=== PATIENT | male | born 1950 | race African-American/Black ===

== ENCOUNTER 2019-09-07 00:21 | Inpatient (IN) | payer MEDICARE, OTHER ==
[2019-09-07 01:24] LABS: #Eosinphils 0.1 thou/uL (0.0-0.7); #Lymphocytes 0.9 thou/uL (1.20-3.40); #Monocytes 0.6 thou/uL (0.11-0.59); #Neutrophils 3.2 thou/uL (1.40-6.50); %Basophils 0.4 % (0.0-1.0); %Lymphocytes 18.1 % (21.0-51.0); %Monocytes 12.5 % (0.0-10.0); Hemoglobin 11.7 g/dL (14.0-18.0); Mean Platelet Volume 9.3 fL (7.4-10.4); Platelet Count 150 thou/uL (130-400); RBC Distribution Width 18.3 % (11.5-14.5); Red Blood Cell (RBC) Count 3.55 mill/uL (4.70-6.10); White Blood Cell (WBC) Count 4.7 thou/uL (4.8-10.8)
[2019-09-07 01:37] LABS: ALT (SGPT) Less than 7 U/L (8-55); AST (SGOT) 7 U/L (5-34); Albumin 3.8 g/dL (3.4-4.8); Alkaline Phosphatase 86 U/L (40-110); Anion Gap 21 mmol/L (10-20); BUN (Urea Nitrogen) 70 mg/dL (8.4-25.7); Bilirubin, Total 0.6 mg/dL (0.2-1.2); Calc. Creatinine Clearance 0 mL/min (70-130); Calcium 9.3 mg/dL (7.8-10.44); Carbon Dioxide 22 mmol/L (23-31); Chloride 104 mmol/L (98-107); Estimated GFR-MDRD 11; Globulin 2.4 g/dL (2.4-3.5); Glucose 195 mg/dL (80-115); Potassium 5.1 mmol/L (3.5-5.1); Protein, Total 6.2 g/dL (5.8-8.1); Sodium 142 mmol/L (136-145)
[2019-09-07 02:00] LABS: CKMB 4.8 ng/mL (0-6.6)
[2019-09-07] MEDS ORDERED: Ondansetron ODT 4 MG TAB PO PRN (02:03)
[2019-09-07] MEDS ORDERED: Dextrose 5% in Water 1,000 ML IV PRN (02:10)
[2019-09-07] MEDS ORDERED: Furosemide 20 MG/2 ML VIAL ONE (02:24)
--- NOTE | 2019-09-07 02:29 | PDOC.EVN ---
Event Note - Event Note Event Note: [id number]
[2019-09-07 02:41] LABS: Lactic Acid 1.4 mmol/L (0.5-2.2)
[2019-09-07 03:56] LABS: #Eosinphils 0.2 thou/uL (0.0-0.7); #Lymphocytes 1.1 thou/uL (1.20-3.40); #Monocytes 0.7 thou/uL (0.11-0.59); #Neutrophils 3.1 thou/uL (1.40-6.50); %Basophils 0.1 % (0.0-1.0); %Eosinophils 3.3 % (0.0-10.0); %Lymphocytes 21.4 % (21.0-51.0); %Monocytes 13.7 % (0.0-10.0); %Neutrophils 61.4 % (42.0-75.0); Hemoglobin 11.7 g/dL (14.0-18.0); Mean Corpuscular HGB CONC 31.3 g/dL (32.0-36.0); Mean Corpuscular Hemoglobin 32.5 pg (27.0-31.0); Mean Platelet Volume 5.8 fL (7.4-10.4); Platelet Count 34 thou/uL (130-400); RBC Distribution Width 18.2 % (11.5-14.5)
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
[2019-09-07 05:42] LABS: Bilirubin 1+ (Negative); Blood, Urine Negative (Negative); Clarity Turbid (Clear); Glucose, Urine (Dipstick) 30 mg/dL (Negative); Leukocyte 75 Leu/uL (Negative); Mucous/LPF Rare LPF (<2+); Nitrite Negative (Negative); Protein, Urine (Dipstick) 100 mg/dL (Neg-Trace); Urobilinogen 3 mg/dL (Less than 2)
[2019-09-07 05:44] LABS: Bacteria/HPF 1+ HPF (None Seen)
[2019-09-07 05:45] LABS: Unclassified Crystals Rare HPF (None Seen)
[2019-09-07] MEDS ORDERED: Acetaminophen 325 MG TAB ONE (05:56)
[2019-09-07] MEDS ORDERED: Furosemide 40 MG/4 ML VIAL ONE (05:56)
[2019-09-07] MEDS: Furosemide 40 MG/4 ML VIAL SLOW IVP SCH ×2 (06:22→15:38)
[2019-09-07 07:09] LABS: Troponin I 0.126 ng/mL (< 0.028)
--- NOTE | 2019-09-07 07:30 | RAD ---
RADIOGRAPH CHEST 1 VIEW: DATE: 09/07/2019 TIME: 1:05 AM HISTORY: 69-year-old male with dyspnea COMPARISON: 04/17/2016 FINDINGS: In addition to previously demonstrated multiple right subclavian, right axillary, and right brachioce phalic metallic venous stents, there is a new right-sided large caliber hemodialysis catheter with distal tip probably in the inferior vena cava. New finding of complete silhouetting of the bilateral hemidiaphragms with dense opacification. New finding of opacification of perihilar central portions of the lungs. No pneumothorax identified. IMPRESSION: 1. Bilateral pleural effusions. 2. Central and bibasilar pulmonary opacifications. 3. Right-sided hemodialysis catheter with distal tip probably in the inferior vena cava.
[2019-09-07] MEDS: Heparin 5,000 UNITS/ML VIAL SC SCH ×2 (08:42→15:07)
[2019-09-07] MEDS ORDERED: Famotidine 20 MG TAB ONE (08:44)
[2019-09-07] MEDS ORDERED: Aspirin Chewable 81 MG TAB ONE (08:44)
--- NOTE | 2019-09-07 08:47 | ULT ---
PRELIMINARY REPORT/[facility]/EMERGENCY AFTER HOURS PROCEDURE: EXAM: US Scrotum. CLINICAL HISTORY: Bilat teste pain/edema TECHNIQUE: Real-time ultrasound of the scrotum with color Doppler and image documentation. COMPARISON: None provided. FINDINGS: RIGHT TESTICLE: No mass. Normal Doppler flow. Measures 2.7 x 3.6 x 2.3 cm and demonstrates mild soft tissue edema LEFT TESTICLE: No mass. Normal Doppler flow. Measures 2.4 x 3.1 x 1.5 cm EPIDIDYMIDES: Unremarkable. SCROTUM: A small right-sided hydrocele is noted with scrotal wall edema. IMPRESSION: The findings suggest possible right-sided orchitis. There is no evidence for testicular torsion ELECTRONICALLY SIGNED BY: Horace German MD Sep 07, 2019 2:39:08 AM [employer] COMPLIANCE SPECIALIST This report is intended for review by the ordering physician only, in accordance of law. If you recei ve this report in error, please call [facility] at [phone]. FINAL REPORT: TESTICULAR ULTRASOUND WITH PETER SCALE COLOR FLOW AND SPECTRAL DOPPLER IMAGING: I agree with the preliminary report given by [facility]. POS: [facility]
[2019-09-07] MEDS: Famotidine 20 MG TAB PO SCH (08:53)
[2019-09-07] MEDS ORDERED: Aspirin Chewable 81 MG TAB PO SCH (09:00)
--- NOTE | 2019-09-07 13:18 | CON ---
DATE OF CONSULTATION: HISTORY OF PRESENT ILLNESS: The patient is an unfortunate 69-year-old gentleman ,who presents with increasing dyspnea. The patient has a previous history of congestive heart failure and chronic renal failure. The patient has previously undergone a renal transplantation in 2018. The patient does have chronic renal insufficiency. The patient presented with increasing dyspnea. He denied having any chest discomfort. The patient denies having any previous history of coronary artery disease or any history of myocardial infarction. The patient does have multiple cardiac risk factors including diabetes mellitus, hypertension, and dyslipidemia. PAST MEDICAL HISTORY: 1. Chronic renal failure. 2. Hypertension. 3. Diabetes mellitus. 4. Dyslipidemia. 5. Stent placed in the subclavian. 6. Dyslipidemia. 7. Depression. PAST SURGICAL HISTORY: Back surgery, and AV fistula placement. MEDICATIONS: See nursing list. ALLERGIES: MORPHINE, PENICILLIN. FAMILY HISTORY: No strong family history of heart disease. SOCIAL HISTORY: Nonsmoker. REVIEW OF SYSTEMS: Ten-point system noticeable for increasing weakness, otherwise unremarkable. PHYSICAL EXAMINATION: GENERAL: Ill-appearing gentleman, in mild distress. VITAL SIGNS: Blood pressure 143/73. NECK: Showed no jugular venous distention. LUNGS: Have crackles in both lung penn. HEART: Regular rate and rhythm. Normal S1 and S2 with no murmurs. ABDOMEN: Nondistended. EXTREMITIES: Show mild bilateral edema. LABORATORY RESULTS: His sodium is 142, potassium 5.1, chloride 104, bicarbonate 22, BUN 70, and creatinine 6.1. Troponin was 0.103. BNP 778. White blood cell count 5.0, hemoglobin 11.7, hematocrit 37.3, and platelets were 34. IMAGING DATA: His EKG revealed normal sinus rhythm with left axis deviation, right bundle-branch block and a left bundle-branch block with occasional premature ventricular contractions. Echocardiogram revealed normal left ventricular ejection fraction 60% to 65%, moderate LVH, diastolic dysfunction, large pleural effusion. Chest x-ray revealed bilateral pleural effusions. IMPRESSION: 1. Acute on chronic renal failure. 2. Congestive heart failure secondary to diastolic dysfunction. 3. Large pleural effusion. 4. History of renal transplantation. 5. Conduction disease with right bundle-branch block. 6. Diabetes mellitus. 7. Dyslipidemia. 8. Thrombocytopenia. PLAN: This gentleman presents with acute on chronic renal failure. The patient is being diuresed. We would recheck the patient's platelet level. The patient may need to restart dialysis. We will follow this patient with you through his hospitalization. Job ID: [id number] MTDD
[2019-09-07] MEDS ORDERED: SILDENAFIL CITRATE 100 MG PO PRN (14:31)
[2019-09-07] MEDS ORDERED: Docusate 100 MG CAP PO PRN (14:31)
[2019-09-07] MEDS ORDERED: hydrOXYzine 25 MG TAB PO PRN (14:31)
[2019-09-07] MEDS ORDERED: HYDROcodone/Acetaminophen 10/325 mg Tablet PO PRN (14:31)
[2019-09-07] MEDS ORDERED: tiZANidine HCl 4 MG TAB PO PRN (14:31)
[2019-09-07] MEDS ORDERED: Acetaminophen/Codeine 30-300mg Tablet PO PRN (14:31)
[2019-09-07] MEDS ORDERED: Metoprolol Tartrate 50 MG TAB PO SCH (21:00)
[2019-09-07] MEDS ORDERED: RANITIDINE HCL 150 MG PO SCH (21:00)
[2019-09-07] MEDS ORDERED: Amlodipine 5 MG TAB PO SCH (21:00)
[2019-09-07] MEDS ORDERED: Non-Formulary Item 1 EACH (Insulin Detemir [Levemir Flextouch] 35 UNIT) SQ SCH (21:00)
[2019-09-07] MEDS: Mycophenolate 250 MG CAP PO SCH (21:20)
[2019-09-07] MEDS: Atorvastatin Calcium 40 MG TAB PO SCH (21:20)
[2019-09-07] MEDS: Cephalexin 250 MG CAP PO SCH (21:20)
[2019-09-07] MEDS: Magnesium Oxide 400 MG TAB PO SCH (21:20)
[2019-09-07] MEDS: Tacrolimus 0.5 MG CAP PO SCH (21:20)
[2019-09-07] MEDS: Tacrolimus 1 MG CAP PO SCH (21:21)
[2019-09-07] MEDS: DorzolamidE/Timolol 2%/0.5% Ophth Soln 10 ml Bottle EA EYE SCH (21:28)
[2019-09-07] MEDS: Sodium Chloride Nasal 15 GM TUBE EA NARE SCH (21:30)
[2019-09-07] MEDS: Ammonium Lactate 12% Lotion 225 GM BOT TOP SCH (21:30)
[2019-09-07] MEDS: Gabapentin 100 MG CAP PO SCH (21:30)
[2019-09-07] MEDS: Insulin Glargine 35 UNITS in Pre-Filled Syringe 1 EACH SC SCH (21:30)
[2019-09-08] MEDS ORDERED: Sodium Chloride 0.9% 500 ML IV SCH (01:30)
--- NOTE | 2019-09-08 01:30 | PDOC.EVN ---
Event Note - Event Note Event Note: Melania, RN called to inform us of low urinary output, and 150mls via bladder scanner. Discussed with Dr. Abarca, who admitted patient yesterday. Requested for nurses to call Dr. Fitzpatrick again regarding creatinine and decreased urine output. Chart reviewed, bas met ordered stat and awaiting recommendations via Dr. Fitzpatrick.
[2019-09-08 02:09] LABS: Anion Gap 23 mmol/L (10-20); BUN (Urea Nitrogen) 73 mg/dL (8.4-25.7); Calc. Creatinine Clearance 14 mL/min (70-130); Calcium 8.7 mg/dL (7.8-10.44); Carbon Dioxide 13 mmol/L (23-31); Chloride 113 mmol/L (98-107); Estimated GFR-MDRD 10; Glucose 265 mg/dL (80-115); Potassium 7.4 mmol/L (3.5-5.1); Sodium 142 mmol/L (136-145)
[2019-09-08] MEDS ORDERED: Calcium Gluconate 4.6 MEQ in Sodium Chloride 0.9% 100 ML IVPB SCH (02:23)
[2019-09-08] MEDS ORDERED: Sodium Bicarb 50 MEQ/50 ML VIAL IVP SCH (02:30)
[2019-09-08] MEDS ORDERED: Dextrose 50% Abboject 50 ML SYRINGE SLOW IVP SCH (02:30)
[2019-09-08] MEDS ORDERED: Insulin Regular 300 UNITS/3 ML VIAL IVP SCH (02:30)
--- NOTE | 2019-09-08 02:32 | PDOC.EVN ---
Event Note - Event Note Event Note: Potassium 7.4, Dr. Quiñonez notified, we have ordered an amp of bicarb, D50, 10 units of regular insulin, calcium gluconate 1gm and a stat EKG. Will transfer patient to [facility]. Nurse stated she talked to Dr. Fitzpatrick who stated he was on his way to see patient. He was notified prior to new chemistry results.
[2019-09-08 05:26] LABS: Anion Gap 14 mmol/L (10-20); BUN (Urea Nitrogen) 71 mg/dL (8.4-25.7); Calc. Creatinine Clearance 15 mL/min (70-130); Calcium 9.3 mg/dL (7.8-10.44); Carbon Dioxide 30 mmol/L (23-31); Chloride 104 mmol/L (98-107); Estimated GFR-MDRD 11; Glucose 281 mg/dL (80-115); Sodium 143 mmol/L (136-145)
[2019-09-08 05:54] LABS: HIV (1/2) Antibody/Antigen Non-Reactive (NonReactive); HIV 1/2 INDEX 0.08 S/CO (<1.00); Hep C IgG Ab Non-Reactive (NonReactive); Hep C Index 0.07 S/CO (0-0.79)
[2019-09-08] MEDS: Levothyroxine 175 MCG TAB PO SCH (07:39)
[2019-09-08] MEDS: Furosemide 40 MG/4 ML VIAL SLOW IVP SCH ×2 (07:39→14:24)
[2019-09-08 08:49] LABS: HBSAg Index 0.13 S/CO (0-0.99); Hep B Surf Ag Non-Reactive S/CO (NonReactive)
[2019-09-08] MEDS ORDERED: Tuberculin PPD 0.1 ML VIAL I-DERMAL SCH (09:00)
[2019-09-08] MEDS ORDERED: INSULIN DETEMIR 75 UNIT SQ SCH (09:00)
[2019-09-08] MEDS ORDERED: Heparin 10,000 UNITS/ 10 ML VIAL ONE (09:07)
[2019-09-08] MEDS: Aspirin 81 mg Enteric Coated Tablet PO SCH (11:29)
[2019-09-08] MEDS: Cephalexin 250 MG CAP PO SCH (11:29)
[2019-09-08] MEDS: Famotidine 20 MG TAB PO SCH (11:30)
[2019-09-08] MEDS: Magnesium Oxide 400 MG TAB PO SCH (11:30)
[2019-09-08] MEDS: DorzolamidE/Timolol 2%/0.5% Ophth Soln 10 ml Bottle EA EYE SCH ×2 (11:30→22:11)
[2019-09-08] MEDS: Gabapentin 100 MG CAP PO SCH (11:30)
[2019-09-08] MEDS: Multivit, Therapeutic 1 TAB PO SCH (11:31)
[2019-09-08] MEDS: Mycophenolate 250 MG CAP PO SCH ×2 (11:31→23:42)
[2019-09-08] MEDS: predniSONE 5 MG TAB PO SCH (11:31)
[2019-09-08] MEDS: Insulin Glargine 75 UNITS in Pre-Filled Syringe 1 EACH SC SCH (11:32)
[2019-09-08] MEDS: Sodium Chloride Nasal 15 GM TUBE EA NARE SCH ×2 (11:32→22:11)
[2019-09-08] MEDS: Tacrolimus 1 MG CAP PO SCH ×2 (11:33→23:42)
[2019-09-08] MEDS: Tacrolimus 0.5 MG CAP PO SCH ×2 (11:34→23:43)
[2019-09-08] MEDS: Ammonium Lactate 12% Lotion 225 GM BOT TOP SCH ×2 (12:15→22:42)
[2019-09-08] MEDS: Witch Hazel-Glycerin 1 EACH JAR TOP SCH (12:16)
[2019-09-08 12:44] LABS: Hemoglobin 12.2 g/dL (14.0-18.0); Mean Corpuscular HGB CONC 32.2 g/dL (32.0-36.0); Mean Corpuscular Hemoglobin 34.2 pg (27.0-31.0); RBC Distribution Width 18.2 % (11.5-14.5); Red Blood Cell (RBC) Count 3.56 mill/uL (4.70-6.10)
[2019-09-08 13:00] LABS: Mean Platelet Volume 9.3 fL (7.4-10.4); Platelet Count 118 thou/uL (130-400)
[2019-09-08 13:03] LABS: Anisocytosis SLIGHT = 6-15 cells (100X) (0-5/hpf); Eosinophils 1 % (0-10); Howell Jolly Bodies SLIGHT = 1-2 cells (100X) (None Seen); Lymphocytes 15 % (21-51); MDiff Complete? YES; Macrocytosis SLIGHT = 6-15 cells (100X) (0-5/hpf); Monocytes 12 % (0-10); Neutrophil 70 % (42-75); Ovalocytes SLIGHT = 2-5 cells (100X) (0-1/hpf); Platelet Morphology Comment Appears Decreased; Poikilocytosis SLIGHT = 6-15 cells (100X) (0-5/hpf); Polychromasia SLIGHT = 2-3 cells (100X) (0-2/hpf); Reactive Lymphocytes 2 % (0-10); Schistocytes SLIGHT = 2-5 cells (100X) (0-1/hpf); Tear Drops SLIGHT = 2-5 cells (100X) (0-1/hpf)
--- NOTE | 2019-09-08 13:43 | PRG ---
DATE OF SERVICE: 09/08/2019 SUBJECTIVE: The patient is seen and examined at the bedside. The patient's family is present in the room. The patient is not communicating with them and not able to communicate with me. He is not arousable. He responds to painful stimuli. Apparently, he is like this for the last 2 days. OBJECTIVE: VITAL SIGNS: Blood pressure is 111/57, pulse is 56, temperature is 96.8, respiratory rate is 16, O2 saturation is 94% on 2 L by nasal cannula. HEENT: His left eye is not present in the socket. The right eye pupil is responding to light in a sluggish way and sclera is nonicteric. Conjunctiva is palish. Oral mucosa is not examined. LUNGS: Breath sounds diminished at both bases. Apparent pleural effusion is present showing some dullness on percussion at both bases. HEART: S1, S2 normal with occasional irregular beats. No S3. No S4. ABDOMEN: Soft, nontender, and nondistended. Left groin, the patient has a catheter for dialysis. EXTREMITIES: 1 to 2+ peripheral edema in the upper and lower extremities with significant wrinkling over the lower extremities. NEUROLOGIC: He is in deep coma. Arousable with painful stimuli, but not able to open his eyes and keep any communication with me. He falls asleep right back. LABORATORY DATA: White count of 6.0, hemoglobin of 12.2, hematocrit 37.8, platelet count is 118,000. Last chemistry, sodium of 143, potassium 5.0, hemoglobin of 104, CO2 of 30, BUN 71, creatinine is 6.28, glucose is 281. Glycemia is ranging from 190 to 251. Calcium is 9.3. Hepatitis B surface antigen nonreactive. Hepatitis C antibody nonreactive and HIV 1 and 2 antigen and antibodies nonreactive. Echocardiogram showed estimated LVEF at 60% to 65%. Left ventricular size is normal. Moderate concentric left ventricular hypertrophy present. Impaired relaxation compatible with diastolic dysfunction, mild to moderate tricuspid regurgitation, and large pleural effusion. IMPRESSION: 1. Acute on chronic renal failure, status post kidney transplantation in 2018. 2. Acute exacerbation of congestive heart failure and fluid overload. 3. Acute hyperkalemia corrected with hemodialysis. 4. Diabetes mellitus. 5. Hypertension. 6. Sleep apnea. 7. Comatose state, most likely caused by uremia. PLAN: We will obtain ABGs on him. The patient had the line placed in the left groin by general surgeon for hemodialysis and will continue dialysis per recommendation of our colleter, Dr. Fitzpatrick. We will try to contact a kidney tutor coordinator in [place]. Apparently, the patient was not taking his anti-rejection medications like he was supposed to for at least 7 to 10 days. Preliminary cultures on his blood and urine are negative. We will continue his insulin, which is 75 units of insulin Lantus in the morning and 35 units in the evening since his glycemia is high and even he is not eating at this point because he is in coma. We will continue his tacrolimus, prednisone, and CellCept. We will continue his Synthroid and Lasix. His urine output is very diminished. We will do strict input and output. Job ID: [id number]
--- NOTE | 2019-09-08 14:03 | ULT ---
Abdominal ultrasound: 09/08/2019 COMPARISON: None HISTORY: Renal failure, transplant TECHNIQUE: Multiplanar grayscale sonographic imaging of the abdomen provided. FINDINGS: The pancreas is poorly visualized secondary to body habitus and bowel gas. There is small v olume free fluid adjacent to the liver. Bilateral pleural effusions are present. No discrete focal liver lesion is seen. Imaged IVC and aorta appear grossly unremarkable. A transplant kidney is noted in the right lower quadrant measuring 12.6 x 6.5 x 6.0 cm with a cortica l thickness of 2 cm. The transplant kidney demonstrate no hydronephrosis or mass. The common bile duct measures 2 mm, within normal limits. The gallbladder is distended, measuring 5.1 cm in transverse dimension. Gallbladder contains sludge. Gallbladder wall is thickened, measuring in the 4mm range, significance uncertain. The system consultant reports a negative Seth's sign. There is an atrophic echogenic right kidney measuring 6.5 cm in craniocaudal dimension. The spleen is relatively small measuring 7.3 x 3.1 cm. Left [place] kidney could not be visualized. Urinary bladder is grossly unremarkable. Bilateral pleural effusions are present. IMPRESSION: Small volume ascites. Bilateral pleural effusions. Mild gallbladder wall thickening and g allbladder sludge with negative Seth's sign and no gallstones. Significance uncertain. Gallbladder wall thickening may be on the basis of systemic illness. If there is concern for cholecys titis, hepatobiliary scan is suggested.
[2019-09-08] MEDS: HumaLOG 300 UNITS/3 ML VIAL SC PRN ×2 (14:38→19:12)
--- NOTE | 2019-09-08 17:09 | PDOC.OP ---
Operative Note - Operative Note Operative Note: PROCEDURE: Left femoral hemodialysis catheter placement with ultrasound guidance SURGEON: Jabari Butler M.D. PREOPERATIVE DIAGNOSIS: Acute renal failure with hyperkalemia POSTOPERATIVE DIAGNOSIS: Acute renal failure with hyperkalemia HISTORY: Patient with end-stage renal failure on dialysis. Received a kidney transplant last year. He apparently stopped taking his medications and is now in acute renal failure with hyperkalemia and requires emergency dialysis access. His previously placed vascular access has thrombosed. PROCEDURE: After informed consent was obtained the patient placed in supine position and both femoral areas examined by ultrasound. The right femoral vein was found to be very small but the left femoral vein was adequate size for placement of dialysis catheter. The left groin was prepped and draped in standard sterile fashion. A sterile ultrasound probe was used to identify the patent femoral vein and local anesthesia was infused the skin and subcutaneous tissues overlying this. The vein was accessed under direct ultrasound guidance and a wire threaded through the needle. The needle was removed leaving the wire in place which was confirmed by ultrasound to be within the patent compressible vein. The skin was incised and the tract was dilated. A hemodialysis catheter was placed over the wire and secured to the skin with suture. A Biopatch and Tegaderm dressing was placed. All ports easily aspirated dark venous nonpulsatile blood and easily flushed without resistance. There were no immediate complications. Estimated blood loss is minimal. There were no specimens. The inpatient dialysis nurse was alerted that the patient had dialysis access in place.
[2019-09-08] MEDS: Insulin Glargine 35 UNITS in Pre-Filled Syringe 1 EACH SC SCH (22:12)
[2019-09-09] MEDS: Atorvastatin Calcium 40 MG TAB PO SCH (01:52)
[2019-09-09] MEDS: Gabapentin 100 MG CAP PO SCH ×3 (01:52→21:17)
[2019-09-09] MEDS: Magnesium Oxide 400 MG TAB PO SCH ×3 (01:52→21:17)
[2019-09-09] MEDS: Cephalexin 250 MG CAP PO SCH ×3 (01:52→21:26)
[2019-09-09] MEDS ORDERED: Sodium Chloride 0.9% 250 ML IV SCH (02:15)
[2019-09-09 03:59] LABS: Anion Gap 13 mmol/L (10-20); BUN (Urea Nitrogen) 51 mg/dL (8.4-25.7); Calc. Creatinine Clearance 17 mL/min (70-130); Calcium 8.8 mg/dL (7.8-10.44); Carbon Dioxide 29 mmol/L (23-31); Chloride 105 mmol/L (98-107); Estimated GFR-MDRD 12; Glucose 145 mg/dL (80-115); Sodium 142 mmol/L (136-145)
[2019-09-09] MEDS ORDERED: Norepinephrine 8 MG/0.9% NS 250 ML IVPB SCH (05:42)
[2019-09-09] MEDS ORDERED: fentaNYL Citrate/PF 2,000 MCG in Sodium Chloride 0.9% 60 ML IV SCH (05:57)
[2019-09-09] MEDS ORDERED: DISCONTINUE PREVIOUS NARCOTIC PAIN MEDICATIONS AND BENZODIAZEPINES FS SCH (05:57)
[2019-09-09] MEDS ORDERED: Lorazepam 2 MG/ML VIAL SLOW IVP PRN (05:57)
[2019-09-09] MEDS ORDERED: Morphine 2 MG/ML SYRINGE SLOW IVP PRN (05:57)
[2019-09-09] MEDS ORDERED: Fentanyl BOLUS 250 ML IVPB PRN (05:57)
[2019-09-09] MEDS ORDERED: Propofol BOLUS 1,000 MG/100 ML VIAL IV PRN (05:57)
--- NOTE | 2019-09-09 06:06 | PDOC.EVN ---
Event Note - Event Note Event Note: Bradycardic, Hypotensive,Resp failure. Intubated. Moved to CCU.. Details dictated.. [id number]
[2019-09-09 06:08] LABS: #Basophils 0.1 thou/uL (0.0-0.2); #Lymphocytes 1.3 thou/uL (1.20-3.40); #Monocytes 0.8 thou/uL (0.11-0.59); #Neutrophils 4.6 thou/uL (1.40-6.50); %Basophils 1.1 % (0.0-1.0); %Eosinophils 0.2 % (0.0-10.0); %Lymphocytes 19.1 % (21.0-51.0); %Monocytes 11.9 % (0.0-10.0); %Neutrophils 67.7 % (42.0-75.0); Hemoglobin 11.6 g/dL (14.0-18.0); Mean Corpuscular HGB CONC 30.3 g/dL (32.0-36.0); Mean Corpuscular Hemoglobin 32.7 pg (27.0-31.0); Mean Platelet Volume 9.7 fL (7.4-10.4); Platelet Count 110 thou/uL (130-400); RBC Distribution Width 18.6 % (11.5-14.5); Red Blood Cell (RBC) Count 3.55 mill/uL (4.70-6.10); White Blood Cell (WBC) Count 6.7 thou/uL (4.8-10.8)
[2019-09-09 06:22] LABS: ALT (SGPT) Less than 7 U/L (8-55); AST (SGOT) 5 U/L (5-34); Albumin 3.5 g/dL (3.4-4.8); Alkaline Phosphatase 82 U/L (40-110); Anion Gap 11 mmol/L (10-20); BUN (Urea Nitrogen) 50 mg/dL (8.4-25.7); Bilirubin, Total 0.5 mg/dL (0.2-1.2); Calc. Creatinine Clearance 17 mL/min (70-130); Calcium 10.6 mg/dL (7.8-10.44); Carbon Dioxide 30 mmol/L (23-31); Chloride 106 mmol/L (98-107); Estimated GFR-MDRD 12; Globulin 2.2 g/dL (2.4-3.5); Glucose 145 mg/dL (80-115); Potassium 5.2 mmol/L (3.5-5.1); Protein, Total 5.7 g/dL (5.8-8.1); Sodium 142 mmol/L (136-145)
[2019-09-09 06:32] LABS: Actual Bicarbonate (HCO3a) 27.5 mEq/L (22-28); CO2 Tension 52.6 mmHg (35.0-45.0); Calcium, Ionized 1.19 mmol/L (1.12-1.30); Carboxyhemoglobin (COHb) 1.5 gm% (0.0-3.0); Hemoglobin (Hb) 11.5 g/dL (14.0-18.0); Potassium - ABG Lab 4.67 mmol/L (3.70-5.30); pH, Arterial 7.34 (7.35-7.45)
--- NOTE | 2019-09-09 06:37 | PRG ---
DATE OF SERVICE: 09/09/2019 Toshia bailey was called. Prior to that, the patient became bradycardic and unresponsive with blood pressure dropping. I immediately went to the bedside. The patient is bradycardic and blood pressure in the 40s. The patient has end-stage renal disease, who was just restarted on hemodialysis. The patient was given one ampule of sodium bicarb, atropine and calcium chloride. Blood pressure picked up to 100/40. The patient was intubated, hence placed on mechanical ventilator. The patient is transferred to the critical care unit. Chest x-ray ordered. Labs were ordered. We will consult inside sales person. Critical care time spent with the patient about 35 minutes. Job ID: [id number]
[2019-09-09 06:43] LABS: O2 Tension (PaO2) 59.6 mmHg (> 70.0); Puncture Site LRA
[2019-09-09] MEDS: Levothyroxine 175 MCG TAB PO SCH (07:03)
[2019-09-09] MEDS: Insulin Glargine 75 UNITS in Pre-Filled Syringe 1 EACH SC SCH ×2 (09:00→09:16)
[2019-09-09] MEDS: Tacrolimus 1 MG CAP PO SCH ×2 (09:00→21:26)
[2019-09-09] MEDS: Multivit, Therapeutic 1 TAB PO SCH ×2 (09:00→09:16)
[2019-09-09] MEDS: Mycophenolate 250 MG CAP PO SCH ×2 (09:00→22:34)
[2019-09-09] MEDS: DorzolamidE/Timolol 2%/0.5% Ophth Soln 10 ml Bottle EA EYE SCH ×2 (09:14→21:17)
[2019-09-09] MEDS: Aspirin 81 mg Enteric Coated Tablet PO SCH (09:15)
[2019-09-09] MEDS: Famotidine 20 MG TAB PO SCH (09:15)
[2019-09-09] MEDS: predniSONE 5 MG TAB PO SCH (09:15)
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
--- NOTE | 2019-09-09 10:17 | RAD ---
CHEST 1 VIEW: HISTORY: Post CPR/intubation, respiratory distress. COMPARISON: 09/07/2019. FINDINGS: Placement of an NG tube and endotracheal tube. Right venous access catheter. Multiple right-sided v enous vascular stents. There are fairly marked bilateral pleural effusions. Bilateral vascular meseret estion. Heart size is difficult to assess but probably at least within upper range of normal limits. IMPRESSION: Bilateral pleural effusions and vascular congestion. Life support tubes in place. Continue short-te followup. POS: [facility]
[2019-09-09] MEDS ORDERED: Dextrose 50 % In Water 50 ML SYRINGE ONE ×3 (10:31→22:05)
[2019-09-09] MEDS ORDERED: Tacrolimus 0.5 MG CAP PO SCH (12:30)
[2019-09-09] MEDS ORDERED: Mycophenolate 250 MG CAP PO SCH (12:30)
[2019-09-09] MEDS ORDERED: Tacrolimus 1 MG CAP PO SCH (12:30)
[2019-09-09] MEDS: Ammonium Lactate 12% Lotion 225 GM BOT TOP SCH ×2 (13:00→21:16)
[2019-09-09] MEDS: Tacrolimus 0.5 MG CAP PO SCH ×2 (13:00→21:18)
[2019-09-09] MEDS: Sodium Chloride Nasal 15 GM TUBE EA NARE SCH ×2 (13:01→21:17)
[2019-09-09] MEDS: Witch Hazel-Glycerin 1 EACH JAR TOP SCH (13:02)
--- NOTE | 2019-09-09 13:54 | PRG ---
DATE OF SERVICE: 09/09/2019 SUBJECTIVE: The patient is seen and examined at the bedside. He was moved to intensive care unit after the code was called. Apparently, he is keeley down to the 30s and he got intubated and placed on the ventilator this morning and he is not making urine. His kidneys are shutting down. OBJECTIVE: VITAL SIGNS: Blood pressure is 109/58, pulse is 69, and respiratory rate is 22. He is on FiO2 of 40%. His O2 saturation is 99%. GENERAL: He is intubated orally and ventilated. He is sedated. LUNGS: Breath sounds are very diminished at both bases with dullness in both bases on percussion. HEART: S1 and S2, somewhat distant. No S3. No S4. ABDOMEN: Soft and nondistended. Bowel sounds are very sluggish. There is a catheter for dialysis in the left groin. EXTREMITIES: 1 to 2+ peripheral edema in the upper and lower extremities. NEUROLOGIC: Postponed since he is sedated at the time of my visit. LABORATORY DATA: Labs showed a white count of 6.7, hemoglobin of 11.6, hematocrit of 38.4, and platelet count is 110. ABG showed pH of 7.34, pCO2 of 52.6, pO2 of 59.6, and base excess of 1.0. Sodium of 142, potassium 5.2, chloride 106, CO2 of 30, BUN 50, creatinine 5.6, glycemia is ranging from 71 to 210, calcium 10.6, serum total protein 5.7, alkaline phosphatase 82, and globulin 2.2. Microbiology, two blood cultures negative, thus preliminary report and cultures were obtained yesterday. Urine culture showed 25,000 to 50,000 CFUs/mL of mixed skin isabel present. IMPRESSION: 1. Acute on chronic renal failure, status post kidney transplantation in 2018. His transplanted kidney is failing. He does not have much urine output at this point. His nutrition director is Dr. Fitzpatrick on this case. He was intubated this morning secondary to his fluid overload. Yesterday, he was not able to receive adequate hemodialysis since his blood pressure was dropping and fluids was removed was very minimal, less than 100 mL. 2. Acute exacerbation of congestive heart failure and fluid overload. 3. Acute hyperkalemia corrected with hemodialysis. 4. Diabetes mellitus type 2. 5. Hypertension. 6. Sleep apnea. 7. Uremia. PLAN: I am going to cut back on his insulin regimen since he is becoming hypoglycemic and we will try to do dialysis again today trying to remove fluid. There is a fluid overload. He is not able to expel excess of water from his body since his transplanted kidney is not functioning anymore. Most likely, it failed. We know that he stopped taking his anti-rejection medications for quite some time, just not know exactly how long it was. We will continue support and mechanical ventilation. Job ID: [id number]
[2019-09-09] MEDS: Dextrose 50% Abboject 50 ML SYRINGE SLOW IVP PRN ×4 (15:28→22:06)
[2019-09-09] MEDS: Hydrocortisone Sod Succ/PF 100 mg/2 ml Vial IVP SCH ×2 (17:28→23:03)
[2019-09-09] MEDS ORDERED: Dextrose 50% Abboject 50 ML SYRINGE SLOW IVP SCH (17:30)
[2019-09-09] MEDS ORDERED: STERILE WATER IV SCH (21:15)
[2019-09-09] MEDS ORDERED: DEXTROSE 70% IV SCH (21:15)
[2019-09-09] MEDS ORDERED: WATER IV SCH (21:15)
[2019-09-09] MEDS: Insulin Glargine 35 UNITS in Pre-Filled Syringe 1 EACH SC SCH (21:19)
[2019-09-09] MEDS: WATER IV SCH (21:55)
[2019-09-09] MEDS: DEXTROSE IV SCH (21:55)
[2019-09-09] MEDS: [UNRECOGNIZED DRUG - OTHER] IV SCH (21:55)
[2019-09-09] MEDS: ADMIXTURE FEE IV SCH (21:55)
[2019-09-10] MEDS: Dextrose 50% Abboject 50 ML SYRINGE SLOW IVP PRN (00:33)
[2019-09-10 02:23] LABS: #Lymphocytes 0.6 thou/uL (1.20-3.40); #Monocytes 0.4 thou/uL (0.11-0.59); #Neutrophils 4.4 thou/uL (1.40-6.50); %Eosinophils 0.1 % (0.0-10.0); %Lymphocytes 11.2 % (21.0-51.0); %Monocytes 6.6 % (0.0-10.0); %Neutrophils 82.2 % (42.0-75.0); Hemoglobin 10.2 g/dL (14.0-18.0); Mean Corpuscular HGB CONC 32.1 g/dL (32.0-36.0); Mean Corpuscular Hemoglobin 32.8 pg (27.0-31.0); Platelet Count 60 thou/uL (130-400); RBC Distribution Width 18.4 % (11.5-14.5); Red Blood Cell (RBC) Count 3.11 mill/uL (4.70-6.10); White Blood Cell (WBC) Count 5.4 thou/uL (4.8-10.8)
[2019-09-10 02:47] LABS: Anion Gap 15 mmol/L (10-20); BUN (Urea Nitrogen) 35 mg/dL (8.4-25.7); Calc. Creatinine Clearance 22 mL/min (70-130); Calcium 8.6 mg/dL (7.8-10.44); Carbon Dioxide 27 mmol/L (23-31); Chloride 103 mmol/L (98-107); Estimated GFR-MDRD 16; Glucose 79 mg/dL (80-115); Potassium 3.6 mmol/L (3.5-5.1); Sodium 141 mmol/L (136-145)
[2019-09-10] MEDS: Hydrocortisone Sod Succ/PF 100 mg/2 ml Vial IVP SCH ×3 (05:58→16:42)
[2019-09-10] MEDS: Levothyroxine 175 MCG TAB PO SCH (06:34)
[2019-09-10 06:53] LABS: Actual Bicarbonate (HCO3a) 25.6 mEq/L (22-28); Base Excess (BEa) 4.3 mEq/L (-2.0 to +3.0); CO2 Tension 27.7 mmHg (35.0-45.0); Calcium, Ionized 1.09 mmol/L (1.12-1.30); Carboxyhemoglobin (COHb) 0.9 gm% (0.0-3.0); Hemoglobin (Hb) 11.4 g/dL (14.0-18.0); Potassium - ABG Lab 3.54 mmol/L (3.70-5.30)
[2019-09-10 07:07] LABS: O2 Tension (PaO2) 54.8 mmHg (> 70.0); pH, Arterial 7.58 (7.35-7.45)
[2019-09-10 07:12] LABS: Puncture Site LRA
[2019-09-10 07:13] LABS: ALV-art Gradient 231.425 (0-20)
[2019-09-10 08:34] LABS: Reference Lab Name LABCORP
[2019-09-10 08:35] LABS: Ref Lab Test Ordered Mycophenolate
[2019-09-10] MEDS: Mycophenolate 250 MG CAP PO SCH ×2 (09:26→20:38)
[2019-09-10] MEDS: Tacrolimus 1 MG CAP PO SCH ×2 (09:26→20:37)
[2019-09-10] MEDS: Aspirin 81 mg Enteric Coated Tablet PO SCH (09:28)
[2019-09-10] MEDS: Magnesium Oxide 400 MG TAB PO SCH ×2 (09:29→20:38)
[2019-09-10] MEDS: Gabapentin 100 MG CAP PO SCH ×2 (09:29→20:37)
[2019-09-10] MEDS: Multivit, Therapeutic 1 TAB PO SCH (09:29)
[2019-09-10] MEDS: Famotidine 20 MG TAB PO SCH (09:29)
[2019-09-10] MEDS: Insulin Glargine 75 UNITS in Pre-Filled Syringe 1 EACH SC SCH (09:29)
[2019-09-10] MEDS: Tacrolimus 0.5 MG CAP PO SCH ×2 (09:31→20:38)
[2019-09-10] MEDS: Sodium Chloride Nasal 15 GM TUBE EA NARE SCH ×2 (09:32→20:36)
[2019-09-10] MEDS: DorzolamidE/Timolol 2%/0.5% Ophth Soln 10 ml Bottle EA EYE SCH ×2 (09:32→20:36)
[2019-09-10] MEDS: Ammonium Lactate 12% Lotion 225 GM BOT TOP SCH ×2 (09:32→20:36)
[2019-09-10] MEDS: READ PPD TEST SITE PO SCH (09:41)
[2019-09-10] MEDS: Witch Hazel-Glycerin 1 EACH JAR TOP SCH (09:41)
--- NOTE | 2019-09-10 09:59 | PDOC.HOSPP ---
- Subjective Encounter Date: 09/10/19 Encounter Time: 13:00 non-verbal Subjective: intubated, arousable due to weaned sedation - Objective Vital Signs & Weight: Vital Signs (12 hours) Temp Pulse Resp BP Pulse Ox 09/10/19 07:00 98.2 F 09/10/19 06:32 61 119/52 L 09/10/19 06:29 61 22 H 97 09/10/19 06:00 22 H 09/10/19 04:00 98.8 F 22 H 09/10/19 03:15 61 114/52 L 09/10/19 02:00 22 H 09/10/19 01:33 63 09/10/19 01:32 100 09/10/19 00:00 100.2 F H 22 H 09/09/19 22:27 64 104/48 L 09/09/19 22:00 99.3 F 22 H Weight Admit Weight 211 lb 1.6 oz Weight 208 lb 1.862 oz Most Recent Monitor Data Heart Rate from ECG 63 NIBP 104/57 NIBP BP-Mean 82 Respiration from ECG 12 SpO2 100 I&O: 09/09/19 09/10/19 09/11/19 06:59 06:59 06:59 Intake Total 915 1252.9 Output Total 270 0 Balance 915 982.9 0 Result Diagrams: 09/10/19 02:05 09/10/19 02:05 Additional Labs: Accuchecks 09/10/19 09/10/19 09/10/19 08:41 07:38 06:00 POC Glucose 89 88 90 09/10/19 09/10/19 09/10/19 04:52 04:06 03:03 POC Glucose 68 L 67 L 75 09/10/19 09/10/19 09/10/19 02:09 01:09 00:32 POC Glucose 78 128 H 56 L* 09/09/19 09/09/19 09/09/19 23:12 22:07 20:28 POC Glucose 73 41 L* 69 L 09/09/19 09/09/19 09/09/19 19:06 17:35 16:45 POC Glucose 66 L 108 46 L* 09/09/19 09/09/19 09/09/19 16:01 15:25 11:04 POC Glucose 47 L* Less than 35 L* 71 09/09/19 10:22 POC Glucose 56 L* Hospitalist ROS - Review of Systems ROS unobtainable: due to endotracheal tube - Medication Medications: Active Medications Generic Name Dose Route Start Last Admin Trade Name Freq PRN Reason Stop Dose Admin Albuterol/Ipratropium 3 ml 09/09/19 13:00 09/10/19 06:29 Duoneb NEB 3 ml [id number] RAJEEV Administration Ammonium Lactate 0 gm 09/07/19 21:00 09/10/19 09:32 Laclotion TOP 225 gm BID RAJEEV Administration Aspirin 81 mg 09/08/19 09:00 09/10/19 09:28 Ecotrin PO 81 mg DAILY RAJEEV Administration Cephalexin 250 mg 09/07/19 21:00 09/09/19 21:26 Keflex PO 250 mg BID RAJEEV Administration Cholecalciferol 2,000 units 09/08/19 09:00 09/09/19 15:00 Vitamin D3 PO 2,000 units DAILY RAJEEV Administration Clotrimazole 10 mg 09/07/19 17:00 09/10/19 09:38 Mycelex Sujatha PO Not Given TID-WM RAJEEV Dextrose/Water 25 gm 09/07/19 02:10 09/10/19 00:33 Dextrose 50% SLOW IVP 25 gm PRN PRN Administration Hypoglycemia Dorzolamide/Timolol 1 drop 09/07/19 21:00 09/10/19 09:32 Cosopt 2-0.5% Ophth Soln EA EYE 1 drop BID RAJEEV Administration Famotidine 20 mg 09/07/19 09:00 09/10/19 09:29 Pepcid PO Not Given DAILY RAJEEV Gabapentin 100 mg 09/07/19 21:00 09/10/19 09:29 Neurontin PO 100 mg BID RAJEEV Administration Hydrocortisone Sodium Succinate 50 mg 09/09/19 18:00 09/10/19 05:58 Solu-Cortef IVP 09/16/19 18:01 50 mg Q6HR RAJEEV Administration Insulin Glargine 35 units/ 0.35 mls @ 0 mls/hr 09/07/19 21:00 09/09/19 21:19 Miscellaneous Medication SC Not Given HS RAJEEV Insulin Glargine 75 units/ 0.75 mls @ 0 mls/hr 09/08/19 09:00 09/10/19 09:29 Miscellaneous Medication SC Not Given QAM RAJEEV Fentanyl Citrate 2,000 mcg/ 100 mls @ 0 mls/hr 09/09/19 05:57 09/09/19 06:06 Sodium Chloride IV 10/09/19 05:57 100 mls INF RAJEEV Administration Protocol Per Protocol Miscellaneous Medication 1 1,000 mls @ 50 mls/hr 09/09/19 21:15 09/09/19 21: 55 each/ Dextrose/Water/ Sterile IV 1,000 mls Water .Q20H RAJEEV Administration Insulin Human Lispro 0 units 09/07/19 02:10 09/08/19 19:12 Humalog SC 3 unit .MILD SLIDING SCALE PRN Administration Mild Correctional Scale Levothyroxine Sodium 175 mcg 09/08/19 06:00 09/10/19 06:34 Synthroid PO 175 mcg 0600 RAJEEV Administration Magnesium Oxide 800 mg 09/07/19 21:00 09/10/19 09:29 Magnesium Oxide PO 800 mg BID RAJEEV Administration Multivitamins 1 tab 09/08/19 09:00 09/10/19 09:29 Theragran PO 1 tab DAILY RAJEEV Administration Mycophenolate Mofetil 500 mg 09/07/19 21:00 09/10/19 09:26 Cellcept PO 500 mg BID RAJEEV Administration Read Ppd Test Site 0 each 09/10/19 09:00 09/10/19 09:41 PO 09/11/19 11:00 1 each 0900 RAJEEV Administration Sodium Chloride/Aloe Vera 0 gm 09/07/19 21:00 09/10/19 09:32 [place] W/Aloe Gel EA NARE 2 spr BID RAJEEV Administration Tacrolimus 5 mg 09/07/19 21:00 09/10/19 09:26 Prograf PO 5 mg BID RAJEEV Administration Tacrolimus 0.5 mg 09/07/19 21:00 09/10/19 09:31 Prograf PO 0.5 mg BID RAJEEV Administration Witch Tamiko/Glycerin 1 each 09/08/19 09:00 09/10/19 09:41 Tucks Pads TOP 1 each DAILY RAJEEV Administration - Exam General Appearance: NAD, awake alert Eye - other findings: prosthetic eye ENT - other findings: ET tube in place Heart: RRR, no murmur Respiratory: CTAB Gastrointestinal: soft, non-tender, non-distended Neurological: cranial nerve grossly intact, no focal deficits Musculoskeletal - other findings: moves all extremities to stimulation Hosp A/P (1) Acute respiratory failure with hypoxia Code(s): J96.01 - ACUTE RESPIRATORY FAILURE WITH HYPOXIA Status: Acute Plan: due to volume overload from renal failure, intubated and on the ventilator, Dr. Hernandez following (2) ESRD on dialysis Code(s): N18.6 - END STAGE RENAL DISEASE; Z99.2 - DEPENDENCE ON RENAL DIALYSIS Status: Acute Plan: Kidney transplant 2018 failed, now requiring dialysis again, emergency dialysis cath placed by Dr. Butler, unable to dialyze much due to low BP yesterday (3) Acute on chronic diastolic (congestive) heart failure Code(s): I50.33 - ACUTE ON CHRONIC DIASTOLIC (CONGESTIVE) HEART FAILURE Status : Acute (4) Insulin dependent diabetes mellitus Code(s): E11.9 - TYPE 2 DIABETES MELLITUS WITHOUT COMPLICATIONS; Z79.4 - DEWAXER (CURRENT) USE OF INSULIN Status: Chronic Plan: now with recurrent hypoglycemia due to no po intake and kidney failure, d/c insulin and monitor (5) CAD (coronary artery disease) Code(s): I25.10 - ATHSCL HEART DISEASE OF [place] CORONARY ARTERY W/O ANG PCTRS Status: Chronic (6) Hypothyroidism Code(s): E03.9 - HYPOTHYROIDISM, UNSPECIFIED Status: Chronic (7) BLANE (obstructive sleep apnea) Code(s): G47.33 - OBSTRUCTIVE SLEEP APNEA (ADULT) (PEDIATRIC) Status: Chronic - Plan respiratory therapy dialyze and then wean vent per pulmonology Pulmonology Consult: Meds - Medications MAR Reviewed: Yes Medications: Current Medications Acetaminophen (Tylenol) 650 mg PO Q4H PRN PRN Reason: Headache/Fever/Mild Pain (1-3) Albuterol/Ipratropium (Duoneb) 3 ml NEB [id number] RAJEEV Last Admin: 09/10/19 06:29 Dose: 3 ml Ammonium Lactate (Laclotion) 0 gm TOP BID RAJEEV Last Admin: 09/10/19 09:32 Dose: 225 gm Aspirin (Ecotrin) 81 mg PO DAILY RAJEEV Last Admin: 09/10/19 09:28 Dose: 81 mg Cephalexin (Keflex) 250 mg PO BID [facility] Last Admin: 09/09/19 21:26 Dose: 250 mg Cholecalciferol (Vitamin D3) 2,000 units PO DAILY [facility] Last Admin: 09/09/19 15:00 Dose: 2,000 units Clotrimazole (Mycelex Sujatha) 10 mg PO TID-[facility] Last Admin: 09/10/19 09:38 Dose: Not Given Dextrose/Water (Dextrose 50%) 25 gm SLOW IVP PRN PRN PRN Reason: Hypoglycemia Last Admin: 09/10/19 00:33 Dose: 25 gm Docusate Sodium (Colace) 100 mg PO BIDPRN PRN PRN Reason: Constipation Dorzolamide/Timolol (Cosopt 2-0.5% Ophth Soln) 1 drop EA EYE BID [facility] Last Admin: 09/10/19 09:32 Dose: 1 drop Famotidine (Pepcid) 20 mg PO DAILY [facility] Last Admin: 09/10/19 09:29 Dose: Not Given Gabapentin (Neurontin) 100 mg PO BID [facility] Last Admin: 09/10/19 09:29 Dose: 100 mg Glucagon (Glucagon) 1 mg IM PRN PRN PRN Reason: Hypoglycemia Hydrocortisone Sodium Succinate (Solu-Cortef) 50 mg IVP Q6HR [facility] Stop: 09/16/19 18:01 Last Admin: 09/10/19 05:58 Dose: 50 mg Hydroxyzine HCl (Atarax) 25 mg PO BIDPRN PRN PRN Reason: Itching Dextrose/Water (D5w) 1,000 mls @ 0 mls/hr IV .Q0M PRN PRN Reason: Hypoglycemia Insulin Glargine 35 units/ (Miscellaneous Medication) 0.35 mls @ 0 mls/hr SC HS [facility] Last Admin: 09/09/19 21:19 Dose: Not Given Insulin Glargine 75 units/ (Miscellaneous Medication) 0.75 mls @ 0 mls/hr SC QAM [facility] Last Admin: 09/10/19 09:29 Dose: Not Given Norepinephrine Bitartrate (Levophed) 250 mls @ 0 mls/hr IVPB INF [facility]; Protocol Fentanyl Citrate 2,000 mcg/ (Sodium Chloride) 100 mls @ 0 mls/hr IV INF [facility]; Protocol Stop: 10/09/19 05:57 Last Admin: 09/09/19 06:06 Dose: 100 mls Fentanyl Citrate (Fentanyl Bolus) 250 mls @ 0 mls/hr IVPB PRN PRN PRN Reason: Breakthrough pain/agitation Stop: 10/09/19 05:57 Miscellaneous Medication 1 each/ Dextrose/Water/ Sterile Water 1,000 mls @ 50 mls/hr IV .Q20H [facility] Last Admin: 09/09/19 21:55 Dose: 1,000 mls Insulin Human Lispro (Humalog) 0 units SC .MILD SLIDING SCALE PRN PRN Reason: Mild Correctional Scale Last Admin: 09/08/19 19:12 Dose: 3 unit Levothyroxine Sodium (Synthroid) 175 mcg PO 0600 [facility] Last Admin: 09/10/19 06:34 Dose: 175 mcg Lorazepam (Ativan) 2 mg SLOW IVP Q1H PRN PRN Reason: Breakthrough agitation Stop: 10/09/19 05:57 Magnesium Oxide (Magnesium Oxide) 800 mg PO BID [facility] Last Admin: 09/10/19 09:29 Dose: 800 mg Morphine Sulfate (Morphine) 2 mg SLOW IVP Q1H PRN PRN Reason: BREAKTHROUGH PAIN/Agitation Stop: 10/09/19 05:57 Multivitamins (Theragran) 1 tab PO DAILY [facility] Last Admin: 09/10/19 09:29 Dose: 1 tab Mycophenolate Mofetil (Cellcept) 500 mg PO BID [facility] Last Admin: 09/10/19 09:26 Dose: 500 mg Read Ppd Test Site 0 each PO 0900 [facility] Stop: 09/11/19 11:00 Last Admin: 09/10/19 09:41 Dose: 1 each Ondansetron HCl (Zofran Odt) 4 mg PO Q6H PRN PRN Reason: Nausea/Vomiting Propofol (Diprivan) 1,000 mg IV INF PRN; Protocol PRN Reason: TO ACHIEVE GOAL RASS Stop: 10/09/19 05:57 Propofol (Diprivan Bolus) 20 mg IV Q5MIN PRN PRN Reason: BREAKTHROUGH AGITATION Stop: 10/09/19 05:57 Sodium Chloride/Aloe Vera ([place] W/Aloe Gel) 0 gm EA NARE BID [facility] Last Admin: 09/10/19 09:32 Dose: 2 spr Tacrolimus (Prograf) 5 mg PO BID [facility] Last Admin: 09/10/19 09:26 Dose: 5 mg Tacrolimus (Prograf) 0.5 mg PO BID [facility] Last Admin: 09/10/19 09:31 Dose: 0.5 mg Witch Tamiko/Glycerin (Tucks Pads) 1 each TOP DAILY [facility] Last Admin: 09/10/19 09:41 Dose: 1 each - Allergies Allergies/Adverse Reactions: Allergies Allergy/AdvReac Type Severity Reaction Status Date / Time morphine Allergy Mental Verified 09/07/19 12:13 changes Penicillins Allergy Hives Verified 09/07/19 12:13
[2019-09-10] MEDS: Cephalexin 250 MG CAP PO SCH ×2 (10:08→20:37)
--- NOTE | 2019-09-10 10:34 | RAD ---
PORTABLE AP CHEST X-RAY: HISTORY: On ventilator. Follow-up evaluation. COMPARISON: 09/09/2019 FINDINGS: Endotracheal tube and nasogastric tube remain in place. Vascular stents again overly the right upper chest with right internal jugular vein central venous catheter which may represent a HeRO graft. Ther e are bilateral pleural effusions and associated atelectasis. The pulmonary vasculature remains mildl y increased. Given differences in technique there has been no significant interval change when compar ed to the prior exam. The pacing pad overlying the left chest has been removed. IMPRESSION: 1. Overall stable chest with lines and tubes remaining stable in position with overall stable bilater al pleural effusions and atelectasis. 2. Mild pulmonary vascular congestion. POS: [facility]
[2019-09-10] MEDS: Propofol 1,000 MG/100 ML VIAL IV PRN (11:36)
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
[2019-09-10] MEDS: ADMIXTURE FEE IV SCH (16:42)
[2019-09-10] MEDS: [UNRECOGNIZED DRUG - OTHER] IV SCH (16:42)
[2019-09-10] MEDS: WATER IV SCH (16:42)
[2019-09-10] MEDS: DEXTROSE IV SCH (16:42)
[2019-09-10] MEDS ORDERED: Atropine Sulfate 1 mg/10 ml Syringe IVP PRN (18:22)
[2019-09-10] MEDS ORDERED: DOPamine 400 MG/D5W 250 ML 250 ML IVPB SCH (18:30)
[2019-09-10] MEDS: HumaLOG 300 UNITS/3 ML VIAL SC PRN (22:31)
[2019-09-11] MEDS: Hydrocortisone Sod Succ/PF 100 mg/2 ml Vial IVP SCH ×5 (00:03→23:58)
[2019-09-11] MEDS: Dextrose 10% in Water 1,000 ML IV SCH ×2 (01:30→20:44)
[2019-09-11] MEDS: HumaLOG 300 UNITS/3 ML VIAL SC PRN ×3 (02:41→20:47)
[2019-09-11 04:27] LABS: #Lymphocytes 0.5 thou/uL (1.20-3.40); #Monocytes 0.5 thou/uL (0.11-0.59); #Neutrophils 4.6 thou/uL (1.40-6.50); %Lymphocytes 9.2 % (21.0-51.0); %Monocytes 8.1 % (0.0-10.0); %Neutrophils 82.7 % (42.0-75.0); Mean Corpuscular HGB CONC 32.5 g/dL (32.0-36.0); Mean Corpuscular Hemoglobin 32.9 pg (27.0-31.0); Mean Platelet Volume 11.4 fL (7.4-10.4); Platelet Count 61 thou/uL (130-400); RBC Distribution Width 18.2 % (11.5-14.5); Red Blood Cell (RBC) Count 3.35 mill/uL (4.70-6.10); White Blood Cell (WBC) Count 5.5 thou/uL (4.8-10.8)
[2019-09-11 04:43] LABS: Anion Gap 12 mmol/L (10-20); BUN (Urea Nitrogen) 27 mg/dL (8.4-25.7); Calc. Creatinine Clearance 24 mL/min (70-130); Calcium 8.5 mg/dL (7.8-10.44); Carbon Dioxide 28 mmol/L (23-31); Chloride 98 mmol/L (98-107); Estimated GFR-MDRD 19; Glucose 295 mg/dL (80-115); Potassium 3.9 mmol/L (3.5-5.1); Sodium 134 mmol/L (136-145)
[2019-09-11] MEDS: Propofol 1,000 MG/100 ML VIAL IV PRN (05:40)
[2019-09-11] MEDS: Levothyroxine 175 MCG TAB PO SCH (06:22)
[2019-09-11 07:18] LABS: Actual Bicarbonate (HCO3a) 25.5 mEq/L (22-28); Base Excess (BEa) 3.5 mEq/L (-2.0 to +3.0); CO2 Tension 30.4 mmHg (35.0-45.0); Calcium, Ionized 1.06 mmol/L (1.12-1.30); Carboxyhemoglobin (COHb) 0.9 gm% (0.0-3.0); Hemoglobin (Hb) 12.1 g/dL (14.0-18.0); O2 Tension (PaO2) 110.1 mmHg (> 70.0); Potassium - ABG Lab 3.81 mmol/L (3.70-5.30); pH, Arterial 7.54 (7.35-7.45)
[2019-09-11 07:22] LABS: Puncture Site RRA
--- NOTE | 2019-09-11 08:45 | PDOC.HOSPP ---
- Subjective Encounter Date: 09/11/19 Encounter Time: 10:15 non-verbal Subjective: Patient remains intubated. Requiring some levophed to keep up pressures during dialysis. Some persistent high blood sugars overnight on D10W drip. - Objective Vital Signs & Weight: Vital Signs (12 hours) Temp Pulse Resp Pulse Ox 09/11/19 06:57 45 L 09/11/19 06:00 16 09/11/19 04:00 97.7 F 16 09/11/19 02:00 16 09/11/19 00:00 97.9 F 16 09/10/19 23:36 49 L 16 100 09/10/19 22:00 20 Weight Admit Weight 211 lb 1.6 oz Weight 208 lb 8.917 oz Most Recent Monitor Data Heart Rate from ECG 46 NIBP 126/60 NIBP BP-Mean 89 Respiration from ECG 15 SpO2 100 I&O: 09/10/19 09/11/19 09/12/19 06:59 06:59 06:59 Intake Total 1252.9 1814.3 Output Total 270 130 Balance 982.9 1684.3 Result Diagrams: 09/11/19 04:08 09/11/19 04:08 Additional Labs: Accuchecks 09/11/19 09/11/19 09/11/19 06:24 04:12 02:43 POC Glucose 300 H 278 H 273 H 09/11/19 09/10/19 09/10/19 00:01 22:22 16:49 POC Glucose 243 H 240 H 156 H 09/10/19 09/10/19 09/10/19 11:50 09:27 08:41 POC Glucose 124 H 92 89 09/10/19 07:38 POC Glucose 88 Hospitalist ROS - Review of Systems ROS unobtainable: due to endotracheal tube - Medication Medications: Active Medications Generic Name Dose Route Start Last Admin Trade Name Freq PRN Reason Stop Dose Admin Albuterol/Ipratropium 3 ml 09/09/19 13:00 09/11/19 06:57 Duoneb NEB 3 ml [id number] RAJEEV Administration Ammonium Lactate 0 gm 09/07/19 21:00 09/10/19 20:36 Laclotion TOP 225 gm BID RAJEEV Administration Aspirin 81 mg 09/08/19 09:00 09/10/19 09:28 Ecotrin PO 81 mg DAILY RAJEEV Administration Cephalexin 250 mg 09/07/19 21:00 09/10/19 20:37 Keflex PO 250 mg BID RAJEEV Administration Cholecalciferol 2,000 units 09/08/19 09:00 09/10/19 10:08 Vitamin D3 PO 2,000 units DAILY RAJEEV Administration Clotrimazole 10 mg 09/07/19 17:00 09/10/19 16:20 Mycelex Sujatha PO Not Given TID-WM RAJEEV Dextrose/Water 25 gm 09/07/19 02:10 09/10/19 00:33 Dextrose 50% SLOW IVP 25 gm PRN PRN Administration Hypoglycemia Dorzolamide/Timolol 1 drop 09/07/19 21:00 09/10/19 20:36 Cosopt 2-0.5% Ophth Soln EA EYE 1 drop BID RAJEEV Administration Famotidine 20 mg 09/07/19 09:00 09/10/19 09:29 Pepcid PO Not Given DAILY RAJEEV Gabapentin 100 mg 09/07/19 21:00 09/10/19 20:37 Neurontin PO 100 mg BID RAJEEV Administration Hydrocortisone Sodium Succinate 50 mg 09/09/19 18:00 09/11/19 06:22 Solu-Cortef IVP 09/16/19 18:01 50 mg Q6HR RAJEEV Administration Fentanyl Citrate 2,000 mcg/ 100 mls @ 0 mls/hr 09/09/19 05:57 09/09/19 06:06 Sodium Chloride IV 10/09/19 05:57 100 mls INF RAJEEV Administration Protocol Per Protocol Dexmedetomidine HCl 200 mcg/ 50 mls @ 0 mls/hr 09/10/19 12:45 09/11/19 03:59 Sodium Chloride IVPB 50 mls INF RAJEEV Administration Per Protocol Dextrose/Water 1,000 mls @ 50 mls/hr 09/11/19 01:30 09/11/19 01:30 Dextrose 10% In Water IV 1,000 mls .Q20H RAJEEV Administration Insulin Human Lispro 0 units 09/07/19 02:10 09/11/19 06:22 Humalog SC 4 unit .MILD SLIDING SCALE PRN Administration Mild Correctional Scale Levothyroxine Sodium 175 mcg 09/08/19 06:00 09/11/19 06:22 Synthroid PO 175 mcg 0600 RAJEEV Administration Magnesium Oxide 800 mg 09/07/19 21:00 09/10/19 20:38 Magnesium Oxide PO 800 mg BID RAJEEV Administration Multivitamins 1 tab 09/08/19 09:00 09/10/19 09:29 Theragran PO 1 tab DAILY RAJEEV Administration Mycophenolate Mofetil 500 mg 09/07/19 21:00 09/10/19 20:38 Cellcept PO 500 mg BID RAJEEV Administration Read Ppd Test Site 0 each 09/10/19 09:00 09/10/19 09:41 PO 09/11/19 11:00 1 each 09 RAJEEV Administration Propofol 1,000 mg 09/09/19 05:57 09/11/19 05:40 Diprivan IV 10/09/19 05:57 1,000 mg INF PRN Administration TO ACHIEVE GOAL RASS Protocol Sodium Chloride/Aloe Vera 0 gm 09/07/19 21:00 09/10/19 20:36 [place] W/Aloe Gel EA NARE 2 spr BID RAJEEV Administration Tacrolimus 5 mg 09/07/19 21:00 09/10/19 20:37 Prograf PO 5 mg BID RAJEEV Administration Tacrolimus 0.5 mg 09/07/19 21:00 09/10/19 20:38 Prograf PO 0.5 mg BID RAJEEV Administration Witch Tamiko/Glycerin 1 each 09/08/19 09:00 09/10/19 09:41 Tucks Pads TOP 1 each DAILY RAJEEV Administration - Exam General Appearance: NAD ENT - other findings: ET tube in place Heart: RRR, no murmur, no gallops, no rubs Respiratory: CTAB, no wheezes, no rales, no ronchi Gastrointestinal: soft, normal bowel sounds, no palpable masses Skin: normal turgor, no rashes Psychiatric - other findings: asleep in vent Hosp A/P (1) Acute respiratory failure with hypoxia Code(s): J96.01 - ACUTE RESPIRATORY FAILURE WITH HYPOXIA Status: Acute (2) ESRD on dialysis Code(s): N18.6 - END STAGE RENAL DISEASE; Z99.2 - DEPENDENCE ON RENAL DIALYSIS Status: Acute (3) Acute on chronic diastolic (congestive) heart failure Code(s): I50.33 - ACUTE ON CHRONIC DIASTOLIC (CONGESTIVE) HEART FAILURE Status : Acute (4) Insulin dependent diabetes mellitus Code(s): E11.9 - TYPE 2 DIABETES MELLITUS WITHOUT COMPLICATIONS; Z79.4 - TELEPHONER (CURRENT) USE OF INSULIN Status: Chronic (5) CAD (coronary artery disease) Code(s): I25.10 - ATHSCL HEART DISEASE OF [place] CORONARY ARTERY W/O ANG PCTRS Status: Chronic (6) Hypothyroidism Code(s): E03.9 - HYPOTHYROIDISM, UNSPECIFIED Status: Chronic (7) BLANE (obstructive sleep apnea) Code(s): G47.33 - OBSTRUCTIVE SLEEP APNEA (ADULT) (PEDIATRIC) Status: Chronic - Plan continue antibiotics, respiratory therapy dialyze and then wean vent per pulmonology, patient on Keflex for uncertain reason, possibly his orchitis
--- NOTE | 2019-09-11 09:02 | RAD ---
PORTABLE CHEST: HISTORY: Respiratory distress. COMPARISON: Prior day's exam. FINDINGS: Endotracheal tube is in satisfactory position. There appears to be an NG tube below the hemidiaphragm , difficult to visualize. Right sided central line is stable. Pleural and parenchymal lung changes ar e unchanged. IMPRESSION: Essentially stable examination. POS: [facility]
[2019-09-11] MEDS: Gabapentin 100 MG CAP PO SCH ×2 (09:50→20:43)
[2019-09-11] MEDS: Aspirin 81 mg Enteric Coated Tablet PO SCH (09:51)
[2019-09-11] MEDS: Magnesium Oxide 400 MG TAB PO SCH ×2 (09:51→20:43)
[2019-09-11] MEDS: Tacrolimus 0.5 MG CAP PO SCH ×2 (09:52→20:43)
[2019-09-11] MEDS: Multivit, Therapeutic 1 TAB PO SCH (09:53)
[2019-09-11] MEDS: Mycophenolate 250 MG CAP PO SCH ×2 (09:54→20:42)
[2019-09-11] MEDS: Cephalexin 250 MG CAP PO SCH ×2 (09:55→20:43)
[2019-09-11] MEDS: Tacrolimus 1 MG CAP PO SCH ×2 (09:55→20:43)
[2019-09-11] MEDS: Famotidine 20 MG TAB PO SCH (09:56)
[2019-09-11] MEDS: Ammonium Lactate 12% Lotion 225 GM BOT TOP SCH ×2 (10:46→20:44)
[2019-09-11] MEDS: Witch Hazel-Glycerin 1 EACH JAR TOP SCH (10:46)
[2019-09-11] MEDS: Sodium Chloride Nasal 15 GM TUBE EA NARE SCH ×2 (10:47→20:45)
[2019-09-11] MEDS: DorzolamidE/Timolol 2%/0.5% Ophth Soln 10 ml Bottle EA EYE SCH ×2 (10:47→20:44)
[2019-09-11] MEDS: READ PPD TEST SITE PO SCH (10:55)
[2019-09-11 11:10] LABS: Tacrolimus 36.4 ng/mL (2.0-20.0)
[2019-09-11 14:49] LABS: Actual Bicarbonate (HCO3a) 28.1 mEq/L (22-28); Base Excess (BEa) 6.6 mEq/L (-2.0 to +3.0); CO2 Tension 30.9 mmHg (35.0-45.0); Calcium, Ionized 1.07 mmol/L (1.12-1.30); Carboxyhemoglobin (COHb) 1.1 gm% (0.0-3.0); Hemoglobin (Hb) 13.6 g/dL (14.0-18.0); O2 Tension (PaO2) 112.9 mmHg (> 70.0); Potassium - ABG Lab 3.85 mmol/L (3.70-5.30)
[2019-09-11 14:51] LABS: ALV-art Gradient 204.975 (0-20); Puncture Site LBA; pH, Arterial 7.58 (7.35-7.45)
--- NOTE | 2019-09-11 15:20 | PDOC.EP ---
- Subjective Date: 09/11/19 Time: 09:00 Interval History: follow up for cardiopulmonary arrest with marked bradycardia to 36 bpm. remains intubated on precedex. - Review of Systems ROS unobtainable: due to endotracheal tube, due to mental status - Objective Allergies/Adverse Reactions: Allergies Allergy/AdvReac Type Severity Reaction Status Date / Time morphine Allergy Mental Verified 09/07/19 12:13 changes Penicillins Allergy Hives Verified 09/07/19 12:13 Current Medications Acetaminophen (Tylenol) 650 mg PO Q4H PRN PRN Reason: Headache/Fever/Mild Pain (1-3) Albuterol/Ipratropium (Duoneb) 3 ml NEB [id number] [facility] Last Admin: 09/11/19 13:27 Dose: 3 ml Ammonium Lactate (Laclotion) 0 gm TOP BID [facility] Last Admin: 09/11/19 10:46 Dose: 225 gm Aspirin (Ecotrin) 81 mg PO DAILY [facility] Last Admin: 09/11/19 09:51 Dose: 81 mg Atropine Sulfate (Atropine) 0.5 mg IVP Q4H PRN PRN Reason: BRADYCARDIA Cephalexin (Keflex) 250 mg PO BID [facility] Last Admin: 09/11/19 09:55 Dose: 250 mg Cholecalciferol (Vitamin D3) 2,000 units PO DAILY [facility] Last Admin: 09/11/19 09:50 Dose: 2,000 units Clotrimazole (Mycelex Suajtha) 10 mg PO TID-WM [facility] Last Admin: 09/11/19 12:30 Dose: Not Given Dextrose/Water (Dextrose 50%) 25 gm SLOW IVP PRN PRN PRN Reason: Hypoglycemia Last Admin: 09/10/19 00:33 Dose: 25 gm Docusate Sodium (Colace) 100 mg PO BIDPRN PRN PRN Reason: Constipation Dorzolamide/Timolol (Cosopt 2-0.5% Ophth Soln) 1 drop EA EYE BID [facility] Last Admin: 09/11/19 10:47 Dose: 1 drop Famotidine (Pepcid) 20 mg PO DAILY [facility] Last Admin: 09/11/19 09:56 Dose: 20 mg Gabapentin (Neurontin) 100 mg PO BID [facility] Last Admin: 09/11/19 09:50 Dose: 100 mg Glucagon (Glucagon) 1 mg IM PRN PRN PRN Reason: Hypoglycemia Hydrocortisone Sodium Succinate (Solu-Cortef) 50 mg IVP Q6HR RAJEEV Stop: 09/16/19 18:01 Last Admin: 09/11/19 12:42 Dose: 50 mg Hydroxyzine HCl (Atarax) 25 mg PO BIDPRN PRN PRN Reason: Itching Dextrose/Water (D5w) 1,000 mls @ 0 mls/hr IV .Q0M PRN PRN Reason: Hypoglycemia Norepinephrine Bitartrate (Levophed) 250 mls @ 0 mls/hr IVPB INF RAJEEV; Protocol Last Admin: 09/11/19 10:55 Dose: 250 mls Fentanyl Citrate 2,000 mcg/ (Sodium Chloride) 100 mls @ 0 mls/hr IV INF RAJEEV; Protocol Stop: 10/09/19 05:57 Last Admin: 09/09/19 06:06 Dose: 100 mls Fentanyl Citrate (Fentanyl Bolus) 250 mls @ 0 mls/hr IVPB PRN PRN PRN Reason: Breakthrough pain/agitation Stop: 10/09/19 05:57 Dexmedetomidine HCl 200 mcg/ (Sodium Chloride) 50 mls @ 0 mls/hr IVPB INF RAJEEV Last Admin: 09/11/19 11:22 Dose: 50 mls Dopamine HCl/Dextrose (Dopamine 400 Mg/D5w 250 Ml) 250 mls @ 0 mls/hr IVPB INF RAJEEV; Protocol Last Admin: 09/11/19 12:24 Dose: 250 mls Dextrose/Water (Dextrose 10% In Water) 1,000 mls @ 50 mls/hr IV .Q20H [facility] Last Admin: 09/11/19 01:30 Dose: 1,000 mls Insulin Human Lispro (Humalog) 0 units SC .MILD SLIDING SCALE PRN PRN Reason: Mild Correctional Scale Last Admin: 09/11/19 06:22 Dose: 4 unit Levothyroxine Sodium (Synthroid) 175 mcg PO 0600 [facility] Last Admin: 09/11/19 06:22 Dose: 175 mcg Lorazepam (Ativan) 2 mg SLOW IVP Q1H PRN PRN Reason: Breakthrough agitation Stop: 10/09/19 05:57 Magnesium Oxide (Magnesium Oxide) 800 mg PO BID [facility] Last Admin: 09/11/19 09:51 Dose: 800 mg Morphine Sulfate (Morphine) 2 mg SLOW IVP Q1H PRN PRN Reason: BREAKTHROUGH PAIN/Agitation Stop: 10/09/19 05:57 Multivitamins (Theragran) 1 tab PO DAILY [facility] Last Admin: 09/11/19 09:53 Dose: 1 tab Mycophenolate Mofetil (Cellcept) 500 mg PO BID [facility] Last Admin: 09/11/19 09:54 Dose: 500 mg Ondansetron HCl (Zofran Odt) 4 mg PO Q6H PRN PRN Reason: Nausea/Vomiting Propofol (Diprivan) 1,000 mg IV INF PRN; Protocol PRN Reason: TO ACHIEVE GOAL RASS Stop: 10/09/19 05:57 Last Admin: 09/11/19 05:40 Dose: 1,000 mg Propofol (Diprivan Bolus) 20 mg IV Q5MIN PRN PRN Reason: BREAKTHROUGH AGITATION Stop: 10/09/19 05:57 Sodium Chloride/Aloe Vera ([place] W/Aloe Gel) 0 gm EA NARE BID [facility] Last Admin: 09/11/19 10:47 Dose: 2 spr Tacrolimus (Prograf) 5 mg PO BID [facility] Last Admin: 09/11/19 09:55 Dose: 5 mg Tacrolimus (Prograf) 0.5 mg PO BID [facility] Last Admin: 09/11/19 09:52 Dose: 0.5 mg Witch Tamiko/Glycerin (Tucks Pads) 1 each TOP DAILY [facility] Last Admin: 09/11/19 10:46 Dose: 1 each Vital Signs & Weight: Vital Signs Temp Pulse Resp 09/11/19 15:08 65 09/11/19 14:00 18 09/11/19 13:28 63 09/11/19 12:00 97.5 F L 16 09/11/19 10:47 49 L 09/11/19 10:00 17 09/11/19 08:00 16 09/11/19 07:00 97.1 F L 09/11/19 06:57 45 L 09/11/19 06:00 16 09/11/19 04:00 97.7 F 16 Admit Weight 211 lb 1.6 oz Weight 208 lb 8.917 oz I/O: I/O 09/10/19 09/11/19 09/12/19 06:59 06:59 06:59 Intake Total 1252.9 1814.3 Output Total 270 130 5 Balance 982.9 1684.3 -5 - Physical Exam General: no apparent distress Neck: supple neck, midline trachea, no JVD/HJR, no masses, no bruit, no lymphadenopathy, no thromegaly Cardiology: regular rhythm, bradycardia Lungs: normal breath sounds, no wheeze, rales, rhonchi, ventilated respirations - Labs Result Diagrams: 09/11/19 04:08 09/11/19 04:08 - EKG Interpretation EKG shows: Sinus bradycardia - Assessment/Plan Assessment/Plan: 1. s/p cardiopulmonary arrest 2. Marked bradycardia - possibly secondary to arrest - also on precedex which can cause bradycardia - no AV sobeida blocking medications - keeley to 36 originally. no further pauses or severe bradycardia seen overnight or this AM. Continue to monitor 3. PVCs- low burden 4. Diastolic HF-per cardiology 5. Trifascicular block 6. A/C renal insufficiency- per nephrology If high grade AV block or symptomatic bradycardia is seen, consider pacing. Avoid AV sobeida blocking agents and do not bolus precedex as this medication is known to cause bradycardia, especially if a bolus dose is given when starting this drip. Will continue to monitor.
--- NOTE | 2019-09-11 22:41 | PRG ---
DATE OF SERVICE: 09/11/2019 SUBJECTIVE: Mr. Encinas is clinically unchanged. He is still requiring dialysis. He is seen by the manufacturer today. His chest radiograph is still suggestive of bilateral effusions. He is sedated from mechanical ventilation. His sedation was held yesterday because he was not waking up and then last night, he became very tachypneic and tachycardic, so he was re-sedated. I am told he was following commands prior to this. His intake and output coming in today was positive 1684. It does not appear that his dialysis volume yesterday was 2300, which is not included in his intake and output total. His weight yesterday and today are the same, which is impossible. OBJECTIVE: LUNGS: Remarkable for coarse equal breath sounds. HEART: Regular rhythm. ABDOMEN: Soft. EXTREMITIES: Unchanged. IMPRESSION: 1. Status post cardiorespiratory arrest secondary to volume overload. 2. Renal failure. PLAN: Continue with supportive care. Currently not weanable. We will reassess him in the morning. We will decrease in ventilatory support. We did do a blood gas after dialysis and his pH is 7.58, CO2 is 30, pO2 of 112. CRITICAL CARE TIME: 30 minutes. Job ID: [id number]
[2019-09-12] MEDS: HumaLOG 300 UNITS/3 ML VIAL SC PRN ×5 (00:01→23:38)
[2019-09-12] MEDS: Propofol 1,000 MG/100 ML VIAL IV PRN ×2 (02:25→20:44)
[2019-09-12 04:15] LABS: #Lymphocytes 0.6 thou/uL (1.20-3.40); #Monocytes 0.7 thou/uL (0.11-0.59); %Eosinophils 0.1 % (0.0-10.0); %Lymphocytes 9.4 % (21.0-51.0); %Monocytes 11.5 % (0.0-10.0); Hemoglobin 10.7 g/dL (14.0-18.0); Mean Corpuscular HGB CONC 32.6 g/dL (32.0-36.0); Mean Corpuscular Hemoglobin 32.6 pg (27.0-31.0); Mean Platelet Volume 6.5 fL (7.4-10.4); Platelet Count 59 thou/uL (130-400); RBC Distribution Width 18.3 % (11.5-14.5); Red Blood Cell (RBC) Count 3.29 mill/uL (4.70-6.10); White Blood Cell (WBC) Count 6.4 thou/uL (4.8-10.8)
[2019-09-12 04:30] LABS: Anion Gap 13 mmol/L (10-20); BUN (Urea Nitrogen) 23 mg/dL (8.4-25.7); Calc. Creatinine Clearance 30 mL/min (70-130); Calcium 8.3 mg/dL (7.8-10.44); Carbon Dioxide 28 mmol/L (23-31); Chloride 97 mmol/L (98-107); Estimated GFR-MDRD 25; Glucose 286 mg/dL (80-115); Potassium 4.1 mmol/L (3.5-5.1); Sodium 134 mmol/L (136-145)
[2019-09-12] MEDS: Hydrocortisone Sod Succ/PF 100 mg/2 ml Vial IVP SCH ×4 (05:00→23:39)
[2019-09-12] MEDS: Dextrose 10% in Water 1,000 ML IV SCH (05:00)
[2019-09-12] MEDS: Levothyroxine 175 MCG TAB PO SCH (05:00)
[2019-09-12 07:22] LABS: Actual Bicarbonate (HCO3a) 26.2 mEq/L (22-28); Base Excess (BEa) 5.4 mEq/L (-2.0 to +3.0); CO2 Tension 26.9 mmHg (35.0-45.0); Calcium, Ionized 1.04 mmol/L (1.12-1.30); Carboxyhemoglobin (COHb) 0.5 gm% (0.0-3.0); Hemoglobin (Hb) 11.3 g/dL (14.0-18.0); O2 Tension (PaO2) 121.3 mmHg (> 70.0); Potassium - ABG Lab 4.02 mmol/L (3.70-5.30)
[2019-09-12 07:24] LABS: ALV-art Gradient 201.575 (0-20); Puncture Site LB; pH, Arterial 7.61 (7.35-7.45)
[2019-09-12] MEDS: Multivit, Therapeutic 1 TAB PO SCH (08:21)
[2019-09-12] MEDS: Tacrolimus 0.5 MG CAP PO SCH ×2 (08:21→20:13)
[2019-09-12] MEDS: Gabapentin 100 MG CAP PO SCH ×2 (08:21→20:13)
[2019-09-12] MEDS: Famotidine 20 MG TAB PO SCH (08:24)
[2019-09-12] MEDS: Aspirin 81 mg Enteric Coated Tablet PO SCH (08:24)
[2019-09-12] MEDS: Magnesium Oxide 400 MG TAB PO SCH ×2 (08:24→20:13)
[2019-09-12] MEDS: Ammonium Lactate 12% Lotion 225 GM BOT TOP SCH ×2 (08:26→20:14)
[2019-09-12] MEDS: DorzolamidE/Timolol 2%/0.5% Ophth Soln 10 ml Bottle EA EYE SCH ×2 (08:26→20:14)
[2019-09-12] MEDS: Sodium Chloride Nasal 15 GM TUBE EA NARE SCH ×2 (08:27→20:14)
[2019-09-12] MEDS: Witch Hazel-Glycerin 1 EACH JAR TOP SCH (08:27)
[2019-09-12] MEDS: Cephalexin 250 MG CAP PO SCH ×2 (08:35→20:13)
[2019-09-12] MEDS: Tacrolimus 1 MG CAP PO SCH ×2 (08:35→20:10)
--- NOTE | 2019-09-12 08:41 | RAD ---
CHEST 1 VIEW: INDICATION: Intubation. COMPARISON: Prior exam dated 09/01/2019. FINDINGS: The patient remains intubated with gastric catheter placement. There is a right subclavian dialysis catheter in place. There is an endovascular stent in place. There is cardiomegaly with pulmonary va scular congestion and diffuse pulmonary edema. There are moderate bilateral pleural effusions which are stable. No pneumothorax is evident. IMPRESSION: Stable exam. POS: [facility]
[2019-09-12] MEDS: Mycophenolate 250 MG CAP PO SCH ×2 (09:00→20:13)
--- NOTE | 2019-09-12 11:16 | PDOC.HOSPP ---
- Subjective Encounter Date: 09/12/19 Encounter Time: 11:30 non-verbal Subjective: Patient remains on the vent, no changes - Objective Vital Signs & Weight: Vital Signs (12 hours) Temp Pulse Resp BP Pulse Ox 09/12/19 10:35 48 L 96/53 L 09/12/19 10:00 10 L 09/12/19 08:00 14 09/12/19 07:12 45 L 108/56 L 09/12/19 07:10 100 09/12/19 07:00 97.1 F L 09/12/19 06:00 16 09/12/19 04:00 97.5 F L 16 09/12/19 02:00 16 09/12/19 00:00 97.1 F L 16 09/11/19 23:49 52 L 16 100 Weight Admit Weight 211 lb 1.6 oz Weight 206 lb 12.697 oz Most Recent Monitor Data Heart Rate from ECG 48 NIBP 87/51 NIBP BP-Mean 65 Respiration from ECG 0 SpO2 100 I&O: 09/11/19 09/12/19 09/13/19 06:59 06:59 06:59 Intake Total 1814.3 1348.2 0 Output Total 130 5 0 Balance 1684.3 1343.2 0 Result Diagrams: 09/12/19 03:50 09/12/19 03:50 Additional Labs: Accuchecks 09/12/19 09/11/19 09/11/19 00:03 20:10 18:38 POC Glucose 306 H 226 H 190 H 09/11/19 09/11/19 15:05 11:27 POC Glucose 134 H 156 H Hospitalist ROS - Review of Systems ROS unobtainable: due to endotracheal tube - Medication Medications: Active Medications Generic Name Dose Route Start Last Admin Trade Name Freq PRN Reason Stop Dose Admin Albuterol/Ipratropium 3 ml 09/09/19 13:00 09/12/19 07:11 Duoneb NEB 3 ml [id number] RAJEEV Administration Ammonium Lactate 0 gm 09/07/19 21:00 09/12/19 08:26 Laclotion TOP 225 gm BID RAJEEV Administration Aspirin 81 mg 09/08/19 09:00 09/12/19 08:24 Ecotrin PO 81 mg DAILY RAJEEV Administration Cephalexin 250 mg 09/07/19 21:00 09/12/19 08:35 Keflex PO 250 mg BID RAJEEV Administration Cholecalciferol 2,000 units 09/08/19 09:00 09/12/19 09:01 Vitamin D3 PO 2,000 units DAILY RAJEEV Administration Clotrimazole 10 mg 09/07/19 17:00 09/12/19 08:21 Mycelex Sujatha PO 10 mg TID-WM RAJEEV Administration Dextrose/Water 25 gm 09/07/19 02:10 09/10/19 00:33 Dextrose 50% SLOW IVP 25 gm PRN PRN Administration Hypoglycemia Dorzolamide/Timolol 1 drop 09/07/19 21:00 09/12/19 08:26 Cosopt 2-0.5% Ophth Soln EA EYE 1 drop BID RAJEEV Administration Famotidine 20 mg 09/07/19 09:00 09/12/19 08:24 Pepcid PO 20 mg DAILY RAJEEV Administration Gabapentin 100 mg 09/07/19 21:00 09/12/19 08:21 Neurontin PO 100 mg BID RAJEEV Administration Hydrocortisone Sodium Succinate 50 mg 09/09/19 18:00 09/12/19 05:00 Solu-Cortef IVP 09/16/19 18:01 50 mg Q6HR RAJEEV Administration Norepinephrine Bitartrate 250 mls @ 0 mls/hr 09/09/19 05:42 09/11/19 10:55 Levophed IVPB 250 mls INF RAJEEV Administration Protocol Titrate Fentanyl Citrate 2,000 mcg/ 100 mls @ 0 mls/hr 09/09/19 05:57 09/09/19 06:06 Sodium Chloride IV 10/09/19 05:57 100 mls INF RAJEEV Administration Protocol Per Protocol Dexmedetomidine HCl 200 mcg/ 50 mls @ 0 mls/hr 09/10/19 12:45 09/12/19 04:54 Sodium Chloride IVPB 50 mls INF RAJEEV Administration Per Protocol Dopamine HCl/Dextrose 250 mls @ 0 mls/hr 09/10/19 18:30 09/11/19 12:24 Dopamine 400 Mg/D5w 250 Ml IVPB 250 mls INF RAJEEV Administration Protocol As Directed Dextrose/Water 1,000 mls @ 50 mls/hr 09/11/19 01:30 09/12/19 05:00 Dextrose 10% In Water IV 1,000 mls .Q20H RAJEEV Administration Insulin Human Lispro 0 units 09/07/19 02:10 09/12/19 04:37 Humalog SC 4 unit .MILD SLIDING SCALE PRN Administration Mild Correctional Scale Levothyroxine Sodium 175 mcg 09/08/19 06:00 09/12/19 05:00 Synthroid PO 175 mcg 0600 RAJEEV Administration Magnesium Oxide 800 mg 09/07/19 21:00 09/12/19 08:24 Magnesium Oxide PO 800 mg BID RAJEEV Administration Multivitamins 1 tab 09/08/19 09:00 09/12/19 08:21 Theragran PO 1 tab DAILY RAJEEV Administration Mycophenolate Mofetil 500 mg 09/07/19 21:00 09/12/19 09:00 Cellcept PO 500 mg BID RAJEEV Administration Propofol 1,000 mg 09/09/19 05:57 09/12/19 02:25 Diprivan IV 10/09/19 05:57 1,000 mg INF PRN Administration TO ACHIEVE GOAL RASS Protocol Sodium Chloride/Aloe Vera 0 gm 09/07/19 21:00 09/12/19 08:27 [place] W/Aloe Gel EA NARE 1 spr BID RAJEEV Administration Tacrolimus 5 mg 09/07/19 21:00 09/12/19 08:35 Prograf PO 5 mg BID RAJEEV Administration Tacrolimus 0.5 mg 09/07/19 21:00 09/12/19 08:21 Prograf PO 0.5 mg BID RAJEEV Administration Witch Tamiko/Glycerin 1 each 09/08/19 09:00 09/12/19 08:27 Tucks Pads TOP 1 each DAILY RAJEEV Administration - Exam General Appearance: ill appearing Heart: RRR, no murmur, no gallops Respiratory: CTAB Gastrointestinal: soft, non-distended, normal bowel sounds Extremities: no cyanosis, no clubbing, no edema Psychiatric - other findings: agitated with stimulation Hosp A/P (1) Acute respiratory failure with hypoxia Code(s): J96.01 - ACUTE RESPIRATORY FAILURE WITH HYPOXIA Status: Acute Plan: Not yet weanable per pulmonology (2) ESRD on dialysis Code(s): N18.6 - END STAGE RENAL DISEASE; Z99.2 - DEPENDENCE ON RENAL DIALYSIS Status: Acute (3) Acute on chronic diastolic (congestive) heart failure Code(s): I50.33 - ACUTE ON CHRONIC DIASTOLIC (CONGESTIVE) HEART FAILURE Status : Acute (4) Insulin dependent diabetes mellitus Code(s): E11.9 - TYPE 2 DIABETES MELLITUS WITHOUT COMPLICATIONS; Z79.4 - CORE RESCUER (CURRENT) USE OF INSULIN Status: Chronic (5) CAD (coronary artery disease) Code(s): I25.10 - ATHSCL HEART DISEASE OF [place] CORONARY ARTERY W/O ANG PCTRS Status: Chronic (6) Hypothyroidism Code(s): E03.9 - HYPOTHYROIDISM, UNSPECIFIED Status: Chronic (7) BLANE (obstructive sleep apnea) Code(s): G47.33 - OBSTRUCTIVE SLEEP APNEA (ADULT) (PEDIATRIC) Status: Chronic - Plan respiratory therapy dialyze and then wean vent per pulmonology, BP been running low for the past 48 hours
--- NOTE | 2019-09-12 13:26 | PDOC.EP ---
- Subjective Date: 09/12/19 Time: 17:26 Interval History: follow up for cardiopulmonary arrest with marked bradycardia to 36 bpm. remains intubated on precedex. - Review of Systems ROS unobtainable: due to endotracheal tube, due to mental status - Objective Allergies/Adverse Reactions: Allergies Allergy/AdvReac Type Severity Reaction Status Date / Time morphine Allergy Mental Verified 09/07/19 12:13 changes Penicillins Allergy Hives Verified 09/07/19 12:13 Current Medications Acetaminophen (Tylenol) 650 mg PO Q4H PRN PRN Reason: Headache/Fever/Mild Pain (1-3) Albuterol/Ipratropium (Duoneb) 3 ml NEB [id number] [facility] Last Admin: 09/12/19 07:11 Dose: 3 ml Ammonium Lactate (Laclotion) 0 gm TOP BID [facility] Last Admin: 09/12/19 08:26 Dose: 225 gm Aspirin (Ecotrin) 81 mg PO DAILY [facility] Last Admin: 09/12/19 08:24 Dose: 81 mg Atropine Sulfate (Atropine) 0.5 mg IVP Q4H PRN PRN Reason: BRADYCARDIA Cephalexin (Keflex) 250 mg PO BID [facility] Last Admin: 09/12/19 08:35 Dose: 250 mg Cholecalciferol (Vitamin D3) 2,000 units PO DAILY [facility] Last Admin: 09/12/19 09:01 Dose: 2,000 units Clotrimazole (Mycelex Sujatha) 10 mg PO TID-WM [facility] Last Admin: 09/12/19 11:38 Dose: 10 mg Dextrose/Water (Dextrose 50%) 25 gm SLOW IVP PRN PRN PRN Reason: Hypoglycemia Last Admin: 09/10/19 00:33 Dose: 25 gm Docusate Sodium (Colace) 100 mg PO BIDPRN PRN PRN Reason: Constipation Dorzolamide/Timolol (Cosopt 2-0.5% Ophth Soln) 1 drop EA EYE BID [facility] Last Admin: 09/12/19 08:26 Dose: 1 drop Famotidine (Pepcid) 20 mg PO DAILY [facility] Last Admin: 09/12/19 08:24 Dose: 20 mg Gabapentin (Neurontin) 100 mg PO BID [facility] Last Admin: 09/12/19 08:21 Dose: 100 mg Glucagon (Glucagon) 1 mg IM PRN PRN PRN Reason: Hypoglycemia Hydrocortisone Sodium Succinate (Solu-Cortef) 50 mg IVP Q6HR RAJEEV Stop: 09/16/19 18:01 Last Admin: 09/12/19 11:38 Dose: 50 mg Hydroxyzine HCl (Atarax) 25 mg PO BIDPRN PRN PRN Reason: Itching Dextrose/Water (D5w) 1,000 mls @ 0 mls/hr IV .Q0M PRN PRN Reason: Hypoglycemia Norepinephrine Bitartrate (Levophed) 250 mls @ 0 mls/hr IVPB INF RAJEEV; Protocol Last Admin: 09/11/19 10:55 Dose: 250 mls Fentanyl Citrate 2,000 mcg/ (Sodium Chloride) 100 mls @ 0 mls/hr IV INF RAJEEV; Protocol Stop: 10/09/19 05:57 Last Admin: 09/09/19 06:06 Dose: 100 mls Fentanyl Citrate (Fentanyl Bolus) 250 mls @ 0 mls/hr IVPB PRN PRN PRN Reason: Breakthrough pain/agitation Stop: 10/09/19 05:57 Dexmedetomidine HCl 200 mcg/ (Sodium Chloride) 50 mls @ 0 mls/hr IVPB INF RAJEEV Last Admin: 09/12/19 11:29 Dose: 50 mls Dopamine HCl/Dextrose (Dopamine 400 Mg/D5w 250 Ml) 250 mls @ 0 mls/hr IVPB INF RAJEEV; Protocol Last Admin: 09/11/19 12:24 Dose: 250 mls Dextrose/Water (Dextrose 10% In Water) 1,000 mls @ 50 mls/hr IV .Q20H [facility] Last Admin: 09/12/19 05:00 Dose: 1,000 mls Insulin Human Lispro (Humalog) 0 units SC .MILD SLIDING SCALE PRN PRN Reason: Mild Correctional Scale Last Admin: 09/12/19 04:37 Dose: 4 unit Levothyroxine Sodium (Synthroid) 175 mcg PO 0600 [facility] Last Admin: 09/12/19 05:00 Dose: 175 mcg Lorazepam (Ativan) 2 mg SLOW IVP Q1H PRN PRN Reason: Breakthrough agitation Stop: 10/09/19 05:57 Magnesium Oxide (Magnesium Oxide) 800 mg PO BID [facility] Last Admin: 09/12/19 08:24 Dose: 800 mg Morphine Sulfate (Morphine) 2 mg SLOW IVP Q1H PRN PRN Reason: BREAKTHROUGH PAIN/Agitation Stop: 10/09/19 05:57 Multivitamins (Theragran) 1 tab PO DAILY [facility] Last Admin: 09/12/19 08:21 Dose: 1 tab Mycophenolate Mofetil (Cellcept) 500 mg PO BID [facility] Last Admin: 09/12/19 09:00 Dose: 500 mg Ondansetron HCl (Zofran Odt) 4 mg PO Q6H PRN PRN Reason: Nausea/Vomiting Propofol (Diprivan) 1,000 mg IV INF PRN; Protocol PRN Reason: TO ACHIEVE GOAL RASS Stop: 10/09/19 05:57 Last Admin: 09/12/19 02:25 Dose: 1,000 mg Propofol (Diprivan Bolus) 20 mg IV Q5MIN PRN PRN Reason: BREAKTHROUGH AGITATION Stop: 10/09/19 05:57 Sodium Chloride/Aloe Vera ([place] W/Aloe Gel) 0 gm EA NARE BID [facility] Last Admin: 09/12/19 08:27 Dose: 1 spr Tacrolimus (Prograf) 5 mg PO BID [facility] Last Admin: 09/12/19 08:35 Dose: 5 mg Tacrolimus (Prograf) 0.5 mg PO BID [facility] Last Admin: 09/12/19 08:21 Dose: 0.5 mg Witch Tamiko/Glycerin (Tucks Pads) 1 each TOP DAILY [facility] Last Admin: 09/12/19 08:27 Dose: 1 each Vital Signs & Weight: Vital Signs Temp Pulse Resp BP Pulse Ox 09/12/19 12:00 98.1 F 15 09/12/19 10:35 48 L 96/53 L 09/12/19 10:00 10 L 09/12/19 08:00 14 09/12/19 07:12 45 L 108/56 L 09/12/19 07:10 100 09/12/19 07:00 97.1 F L 09/12/19 06:00 16 09/12/19 04:00 97.5 F L 16 09/12/19 02:00 16 Admit Weight 211 lb 1.6 oz Weight 206 lb 12.697 oz I/O: I/O 09/11/19 09/12/19 09/13/19 06:59 06:59 06:59 Intake Total 1814.3 1348.2 0 Output Total 130 5 0 Balance 1684.3 1343.2 0 - Physical Exam General: no apparent distress, other (intubated and sedated) Neck: supple neck, midline trachea, no JVD/HJR, no lymphadenopathy Cardiology: regular rhythm, bradycardia Lungs: clear to auscultation, normal breath sounds, ventilated respirations Abdomen: active bowel sounds, soft, no hepatosplenomegaly, HJR negative Extremities: dry, strong pulses, warm - Labs Result Diagrams: 09/12/19 03:50 09/12/19 03:50 - EKG Interpretation EKG shows: Sinus bradycardia - Assessment/Plan Assessment/Plan: 1. s/p cardiopulmonary arrest 2. Marked bradycardia - possibly secondary to arrest - also on precedex which can cause bradycardia - no AV sobeida blocking medications - keeley to 36 originally. no further pauses or severe bradycardia seen. Had brief tachycardia on 09/11 -dopamine off 4. Diastolic HF-per cardiology 5. Trifascicular block 6. A/C renal insufficiency- per nephrology If high grade AV block or symptomatic bradycardia is seen, consider pacing. Avoid AV sobeida blocking agents and use caution with precedex as this medication is known to cause bradycardia. Will continue to monitor. Also on propofol. Dopamine off. No changes from EP perspective/plan today.
[2019-09-12 16:17] LABS: Actual Bicarbonate (HCO3a) 26.7 mEq/L (22-28); Base Excess (BEa) 4.1 mEq/L (-2.0 to +3.0); CO2 Tension 33.5 mmHg (35.0-45.0); Calcium, Ionized 1.05 mmol/L (1.12-1.30); Carboxyhemoglobin (COHb) 0.8 gm% (0.0-3.0); Hemoglobin (Hb) 11.4 g/dL (14.0-18.0); O2 Tension (PaO2) 91.2 mmHg (> 70.0); Potassium - ABG Lab 4.17 mmol/L (3.70-5.30); pH, Arterial 7.52 (7.35-7.45)
[2019-09-12 16:19] LABS: ALV-art Gradient 223.425 (0-20); Puncture Site LB
--- NOTE | 2019-09-12 21:13 | PRG ---
DATE OF SERVICE: 09/12/2019 SUBJECTIVE: Mr. Encinas remains on mechanical ventilation. When sedation is held, he will move all extremities, follow commands per my discussion with the nurses. OBJECTIVE: VITAL SIGNS: Respiratory rate is 20, oximetry is 100%, FiO2 is 40%, blood pressure 130/63. LUNGS: Clear anteriorly. HEART: Regular rhythm. ABDOMEN: Soft. LABORATORY DATA: White count 6.4, hemoglobin 10.7, platelets 59,000. Sodium 134, potassium 4.1, chloride 97, bicarb 28, BUN 23, creatinine 3.05. I am told they were unable to get off any volume today with dialysis. IMPRESSION: Volume overload, respiratory failure, status post cardiorespiratory arrest, clinically stable. Chest x-ray still shows bilateral effusions. I would anticipate that he would be a candidate for extubation tomorrow. His pH 7.52, CO2 of 33, pO2 of 91. Ventilatory rates have been decreased. Probably proceed with spontaneous breathing trial in the morning. Job ID: [id number]
[2019-09-13] MEDS: HumaLOG 300 UNITS/3 ML VIAL SC PRN ×5 (04:17→21:07)
[2019-09-13 04:30] LABS: #Lymphocytes 0.5 thou/uL (1.20-3.40); #Monocytes 1.1 thou/uL (0.11-0.59); #Neutrophils 9.4 thou/uL (1.40-6.50); %Lymphocytes 4.5 % (21.0-51.0); %Monocytes 10.3 % (0.0-10.0); %Neutrophils 85.2 % (42.0-75.0); Hemoglobin 11.4 g/dL (14.0-18.0); Mean Corpuscular HGB CONC 32.1 g/dL (32.0-36.0); Mean Corpuscular Hemoglobin 32.4 pg (27.0-31.0); Mean Platelet Volume 11.7 fL (7.4-10.4); Platelet Count 68 thou/uL (130-400); RBC Distribution Width 17.6 % (11.5-14.5); Red Blood Cell (RBC) Count 3.52 mill/uL (4.70-6.10)
[2019-09-13 04:40] LABS: Anion Gap 14 mmol/L (10-20); BUN (Urea Nitrogen) 19 mg/dL (8.4-25.7); Calc. Creatinine Clearance 36 mL/min (70-130); Calcium 8.4 mg/dL (7.8-10.44); Carbon Dioxide 26 mmol/L (23-31); Chloride 99 mmol/L (98-107); Estimated GFR-MDRD 31; Glucose 325 mg/dL (80-115); Potassium 4.4 mmol/L (3.5-5.1); Sodium 135 mmol/L (136-145)
[2019-09-13] MEDS: Hydrocortisone Sod Succ/PF 100 mg/2 ml Vial IVP SCH ×3 (05:45→17:33)
[2019-09-13] MEDS: Levothyroxine 175 MCG TAB PO SCH (05:46)
[2019-09-13] MEDS: Multivit, Therapeutic 1 TAB PO SCH (08:34)
[2019-09-13] MEDS: Cephalexin 250 MG CAP PO SCH (08:34)
[2019-09-13] MEDS: Gabapentin 100 MG CAP PO SCH ×2 (08:34→20:24)
[2019-09-13] MEDS: Famotidine 20 MG TAB PO SCH (08:34)
[2019-09-13] MEDS: Magnesium Oxide 400 MG TAB PO SCH ×2 (08:34→20:24)
[2019-09-13] MEDS: Aspirin 81 mg Enteric Coated Tablet PO SCH (08:35)
[2019-09-13] MEDS: Tacrolimus 0.5 MG CAP PO SCH ×2 (08:35→20:25)
[2019-09-13] MEDS: Tacrolimus 1 MG CAP PO SCH ×2 (08:35→20:25)
[2019-09-13] MEDS: Witch Hazel-Glycerin 1 EACH JAR TOP SCH (08:39)
[2019-09-13] MEDS: Sodium Chloride Nasal 15 GM TUBE EA NARE SCH ×2 (08:39→20:34)
[2019-09-13] MEDS: Ammonium Lactate 12% Lotion 225 GM BOT TOP SCH ×2 (08:39→20:26)
[2019-09-13] MEDS: DorzolamidE/Timolol 2%/0.5% Ophth Soln 10 ml Bottle EA EYE SCH ×2 (08:39→20:26)
[2019-09-13] MEDS: Mycophenolate 250 MG CAP PO SCH ×2 (08:44→20:24)
[2019-09-13] MEDS: HYDROcodone/Acetaminophen 10/325 mg Tablet PO PRN (10:08)
--- NOTE | 2019-09-13 11:18 | PDOC.EP ---
- Subjective Date: 09/13/19 Time: 08:00 Interval History: follow up for severe bradycardia during and following recent arrest. now extubated. - Review of Systems Constitutional: reports: weakness. denies: chills, fever, malaise, sweats, other Respiratory: reports: shortness of breath (sore throat from recent ET tube). denies: cough, dry, hemoptysis, pleuritic pain, SOB with excertion, sputum, wheezing, other Cardiology: denies: chest pain, edema, heart racing, light headedness, paroxysmal noc. dyspnea, orthopnea, palpitations, passing out, pleuritic pain, pressure, swelling, other Gastrointestinal: denies: abdominal pain, constipation, diarrhea - Objective Allergies/Adverse Reactions: Allergies Allergy/AdvReac Type Severity Reaction Status Date / Time morphine Allergy Mental Verified 09/07/19 12:13 changes Penicillins Allergy Hives Verified 09/07/19 12:13 Current Medications Acetaminophen (Tylenol) 650 mg PO Q4H PRN PRN Reason: Headache/Fever/Mild Pain (1-3) Hydrocodone Bitart/Acetaminophen ([place] 10/325) 1 tab PO Q4H PRN PRN Reason: Pain Last Admin: 09/13/19 10:08 Dose: 1 tab Albuterol/Ipratropium (Duoneb) 3 ml NEB [id number] [facility] Last Admin: 09/13/19 07:08 Dose: 3 ml Ammonium Lactate (Laclotion) 0 gm TOP BID [facility] Last Admin: 09/13/19 08:39 Dose: 225 gm Aspirin (Ecotrin) 81 mg PO DAILY [facility] Last Admin: 09/13/19 08:35 Dose: 81 mg Atorvastatin Calcium (Lipitor) 40 mg PO HS [facility] Atropine Sulfate (Atropine) 0.5 mg IVP Q4H PRN PRN Reason: BRADYCARDIA Cholecalciferol (Vitamin D3) 2,000 units PO DAILY [facility] Last Admin: 09/13/19 08:34 Dose: 2,000 units Clotrimazole (Mycelex Sujatha) 10 mg PO TID-WM [facility] Last Admin: 09/13/19 07:59 Dose: 10 mg Dextrose/Water (Dextrose 50%) 25 gm SLOW IVP PRN PRN PRN Reason: Hypoglycemia Last Admin: 09/10/19 00:33 Dose: 25 gm Docusate Sodium (Colace) 100 mg PO BIDPRN PRN PRN Reason: Constipation Dorzolamide/Timolol (Cosopt 2-0.5% Ophth Soln) 1 drop EA EYE BID [facility] Last Admin: 09/13/19 08:39 Dose: 1 drop Famotidine (Pepcid) 20 mg PO DAILY [facility] Last Admin: 09/13/19 08:34 Dose: 20 mg Gabapentin (Neurontin) 100 mg PO BID [facility] Last Admin: 09/13/19 08:34 Dose: 100 mg Glucagon (Glucagon) 1 mg IM PRN PRN PRN Reason: Hypoglycemia Hydrocortisone Sodium Succinate (Solu-Cortef) 50 mg IVP Q6HR [facility] Stop: 09/16/19 18:01 Last Admin: 09/13/19 05:45 Dose: 50 mg Hydroxyzine HCl (Atarax) 25 mg PO BIDPRN PRN PRN Reason: Itching Dextrose/Water (D5w) 1,000 mls @ 0 mls/hr IV .Q0M PRN PRN Reason: Hypoglycemia Norepinephrine Bitartrate (Levophed) 250 mls @ 0 mls/hr IVPB INF [facility]; Protocol Last Admin: 09/11/19 10:55 Dose: 250 mls Dopamine HCl/Dextrose (Dopamine 400 Mg/D5w 250 Ml) 250 mls @ 0 mls/hr IVPB INF [facility]; Protocol Last Admin: 09/11/19 12:24 Dose: 250 mls Dextrose/Water (Dextrose 10% In Water) 1,000 mls @ 50 mls/hr IV .Q20H [facility] Last Admin: 09/12/19 05:00 Dose: 1,000 mls Dexmedetomidine HCl 400 mcg/ (Sodium Chloride) 100 mls @ 0 mls/hr IVPB INF [facility] Last Admin: 09/12/19 16:42 Dose: 100 mls Insulin Human Lispro (Humalog) 0 units SC .AGGRESSIVE SLIDING PRN; Protocol PRN Reason: AGGRESSIVE SLIDING SCALE Levothyroxine Sodium (Synthroid) 175 mcg PO 0600 [facility] Last Admin: 09/13/19 05:46 Dose: 175 mcg Magnesium Oxide (Magnesium Oxide) 800 mg PO BID [facility] Last Admin: 09/13/19 08:34 Dose: 800 mg Multivitamins (Theragran) 1 tab PO DAILY [facility] Last Admin: 09/13/19 08:34 Dose: 1 tab Mycophenolate Mofetil (Cellcept) 500 mg PO BID [facility] Last Admin: 09/13/19 08:44 Dose: 500 mg Ondansetron HCl (Zofran Odt) 4 mg PO Q6H PRN PRN Reason: Nausea/Vomiting Sodium Chloride/Aloe Vera ([place] W/Aloe Gel) 0 gm EA NARE BID [facility] Last Admin: 09/13/19 08:39 Dose: 1 spr Tacrolimus (Prograf) 5 mg PO BID [facility] Last Admin: 09/13/19 08:35 Dose: 5 mg Tacrolimus (Prograf) 0.5 mg PO BID [facility] Last Admin: 09/13/19 08:35 Dose: 0.5 mg Witch Tamiko/Glycerin (Tucks Pads) 1 each TOP DAILY [facility] Last Admin: 09/13/19 08:39 Dose: 1 each Vital Signs & Weight: Vital Signs Temp Pulse Resp Pulse Ox 09/13/19 07:17 98 09/13/19 07:08 63 14 100 09/13/19 07:00 97.5 F L 09/13/19 04:00 98.2 F 98 09/13/19 00:00 97.5 F L 13 Admit Weight 211 lb 1.6 oz Weight 208 lb 12.444 oz I/O: I/O 09/12/19 09/13/19 09/14/19 06:59 06:59 06:59 Intake Total 1348.2 1427.0 0 Output Total 5 150 0 Balance 1343.2 1277.0 0 - Physical Exam General: alert & oriented x3, appears well, no apparent distress, speech clear, affect appropriate HEENT: mucus membranes moist, normocephaly Neck: supple neck, midline trachea, no JVD/HJR, no masses, no bruit, no lymphadenopathy, no thromegaly Cardiology: regular rate and rhythm, no murmur, regular rate, regular rhythm, PMI nondisplaced Neurology: cranial nerve 2-12 intact, grossly intact, motor function intact, sensory function intact, negative rhomberg, coordination normal, no lateralizing findings - Labs Result Diagrams: 09/13/19 04:10 09/13/19 04:10 - EKG Interpretation Status: image reviewed by me EKG Method: Telemetry EKG shows: Sinus rhythm - Assessment/Plan Assessment/Plan: 1. s/p cardiopulmonary arrest 2. Marked bradycardia - possibly secondary to arrest - keeley to 36 originally. no further pauses or severe bradycardia seen. Had brief tachycardia on 09/11 -dopamine off - resolved since extubation and off sedation 4. Diastolic HF-per cardiology 5. Trifascicular block 6. A/C renal insufficiency- per nephrology If high grade AV block or symptomatic bradycardia is seen, consider pacing. Bradycardia resolved since extubation and sedation meds stopped. No indication for permanent pacemaker at this time.
[2019-09-13] MEDS: Dextrose 10% in Water 1,000 ML IV SCH (12:42)
--- NOTE | 2019-09-13 14:17 | PDOC.HOSPP ---
- Subjective Encounter Date: 09/13/19 Encounter Time: 13:50 Subjective: Patient extubated this AM. Breathing easily. Complains of aching in ankles and knees. No other complaints. - Objective Vital Signs & Weight: Vital Signs (12 hours) Temp Pulse Resp Pulse Ox 09/13/19 12:00 97.9 F 09/13/19 07:17 98 09/13/19 07:08 63 14 100 09/13/19 07:00 97.5 F L 09/13/19 04:00 98.2 F 98 Weight Admit Weight 211 lb 1.6 oz Weight 208 lb 12.444 oz Most Recent Monitor Data Heart Rate from ECG 79 NIBP 102/51 NIBP BP-Mean 68 Respiration from ECG 4 SpO2 100 I&O: 09/12/19 09/13/19 09/14/19 06:59 06:59 06:59 Intake Total 1348.2 1427.0 0 Output Total 5 150 0 Balance 1343.2 1277.0 0 Result Diagrams: 09/13/19 04:10 09/13/19 04:10 Additional Labs: Accuchecks 09/13/19 09/13/19 09/13/19 11:31 08:07 04:12 POC Glucose 157 H 191 H 295 H 09/12/19 09/12/19 09/12/19 23:39 20:14 15:59 POC Glucose 288 H 265 H 303 H Hospitalist ROS - Review of Systems Constitutional: denies: fever, chills Respiratory: denies: cough, dry, shortness of breath Cardiovascular: denies: chest pain, palpitations, orthopnea Gastrointestinal: denies: nausea, vomiting, abdominal pain Musculoskeletal: reports: leg pain, foot pain - Medication Medications: Active Medications Generic Name Dose Route Start Last Admin Trade Name Freq PRN Reason Stop Dose Admin Hydrocodone Bitart/Acetaminophen 1 tab 09/13/19 09:58 09/13/19 10:08 [place] 10/325 PO 1 tab Q4H PRN Administration Pain Albuterol/Ipratropium 3 ml 09/09/19 13:00 09/13/19 07:08 Duoneb NEB 3 ml [id number] RAJEEV Administration Ammonium Lactate 0 gm 09/07/19 21:00 09/13/19 08:39 Laclotion TOP 225 gm BID RAJEEV Administration Aspirin 81 mg 09/08/19 09:00 09/13/19 08:35 Ecotrin PO 81 mg DAILY RAJEEV Administration Cholecalciferol 2,000 units 09/08/19 09:00 09/13/19 08:34 Vitamin D3 PO 2,000 units DAILY RAJEEV Administration Clotrimazole 10 mg 09/07/19 17:00 09/13/19 11:22 Mycelex Sujatha PO 10 mg TID-WM RAJEEV Administration Dextrose/Water 25 gm 09/07/19 02:10 09/10/19 00:33 Dextrose 50% SLOW IVP 25 gm PRN PRN Administration Hypoglycemia Dorzolamide/Timolol 1 drop 09/07/19 21:00 09/13/19 08:39 Cosopt 2-0.5% Ophth Soln EA EYE 1 drop BID RAJEEV Administration Famotidine 20 mg 09/07/19 09:00 09/13/19 08:34 Pepcid PO 20 mg DAILY RAJEEV Administration Gabapentin 100 mg 09/07/19 21:00 09/13/19 08:34 Neurontin PO 100 mg BID RAJEEV Administration Hydrocortisone Sodium Succinate 50 mg 09/09/19 18:00 09/13/19 11:22 Solu-Cortef IVP 09/16/19 18:01 50 mg Q6HR RAJEEV Administration Norepinephrine Bitartrate 250 mls @ 0 mls/hr 09/09/19 05:42 09/11/19 10:55 Levophed IVPB 250 mls INF RAJEEV Administration Protocol Titrate Dopamine HCl/Dextrose 250 mls @ 0 mls/hr 09/10/19 18:30 09/11/19 12:24 Dopamine 400 Mg/D5w 250 Ml IVPB 250 mls INF RAJEEV Administration Protocol As Directed Dextrose/Water 1,000 mls @ 50 mls/hr 09/11/19 01:30 09/13/19 12:42 Dextrose 10% In Water IV 1,000 mls .Q20H RAJEEV Administration Dexmedetomidine HCl 400 mcg/ 100 mls @ 0 mls/hr 09/12/19 16:30 09/12/19 16:42 Sodium Chloride IVPB 100 mls INF RAJEEV Administration Per Protocol Insulin Human Lispro 0 units 09/13/19 10:30 09/13/19 11:31 Humalog SC 3 units .AGGRESSIVE SLIDING PRN Administration AGGRESSIVE SLIDING SCALE Protocol Levothyroxine Sodium 175 mcg 09/08/19 06:00 09/13/19 05:46 Synthroid PO 175 mcg 0600 RAJEEV Administration Magnesium Oxide 800 mg 09/07/19 21:00 09/13/19 08:34 Magnesium Oxide PO 800 mg BID RAJEEV Administration Multivitamins 1 tab 09/08/19 09:00 09/13/19 08:34 Theragran PO 1 tab DAILY RAJEEV Administration Mycophenolate Mofetil 500 mg 09/07/19 21:00 09/13/19 08:44 Cellcept PO 500 mg BID RAJEEV Administration Sodium Chloride/Aloe Vera 0 gm 09/07/19 21:00 09/13/19 08:39 [place] W/Aloe Gel EA NARE 1 spr BID RAJEEV Administration Tacrolimus 5 mg 09/07/19 21:00 09/13/19 08:35 Prograf PO 5 mg BID RAJEEV Administration Tacrolimus 0.5 mg 09/07/19 21:00 09/13/19 08:35 Prograf PO 0.5 mg BID RAJEEV Administration Witch Tamiko/Glycerin 1 each 09/08/19 09:00 09/13/19 08:39 Tucks Pads TOP 1 each DAILY RAJEEV Administration - Exam General Appearance: NAD Eye: anicteric sclera ENT: moist mucosa Heart: RRR, no murmur, no gallops Respiratory: CTAB, no wheezes, no rales, no ronchi Gastrointestinal: soft, non-tender, non-distended, normal bowel sounds Extremities: no cyanosis, no clubbing, no edema Psychiatric: normal affect, normal behavior Hosp A/P (1) Acute respiratory failure with hypoxia Code(s): J96.01 - ACUTE RESPIRATORY FAILURE WITH HYPOXIA Status: Acute (2) ESRD on dialysis Code(s): N18.6 - END STAGE RENAL DISEASE; Z99.2 - DEPENDENCE ON RENAL DIALYSIS Status: Acute (3) Acute on chronic diastolic (congestive) heart failure Code(s): I50.33 - ACUTE ON CHRONIC DIASTOLIC (CONGESTIVE) HEART FAILURE Status : Acute (4) Insulin dependent diabetes mellitus Code(s): E11.9 - TYPE 2 DIABETES MELLITUS WITHOUT COMPLICATIONS; Z79.4 - FORENSIC ACCOUNTANT (CURRENT) USE OF INSULIN Status: Chronic (5) CAD (coronary artery disease) Code(s): I25.10 - ATHSCL HEART DISEASE OF [place] CORONARY ARTERY W/O ANG PCTRS Status: Chronic (6) Hypothyroidism Code(s): E03.9 - HYPOTHYROIDISM, UNSPECIFIED Status: Chronic (7) BLANE (obstructive sleep apnea) Code(s): G47.33 - OBSTRUCTIVE SLEEP APNEA (ADULT) (PEDIATRIC) Status: Chronic - Plan respiratory therapy
[2019-09-13 16:09] LABS: Hep B Surface AG-Rflx Sendout Negative (Negative); Hepatitis B Core Total Positive (Negative); Hepatitis B Surface AB-Sendout Reactive (.)
[2019-09-13] MEDS: Atorvastatin Calcium 40 MG TAB PO SCH (20:24)
--- NOTE | 2019-09-13 22:27 | PRG ---
DATE OF SERVICE: 09/13/2019 SUBJECTIVE: Mr. Encinas extubated himself earlier this morning. He was in no distress afterwards. He moved all extremities. He was sluggish responding to questions, but would respond to questions. OBJECTIVE: VITAL SIGNS: He was afebrile. Heart rate is in the 90s, respiratory rates in the teens, oximetry is 100% on a cannula, blood pressure this evening is 105/50. INTAKE AND OUTPUT: Positive 1277. LUNGS: Clear. HEART: Regular rhythm. S1 and S2 are normal. ABDOMEN: Soft and nontender. EXTREMITIES: Without edema. LABORATORY DATA: White count 11, hemoglobin 11.4, platelets 68,000. Sodium 135, potassium 4.4, chloride 99, bicarb 26, BUN 19, creatinine 2.53. IMPRESSION: 1. Status post respiratory failure secondary to volume overload. 2. Status post cardiorespiratory arrest secondary to volume overload. 3. Diastolic heart failure. 4. Renal failure. Hopefully, by tomorrow, we can transfer him out of the critical care unit if he remains stable. Job ID: [id number]
[2019-09-14] MEDS: Hydrocortisone Sod Succ/PF 100 mg/2 ml Vial IVP SCH ×5 (00:16→23:54)
[2019-09-14] MEDS: HumaLOG 300 UNITS/3 ML VIAL SC PRN ×5 (00:17→21:02)
[2019-09-14 04:22] LABS: #Lymphocytes 0.7 thou/uL (1.20-3.40); #Monocytes 1.1 thou/uL (0.11-0.59); #Neutrophils 8.3 thou/uL (1.40-6.50); %Basophils 0.2 % (0.0-1.0); %Lymphocytes 6.8 % (21.0-51.0); %Monocytes 10.9 % (0.0-10.0); %Neutrophils 82.1 % (42.0-75.0); Hemoglobin 9.9 g/dL (14.0-18.0); Mean Corpuscular HGB CONC 31.9 g/dL (32.0-36.0); Mean Corpuscular Hemoglobin 32.5 pg (27.0-31.0); Mean Platelet Volume 11.1 fL (7.4-10.4); Platelet Count 78 thou/uL (130-400); RBC Distribution Width 17.8 % (11.5-14.5); Red Blood Cell (RBC) Count 3.04 mill/uL (4.70-6.10); White Blood Cell (WBC) Count 10.1 thou/uL (4.8-10.8)
[2019-09-14 04:36] LABS: Anion Gap 12 mmol/L (10-20); BUN (Urea Nitrogen) 15 mg/dL (8.4-25.7); Calc. Creatinine Clearance 41 mL/min (70-130); Calcium 8.7 mg/dL (7.8-10.44); Carbon Dioxide 31 mmol/L (23-31); Chloride 98 mmol/L (98-107); Estimated GFR-MDRD 35; Glucose 176 mg/dL (80-115); Sodium 137 mmol/L (136-145)
[2019-09-14] MEDS: Levothyroxine 175 MCG TAB PO SCH (06:43)
[2019-09-14] MEDS: Gabapentin 100 MG CAP PO SCH ×2 (08:40→20:42)
[2019-09-14] MEDS: Magnesium Oxide 400 MG TAB PO SCH ×2 (08:40→20:42)
[2019-09-14] MEDS: Famotidine 20 MG TAB PO SCH (08:40)
[2019-09-14] MEDS: Multivit, Therapeutic 1 TAB PO SCH (08:41)
[2019-09-14] MEDS: Witch Hazel-Glycerin 1 EACH JAR TOP SCH (08:41)
[2019-09-14] MEDS: Ammonium Lactate 12% Lotion 225 GM BOT TOP SCH ×2 (08:41→20:42)
[2019-09-14] MEDS: Aspirin 81 mg Enteric Coated Tablet PO SCH (08:41)
[2019-09-14] MEDS: Sodium Chloride Nasal 15 GM TUBE EA NARE SCH ×2 (08:42→20:44)
[2019-09-14] MEDS: DorzolamidE/Timolol 2%/0.5% Ophth Soln 10 ml Bottle EA EYE SCH ×2 (08:42→20:42)
[2019-09-14] MEDS: Dextrose 10% in Water 1,000 ML IV SCH (09:35)
--- NOTE | 2019-09-14 11:57 | PDOC.EP ---
- Subjective Date: 09/14/19 Time: 09:00 Interval History: follow up for severe bradycardia during and following recent arrest. now extubated, watching TV. No cardiac concerns or complaints. - Review of Systems Constitutional: denies: chills, fever, malaise, sweats, weakness, other Respiratory: denies: cough, dry, hemoptysis, pleuritic pain, shortness of breath , SOB with excertion, sputum, wheezing, other Cardiology: denies: chest pain, edema, heart racing, light headedness, paroxysmal noc. dyspnea, orthopnea, palpitations, passing out, pleuritic pain, pressure, swelling, other - Objective Allergies/Adverse Reactions: Allergies Allergy/AdvReac Type Severity Reaction Status Date / Time morphine Allergy Mental Verified 09/07/19 12:13 changes Penicillins Allergy Hives Verified 09/07/19 12:13 Current Medications Acetaminophen (Tylenol) 650 mg PO Q4H PRN PRN Reason: Headache/Fever/Mild Pain (1-3) Hydrocodone Bitart/Acetaminophen ([place] 10/325) 1 tab PO Q4H PRN PRN Reason: Pain Last Admin: 09/13/19 10:08 Dose: 1 tab Albuterol/Ipratropium (Duoneb) 3 ml NEB [id number] [facility] Last Admin: 09/14/19 07:14 Dose: 3 ml Ammonium Lactate (Laclotion) 0 gm TOP BID [facility] Last Admin: 09/14/19 08:41 Dose: 1 gm Aspirin (Ecotrin) 81 mg PO DAILY [facility] Last Admin: 09/14/19 08:41 Dose: 81 mg Atorvastatin Calcium (Lipitor) 40 mg PO HS [facility] Last Admin: 09/13/19 20:24 Dose: 40 mg Atropine Sulfate (Atropine) 0.5 mg IVP Q4H PRN PRN Reason: BRADYCARDIA Cholecalciferol (Vitamin D3) 2,000 units PO DAILY [facility] Last Admin: 09/14/19 08:41 Dose: 2,000 units Clotrimazole (Mycelex Sujatha) 10 mg PO TID-WM [facility] Last Admin: 09/14/19 11:32 Dose: 10 mg Dextrose/Water (Dextrose 50%) 25 gm SLOW IVP PRN PRN PRN Reason: Hypoglycemia Last Admin: 09/10/19 00:33 Dose: 25 gm Docusate Sodium (Colace) 100 mg PO BIDPRN PRN PRN Reason: Constipation Dorzolamide/Timolol (Cosopt 2-0.5% Ophth Soln) 1 drop EA EYE BID [facility] Last Admin: 09/14/19 08:42 Dose: 1 drop Famotidine (Pepcid) 20 mg PO DAILY [facility] Last Admin: 09/14/19 08:40 Dose: 20 mg Gabapentin (Neurontin) 100 mg PO BID [facility] Last Admin: 09/14/19 08:40 Dose: 100 mg Glucagon (Glucagon) 1 mg IM PRN PRN PRN Reason: Hypoglycemia Hydrocortisone Sodium Succinate (Solu-Cortef) 50 mg IVP Q6HR [facility] Stop: 09/16/19 18:01 Last Admin: 09/14/19 11:32 Dose: 50 mg Hydroxyzine HCl (Atarax) 25 mg PO BIDPRN PRN PRN Reason: Itching Dextrose/Water (D5w) 1,000 mls @ 0 mls/hr IV .Q0M PRN PRN Reason: Hypoglycemia Norepinephrine Bitartrate (Levophed) 250 mls @ 0 mls/hr IVPB INF [facility]; Protocol Last Admin: 09/11/19 10:55 Dose: 250 mls Dopamine HCl/Dextrose (Dopamine 400 Mg/D5w 250 Ml) 250 mls @ 0 mls/hr IVPB INF RAJEEV; Protocol Last Admin: 09/11/19 12:24 Dose: 250 mls Dextrose/Water (Dextrose 10% In Water) 1,000 mls @ 50 mls/hr IV .Q20H [facility] Last Admin: 09/14/19 09:35 Dose: Not Given Dexmedetomidine HCl 400 mcg/ (Sodium Chloride) 100 mls @ 0 mls/hr IVPB INF [facility] Last Admin: 09/12/19 16:42 Dose: 100 mls Insulin Human Lispro (Humalog) 0 units SC .AGGRESSIVE SLIDING PRN; Protocol PRN Reason: AGGRESSIVE SLIDING SCALE Last Admin: 09/14/19 10:55 Dose: 3 units Levothyroxine Sodium (Synthroid) 175 mcg PO 0600 [facility] Last Admin: 09/14/19 06:43 Dose: 175 mcg Magnesium Oxide (Magnesium Oxide) 800 mg PO BID [facility] Last Admin: 09/14/19 08:40 Dose: 800 mg Multivitamins (Theragran) 1 tab PO DAILY [facility] Last Admin: 09/14/19 08:41 Dose: 1 tab Ondansetron HCl (Zofran Odt) 4 mg PO Q6H PRN PRN Reason: Nausea/Vomiting Sodium Chloride/Aloe Vera ([place] W/Aloe Gel) 0 gm EA NARE BID [facility] Last Admin: 09/14/19 08:42 Dose: 1 spr Witch Tamiko/Glycerin (Tucks Pads) 1 each TOP DAILY [facility] Last Admin: 09/14/19 08:41 Dose: 1 each Vital Signs & Weight: Vital Signs Temp Pulse Resp Pulse Ox 09/14/19 11:45 98.4 F 09/14/19 07:20 100 09/14/19 07:14 86 18 100 09/14/19 07:00 98.9 F 09/14/19 04:00 98.8 F 09/14/19 00:00 98.5 F Admit Weight 211 lb 1.6 oz Weight 209 lb 3.499 oz I/O: I/O 09/13/19 09/14/19 09/15/19 06:59 06:59 06:59 Intake Total 1427.0 1315 480 Output Total 150 50 0 Balance 1277.0 1265 480 - Physical Exam General: alert & oriented x3, appears well, no apparent distress Neck: supple neck, midline trachea, no bruit, no lymphadenopathy Cardiology: regular rate and rhythm, no murmur, regular rate, regular rhythm, PMI nondisplaced Lungs: clear to auscultation, normal breath sounds, no wheeze, rales, rhonchi Neurology: no lateralizing findings Abdomen: unremarkable, active bowel sounds, soft, no masses, no hepatosplenomegaly Extremities: dry, strong pulses, warm, other: (rue fistula) Skin: groin sites stable, device site stable w/o swelling Musculoskeletal: normal range of motion, no pain, no fluid collection - Labs Result Diagrams: 09/14/19 03:55 09/14/19 03:55 - EKG Interpretation EKG Method: Telemetry EKG shows: Sinus rhythm - Assessment/Plan Assessment/Plan: 1. s/p cardiopulmonary arrest 2. Marked bradycardia - possibly secondary to arrest - keeley to 36 originally. no further pauses or severe bradycardia seen. Had brief tachycardia on 09/11 -dopamine off - resolved since extubation and off sedation 4. Diastolic HF-per cardiology 5. Trifascicular block 6. A/C renal insufficiency- per nephrology Bradycardia resolved once extubated and sedation stopped. No pacemaker. Rhythm stable. EP signing off.
--- NOTE | 2019-09-14 12:35 | PDOC.HOSPP ---
- Subjective Encounter Date: 09/14/19 Encounter Time: 11:28 Subjective: 69 y/o male with ESRD s/p renal transplant , CAD, BLANE , DM and others admitted with worsening SOB and swelling associated with hypoxia. Patient later had a severe bradycardic spell associated with cardiopulmonary arrest and was treated with medically with atropine and intubated. Treated also with dialysis for acute on chronic renal failure with improvement. Extubated self and doing well. No new problem. - Objective Vital Signs & Weight: Vital Signs (12 hours) Temp Pulse Resp Pulse Ox 09/14/19 11:45 98.4 F 09/14/19 07:20 100 09/14/19 07:14 86 18 100 09/14/19 07:00 98.9 F 09/14/19 04:00 98.8 F Weight Admit Weight 211 lb 1.6 oz Weight 209 lb 3.499 oz Most Recent Monitor Data Heart Rate from ECG 89 NIBP 115/70 NIBP BP-Mean 97 Respiration from ECG 18 SpO2 99 I&O: 09/13/19 09/14/19 09/15/19 06:59 06:59 06:59 Intake Total 1427.0 1315 480 Output Total 150 50 0 Balance 1277.0 1265 480 Result Diagrams: 09/14/19 03:55 09/14/19 03:55 Additional Labs: Accuchecks 09/14/19 09/14/19 09/14/19 10:56 04:00 00:18 POC Glucose 151 H 256 H 181 H 09/13/19 09/13/19 21:06 17:07 POC Glucose 230 H 193 H Hospitalist ROS - Medication Medications: Active Medications Generic Name Dose Route Start Last Admin Trade Name Freq PRN Reason Stop Dose Admin Hydrocodone Bitart/Acetaminophen 1 tab 09/13/19 09:58 09/13/19 10:08 [place] 10/325 PO 1 tab Q4H PRN Administration Pain Albuterol/Ipratropium 3 ml 09/09/19 13:00 09/14/19 07:14 Duoneb NEB 3 ml [id number] RAJEEV Administration Ammonium Lactate 0 gm 09/07/19 21:00 09/14/19 08:41 Laclotion TOP 1 gm BID RAJEEV Administration Aspirin 81 mg 09/08/19 09:00 09/14/19 08:41 Ecotrin PO 81 mg DAILY RAJEEV Administration Atorvastatin Calcium 40 mg 09/13/19 21:00 09/13/19 20:24 Lipitor PO 40 mg HS RAJEEV Administration Cholecalciferol 2,000 units 09/08/19 09:00 09/14/19 08:41 Vitamin D3 PO 2,000 units DAILY RAJEEV Administration Clotrimazole 10 mg 09/07/19 17:00 09/14/19 11:32 Mycelex Sujatha PO 10 mg TID-WM RAJEEV Administration Dextrose/Water 25 gm 09/07/19 02:10 09/10/19 00:33 Dextrose 50% SLOW IVP 25 gm PRN PRN Administration Hypoglycemia Dorzolamide/Timolol 1 drop 09/07/19 21:00 09/14/19 08:42 Cosopt 2-0.5% Ophth Soln EA EYE 1 drop BID RAJEEV Administration Famotidine 20 mg 09/07/19 09:00 09/14/19 08:40 Pepcid PO 20 mg DAILY RAJEEV Administration Gabapentin 100 mg 09/07/19 21:00 09/14/19 08:40 Neurontin PO 100 mg BID RAJEEV Administration Hydrocortisone Sodium Succinate 50 mg 09/09/19 18:00 09/14/19 11:32 Solu-Cortef IVP 09/16/19 18:01 50 mg Q6HR RAJEEV Administration Norepinephrine Bitartrate 250 mls @ 0 mls/hr 09/09/19 05:42 09/11/19 10:55 Levophed IVPB 250 mls INF RAJEEV Administration Protocol Titrate Dopamine HCl/Dextrose 250 mls @ 0 mls/hr 09/10/19 18:30 09/11/19 12:24 Dopamine 400 Mg/D5w 250 Ml IVPB 250 mls INF RAJEEV Administration Protocol As Directed Dextrose/Water 1,000 mls @ 50 mls/hr 09/11/19 01:30 09/14/19 09:35 Dextrose 10% In Water IV Not Given .Q20H RAJEEV Dexmedetomidine HCl 400 mcg/ 100 mls @ 0 mls/hr 09/12/19 16:30 09/12/19 16:42 Sodium Chloride IVPB 100 mls INF RAJEEV Administration Per Protocol Insulin Human Lispro 0 units 09/13/19 10:30 09/14/19 10:55 Humalog SC 3 units .AGGRESSIVE SLIDING PRN Administration AGGRESSIVE SLIDING SCALE Protocol Levothyroxine Sodium 175 mcg 09/08/19 06:00 09/14/19 06:43 Synthroid PO 175 mcg 0600 RAJEEV Administration Magnesium Oxide 800 mg 09/07/19 21:00 09/14/19 08:40 Magnesium Oxide PO 800 mg BID RAJEEV Administration Multivitamins 1 tab 09/08/19 09:00 09/14/19 08:41 Theragran PO 1 tab DAILY RAJEEV Administration Sodium Chloride/Aloe Vera 0 gm 09/07/19 21:00 09/14/19 08:42 [place] W/Aloe Gel EA NARE 1 spr BID RAJEEV Administration Witch [place]iko/Glycerin 1 each 09/08/19 09:00 09/14/19 08:41 Tucks Pads TOP 1 each DAILY RAJEEV Administration - Exam General Appearance: awake alert 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 ENT: normocephalic atraumatic Neck: symmetric Heart: RRR Respiratory - other findings: fair air entry with some transmitted sound Gastrointestinal: soft, non-tender, normal bowel sounds Extremities - other findings: trace leg and marked upper extremity edema Neurological: cranial nerve grossly intact, no new deficit Psychiatric: A&O x 3 Hosp A/P (1) Acute respiratory failure with hypoxia Code(s): J96.01 - ACUTE RESPIRATORY FAILURE WITH HYPOXIA Status: Acute (2) Acute on chronic diastolic (congestive) heart failure Code(s): I50.33 - ACUTE ON CHRONIC DIASTOLIC (CONGESTIVE) HEART FAILURE Status : Acute (3) Chronic renal allograft nephropathy Code(s): T86.11 - KIDNEY TRANSPLANT REJECTION Status: Acute (4) Hyperkalemia Code(s): E87.5 - HYPERKALEMIA Status: Acute (5) Bradycardia Code(s): R00.1 - BRADYCARDIA, UNSPECIFIED Status: Acute (6) Trifascicular block Code(s): I45.3 - TRIFASCICULAR BLOCK Status: Acute (7) ESRD on dialysis Code(s): N18.6 - END STAGE RENAL DISEASE; Z99.2 - DEPENDENCE ON RENAL DIALYSIS Status: Acute (8) CAD (coronary artery disease) Code(s): I25.10 - ATHSCL HEART DISEASE OF [place] CORONARY ARTERY W/O ANG PCTRS Status: Chronic (9) Hypothyroidism Code(s): E03.9 - HYPOTHYROIDISM, UNSPECIFIED Status: Chronic (10) Insulin dependent diabetes mellitus Code(s): E11.9 - TYPE 2 DIABETES MELLITUS WITHOUT COMPLICATIONS; Z79.4 - SHELTER (CURRENT) USE OF INSULIN Status: Chronic (11) BLANE (obstructive sleep apnea) Code(s): G47.33 - OBSTRUCTIVE SLEEP APNEA (ADULT) (PEDIATRIC) Status: Chronic - Plan Continue HD with UF as per nephrology. Continue other treatments.
--- NOTE | 2019-09-14 16:07 | PDOC.CPN ---
- Subjective Date: 09/14/19 Time: 16:05 Interval history: No new issues. No complaints. - Review of Systems General: denies: fever/chills, weight/appetite/sleep changes, night sweats, fatigue Respiratory: denies: cough, congestion, shortness of breath, exercise intolerance Cardiovascular: denies: chest pain, palpitation, edema, paroxysmal nocturnal dyspnea, orthopnea Gastrointestinal: denies: nausea, vomiting, diarrhea, constipation, abd pain, GI bleeding Musculoskeletal: denies: pain, tenderness, stiffness, swelling, arthritis/ arthralgias Neurological: denies: numbness, syncope, seizure, weakness - Objective Allergies/Adverse Reactions: Allergies Allergy/AdvReac Type Severity Reaction Status Date / Time morphine Allergy Mental Verified 09/07/19 12:13 changes Penicillins Allergy Hives Verified 09/07/19 12:13 Visit Medications: Current Medications Acetaminophen (Tylenol) 650 mg PO Q4H PRN PRN Reason: Headache/Fever/Mild Pain (1-3) Hydrocodone Bitart/Acetaminophen ([place] 10/325) 1 tab PO Q4H PRN PRN Reason: Pain Last Admin: 09/13/19 10:08 Dose: 1 tab Albuterol/Ipratropium (Duoneb) 3 ml NEB [id number] [facility] Last Admin: 09/14/19 13:06 Dose: 3 ml Ammonium Lactate (Laclotion) 0 gm TOP BID RAJEEV Last Admin: 09/14/19 08:41 Dose: 1 gm Aspirin (Ecotrin) 81 mg PO DAILY [facility] Last Admin: 09/14/19 08:41 Dose: 81 mg Atorvastatin Calcium (Lipitor) 40 mg PO HS [facility] Last Admin: 09/13/19 20:24 Dose: 40 mg Atropine Sulfate (Atropine) 0.5 mg IVP Q4H PRN PRN Reason: BRADYCARDIA Cholecalciferol (Vitamin D3) 2,000 units PO DAILY [facility] Last Admin: 09/14/19 08:41 Dose: 2,000 units Clotrimazole (Mycelex Sujatha) 10 mg PO TID-WM [facility] Last Admin: 09/14/19 11:32 Dose: 10 mg Dextrose/Water (Dextrose 50%) 25 gm SLOW IVP PRN PRN PRN Reason: Hypoglycemia Last Admin: 09/10/19 00:33 Dose: 25 gm Docusate Sodium (Colace) 100 mg PO BIDPRN PRN PRN Reason: Constipation Dorzolamide/Timolol (Cosopt 2-0.5% Ophth Soln) 1 drop EA EYE BID [facility] Last Admin: 09/14/19 08:42 Dose: 1 drop Famotidine (Pepcid) 20 mg PO DAILY [facility] Last Admin: 09/14/19 08:40 Dose: 20 mg Gabapentin (Neurontin) 100 mg PO BID [facility] Last Admin: 09/14/19 08:40 Dose: 100 mg Glucagon (Glucagon) 1 mg IM PRN PRN PRN Reason: Hypoglycemia Hydrocortisone Sodium Succinate (Solu-Cortef) 50 mg IVP Q6HR [facility] Stop: 09/16/19 18:01 Last Admin: 09/14/19 11:32 Dose: 50 mg Hydroxyzine HCl (Atarax) 25 mg PO BIDPRN PRN PRN Reason: Itching Dextrose/Water (D5w) 1,000 mls @ 0 mls/hr IV .Q0M PRN PRN Reason: Hypoglycemia Norepinephrine Bitartrate (Levophed) 250 mls @ 0 mls/hr IVPB INF [facility]; Protocol Last Admin: 09/11/19 10:55 Dose: 250 mls Dopamine HCl/Dextrose (Dopamine 400 Mg/D5w 250 Ml) 250 mls @ 0 mls/hr IVPB INF RAJEEV; Protocol Last Admin: 09/11/19 12:24 Dose: 250 mls Dextrose/Water (Dextrose 10% In Water) 1,000 mls @ 50 mls/hr IV .Q20H [facility] Last Admin: 09/14/19 09:35 Dose: Not Given Dexmedetomidine HCl 400 mcg/ (Sodium Chloride) 100 mls @ 0 mls/hr IVPB INF [facility] Last Admin: 09/12/19 16:42 Dose: 100 mls Insulin Human Lispro (Humalog) 0 units SC .AGGRESSIVE SLIDING PRN; Protocol PRN Reason: AGGRESSIVE SLIDING SCALE Last Admin: 09/14/19 10:55 Dose: 3 units Levothyroxine Sodium (Synthroid) 175 mcg PO 0600 [facility] Last Admin: 09/14/19 06:43 Dose: 175 mcg Magnesium Oxide (Magnesium Oxide) 800 mg PO BID [facility] Last Admin: 09/14/19 08:40 Dose: 800 mg Multivitamins (Theragran) 1 tab PO DAILY [facility] Last Admin: 09/14/19 08:41 Dose: 1 tab Ondansetron HCl (Zofran Odt) 4 mg PO Q6H PRN PRN Reason: Nausea/Vomiting Sodium Chloride/Aloe Vera ([place] W/Aloe Gel) 0 gm EA NARE BID [facility] Last Admin: 09/14/19 08:42 Dose: 1 spr Witch Tamiko/Glycerin (Tucks Pads) 1 each TOP DAILY [facility] Last Admin: 09/14/19 08:41 Dose: 1 each Vital Signs & Weight: Vital Signs Temp Pulse Resp Pulse Ox 09/14/19 15:56 98.8 F 09/14/19 13:06 91 21 H 99 09/14/19 11:45 98.4 F 09/14/19 07:20 100 09/14/19 07:14 86 18 100 09/14/19 07:00 98.9 F Admit Weight 211 lb 1.6 oz Weight 209 lb 3.499 oz - Physical Exam General: alert & oriented x3 HEENT: mucus membranes moist Neck: supple neck Cardiac: regular rate and rhythm Lungs: normal breath sounds Neuro: grossly intact Abdomen: active bowel sounds Extremities: 1+ LE edema Skin: clear Musculoskeletal: no pain - Labs Result Diagrams: 09/14/19 03:55 09/14/19 03:55 Troponin/CKMB CK-MB (CK-2) 4.8 ng/mL (0-6.6) 09/07/19 00:49 Troponin I 0.060 ng/mL (< 0.028) H 09/07/19 11:32 - Telemetry Sinus rhythms and dysrhythmias: sinus rhythm - Assessment/Plan Assessment/Plan: 1. S/P Cardiac arrest 2. Bradycardia, resolved. 3. Diastolic heart failure, stable. 4. CKD s/p transplant with allograft nephropathy. PLAN: - CV stable, no new recs. - Continue HD per nephrology.
--- NOTE | 2019-09-14 19:52 | PRG ---
DATE OF SERVICE: 09/14/2019 SUBJECTIVE: Eric Encinas is in no distress. He admits he is probably too weak to go home, so we should begin attempting placement in a skilled facility. OBJECTIVE: VITAL SIGNS: Heart rate is 92, respiratory rate is 18, oximetry is 100% on 2 L, blood pressure 109/58. LUNGS: Clear. HEART: Regular rhythm. ABDOMEN: Soft and nontender. EXTREMITIES: Without edema. NEUROLOGIC: Grossly nonfocal. LABORATORY DATA: White count yesterday was 11, today is 10.1; hemoglobin yesterday was 11.4, today is 9.9; platelets 78,000. Sodium 137, potassium 4, chloride 98, bicarb 31, BUN 15, and creatinine 2.26. Intake and output were positive 1265. IMPRESSION: Respiratory failure associated with volume overload, appears to be clinically stable after self-extubation. He does not appear to have suffered any type of hypoperfusion or anoxic insult. He will need some type of long-term care at a rehab facility. He is stable in my opinion to move out of the critical care unit to a monitored bed. Job ID: [id number]
[2019-09-14] MEDS: Atorvastatin Calcium 40 MG TAB PO SCH (20:42)
[2019-09-15 04:10] LABS: #Lymphocytes 0.7 thou/uL (1.20-3.40); #Monocytes 0.8 thou/uL (0.11-0.59); #Neutrophils 10.6 thou/uL (1.40-6.50); %Basophils 0.2 % (0.0-1.0); %Lymphocytes 5.4 % (21.0-51.0); %Monocytes 6.7 % (0.0-10.0); %Neutrophils 87.6 % (42.0-75.0); Hemoglobin 9.1 g/dL (14.0-18.0); Mean Corpuscular HGB CONC 31.7 g/dL (32.0-36.0); Mean Corpuscular Hemoglobin 32.6 pg (27.0-31.0); Mean Platelet Volume 10.1 fL (7.4-10.4); Platelet Count 93 thou/uL (130-400); RBC Distribution Width 17.3 % (11.5-14.5)
[2019-09-15 04:51] LABS: Anion Gap 10 mmol/L (10-20); BUN (Urea Nitrogen) 17 mg/dL (8.4-25.7); Calc. Creatinine Clearance 38 mL/min (70-130); Calcium 8.9 mg/dL (7.8-10.44); Carbon Dioxide 32 mmol/L (23-31); Chloride 99 mmol/L (98-107); Estimated GFR-MDRD 32; Glucose 182 mg/dL (80-115); Potassium 4.1 mmol/L (3.5-5.1); Sodium 137 mmol/L (136-145)
[2019-09-15] MEDS: Hydrocortisone Sod Succ/PF 100 mg/2 ml Vial IVP SCH ×4 (05:59→23:28)
[2019-09-15] MEDS: Levothyroxine 175 MCG TAB PO SCH (06:00)
[2019-09-15] MEDS: HumaLOG 300 UNITS/3 ML VIAL SC PRN ×3 (06:00→21:24)
[2019-09-15] MEDS: Dextrose 10% in Water 1,000 ML IV SCH (06:42)
[2019-09-15] MEDS: Aspirin 81 mg Enteric Coated Tablet PO SCH (08:42)
[2019-09-15] MEDS: Famotidine 20 MG TAB PO SCH (08:42)
[2019-09-15] MEDS: Magnesium Oxide 400 MG TAB PO SCH ×2 (08:42→20:25)
[2019-09-15] MEDS: Gabapentin 100 MG CAP PO SCH ×2 (08:43→20:25)
[2019-09-15] MEDS: Ammonium Lactate 12% Lotion 225 GM BOT TOP SCH ×2 (08:43→20:27)
[2019-09-15] MEDS: Multivit, Therapeutic 1 TAB PO SCH (08:43)
[2019-09-15] MEDS: Witch Hazel-Glycerin 1 EACH JAR TOP SCH (08:43)
[2019-09-15] MEDS: Sodium Chloride Nasal 15 GM TUBE EA NARE SCH ×2 (08:44→20:26)
[2019-09-15] MEDS: DorzolamidE/Timolol 2%/0.5% Ophth Soln 10 ml Bottle EA EYE SCH ×2 (08:44→20:26)
[2019-09-15] MEDS: Haloperidol Lactate 5 MG/ML VIAL IM SCH (13:38)
--- NOTE | 2019-09-15 13:43 | PRG ---
DATE OF SERVICE: 09/15/2019 SUBJECTIVE: Mr. Encinas is confused, but he has been stable. I am told they were able to get 3 L off hemodialysis and now they are going every other day dialysis. OBJECTIVE: VITAL SIGNS: He is afebrile. Heart rate is 82, blood pressure 153/77. LUNGS: Clear. HEART: Regular rhythm. ABDOMEN: Soft. EXTREMITIES: Without asymmetry or significant edema. LABORATORY DATA: White count 12.9, hemoglobin 9.1, platelets 93,000. Sodium 137, potassium 4.1, chloride 99, bicarb 32, BUN 17, creatinine 2.42, glucose 182. IMPRESSION: Status post respiratory failure and a cardiac respiratory arrest secondary to volume overload, clinically stable. Encephalopathy. This is most likely related to be in the Critical Care Unit. He can transfer to the intermediate care unit. May add a low dose of Haldol twice a day and see if this leads to improvement of his encephalopathy. Job ID: [id number]
--- NOTE | 2019-09-15 13:48 | ULT ---
EXAM: Ultrasound transplant kidney with Doppler PROVIDED CLINICAL HISTORY: Renal insufficiency COMPARISON: None FINDINGS: Transplant kidney measures approximately 12.6 x 5.7 x 6.1 cm and demonstrates no evidence for hydrone phrosis or mass. Color Doppler with spectral analysis of the transplant renal vein, renal artery and arcuate system wa s performed. Flow is confirmed within the right renal vein and right renal artery. Peak systolic velocities appear within the normal range involving the renal artery. Mild nonspecific elevation of r esistive indices within the arcuate system. IMPRESSION: No evidence for hydronephrosis. Arterial and venous flow are confirmed.
[2019-09-15 14:04] LABS: Reference Lab Name LABCORP
--- NOTE | 2019-09-15 16:06 | PDOC.HOSPP ---
- Subjective Encounter Date: 09/15/19 Encounter Time: 14:03 Subjective: 69 y/o male with ESRD s/p renal transplant , CAD, BLANE , DM and others admitted with worsening SOB and swelling associated with hypoxia. Patient later had a severe bradycardic spell associated with cardiopulmonary arrest and was treated with medically with atropine and intubated. Doing well post extubation. No new problem. Getting dialysis for acute on chronic renal failure with improvement. - Objective Vital Signs & Weight: Vital Signs (12 hours) Temp Pulse Resp Pulse Ox 09/15/19 12:00 98.4 F 09/15/19 07:48 86 20 100 09/15/19 07:13 97 09/15/19 07:00 98.4 F Weight Admit Weight 211 lb 1.6 oz Weight 209 lb 3.499 oz Most Recent Monitor Data Heart Rate from ECG 80 NIBP 165/101 NIBP BP-Mean 122 Respiration from ECG 16 SpO2 100 I&O: 09/14/19 09/15/19 09/16/19 06:59 06:59 06:59 Intake Total 1315 1158 190 Output Total 50 0 0 Balance 1265 1158 190 Result Diagrams: 09/15/19 03:15 09/15/19 03:15 Additional Labs: Accuchecks 09/15/19 09/15/19 09/14/19 10:34 06:02 21:03 POC Glucose 131 H 193 H 166 H 09/14/19 16:44 POC Glucose 181 H Hospitalist ROS - Medication Medications: Active Medications Generic Name Dose Route Start Last Admin Trade Name Freq PRN Reason Stop Dose Admin Hydrocodone Bitart/Acetaminophen 1 tab 09/13/19 09:58 09/13/19 10:08 [place] 10/325 PO 1 tab Q4H PRN Administration Pain Albuterol/Ipratropium 3 ml 09/09/19 13:00 09/15/19 12:51 Duoneb NEB Not Given [id number] RAJEEV Ammonium Lactate 0 gm 09/07/19 21:00 09/15/19 08:43 Laclotion TOP 1 gm BID RAJEEV Administration Aspirin 81 mg 09/08/19 09:00 09/15/19 08:42 Ecotrin PO 81 mg DAILY RAJEEV Administration Atorvastatin Calcium 40 mg 09/13/19 21:00 09/14/19 20:42 Lipitor PO 40 mg HS RAJEEV Administration Cholecalciferol 2,000 units 09/08/19 09:00 09/15/19 08:42 Vitamin D3 PO 2,000 units DAILY RAJEEV Administration Clotrimazole 10 mg 09/07/19 17:00 09/15/19 11:59 Mycelex Sujatha PO 10 mg TID-WM RAJEEV Administration Dextrose/Water 25 gm 09/07/19 02:10 09/10/19 00:33 Dextrose 50% SLOW IVP 25 gm PRN PRN Administration Hypoglycemia Dorzolamide/Timolol 1 drop 09/07/19 21:00 09/15/19 08:44 Cosopt 2-0.5% Ophth Soln EA EYE 1 drop BID RAJEEV Administration Famotidine 20 mg 09/07/19 09:00 09/15/19 08:42 Pepcid PO 20 mg DAILY RAJEEV Administration Gabapentin 100 mg 09/07/19 21:00 09/15/19 08:43 Neurontin PO 100 mg BID RAJEEV Administration Haloperidol Lactate 5 mg 09/15/19 14:00 09/15/19 13:38 Haldol IM 5 mg 0200,1400 RAJEEV Administration Hydrocortisone Sodium Succinate 50 mg 09/09/19 18:00 09/15/19 11:59 Solu-Cortef IVP 09/16/19 18:01 50 mg Q6HR RAJEEV Administration Norepinephrine Bitartrate 250 mls @ 0 mls/hr 09/09/19 05:42 09/11/19 10:55 Levophed IVPB 250 mls INF RAJEEV Administration Protocol Titrate Dopamine HCl/Dextrose 250 mls @ 0 mls/hr 09/10/19 18:30 09/11/19 12:24 Dopamine 400 Mg/D5w 250 Ml IVPB 250 mls INF RAJEEV Administration Protocol As Directed Dextrose/Water 1,000 mls @ 50 mls/hr 09/11/19 01:30 09/15/19 06:42 Dextrose 10% In Water IV Not Given .Q20H RAJEEV Dexmedetomidine HCl 400 mcg/ 100 mls @ 0 mls/hr 09/12/19 16:30 09/12/19 16:42 Sodium Chloride IVPB 100 mls INF RAJEEV Administration Per Protocol Insulin Human Lispro 0 units 09/13/19 10:30 09/15/19 06:00 Humalog SC 3 units .AGGRESSIVE SLIDING PRN Administration AGGRESSIVE SLIDING SCALE Protocol Levothyroxine Sodium 175 mcg 09/08/19 06:00 09/15/19 06:00 Synthroid PO 175 mcg 0600 RAJEEV Administration Magnesium Oxide 800 mg 09/07/19 21:00 09/15/19 08:42 Magnesium Oxide PO 800 mg BID RAJEEV Administration Multivitamins 1 tab 09/08/19 09:00 09/15/19 08:43 Theragran PO 1 tab DAILY RAJEEV Administration Sodium Chloride/Aloe Vera 0 gm 09/07/19 21:00 09/15/19 08:44 [place] W/Aloe Gel EA NARE 1 spr BID RAJEEV Administration Witch Tamiko/Glycerin 1 each 09/08/19 09:00 09/15/19 08:43 Tucks Pads TOP 1 each DAILY RAJEEV Administration - Exam General Appearance: awake alert Eye: anicteric sclera ENT: normocephalic atraumatic ENT - other findings: left eye blindness Neck: symmetric Heart: RRR Respiratory: no ronchi, normal chest expansion Gastrointestinal: soft, non-tender, non-distended, normal bowel sounds Extremities - other findings: marked bilateral upper extremity edema Neurological: cranial nerve grossly intact, no focal deficits Psychiatric: A&O x 3 Hosp A/P (1) Acute respiratory failure with hypoxia Code(s): J96.01 - ACUTE RESPIRATORY FAILURE WITH HYPOXIA Status: Acute (2) Acute on chronic diastolic (congestive) heart failure Code(s): I50.33 - ACUTE ON CHRONIC DIASTOLIC (CONGESTIVE) HEART FAILURE Status : Acute (3) Chronic renal allograft nephropathy Code(s): T86.11 - KIDNEY TRANSPLANT REJECTION Status: Acute (4) Hyperkalemia Code(s): E87.5 - HYPERKALEMIA Status: Acute (5) Bradycardia Code(s): R00.1 - BRADYCARDIA, UNSPECIFIED Status: Acute (6) Trifascicular block Code(s): I45.3 - TRIFASCICULAR BLOCK Status: Acute (7) ESRD on dialysis Code(s): N18.6 - END STAGE RENAL DISEASE; Z99.2 - DEPENDENCE ON RENAL DIALYSIS Status: Acute (8) CAD (coronary artery disease) Code(s): I25.10 - ATHSCL HEART DISEASE OF [place] CORONARY ARTERY W/O ANG PCTRS Status: Chronic (9) Hypothyroidism Code(s): E03.9 - HYPOTHYROIDISM, UNSPECIFIED Status: Chronic (10) Insulin dependent diabetes mellitus Code(s): E11.9 - TYPE 2 DIABETES MELLITUS WITHOUT COMPLICATIONS; Z79.4 - SLIDING JOINT [employer]KER (CURRENT) USE OF INSULIN Status: Chronic (11) BLANE (obstructive sleep apnea) Code(s): G47.33 - OBSTRUCTIVE SLEEP APNEA (ADULT) (PEDIATRIC) Status: Chronic - Plan Continue HD with UF as per nephrology. Continue other treatments and supportive care Adjust insulin to get adequate glycemic control PT/OT.
[2019-09-15] MEDS: Atorvastatin Calcium 40 MG TAB PO SCH (20:25)
[2019-09-16 03:17] LABS: #Lymphocytes 0.6 thou/uL (1.20-3.40); #Monocytes 0.7 thou/uL (0.11-0.59); #Neutrophils 8.9 thou/uL (1.40-6.50); %Lymphocytes 5.8 % (21.0-51.0); %Monocytes 6.9 % (0.0-10.0); %Neutrophils 87.3 % (42.0-75.0); Hemoglobin 8.5 g/dL (14.0-18.0); Mean Corpuscular HGB CONC 32.7 g/dL (32.0-36.0); Mean Corpuscular Hemoglobin 33.5 pg (27.0-31.0); Mean Platelet Volume 9.4 fL (7.4-10.4); Platelet Count 103 thou/uL (130-400); RBC Distribution Width 17.2 % (11.5-14.5); Red Blood Cell (RBC) Count 2.54 mill/uL (4.70-6.10); White Blood Cell (WBC) Count 10.2 thou/uL (4.8-10.8)
[2019-09-16 03:48] LABS: Anion Gap 11 mmol/L (10-20); BUN (Urea Nitrogen) 21 mg/dL (8.4-25.7); Calc. Creatinine Clearance 38 mL/min (70-130); Carbon Dioxide 31 mmol/L (23-31); Chloride 100 mmol/L (98-107); Estimated GFR-MDRD 33; Glucose 202 mg/dL (80-115); Potassium 4.6 mmol/L (3.5-5.1); Sodium 137 mmol/L (136-145)
[2019-09-16] MEDS: Hydrocortisone Sod Succ/PF 100 mg/2 ml Vial IVP SCH ×3 (05:53→18:56)
[2019-09-16] MEDS: Levothyroxine 175 MCG TAB PO SCH (05:55)
[2019-09-16] MEDS: Haloperidol Lactate 5 MG/ML VIAL IM SCH ×2 (06:00→14:56)
[2019-09-16] MEDS: HumaLOG 300 UNITS/3 ML VIAL SC PRN (06:02)
[2019-09-16] MEDS ORDERED: Heparin 10,000 UNITS/1 ML VIAL ONE (11:20)
[2019-09-16] MEDS: Insulin Glargine 12 UNITS in Pre-Filled Syringe 1 EACH SC SCH (12:12)
[2019-09-16] MEDS: Aspirin 81 mg Enteric Coated Tablet PO SCH (12:13)
[2019-09-16] MEDS: Gabapentin 100 MG CAP PO SCH ×2 (12:14→21:57)
[2019-09-16] MEDS: Magnesium Oxide 400 MG TAB PO SCH ×2 (12:14→21:57)
[2019-09-16] MEDS: Famotidine 20 MG TAB PO SCH (12:14)
[2019-09-16] MEDS: Multivit, Therapeutic 1 TAB PO SCH (12:14)
[2019-09-16] MEDS: Witch Hazel-Glycerin 1 EACH JAR TOP SCH (12:15)
[2019-09-16] MEDS: DorzolamidE/Timolol 2%/0.5% Ophth Soln 10 ml Bottle EA EYE SCH ×2 (12:15→21:59)
[2019-09-16] MEDS: Ammonium Lactate 12% Lotion 225 GM BOT TOP SCH ×2 (12:15→21:58)
[2019-09-16] MEDS: Sodium Chloride Nasal 15 GM TUBE EA NARE SCH ×2 (12:15→21:59)
--- NOTE | 2019-09-16 13:58 | PDOC.HOSPP ---
- Subjective Encounter Date: 09/16/19 Encounter Time: 10:56 Subjective: 69 y/o male with ESRD s/p renal transplant , CAD, BLANE , DM and others admitted with worsening SOB and swelling associated with hypoxia. Patient later had a severe bradycardic spell associated with cardiopulmonary arrest and was treated with medically with atropine and intubated. Doing well post extubation. No new problem. Getting dialysis for acute on chronic renal failure/anasarca with improvement. - Objective Vital Signs & Weight: Vital Signs (12 hours) Temp Pulse Resp Pulse Ox 09/16/19 10:22 98.9 F 09/16/19 07:58 100 09/16/19 07:13 98.6 F 09/16/19 07:01 77 15 100 09/16/19 03:03 98.6 F Weight Admit Weight 211 lb 1.6 oz Weight 198 lb 6.656 oz Most Recent Monitor Data Heart Rate from ECG 87 NIBP 117/64 NIBP BP-Mean 81 Respiration from ECG 14 SpO2 100 I&O: 09/15/19 09/16/19 09/17/19 06:59 06:59 06:59 Intake Total 1158 680 240 Output Total 0 0 3800 Balance 1158 680 -3560 Result Diagrams: 09/16/19 02:56 09/16/19 02:56 Additional Labs: Accuchecks 09/16/19 09/16/19 09/15/19 09:58 05:57 20:06 POC Glucose 129 H 212 H 216 H 09/15/19 16:32 POC Glucose 184 H Hospitalist ROS - Medication Medications: Active Medications Generic Name Dose Route Start Last Admin Trade Name Timq PRN Reason Stop Dose Admin Hydrocodone Bitart/Acetaminophen 1 tab 09/13/19 09:58 09/13/19 10:08 [place] 10/325 PO 1 tab Q4H PRN Administration Pain Albuterol/Ipratropium 3 ml 09/09/19 13:00 09/16/19 07:01 Duoneb NEB 3 ml [id number] RAJEEV Administration Ammonium Lactate 0 gm 09/07/19 21:00 09/16/19 12:15 Laclotion TOP 225 gm BID RAJEEV Administration Aspirin 81 mg 09/08/19 09:00 09/16/19 12:13 Ecotrin PO 81 mg DAILY RAJEEV Administration Atorvastatin Calcium 40 mg 09/13/19 21:00 09/15/19 20:25 Lipitor PO 40 mg HS RAJEEV Administration Cholecalciferol 2,000 units 09/08/19 09:00 09/16/19 12:13 Vitamin D3 PO 2,000 units DAILY RAJEEV Administration Clotrimazole 10 mg 09/07/19 17:00 09/16/19 12:14 Mycelex Sujatha PO 10 mg TID-WM RAJEEV Administration Dextrose/Water 25 gm 09/07/19 02:10 09/10/19 00:33 Dextrose 50% SLOW IVP 25 gm PRN PRN Administration Hypoglycemia Dorzolamide/Timolol 1 drop 09/07/19 21:00 09/16/19 12:15 Cosopt 2-0.5% Ophth Soln EA EYE 1 drop BID RAJEEV Administration Famotidine 20 mg 09/07/19 09:00 09/16/19 12:14 Pepcid PO 20 mg DAILY RAJEEV Administration Gabapentin 100 mg 09/07/19 21:00 09/16/19 12:14 Neurontin PO 100 mg BID RAJEEV Administration Haloperidol Lactate 5 mg 09/15/19 14:00 09/16/19 06:00 Haldol IM Not Given 0200,1400 RAJEEV Hydrocortisone Sodium Succinate 50 mg 09/09/19 18:00 09/16/19 12:13 Solu-Cortef IVP 09/16/19 18:01 50 mg Q6HR RAJEEV Administration Norepinephrine Bitartrate 250 mls @ 0 mls/hr 09/09/19 05:42 09/11/19 10:55 Levophed IVPB 250 mls INF RAJEEV Administration Protocol Titrate Dopamine HCl/Dextrose 250 mls @ 0 mls/hr 09/10/19 18:30 09/11/19 12:24 Dopamine 400 Mg/D5w 250 Ml IVPB 250 mls INF RAJEEV Administration Protocol As Directed Dexmedetomidine HCl 400 mcg/ 100 mls @ 0 mls/hr 09/12/19 16:30 09/12/19 16:42 Sodium Chloride IVPB 100 mls INF RAJEEV Administration Per Protocol Insulin Glargine 12 units/ 0.12 mls @ 0 mls/hr 09/16/19 09:00 09/16/19 12:12 Miscellaneous Medication SC 0.12 mls QAM RAJEEV Administration Insulin Human Lispro 0 units 09/13/19 10:30 09/16/19 06:02 Humalog SC 6 units .AGGRESSIVE SLIDING PRN Administration AGGRESSIVE SLIDING SCALE Protocol Levothyroxine Sodium 175 mcg 09/08/19 06:00 09/16/19 05:55 Synthroid PO 175 mcg 0600 RAJEEV Administration Magnesium Oxide 800 mg 09/07/19 21:00 09/16/19 12:14 Magnesium Oxide PO 800 mg BID RAJEEV Administration Multivitamins 1 tab 09/08/19 09:00 09/16/19 12:14 Theragran PO 1 tab DAILY RAJEEV Administration Sodium Chloride/Aloe Vera 0 gm 09/07/19 21:00 09/16/19 12:15 [place] W/Aloe Gel EA NARE 2 spr BID RAJEEV Administration Witch [place]iko/Glycerin 1 each 09/08/19 09:00 09/16/19 12:15 Tucks Pads TOP 1 each DAILY RAJEEV Administration - Exam General Appearance: awake alert Eye: anicteric sclera ENT: normocephalic atraumatic Neck: symmetric Heart: irregular Respiratory: no wheezes, no ronchi, normal chest expansion, no tachypnea Gastrointestinal: soft, non-tender, non-distended, normal bowel sounds Extremities - other findings: Marked bilateral upper extremity edema Neurological: cranial nerve grossly intact, no focal deficits Hosp A/P (1) Acute respiratory failure with hypoxia Code(s): J96.01 - ACUTE RESPIRATORY FAILURE WITH HYPOXIA Status: Acute (2) Acute on chronic diastolic (congestive) heart failure Code(s): I50.33 - ACUTE ON CHRONIC DIASTOLIC (CONGESTIVE) HEART FAILURE Status : Acute (3) Chronic renal allograft nephropathy Code(s): T86.11 - KIDNEY TRANSPLANT REJECTION Status: Acute (4) Hyperkalemia Code(s): E87.5 - HYPERKALEMIA Status: Acute (5) Bradycardia Code(s): R00.1 - BRADYCARDIA, UNSPECIFIED Status: Acute (6) Trifascicular block Code(s): I45.3 - TRIFASCICULAR BLOCK Status: Acute (7) ESRD on dialysis Code(s): N18.6 - END STAGE RENAL DISEASE; Z99.2 - DEPENDENCE ON RENAL DIALYSIS Status: Acute (8) CAD (coronary artery disease) Code(s): I25.10 - ATHSCL HEART DISEASE OF [place] CORONARY ARTERY W/O ANG PCTRS Status: Chronic (9) Hypothyroidism Code(s): E03.9 - HYPOTHYROIDISM, UNSPECIFIED Status: Chronic (10) Insulin dependent diabetes mellitus Code(s): E11.9 - TYPE 2 DIABETES MELLITUS WITHOUT COMPLICATIONS; Z79.4 - SHELTER (CURRENT) USE OF INSULIN Status: Chronic (11) BLANE (obstructive sleep apnea) Code(s): G47.33 - OBSTRUCTIVE SLEEP APNEA (ADULT) (PEDIATRIC) Status: Chronic - Plan Get Doppler of both upper limbs due to marked edema. Continue HD with UF as per nephrology. Continue other treatments and supportive care start lantus to get adequate glycemic control. PT/OT.
--- NOTE | 2019-09-16 15:51 | ULT ---
EXAM: US Venous Doppler Bilat PROVIDED CLINICAL HISTORY: Edema COMPARISON: None FINDINGS: Grayscale and color Doppler sonography with spectral analysis was performed of the bilateral internal jugular, subclavian, axillary, brachial, cephalic, radial and ulnar veins. The cephalic veins are not visualized bilaterally. There is nonocclusive thrombus seen within both the right and left internal jugular veins. There is n oncompressibility involving the left subclavian vein, left axillary vein and right axillary vein. Clotted left upper extremity fistula is noted. Functioning right upper extremity fistula is noted wit h flow confirmed. The remainder of the interrogated venous structures of each upper extremity demonstrate a normal sono graphic appearance. IMPRESSION: Positive for deep venous thrombosis involving both internal jugular veins, both axillary veins and le ft subclavian vein.
[2019-09-16] MEDS: HYDROcodone/Acetaminophen 10/325 mg Tablet PO PRN ×2 (16:22→22:04)
--- NOTE | 2019-09-16 19:19 | PRG ---
DATE OF SERVICE: 09/16/2019 SUBJECTIVE: Mr. Encinas is clinically unchanged. OBJECTIVE: VITAL SIGNS: Heart rate is 86, blood pressure is 98/53, and respiratory rate is in the high teens to low 20s. LUNGS: Clear. HEART: Regular rhythm. ABDOMEN: Soft. EXTREMITIES: Without edema. LABORATORY DATA: White count 10.2, hemoglobin 8.5, and platelets 103,000. Electrolytes are normal. Creatinine is 2.4. IMPRESSION AND PLAN: Status post cardiorespiratory arrest secondary to volume overload, clinically stable. He had an ultrasound showing clots in his both IJs, both axillary veins, and left subclavian vein today. His prognosis is quite poor for any type of functional recovery. Job ID: [id number]
[2019-09-16] MEDS: Atorvastatin Calcium 40 MG TAB PO SCH (21:57)
[2019-09-17] MEDS: Haloperidol Lactate 5 MG/ML VIAL IM SCH ×2 (03:19→14:37)
[2019-09-17 04:49] LABS: #Basophils 0.1 thou/uL (0.0-0.2); #Lymphocytes 0.6 thou/uL (1.20-3.40); #Monocytes 0.8 thou/uL (0.11-0.59); #Neutrophils 7.3 thou/uL (1.40-6.50); %Basophils 0.7 % (0.0-1.0); %Eosinophils 0.1 % (0.0-10.0); %Lymphocytes 6.4 % (21.0-51.0); %Monocytes 9.3 % (0.0-10.0); %Neutrophils 83.5 % (42.0-75.0); Hemoglobin 8.4 g/dL (14.0-18.0); Mean Corpuscular HGB CONC 32.3 g/dL (32.0-36.0); Mean Corpuscular Hemoglobin 32.9 pg (27.0-31.0); Mean Platelet Volume 9.3 fL (7.4-10.4); Platelet Count 101 thou/uL (130-400); RBC Distribution Width 17.2 % (11.5-14.5); Red Blood Cell (RBC) Count 2.56 mill/uL (4.70-6.10); White Blood Cell (WBC) Count 8.7 thou/uL (4.8-10.8)
[2019-09-17 05:14] LABS: Anion Gap 10 mmol/L (10-20); BUN (Urea Nitrogen) 28 mg/dL (8.4-25.7); Calc. Creatinine Clearance 30 mL/min (70-130); Calcium 8.9 mg/dL (7.8-10.44); Carbon Dioxide 33 mmol/L (23-31); Chloride 98 mmol/L (98-107); Estimated GFR-MDRD 26; Glucose 305 mg/dL (80-115); Potassium 4.1 mmol/L (3.5-5.1); Sodium 137 mmol/L (136-145)
[2019-09-17] MEDS: HumaLOG 300 UNITS/3 ML VIAL SC PRN ×3 (05:54→16:57)
[2019-09-17] MEDS: Levothyroxine 175 MCG TAB PO SCH (06:44)
[2019-09-17] MEDS: Insulin Glargine 12 UNITS in Pre-Filled Syringe 1 EACH SC SCH (09:13)
[2019-09-17] MEDS: Famotidine 20 MG TAB PO SCH (09:14)
[2019-09-17] MEDS: Multivit, Therapeutic 1 TAB PO SCH (09:14)
[2019-09-17] MEDS: Aspirin 81 mg Enteric Coated Tablet PO SCH (09:14)
[2019-09-17] MEDS: Gabapentin 100 MG CAP PO SCH ×2 (09:14→22:03)
[2019-09-17] MEDS: Magnesium Oxide 400 MG TAB PO SCH ×2 (09:14→22:03)
[2019-09-17] MEDS: Ammonium Lactate 12% Lotion 225 GM BOT TOP SCH ×3 (09:15→22:37)
[2019-09-17] MEDS: Witch Hazel-Glycerin 1 EACH JAR TOP SCH (09:15)
[2019-09-17] MEDS: Sodium Chloride Nasal 15 GM TUBE EA NARE SCH ×3 (09:15→22:37)
[2019-09-17] MEDS: DorzolamidE/Timolol 2%/0.5% Ophth Soln 10 ml Bottle EA EYE SCH ×3 (09:16→22:38)
--- NOTE | 2019-09-17 11:02 | PDOC.HOSPP ---
- Subjective Encounter Date: 09/17/19 Encounter Time: 14:00 Subjective: Patient denies SOB/cough. Hasn't noticed any change in swelling of his upper extremities. - Objective Vital Signs & Weight: Vital Signs (12 hours) Temp Pulse Resp Pulse Ox 09/17/19 08:01 79 16 96 09/17/19 07:54 95 09/17/19 07:12 98.0 F 09/17/19 03:46 98.4 F 09/17/19 00:02 96 09/16/19 23:38 98.8 F Weight Admit Weight 211 lb 1.6 oz Weight 195 lb 5.273 oz Most Recent Monitor Data Heart Rate from ECG 82 NIBP 124/58 NIBP BP-Mean 80 Respiration from ECG 19 SpO2 100 I&O: 09/16/19 09/17/19 09/18/19 06:59 06:59 06:59 Intake Total 680 710 240 Output Total 0 3800 Balance 680 -3090 240 Result Diagrams: 09/17/19 04:17 09/17/19 04:08 Additional Labs: Accuchecks 09/17/19 09/17/19 09/16/19 10:33 05:47 19:56 POC Glucose 232 H 321 H 257 H 09/16/19 16:01 POC Glucose 218 H Hospitalist ROS - Review of Systems Constitutional: denies: fever, chills Respiratory: denies: cough, dry, shortness of breath Cardiovascular: denies: chest pain, palpitations Gastrointestinal: denies: nausea, vomiting, abdominal pain - Medication Medications: Active Medications Generic Name Dose Route Start Last Admin Trade Name Freq PRN Reason Stop Dose Admin Hydrocodone Bitart/Acetaminophen 1 tab 09/13/19 09:58 09/16/19 22:04 [place] 10/325 PO 1 tab Q4H PRN Administration Pain Albuterol/Ipratropium 3 ml 09/09/19 13:00 09/17/19 08:01 Duoneb NEB 3 ml [id number] RAJEEV Administration Ammonium Lactate 0 gm 09/07/19 21:00 09/17/19 09:15 Laclotion TOP 225 gm BID RAJEEV Administration Aspirin 81 mg 09/08/19 09:00 09/17/19 09:14 Ecotrin PO 81 mg DAILY RAJEEV Administration Atorvastatin Calcium 40 mg 09/13/19 21:00 09/16/19 21:57 Lipitor PO 40 mg HS RAJEEV Administration Cholecalciferol 2,000 units 09/08/19 09:00 09/17/19 09:14 Vitamin D3 PO 2,000 units DAILY RAJEEV Administration Clotrimazole 10 mg 09/07/19 17:00 09/17/19 09:14 Mycelex Sujatha PO 10 mg TID-WM RAJEEV Administration Dextrose/Water 25 gm 09/07/19 02:10 09/10/19 00:33 Dextrose 50% SLOW IVP 25 gm PRN PRN Administration Hypoglycemia Dorzolamide/Timolol 1 drop 09/07/19 21:00 09/17/19 09:16 Cosopt 2-0.5% Ophth Soln EA EYE 1 drop BID RAJEEV Administration Famotidine 20 mg 09/07/19 09:00 09/17/19 09:14 Pepcid PO 20 mg DAILY RAJEEV Administration Gabapentin 100 mg 09/07/19 21:00 09/17/19 09:14 Neurontin PO 100 mg BID RAJEEV Administration Haloperidol Lactate 5 mg 09/15/19 14:00 09/17/19 03:19 Haldol IM Not Given 0200,1400 RAEJEV Norepinephrine Bitartrate 250 mls @ 0 mls/hr 09/09/19 05:42 09/11/19 10:55 Levophed IVPB 250 mls INF RAJEEV Administration Protocol Titrate Dopamine HCl/Dextrose 250 mls @ 0 mls/hr 09/10/19 18:30 09/11/19 12:24 Dopamine 400 Mg/D5w 250 Ml IVPB 250 mls INF RAJEEV Administration Protocol As Directed Dexmedetomidine HCl 400 mcg/ 100 mls @ 0 mls/hr 09/12/19 16:30 09/12/19 16:42 Sodium Chloride IVPB 100 mls INF RAJEEV Administration Per Protocol Insulin Glargine 12 units/ 0.12 mls @ 0 mls/hr 09/16/19 09:00 09/17/19 09:13 Miscellaneous Medication SC 0.12 mls QAM RAJEEV Administration Insulin Human Lispro 0 units 09/13/19 10:30 09/17/19 05:54 Humalog SC 11 units .AGGRESSIVE SLIDING PRN Administration AGGRESSIVE SLIDING SCALE Protocol Levothyroxine Sodium 175 mcg 09/08/19 06:00 09/17/19 06:44 Synthroid PO 175 mcg 0600 RAJEEV Administration Magnesium Oxide 800 mg 09/07/19 21:00 09/17/19 09:14 Magnesium Oxide PO 800 mg BID RAJEEV Administration Multivitamins 1 tab 09/08/19 09:00 09/17/19 09:14 Theragran PO 1 tab DAILY RAJEEV Administration Sodium Chloride/Aloe Vera 0 gm 09/07/19 21:00 09/17/19 09:15 [place] W/Aloe Gel EA NARE 1 spr BID RAJEEV Administration Witch Tamiko/Glycerin 1 each 09/08/19 09:00 09/17/19 09:15 Tucks Pads TOP 1 each DAILY RAJEEV Administration - Exam General Appearance: NAD Eye: anicteric sclera ENT: moist mucosa Neck: supple, symmetric, JVD Heart: RRR, no murmur Respiratory: CTAB, no wheezes, no rales Gastrointestinal: soft, non-tender, non-distended Extremities - other findings: bilateral upper extremities edema Psychiatric: flat affect Hosp A/P (1) Acute respiratory failure with hypoxia Code(s): J96.01 - ACUTE RESPIRATORY FAILURE WITH HYPOXIA Status: Acute (2) ESRD on dialysis Code(s): N18.6 - END STAGE RENAL DISEASE; Z99.2 - DEPENDENCE ON RENAL DIALYSIS Status: Acute (3) Acute on chronic diastolic (congestive) heart failure Code(s): I50.33 - ACUTE ON CHRONIC DIASTOLIC (CONGESTIVE) HEART FAILURE Status : Acute (4) Insulin dependent diabetes mellitus Code(s): E11.9 - TYPE 2 DIABETES MELLITUS WITHOUT COMPLICATIONS; Z79.4 - SHELTER (CURRENT) USE OF INSULIN Status: Chronic (5) CAD (coronary artery disease) Code(s): I25.10 - ATHSCL HEART DISEASE OF [place] CORONARY ARTERY W/O ANG PCTRS Status: Chronic (6) Hypothyroidism Code(s): E03.9 - HYPOTHYROIDISM, UNSPECIFIED Status: Chronic (7) BLANE (obstructive sleep apnea) Code(s): G47.33 - OBSTRUCTIVE SLEEP APNEA (ADULT) (PEDIATRIC) Status: Chronic (8) Deep vein thrombosis of upper extremity Code(s): I82.629 - ACUTE EMBOLISM AND THROMBOSIS OF DEEP VN UNSP UP EXTREM Status: Acute Qualifiers: Laterality: bilateral Plan: Bilateral upper extremity clots to axillary and internal jugular veins with extension to left subclavian, will start Eliquis - Plan respiratory therapy
[2019-09-17] MEDS ORDERED: Apixaban 5 MG TAB PO SCH (11:15)
--- NOTE | 2019-09-17 12:04 | PRG ---
DATE OF SERVICE: 09/17/2019 SUBJECTIVE: Eric Encinas is in no distress. OBJECTIVE: VITAL SIGNS: Heart rate 82, blood pressure is 124/58, respiratory rate is 19. LUNGS: Clear. HEART: Regular rhythm. ABDOMEN: Soft. LABORATORY DATA: White count 8.7, hemoglobin 8.4, platelets 101,000. Sodium 137, potassium 4.1, chloride 98, bicarb 33, BUN 28, creatinine 2.93. IMPRESSION: 1. Status post cardiac respiratory arrest secondary to volume overload. 2. Upper extremity venous thrombosis, probably the best option for him is to start treating with Eliquis. His overall prognosis is quite poor. I do not think he is strong enough for cardiac catheterization as I discussed with Dr. Gale this morning. He is extremely deconditioned and will likely need placement. I am not sure he will recover from this. Job ID: [id number]
--- NOTE | 2019-09-17 14:29 | CT ---
Exam: CT angiogram of the chest HISTORY: Renal transplant. Multiple clots noted on echocardiogram. COMPARISON: None TECHNIQUE: CT angiogram of the chest is performed in the axial plane. Three-dimensional reformatted i mages are submitted for interpretation FINDINGS: Mediastinum: No mass, lymphadenopathy or hematoma. HEART: Upper normal heart size. No significant pericardial fluid Aorta: No aneurysm or dissection Upper solid abdominal viscera: No solid organ abnormality. There is gallbladder wall thickening and e nhancement. There is evidence of perihepatic and perisplenic free fluid. Trachea and central bronchi: Patent Pleural spaces: Moderate bilateral pleural effusions. Bilateral lower lobe consolidation may be due t o atelectasis, pneumonia or aspiration. Patchy groundglass opacities in the visualized lung parenchyma may represent edema or infiltrate. Lung parenchyma: Bibasilar consolidation as described above. Nonspecific beam attenuation artifact in volving both lower lobes. Correlate for metallic foreign body. Pneumothorax: None Osseous structures: No lytic or blastic lesions Incidental stent is noted in the superior vena cava. Pulmonary arteries: Adequate contrast opacification pulmonary arterial system to the level of segment al arteries. No filling defect to suggest pulmonary embolism IMPRESSION: 1. No evidence of pulmonary artery embolism to level of segmental arteries. 2. Patchy groundglass opacities which may represent edema or infiltrate. 3. Moderate bilateral pleural effusion with adjacent lung parenchymal consolidation which may represe nt atelectasis, aspiration or pneumonia. Transcribed Date/Time: 09/17/2019 2:49 PM
--- NOTE | 2019-09-17 17:16 | EKG ---
Test Reason : Blood Pressure : / mmHG Vent. Rate : 067 BPM Atrial Rate : 067 BPM P-R Int : 208 ms QRS Dur : 154 ms QT Int : 472 ms P-R-T Axes : 049 -75 044 degrees QTc Int : 498 ms Sinus rhythm with occasional Premature ventricular complexes Left axis deviation Right bundle branch block Inferior infarct (cited on or before 07-SEP-2019) Abnormal ECG When compared with ECG of 07-SEP-2019 00:48, (Unconfirmed) Premature ventricular complexes are now Present Confirmed by OSCAR WHITTAKER M.D. ([id number]) on 09/17/2019 5:16:06 PM Referred By: ELAINA Confirmed By:OSCAR WHITTAKER M.D.
--- NOTE | 2019-09-17 17:17 | EKG ---
Test Reason : STAT Blood Pressure : / mmHG Vent. Rate : 065 BPM Atrial Rate : 065 BPM P-R Int : 236 ms QRS Dur : 150 ms QT Int : 476 ms P-R-T Axes : 057 -73 033 degrees QTc Int : 495 ms Sinus rhythm with 1st degree A-V block with Premature atrial complexes with Abberant conduction Left axis deviation Right bundle branch block Inferior infarct (cited on or before 07-SEP-2019) Abnormal ECG When compared with ECG of 07-SEP-2019 12:14, (Unconfirmed) Premature ventricular complexes are no longer Present Abberant conduction is now Present Confirmed by OSCAR WHITTAKER M.D. ([id number]) on 09/17/2019 5:16:35 PM Referred By: GARTH Confirmed By:OSCAR WHITTAKER M.D.
[2019-09-17] MEDS: Apixaban 5 MG TAB PO SCH (22:03)
[2019-09-17] MEDS: Atorvastatin Calcium 40 MG TAB PO SCH (22:04)
[2019-09-18] MEDS: Haloperidol Lactate 5 MG/ML VIAL IM SCH ×2 (03:22→14:00)
[2019-09-18 04:16] LABS: #Eosinphils 0.5 thou/uL (0.0-0.7); #Lymphocytes 0.9 thou/uL (1.20-3.40); #Neutrophils 6.6 thou/uL (1.40-6.50); %Basophils 0.2 % (0.0-1.0); %Eosinophils 5.2 % (0.0-10.0); %Lymphocytes 10.4 % (21.0-51.0); %Monocytes 10.8 % (0.0-10.0); %Neutrophils 73.5 % (42.0-75.0); Hemoglobin 8.3 g/dL (14.0-18.0); Mean Corpuscular HGB CONC 31.8 g/dL (32.0-36.0); Mean Corpuscular Hemoglobin 32.7 pg (27.0-31.0); Mean Platelet Volume 9.3 fL (7.4-10.4); Platelet Count 120 thou/uL (130-400); RBC Distribution Width 17.1 % (11.5-14.5); Red Blood Cell (RBC) Count 2.54 mill/uL (4.70-6.10)
[2019-09-18 04:33] LABS: Anion Gap 9 mmol/L (10-20); BUN (Urea Nitrogen) 39 mg/dL (8.4-25.7); Calc. Creatinine Clearance 26 mL/min (70-130); Calcium 9.2 mg/dL (7.8-10.44); Carbon Dioxide 35 mmol/L (23-31); Chloride 100 mmol/L (98-107); Estimated GFR-MDRD 22; Glucose 164 mg/dL (80-115); Potassium 3.9 mmol/L (3.5-5.1); Sodium 140 mmol/L (136-145)
[2019-09-18] MEDS: Levothyroxine 175 MCG TAB PO SCH (06:40)
[2019-09-18] MEDS: HumaLOG 300 UNITS/3 ML VIAL SC PRN (06:41)
--- NOTE | 2019-09-18 10:11 | PDOC.HOSPP ---
- Subjective Encounter Date: 09/18/19 Encounter Time: 12:40 Subjective: Patient reports generlized weakness and feeling cold. No other complaints. No events overnight. - Objective Vital Signs & Weight: Vital Signs (12 hours) Temp Pulse Resp Pulse Ox 09/18/19 08:00 97 09/18/19 07:36 92 10 L 95 09/18/19 07:18 98.9 F 09/18/19 03:31 98.8 F 09/17/19 23:59 99.2 F Weight Admit Weight 211 lb 1.6 oz Weight 195 lb 1.745 oz Most Recent Monitor Data Heart Rate from ECG 86 NIBP 126/63 NIBP BP-Mean 84 Respiration from ECG 0 SpO2 99 I&O: 09/17/19 09/18/19 09/19/19 06:59 06:59 06:59 Intake Total 710 880 Output Total 3800 0 Balance -3090 880 Result Diagrams: 09/18/19 03:27 09/18/19 03:27 Additional Labs: Accuchecks 09/17/19 09/17/19 09/17/19 20:14 16:41 10:33 POC Glucose 162 H 208 H 232 H Hospitalist ROS - Review of Systems Constitutional: denies: fever, chills Respiratory: denies: cough, shortness of breath Cardiovascular: denies: chest pain, palpitations Gastrointestinal: denies: nausea, vomiting, abdominal pain - Medication Medications: Active Medications Generic Name Dose Route Start Last Admin Trade Name Freq PRN Reason Stop Dose Admin Hydrocodone Bitart/Acetaminophen 1 tab 09/13/19 09:58 09/16/19 22:04 [place] 10/325 PO 1 tab Q4H PRN Administration Pain Albuterol/Ipratropium 3 ml 09/09/19 13:00 09/18/19 07:36 Duoneb NEB 3 ml [id number] RAJEEV Administration Ammonium Lactate 0 gm 09/07/19 21:00 09/17/19 22:37 Laclotion TOP Not Given BID RAJEEV Apixaban 10 mg 09/17/19 21:00 09/17/19 22:03 Eliquis PO 10 mg BID RAJEEV Administration Aspirin 81 mg 09/08/19 09:00 09/17/19 09:14 Ecotrin PO 81 mg DAILY RAJEEV Administration Atorvastatin Calcium 40 mg 09/13/19 21:00 09/17/19 22:04 Lipitor PO 40 mg HS RAJEEV Administration Cholecalciferol 2,000 units 09/08/19 09:00 09/17/19 09:14 Vitamin D3 PO 2,000 units DAILY RAJEEV Administration Clotrimazole 10 mg 09/07/19 17:00 09/17/19 17:36 Mycelex Sujatha PO 10 mg TID-WM RAJEEV Administration Dextrose/Water 25 gm 09/07/19 02:10 09/10/19 00:33 Dextrose 50% SLOW IVP 25 gm PRN PRN Administration Hypoglycemia Dorzolamide/Timolol 1 drop 09/07/19 21:00 09/17/19 22:38 Cosopt 2-0.5% Ophth Soln EA EYE Not Given BID RAJEEV Famotidine 20 mg 09/07/19 09:00 09/17/19 09:14 Pepcid PO 20 mg DAILY RAJEEV Administration Gabapentin 100 mg 09/07/19 21:00 09/17/19 22:03 Neurontin PO 100 mg BID RJAEEV Administration Haloperidol Lactate 5 mg 09/15/19 14:00 09/18/19 03:22 Haldol IM 5 mg 0200,1400 RAJEEV Administration Norepinephrine Bitartrate 250 mls @ 0 mls/hr 09/09/19 05:42 09/11/19 10:55 Levophed IVPB 250 mls INF RAJEEV Administration Protocol Titrate Dopamine HCl/Dextrose 250 mls @ 0 mls/hr 09/10/19 18:30 09/11/19 12:24 Dopamine 400 Mg/D5w 250 Ml IVPB 250 mls INF RAJEEV Administration Protocol As Directed Dexmedetomidine HCl 400 mcg/ 100 mls @ 0 mls/hr 09/12/19 16:30 09/12/19 16:42 Sodium Chloride IVPB 100 mls INF RAJEEV Administration Per Protocol Insulin Glargine 12 units/ 0.12 mls @ 0 mls/hr 09/16/19 09:00 09/17/19 09:13 Miscellaneous Medication SC 0.12 mls QAM RAJEEV Administration Insulin Human Lispro 0 units 09/13/19 10:30 09/18/19 06:41 Humalog SC 3 units .AGGRESSIVE SLIDING PRN Administration AGGRESSIVE SLIDING SCALE Protocol Levothyroxine Sodium 175 mcg 09/08/19 06:00 09/18/19 06:40 Synthroid PO 175 mcg 0600 RAJEEV Administration Magnesium Oxide 800 mg 09/07/19 21:00 09/17/19 22:03 Magnesium Oxide PO 800 mg BID RAJEEV Administration Multivitamins 1 tab 09/08/19 09:00 09/17/19 09:14 Theragran PO 1 tab DAILY RAJEEV Administration Sodium Chloride/Aloe Vera 0 gm 09/07/19 21:00 09/17/19 22:37 [place] W/Aloe Gel EA NARE Not Given BID RAJEEV Witch Tamiko/Glycerin 1 each 09/08/19 09:00 09/17/19 09:15 Tucks Pads TOP 1 each DAILY RAJEEV Administration - Exam General Appearance: NAD Eye: anicteric sclera ENT: moist mucosa Heart: RRR, no murmur, no gallops, no rubs Respiratory: CTAB. negative: wheezes Gastrointestinal: soft, non-distended Extremities - other findings: bilateral upper extremity edema, lower extremities without edema Neurological: no focal deficits Psychiatric: normal affect, normal behavior Hosp A/P (1) Acute respiratory failure with hypoxia Code(s): J96.01 - ACUTE RESPIRATORY FAILURE WITH HYPOXIA Status: Acute (2) ESRD on dialysis Code(s): N18.6 - END STAGE RENAL DISEASE; Z99.2 - DEPENDENCE ON RENAL DIALYSIS Status: Acute (3) Acute on chronic diastolic (congestive) heart failure Code(s): I50.33 - ACUTE ON CHRONIC DIASTOLIC (CONGESTIVE) HEART FAILURE Status : Acute Plan: EF maintained on most recent ECHO (4) Insulin dependent diabetes mellitus Code(s): E11.9 - TYPE 2 DIABETES MELLITUS WITHOUT COMPLICATIONS; Z79.4 - INTERMEDIATE (CURRENT) USE OF INSULIN Status: Chronic (5) CAD (coronary artery disease) Code(s): I25.10 - ATHSCL HEART DISEASE OF [place] CORONARY ARTERY W/O ANG PCTRS Status: Chronic (6) Hypothyroidism Code(s): E03.9 - HYPOTHYROIDISM, UNSPECIFIED Status: Chronic (7) BLANE (obstructive sleep apnea) Code(s): G47.33 - OBSTRUCTIVE SLEEP APNEA (ADULT) (PEDIATRIC) Status: Chronic (8) Deep vein thrombosis of upper extremity Code(s): I82.629 - ACUTE EMBOLISM AND THROMBOSIS OF DEEP VN UNSP UP EXTREM Status: Acute Qualifiers: Laterality: bilateral - Plan PT/OT Consults: Palliative Care Patient off the vent started on Eliquis for DVTs of upper extremities too deconditioned for cath at this time patient has improved some but is now very weak and debilitated uncertain what kind of recovery we can expect, will have palliative care assist with discussing goals of care and plans with patient and family
[2019-09-18] MEDS: DorzolamidE/Timolol 2%/0.5% Ophth Soln 10 ml Bottle EA EYE SCH ×2 (10:22→22:20)
[2019-09-18] MEDS: Ammonium Lactate 12% Lotion 225 GM BOT TOP SCH ×2 (10:22→22:44)
[2019-09-18] MEDS: Witch Hazel-Glycerin 1 EACH JAR TOP SCH (10:23)
[2019-09-18] MEDS: Sodium Chloride Nasal 15 GM TUBE EA NARE SCH ×2 (10:23→22:44)
--- NOTE | 2019-09-18 11:55 | PRG ---
DATE OF SERVICE: 09/18/2019 SUBJECTIVE: Eric Encinas is tolerating dialysis. OBJECTIVE: GENERAL: He is in no distress. VITAL SIGNS: Heart rate is 92. He is afebrile. Respiratory rates in the teens , oximetry is 97% on room air, and blood pressure 126/63. LUNGS: Clear. HEART: Regular rhythm. ABDOMEN: Soft. DIAGNOSTIC STUDIES: He had a CT pulmonary angiogram done yesterday, which showed no pulmonary emboli. He does have effusions as expected and a faint increased interstitial markings. Blood cultures were no growth at 5 days. IMPRESSION: 1. Status post mechanical ventilation after cardiorespiratory arrest associated with volume overload. 2. Post arrest encephalopathy. 3. End-stage renal disease. 4. Bilateral upper extremity venous clots He is a candidate to move out of the intermediate care unit in my opinion. Job ID: [id number] MTDD
[2019-09-18] MEDS: Gabapentin 100 MG CAP PO SCH ×2 (13:39→22:15)
[2019-09-18] MEDS: Apixaban 5 MG TAB PO SCH ×2 (13:39→22:15)
[2019-09-18] MEDS: Aspirin 81 mg Enteric Coated Tablet PO SCH (13:39)
[2019-09-18] MEDS: Famotidine 20 MG TAB PO SCH (13:39)
[2019-09-18] MEDS: Insulin Glargine 12 UNITS in Pre-Filled Syringe 1 EACH SC SCH (13:40)
[2019-09-18] MEDS: Multivit, Therapeutic 1 TAB PO SCH (14:00)
[2019-09-18] MEDS: Magnesium Oxide 400 MG TAB PO SCH ×2 (14:00→22:15)
[2019-09-18] MEDS: Atorvastatin Calcium 40 MG TAB PO SCH (22:15)
[2019-09-18] MEDS: HYDROcodone/Acetaminophen 10/325 mg Tablet PO PRN (22:58)
[2019-09-19] MEDS: Haloperidol Lactate 5 MG/ML VIAL IM SCH ×2 (04:05→14:26)
[2019-09-19 04:56] LABS: Anion Gap 8 mmol/L (10-20); BUN (Urea Nitrogen) 26 mg/dL (8.4-25.7); Calc. Creatinine Clearance 33 mL/min (70-130); Calcium 8.6 mg/dL (7.8-10.44); Carbon Dioxide 35 mmol/L (23-31); Chloride 102 mmol/L (98-107); Estimated GFR-MDRD 31; Glucose 213 mg/dL (80-115); Potassium 4.4 mmol/L (3.5-5.1); Sodium 141 mmol/L (136-145)
[2019-09-19 05:10] LABS: #Basophils 0.1 thou/uL (0.0-0.2); #Eosinphils 0.4 thou/uL (0.0-0.7); #Lymphocytes 0.7 thou/uL (1.20-3.40); #Monocytes 0.8 thou/uL (0.11-0.59); #Neutrophils 5.8 thou/uL (1.40-6.50); %Basophils 0.9 % (0.0-1.0); %Eosinophils 4.7 % (0.0-10.0); %Lymphocytes 9.5 % (21.0-51.0); %Monocytes 9.8 % (0.0-10.0); %Neutrophils 75.1 % (42.0-75.0); Hemoglobin 8.2 g/dL (14.0-18.0); MDiff Complete? YES; Mean Corpuscular HGB CONC 32.8 g/dL (32.0-36.0); Mean Corpuscular Hemoglobin 33.3 pg (27.0-31.0); Mean Platelet Volume 9.4 fL (7.4-10.4); Platelet Count 93 thou/uL (130-400); Platelet Morphology Comment Appears Decreased; RBC Distribution Width 16.6 % (11.5-14.5); Red Blood Cell (RBC) Count 2.45 mill/uL (4.70-6.10); Schistocytes SLIGHT = 2-5 cells (100X) (0-1/hpf); White Blood Cell (WBC) Count 7.7 thou/uL (4.8-10.8)
[2019-09-19] MEDS: Levothyroxine 175 MCG TAB PO SCH (06:43)
[2019-09-19] MEDS: HumaLOG 300 UNITS/3 ML VIAL SC PRN ×2 (06:43→11:32)
[2019-09-19 07:10] LABS: Tacrolimus 12.8 ng/mL (2.0-20.0)
[2019-09-19] MEDS: Apixaban 5 MG TAB PO SCH ×2 (09:02→21:00)
[2019-09-19] MEDS: Magnesium Oxide 400 MG TAB PO SCH ×2 (09:03→20:59)
[2019-09-19] MEDS: Gabapentin 100 MG CAP PO SCH ×2 (09:03→21:00)
[2019-09-19] MEDS: Multivit, Therapeutic 1 TAB PO SCH (09:03)
[2019-09-19] MEDS: Aspirin 81 mg Enteric Coated Tablet PO SCH (09:03)
[2019-09-19] MEDS: DorzolamidE/Timolol 2%/0.5% Ophth Soln 10 ml Bottle EA EYE SCH ×2 (09:03→21:01)
[2019-09-19] MEDS: Famotidine 20 MG TAB PO SCH (09:03)
[2019-09-19] MEDS: Sodium Chloride Nasal 15 GM TUBE EA NARE SCH ×2 (09:04→21:01)
[2019-09-19] MEDS: Ammonium Lactate 12% Lotion 225 GM BOT TOP SCH ×3 (09:04→21:15)
[2019-09-19] MEDS: Witch Hazel-Glycerin 1 EACH JAR TOP SCH (09:04)
[2019-09-19] MEDS: Insulin Glargine 12 UNITS in Pre-Filled Syringe 1 EACH SC SCH (09:05)
--- NOTE | 2019-09-19 11:31 | PRG ---
DATE OF SERVICE: 09/19/2019 SUBJECTIVE: Mr. Encinas does not say much. He seems to be doing okay. He had no acute complaints. OBJECTIVE: VITAL SIGNS: His temperature is 98.8, pulse 89, blood pressure 171/68, respiratory rate 12. HEENT: Unremarkable. NECK: No adenopathy or JVD. LUNGS: Coarse breath sounds. CARDIAC: S1, S2. Regular. ABDOMEN: Soft. EXTREMITIES: He has swelling in both arms. LABORATORY DATA: White blood cell count 7.7, hematocrit 24.9, and platelet count 93. Sodium 141, potassium 4.4, chloride 102, CO2 of 35, BUN 26, creatinine 2.5, glucose 213. ASSESSMENT: 1. Status post cardiopulmonary arrest from volume overload requiring mechanical ventilation, now extubated. 2. Encephalopathy. 3. End-stage renal disease. 4. Bilateral upper extremity clots. PLAN: He seems stable from a pulmonary standpoint. He will continue dialysis every other day. He is currently being anticoagulated with Eliquis. No further recommendations at this time. He is stable for transfer out to the medical floor at any time. Job ID: [id number]
--- NOTE | 2019-09-19 13:37 | PDOC.HOSPP ---
- Subjective Encounter Date: 09/19/19 Encounter Time: 13:37 Subjective: cc: f/u for respiratory failure, ZENIA, upper extremity DVT subjective: patient is new to me. seen and personally examined at bedside chart , labs, imaging results reviewed. minimally verbal. complains of sore throat. nurse notes no acute events. reports patient requires a lot of assistance. notes last HD was yesterday. - Objective Vital Signs & Weight: Vital Signs (12 hours) Temp Pulse Resp Pulse Ox 09/19/19 11:07 99.1 F 09/19/19 08:28 82 16 94 L 09/19/19 07:20 95 09/19/19 07:13 98.8 F 09/19/19 04:00 16 09/19/19 03:35 99.0 F Weight Admit Weight 211 lb 1.6 oz Weight 189 lb 2.506 oz Most Recent Monitor Data Heart Rate from ECG 87 NIBP 138/71 NIBP BP-Mean 93 Respiration from ECG 7 SpO2 91 I&O: 09/18/19 09/19/19 09/20/19 06:59 06:59 06:59 Intake Total 880 270 240 Output Total 0 2500 Balance 880 -2230 240 Result Diagrams: 09/19/19 04:18 09/19/19 04:18 Additional Labs: Accuchecks 09/19/19 09/19/19 09/18/19 10:43 05:18 20:36 POC Glucose 204 H 210 H 219 H 09/18/19 09/18/19 16:47 05:49 POC Glucose 146 H 167 H Hospitalist ROS - Review of Systems Other: ROS: limited due to patient verbal interaction; pertinent positive per SUBJECTIVE; remainder ROS negative - Medication Medications: Active Medications Generic Name Dose Route Start Last Admin Trade Name Freq PRN Reason Stop Dose Admin Hydrocodone Bitart/Acetaminophen 1 tab 09/13/19 09:58 09/18/19 22:58 [place] 10/325 PO 1 tab Q4H PRN Administration Pain Albuterol/Ipratropium 3 ml 09/09/19 13:00 09/19/19 08:28 Duoneb NEB 3 ml [id number] RAJEEV Administration Ammonium Lactate 0 gm 09/07/19 21:00 09/19/19 09:04 Laclotion TOP 225 gm BID RAJEEV Administration Apixaban 10 mg 09/17/19 21:00 09/19/19 09:02 Eliquis PO 10 mg BID RAJEEV Administration Aspirin 81 mg 09/08/19 09:00 09/19/19 09:03 Ecotrin PO 81 mg DAILY RAJEEV Administration Atorvastatin Calcium 40 mg 09/13/19 21:00 09/18/19 22:15 Lipitor PO 40 mg HS RAJEEV Administration Cholecalciferol 2,000 units 09/08/19 09:00 09/19/19 09:02 Vitamin D3 PO 2,000 units DAILY RAJEEV Administration Clotrimazole 10 mg 09/07/19 17:00 09/19/19 11:32 Mycelex Sujatha PO Not Given TID-WM RAJEEV Dextrose/Water 25 gm 09/07/19 02:10 09/10/19 00:33 Dextrose 50% SLOW IVP 25 gm PRN PRN Administration Hypoglycemia Dorzolamide/Timolol 1 drop 09/07/19 21:00 09/19/19 09:03 Cosopt 2-0.5% Ophth Soln EA EYE 1 drop BID RAJEEV Administration Famotidine 20 mg 09/07/19 09:00 09/19/19 09:03 Pepcid PO 20 mg DAILY RAJEEV Administration Gabapentin 100 mg 09/07/19 21:00 09/19/19 09:03 Neurontin PO 100 mg BID RAJEEV Administration Haloperidol Lactate 5 mg 09/15/19 14:00 09/19/19 04:05 Haldol IM 5 mg 0200,1400 RAJEEV Administration Norepinephrine Bitartrate 250 mls @ 0 mls/hr 09/09/19 05:42 09/11/19 10:55 Levophed IVPB 250 mls INF RAJEEV Administration Protocol Titrate Dopamine HCl/Dextrose 250 mls @ 0 mls/hr 09/10/19 18:30 09/11/19 12:24 Dopamine 400 Mg/D5w 250 Ml IVPB 250 mls INF RAJEEV Administration Protocol As Directed Dexmedetomidine HCl 400 mcg/ 100 mls @ 0 mls/hr 09/12/19 16:30 09/12/19 16:42 Sodium Chloride IVPB 100 mls INF RAJEEV Administration Per Protocol Insulin Glargine 12 units/ 0.12 mls @ 0 mls/hr 09/16/19 09:00 09/19/19 09:05 Miscellaneous Medication SC 0.12 mls QAM RAJEEV Administration Insulin Human Lispro 0 units 09/13/19 10:30 09/19/19 11:32 Humalog SC 6 units .AGGRESSIVE SLIDING PRN Administration AGGRESSIVE SLIDING SCALE Protocol Levothyroxine Sodium 175 mcg 09/08/19 06:00 09/19/19 06:43 Synthroid PO 175 mcg 0600 RAJEEV Administration Magnesium Oxide 800 mg 09/07/19 21:00 09/19/19 09:03 Magnesium Oxide PO 800 mg BID RAJEEV Administration Multivitamins 1 tab 09/08/19 09:00 09/19/19 09:03 Theragran PO 1 tab DAILY RAJEEV Administration Sodium Chloride/Aloe Vera 0 gm 09/07/19 21:00 09/19/19 09:04 [place] W/Aloe Gel EA NARE 2 spr BID RAJEEV Administration Witch Tamiko/Glycerin 1 each 09/08/19 09:00 09/19/19 09:04 Tucks Pads TOP 1 each DAILY RAJEEV Administration - Exam General Appearance: awake alert, ill appearing Eye: PERRL, anicteric sclera ENT: normocephalic atraumatic Neck: supple Heart: RRR, no murmur Respiratory: no tachypnea, rhonchi Respiratory - other findings: poor air entry on anterior auscultation Gastrointestinal: soft, non-tender, non-distended, normal bowel sounds Extremities - other findings: bilateral UPPER extremity edema. left groin dialysis access. Musculoskeletal: generalized weakness Psychiatric: A&O x 3 Hosp A/P - Plan ZENIA on CKD in patient with renal transplant patient. s/p placement of temporary dialysis catheter. continue HD per nephrology via left groin access site. ? tunneled HD catheter In-hosptial cardiac arrest s/p ROSC. unclear etiology. ?trifascicular block. ? bradyarrhythmia from hyperkalemia. Ventilator dependent respiratory failure. s/p extubation Bilateral upper extremity DVT. continue DOAC generalized weakness and deconditioning. PT and OT DVT px: oral anticoagulation Dispo: continue inpatient monitoring. discharge planning. check AM labs code status: Full code
[2019-09-19] MEDS ORDERED: Cepastat Lozenges 1 LOZ PO PRN (13:57)
[2019-09-19] MEDS: Atorvastatin Calcium 40 MG TAB PO SCH (21:00)
[2019-09-20] MEDS: HYDROcodone/Acetaminophen 10/325 mg Tablet PO PRN ×2 (01:53→07:00)
[2019-09-20] MEDS: Haloperidol Lactate 5 MG/ML VIAL IM SCH ×2 (03:14→14:25)
[2019-09-20 03:47] LABS: #Eosinphils 0.3 thou/uL (0.0-0.7); #Lymphocytes 0.8 thou/uL (1.20-3.40); #Monocytes 0.6 thou/uL (0.11-0.59); #Neutrophils 6.6 thou/uL (1.40-6.50); %Basophils 0.1 % (0.0-1.0); %Lymphocytes 9.9 % (21.0-51.0); %Monocytes 7.5 % (0.0-10.0); %Neutrophils 78.6 % (42.0-75.0); Hemoglobin 7.6 g/dL (14.0-18.0); Mean Corpuscular HGB CONC 32.3 g/dL (32.0-36.0); Mean Platelet Volume 8.9 fL (7.4-10.4); Platelet Count 90 thou/uL (130-400); RBC Distribution Width 16.7 % (11.5-14.5); Red Blood Cell (RBC) Count 2.31 mill/uL (4.70-6.10); White Blood Cell (WBC) Count 8.3 thou/uL (4.8-10.8)
[2019-09-20 04:01] LABS: Anion Gap 8 mmol/L (10-20); BUN (Urea Nitrogen) 35 mg/dL (8.4-25.7); Calc. Creatinine Clearance 29 mL/min (70-130); Calcium 8.8 mg/dL (7.8-10.44); Carbon Dioxide 34 mmol/L (23-31); Chloride 103 mmol/L (98-107); Estimated GFR-MDRD 26; Glucose 233 mg/dL (80-115); Potassium 4.4 mmol/L (3.5-5.1); Sodium 141 mmol/L (136-145)
[2019-09-20] MEDS: Levothyroxine 175 MCG TAB PO SCH (06:15)
[2019-09-20] MEDS: HumaLOG 300 UNITS/3 ML VIAL SC PRN (06:25)
[2019-09-20] MEDS: Insulin Glargine 12 UNITS in Pre-Filled Syringe 1 EACH SC SCH (08:58)
[2019-09-20] MEDS: Famotidine 20 MG TAB PO SCH (08:59)
[2019-09-20] MEDS: Gabapentin 100 MG CAP PO SCH ×2 (08:59→20:31)
[2019-09-20] MEDS: Multivit, Therapeutic 1 TAB PO SCH (08:59)
[2019-09-20] MEDS: Aspirin 81 mg Enteric Coated Tablet PO SCH (08:59)
[2019-09-20] MEDS: Apixaban 5 MG TAB PO SCH ×2 (08:59→20:31)
[2019-09-20] MEDS: Magnesium Oxide 400 MG TAB PO SCH ×2 (08:59→20:31)
[2019-09-20] MEDS: Ammonium Lactate 12% Lotion 225 GM BOT TOP SCH ×2 (09:00→20:35)
[2019-09-20] MEDS: DorzolamidE/Timolol 2%/0.5% Ophth Soln 10 ml Bottle EA EYE SCH ×2 (09:00→20:34)
[2019-09-20] MEDS: Sodium Chloride Nasal 15 GM TUBE EA NARE SCH ×2 (09:04→20:35)
[2019-09-20] MEDS: Witch Hazel-Glycerin 1 EACH JAR TOP SCH (09:04)
--- NOTE | 2019-09-20 11:01 | PDOC.PALCO ---
Palliative Care Consult - Consult Details Requesting Physician: Dr Purcell Reason for Consult: goals of care, advance directives assistance, family support Family Members Present: Granddaughter Lily (Her mother Sepideh is MATEO) - Pertinent HPI 69 year old who resides at a private home with family, granddaughter states that several family members assist in care. She reports patient ambulates at home with a walker, and has experienced shortness of breath with minimal activity and when eating. Patient was a kidney transplant recipient within the past year as per the granddaughter. Patient experienced shortness of breath over days prior to presentation to the emergency room with no relieving factors and worse with minimal exertion. Also scrotal pain. Emergency room evaluation identified respiratory distress and was admitted to the hospital for medical management. During course of stay cardiac arrest requiring intubation and transfer to [facility]. Subsequently extubated and Dialysis has resumed. Physical deconditioning during course of hospital stay related to acute adn chronic conditions - Pertinent PMH Kidney transplant, past dialysis/has hemodialysis cath that is now being utilized, CAD, HTN, DM II, Sleep apnea - Social History Smoking Status: Never smoker Smoking: no tobacco exposure Alcohol Use: none Drug Use History: none Living Situation: with family/parents - Medications MAR Reviewed: Yes - Allergies Allergies/Adverse Reactions: Allergies Allergy/AdvReac Type Severity Reaction Status Date / Time morphine Allergy Mental Verified 09/07/19 12:13 changes Penicillins Allergy Hives Verified 09/07/19 12:13 - Subjective Lethargic, awakens with delayed response. Current dialysis. - ROS Constitutional: lethargic, loss appetite, weakness Eyes: other (denies blurry vision) ENT: other (denies congestion or difficuility swallowing) Respiratory: shortness of breath with extertion Cardiology: other (negative for chest pain or discomfort) Gastrointestinal: other (negative for nausea, vomiting, diarrhea) Neurological: other (mild numbness to feet) Skin: dry - Objective Vital Signs: Vital Signs - Most Recent Temp Pulse Resp BP Pulse Ox 98.4 F 89 15 137/62 98 09/20/19 10:23 09/20/19 07:45 09/20/19 07:45 09/12/19 15:56 09/20/19 07:45 Palliative Performance Scale: 30 - Physical Exam Constitutional: ill appearing HEENT: moist MMs, sclera anicteric Deviation from normal: adventicious lung sounds bilaterally Cardiovascular: RRR, diminished peripheral pulses Gastrointestinal: positive bowel sounds Musculoskeletal: edema present (mild to upper ext and perioribital edema) Skin: normal turgor Psychiatric: flat affect - Problem List (1) Palliative care encounter Code(s): Z51.5 - ENCOUNTER FOR PALLIATIVE CARE Current Visit: Yes Status: Acute (2) Physical deconditioning Code(s): R53.81 - OTHER MALAISE Current Visit: Yes Status: Acute (3) Acute kidney injury superimposed on chronic kidney disease Code(s): N17.9 - ACUTE KIDNEY FAILURE, UNSPECIFIED; N18.9 - CHRONIC KIDNEY DISEASE, UNSPECIFIED Current Visit: Yes Status: Acute (4) Acute on chronic diastolic (congestive) heart failure Code(s): I50.33 - ACUTE ON CHRONIC DIASTOLIC (CONGESTIVE) HEART FAILURE Current Visit: Yes Status: Acute (5) Acute respiratory failure with hypoxia Code(s): J96.01 - ACUTE RESPIRATORY FAILURE WITH HYPOXIA Current Visit: Yes Status: Acute - Plan/Recommendations Plan: Visited with patient granddaughter Lily, her mother is MPOA and works nights and is currently home sleeping. Left my contact information to have [facility] contact Palliative Care. Visited with patient and granddaughter in relation to discussing Goal of care/resuscitation status if needed again. Obtained general life review and gave introduction to Palliative Care. Will continue to attempt to establish contact with patient daughter. *Revisit resuscitation status *Discuss goals of care that is inline with disease trajectory of chronic disease processes and acute events. [60] minutes spent on this encounter with >50% of the time in counseling and coordination of care. Thank you for this very appropriate consult.
--- NOTE | 2019-09-20 12:15 | PDOC.HOSPP ---
- Subjective Encounter Date: 09/20/19 Encounter Time: 12:15 Subjective: cc: f/u for in-hospital cardiac arrest, ZENIA on CKD in renal transplant patient, generalize weakness subjective: patient seen at bedside this afternoon. poor historian. does not remember getting dialysed earlier today. noninteractive despite multiple attempts to engage. nurse notes patient had HD today with 3.9L fluid removal. notes patient requires assistance for all activities. - Objective Vital Signs & Weight: Vital Signs (12 hours) Temp Pulse Resp Pulse Ox 09/20/19 10:23 98.4 F 09/20/19 07:45 89 15 98 09/20/19 07:36 96 09/20/19 07:15 98.9 F 09/20/19 03:38 100.5 F H 09/20/19 01:10 96 11 L 94 L Weight Admit Weight 211 lb 1.6 oz Weight 183 lb 6.793 oz Most Recent Monitor Data Heart Rate from ECG 88 NIBP 100/63 NIBP BP-Mean 75 Respiration from ECG 16 SpO2 94 I&O: 09/19/19 09/20/19 09/21/19 06:59 06:59 06:59 Intake Total 270 710 Output Total 2500 50 Balance -2230 660 Result Diagrams: 09/20/19 03:28 09/20/19 03:28 Additional Labs: Accuchecks 09/20/19 09/20/19 09/19/19 10:00 05:39 20:23 POC Glucose 122 H 250 H 199 H 09/19/19 17:13 POC Glucose 112 H Hospitalist ROS - Review of Systems Other: ROS: limited due to patient not cooperating. pertinent positive per SUBJECTIVE; remainder ROS negative. - Medication Medications: Active Medications Generic Name Dose Route Start Last Admin Trade Name Freq PRN Reason Stop Dose Admin Hydrocodone Bitart/Acetaminophen 1 tab 09/13/19 09:58 09/20/19 07:00 [place] 10/325 PO 1 tab Q4H PRN Administration Pain Albuterol/Ipratropium 3 ml 09/09/19 13:00 09/20/19 07:45 Duoneb NEB 3 ml [id number] RAJEEV Administration Ammonium Lactate 0 gm 09/07/19 21:00 09/20/19 09:00 Laclotion TOP 20 gm BID RAJEEV Administration Apixaban 10 mg 09/17/19 21:00 09/20/19 08:59 Eliquis PO 10 mg BID RAJEEV Administration Aspirin 81 mg 09/08/19 09:00 09/20/19 08:59 Ecotrin PO 81 mg DAILY RAJEEV Administration Atorvastatin Calcium 40 mg 09/13/19 21:00 09/19/19 21:00 Lipitor PO 40 mg HS RAJEEV Administration Cholecalciferol 2,000 units 09/08/19 09:00 09/20/19 08:59 Vitamin D3 PO 2,000 units DAILY RAJEEV Administration Clotrimazole 10 mg 09/07/19 17:00 09/20/19 09:01 Mycelex Sujatha PO Not Given TID-WM RAJEEV Dextrose/Water 25 gm 09/07/19 02:10 09/10/19 00:33 Dextrose 50% SLOW IVP 25 gm PRN PRN Administration Hypoglycemia Dorzolamide/Timolol 1 drop 09/07/19 21:00 09/20/19 09:00 Cosopt 2-0.5% Ophth Soln EA EYE 1 drop BID RAJEEV Administration Famotidine 20 mg 09/07/19 09:00 09/20/19 08:59 Pepcid PO 20 mg DAILY RAJEEV Administration Gabapentin 100 mg 09/07/19 21:00 09/20/19 08:59 Neurontin PO 100 mg BID RAJEEV Administration Haloperidol Lactate 5 mg 09/15/19 14:00 09/20/19 03:14 Haldol IM 5 mg 0200,1400 RAJEEV Administration Norepinephrine Bitartrate 250 mls @ 0 mls/hr 09/09/19 05:42 09/11/19 10:55 Levophed IVPB 250 mls INF RAJEEV Administration Protocol Titrate Dopamine HCl/Dextrose 250 mls @ 0 mls/hr 09/10/19 18:30 09/11/19 12:24 Dopamine 400 Mg/D5w 250 Ml IVPB 250 mls INF RAJEEV Administration Protocol As Directed Dexmedetomidine HCl 400 mcg/ 100 mls @ 0 mls/hr 09/12/19 16:30 09/12/19 16:42 Sodium Chloride IVPB 100 mls INF RAJEEV Administration Per Protocol Insulin Glargine 12 units/ 0.12 mls @ 0 mls/hr 09/16/19 09:00 09/20/19 08:58 Miscellaneous Medication SC 0.12 mls QAM RAJEEV Administration Insulin Human Lispro 0 units 09/13/19 10:30 09/20/19 06:25 Humalog SC 6 units .AGGRESSIVE SLIDING PRN Administration AGGRESSIVE SLIDING SCALE Protocol Levothyroxine Sodium 175 mcg 09/08/19 06:00 09/20/19 06:15 Synthroid PO 175 mcg 0600 RAJEEV Administration Magnesium Oxide 800 mg 09/07/19 21:00 09/20/19 08:59 Magnesium Oxide PO 800 mg BID RAJEEV Administration Multivitamins 1 tab 09/08/19 09:00 09/20/19 08:59 Theragran PO 1 tab DAILY RAJEEV Administration Sodium Chloride/Aloe Vera 0 gm 09/07/19 21:00 09/20/19 09:04 [place] W/Aloe Gel EA NARE 1 spr BID RAJEEV Administration Witch Tamiko/Glycerin 1 each 09/08/19 09:00 09/20/19 09:04 Tucks Pads TOP 1 each DAILY RAJEEV Administration Hosp A/P - Plan Exam General Appearance: awake alert, ill appearing Eye: PERRL, anicteric sclera ENT: normocephalic atraumatic Neck: supple Heart: RRR, no murmur, no anterior chest wall TTP Respiratory: no tachypnea, rhonchi, symmetrical chest expansion Respiratory - other findings: poor air entry on anterior auscultation Gastrointestinal: soft, non-tender, non-distended, normal bowel sounds Extremities - other findings: bilateral UPPER extremity edema. left groin dialysis access. Musculoskeletal: generalized weakness Psychiatric: A&O x 3 Hosp A/P - Plan ZENIA on CKD in patient with renal transplant patient. s/p placement of temporary dialysis catheter. continue HD per nephrology via left groin access site last HD 09/21/19 with 3.9L fluid removal. ?tunneled HD catheter placement and temporary holding of DOAC In-hosptial cardiac arrest s/p ROSC. unclear etiology. ?trifascicular block. ? bradyarrhythmia from hyperkalemia. continue telemetry monitoring. cardiology and EP input noted. Ventilator dependent respiratory failure. s/p extubation Bilateral upper extremity DVT. continue DOAC generalized weakness and deconditioning. PT and OT. patient requires significant assistance and will likely need SNF. DVT px: oral anticoagulation Dispo: downgrade to telemetry. continue inpatient monitoring. discharge planning to SNF. code status: Full code
[2019-09-20] MEDS: Mycophenolate 250 MG CAP PO SCH (20:30)
[2019-09-20] MEDS: Tacrolimus 1 MG CAP PO SCH (20:32)
[2019-09-20] MEDS: Atorvastatin Calcium 40 MG TAB PO SCH (20:48)
[2019-09-20] MEDS: EPOETIN ALFA-EPBX (ESRD) 4,000 UNIT/ML VIAL SC SCH (20:54)
[2019-09-21] MEDS: Haloperidol Lactate 5 MG/ML VIAL IM SCH ×2 (02:53→14:06)
[2019-09-21] MEDS: HYDROcodone/Acetaminophen 10/325 mg Tablet PO PRN ×2 (04:53→14:31)
[2019-09-21 05:28] LABS: #Eosinphils 0.3 thou/uL (0.0-0.7); #Lymphocytes 0.9 thou/uL (1.20-3.40); #Monocytes 0.6 thou/uL (0.11-0.59); #Neutrophils 7.6 thou/uL (1.40-6.50); %Basophils 0.4 % (0.0-1.0); %Eosinophils 3.1 % (0.0-10.0); %Lymphocytes 9.3 % (21.0-51.0); %Monocytes 6.5 % (0.0-10.0); %Neutrophils 80.7 % (42.0-75.0); Hemoglobin 7.7 g/dL (14.0-18.0); Mean Corpuscular HGB CONC 32.9 g/dL (32.0-36.0); Mean Corpuscular Hemoglobin 33.5 pg (27.0-31.0); Mean Platelet Volume 9.2 fL (7.4-10.4); Platelet Count 100 thou/uL (130-400); RBC Distribution Width 16.3 % (11.5-14.5); Red Blood Cell (RBC) Count 2.29 mill/uL (4.70-6.10); White Blood Cell (WBC) Count 9.4 thou/uL (4.8-10.8)
[2019-09-21 05:36] LABS: Anion Gap 12 mmol/L (10-20); BUN (Urea Nitrogen) 23 mg/dL (8.4-25.7); Calc. Creatinine Clearance 35 mL/min (70-130); Calcium 8.7 mg/dL (7.8-10.44); Carbon Dioxide 33 mmol/L (23-31); Chloride 102 mmol/L (98-107); Estimated GFR-MDRD 35; Glucose 190 mg/dL (80-115); Potassium 4.6 mmol/L (3.5-5.1); Sodium 142 mmol/L (136-145)
[2019-09-21] MEDS: Levothyroxine 175 MCG TAB PO SCH (06:21)
[2019-09-21] MEDS: Ammonium Lactate 12% Lotion 225 GM BOT TOP SCH ×2 (09:28→20:48)
[2019-09-21] MEDS: Famotidine 20 MG TAB PO SCH (09:29)
[2019-09-21] MEDS: Apixaban 5 MG TAB PO SCH (09:29)
[2019-09-21] MEDS: Mycophenolate 250 MG CAP PO SCH ×2 (09:29→20:43)
[2019-09-21] MEDS: Magnesium Oxide 400 MG TAB PO SCH ×2 (09:29→20:43)
[2019-09-21] MEDS: Gabapentin 100 MG CAP PO SCH ×2 (09:30→20:43)
[2019-09-21] MEDS: Aspirin 81 mg Enteric Coated Tablet PO SCH (09:30)
[2019-09-21] MEDS: Multivit, Therapeutic 1 TAB PO SCH (09:30)
[2019-09-21] MEDS: Insulin Glargine 12 UNITS in Pre-Filled Syringe 1 EACH SC SCH (09:36)
[2019-09-21] MEDS: DorzolamidE/Timolol 2%/0.5% Ophth Soln 10 ml Bottle EA EYE SCH ×2 (09:37→20:49)
[2019-09-21] MEDS: Sodium Chloride Nasal 15 GM TUBE EA NARE SCH ×2 (09:38→20:49)
[2019-09-21] MEDS: Witch Hazel-Glycerin 1 EACH JAR TOP SCH (09:40)
[2019-09-21] MEDS: Tacrolimus 1 MG CAP PO SCH ×2 (09:58→20:42)
[2019-09-21] MEDS: HumaLOG 300 UNITS/3 ML VIAL SC PRN (12:44)
--- NOTE | 2019-09-21 18:05 | PDOC.HOSPP ---
- Subjective Encounter Date: 09/21/19 Encounter Time: 18:05 Subjective: cc: f/u for in-hospital cardiac arrest, ZENIA on CKD in renal transplant patient, generalize weakness subjective: patient seen at bedside. more awake today. offers no acute complaints except generalized aches and feeling weak. follows basic commands. nurse notes no acute events. - Objective Vital Signs & Weight: Vital Signs (12 hours) Temp Pulse Resp BP Pulse Ox 09/21/19 15:56 98.9 F 85 19 140/63 96 09/21/19 13:50 84 16 09/21/19 11:15 99.0 F 80 13 158/68 H 98 09/21/19 09:43 97 09/21/19 09:40 89 16 09/21/19 08:00 99.6 F 90 20 146/67 H 97 Weight Admit Weight 211 lb 1.6 oz Weight 183 lb 6.793 oz Most Recent Monitor Data Heart Rate from ECG 91 NIBP 122/62 NIBP BP-Mean 82 Respiration from ECG 20 SpO2 93 I&O: 09/20/19 09/21/19 09/22/19 06:59 06:59 06:59 Intake Total 710 Output Total 50 3900 Balance 660 -3900 Result Diagrams: 09/21/19 04:45 09/21/19 04:45 Additional Labs: Accuchecks 09/21/19 09/21/19 09/21/19 17:13 10:38 06:13 POC Glucose 113 H 235 H 181 H 09/20/19 20:57 POC Glucose 161 H Hospitalist ROS - Review of Systems Other: ROS: pertinent positives per SUBJECTIVE; remainder ROS negative - Medication Medications: Active Medications Generic Name Dose Route Start Last Admin Trade Name Freq PRN Reason Stop Dose Admin Hydrocodone Bitart/Acetaminophen 1 tab 09/13/19 09:58 09/21/19 14:31 [place] 10/325 PO 1 tab Q4H PRN Administration Pain Albuterol/Ipratropium 3 ml 09/09/19 13:00 09/21/19 13:50 Duoneb NEB 3 ml [id number] RAJEEV Administration Ammonium Lactate 0 gm 09/07/19 21:00 09/21/19 09:28 Laclotion TOP 225 gm BID RAJEEV Administration Apixaban 10 mg 09/17/19 21:00 09/21/19 09:29 Eliquis PO 10 mg BID RAJEEV Administration Aspirin 81 mg 09/08/19 09:00 09/21/19 09:30 Ecotrin PO 81 mg DAILY RAJEEV Administration Atorvastatin Calcium 40 mg 09/13/19 21:00 09/20/19 20:48 Lipitor PO 40 mg HS RAJEEV Administration Cholecalciferol 2,000 units 09/08/19 09:00 09/21/19 09:30 Vitamin D3 PO 2,000 units DAILY RAJEEV Administration Clotrimazole 10 mg 09/07/19 17:00 09/21/19 12:48 Mycelex Sujatha PO Not Given TID-WM RAJEEV Dextrose/Water 25 gm 09/07/19 02:10 09/10/19 00:33 Dextrose 50% SLOW IVP 25 gm PRN PRN Administration Hypoglycemia Dorzolamide/Timolol 1 drop 09/07/19 21:00 09/21/19 09:37 Cosopt 2-0.5% Ophth Soln EA EYE 1 drop BID RAJEEV Administration Epoetin Fred-epbx 7,000 unit 09/20/19 20:00 09/20/19 20:54 Retacrit SC 7,000 unit Q7D@2000 RAJEEV Administration Famotidine 20 mg 09/07/19 09:00 09/21/19 09:29 Pepcid PO 20 mg DAILY RAJEEV Administration Gabapentin 100 mg 09/07/19 21:00 09/21/19 09:30 Neurontin PO 100 mg BID RAJEEV Administration Haloperidol Lactate 5 mg 09/15/19 14:00 09/21/19 14:06 Haldol IM Not Given 0200,1400 [facility] Norepinephrine Bitartrate 250 mls @ 0 mls/hr 09/09/19 05:42 09/11/19 10:55 Levophed IVPB 250 mls INF RAJEEV Administration Protocol Titrate Insulin Glargine 12 units/ 0.12 mls @ 0 mls/hr 09/16/19 09:00 09/21/19 09:36 Miscellaneous Medication SC 0.12 mls QAM RAJEEV Administration Insulin Human Lispro 0 units 09/13/19 10:30 09/21/19 12:44 Humalog SC 6 units .AGGRESSIVE SLIDING PRN Administration AGGRESSIVE SLIDING SCALE Protocol Levothyroxine Sodium 175 mcg 09/08/19 06:00 09/21/19 06:21 Synthroid PO 175 mcg 0600 RAJEEV Administration Magnesium Oxide 800 mg 09/07/19 21:00 09/21/19 09:29 Magnesium Oxide PO 800 mg BID RAJEEV Administration Multivitamins 1 tab 09/08/19 09:00 09/21/19 09:30 Theragran PO 1 tab DAILY RAJEEV Administration Mycophenolate Mofetil 500 mg 09/20/19 21:00 09/21/19 09:29 Cellcept PO 500 mg BID RAJEEV Administration Ondansetron HCl 4 mg 09/07/19 02:03 09/20/19 20:31 Zofran Odt PO 4 mg Q6H PRN Administration Nausea/Vomiting Sodium Chloride/Aloe Vera 0 gm 09/07/19 21:00 09/21/19 09:38 [place] W/Aloe Gel EA NARE 2 spr BID RAJEEV Administration Tacrolimus 5 mg 09/20/19 21:00 09/21/19 09:58 Prograf PO 5 mg BID RAJEEV Administration Witch Tamiko/Glycerin 1 each 09/08/19 09:00 09/21/19 09:40 Tucks Pads TOP 1 each DAILY RAJEEV Administration Hosp A/P - Plan Exam General Appearance: elderly male who is awake alert, ill appearing, more interactive today. Eye: PERRL, anicteric sclera ENT: normocephalic atraumatic Neck: supple Heart: RRR, no murmur, no anterior chest wall TTP Respiratory: no tachypnea, rhonchi, symmetrical chest expansion Respiratory - other findings: poor air entry on anterior auscultation Gastrointestinal: soft, non-tender, non-distended, normal bowel sounds Extremities - other findings: bilateral UPPER extremity edema. left groin dialysis access. Musculoskeletal: generalized weakness Psychiatric: A&O x 3 Hosp A/P - Plan ZENIA on CKD in patient with renal transplant patient: s/p placement of temporary dialysis catheter. ??Tunneled HD catheter, messaged nephrology and awaiting callback. Will hold DOAC in interim. continue HD per nephrology via left groin access site last HD 09/21/19 with 3.9L fluid removal. on Cellcept and Tacrolimus. In-hosptial cardiac arrest s/p ROSC. unclear etiology. ?trifascicular block. ? bradyarrhythmia from hyperkalemia. continue telemetry monitoring. cardiology and EP input noted. Ventilator dependent respiratory failure. s/p extubation Bilateral upper extremity DVT. continue DOAC but hold in interim until clarification for long-term HD vascular access determined generalized weakness and deconditioning. PT and OT. patient requires significant assistance and will likely need SNF. DVT px: oral anticoagulation Dispo: downgrade to telemetry. continue inpatient monitoring.discharge planning to SNF +/- Hemodialysis. code status: Full code
[2019-09-21] MEDS: Atorvastatin Calcium 40 MG TAB PO SCH (20:43)
[2019-09-22] MEDS: Haloperidol Lactate 5 MG/ML VIAL IM SCH ×2 (02:36→14:41)
[2019-09-22] MEDS: Levothyroxine 175 MCG TAB PO SCH ×2 (06:07→06:11)
[2019-09-22] MEDS: Acetaminophen 325 MG TAB PO PRN (06:07)
[2019-09-22] MEDS: Aspirin 81 mg Enteric Coated Tablet PO SCH (09:31)
[2019-09-22] MEDS: Ammonium Lactate 12% Lotion 225 GM BOT TOP SCH ×2 (09:31→22:06)
[2019-09-22] MEDS: Gabapentin 100 MG CAP PO SCH ×2 (09:32→21:52)
[2019-09-22] MEDS: Metoprolol Tartrate 50 MG TAB PO SCH ×2 (09:32→21:52)
[2019-09-22] MEDS: Mycophenolate 250 MG CAP PO SCH ×2 (09:32→21:51)
[2019-09-22] MEDS: Famotidine 20 MG TAB PO SCH (09:32)
[2019-09-22] MEDS: Multivit, Therapeutic 1 TAB PO SCH (09:32)
[2019-09-22] MEDS: Magnesium Oxide 400 MG TAB PO SCH ×2 (09:32→21:52)
[2019-09-22] MEDS: Sodium Chloride Nasal 15 GM TUBE EA NARE SCH ×2 (09:32→22:06)
[2019-09-22] MEDS: DorzolamidE/Timolol 2%/0.5% Ophth Soln 10 ml Bottle EA EYE SCH ×2 (09:33→21:54)
[2019-09-22] MEDS: Tacrolimus 1 MG CAP PO SCH ×2 (09:33→22:06)
[2019-09-22] MEDS: Insulin Glargine 12 UNITS in Pre-Filled Syringe 1 EACH SC SCH (09:35)
[2019-09-22] MEDS: Witch Hazel-Glycerin 1 EACH JAR TOP SCH ×2 (09:51→09:52)
[2019-09-22 12:12] LABS: #Eosinphils 0.3 thou/uL (0.0-0.7); #Lymphocytes 1.1 thou/uL (1.20-3.40); #Monocytes 0.7 thou/uL (0.11-0.59); #Neutrophils 5.6 thou/uL (1.40-6.50); %Basophils 0.6 % (0.0-1.0); %Eosinophils 3.8 % (0.0-10.0); %Lymphocytes 13.7 % (21.0-51.0); %Monocytes 9.5 % (0.0-10.0); %Neutrophils 72.4 % (42.0-75.0); Hemoglobin 7.5 g/dL (14.0-18.0); Mean Corpuscular HGB CONC 32.1 g/dL (32.0-36.0); Mean Corpuscular Hemoglobin 32.8 pg (27.0-31.0); Mean Platelet Volume 8.9 fL (7.4-10.4); Platelet Count 100 thou/uL (130-400); RBC Distribution Width 16.2 % (11.5-14.5); Red Blood Cell (RBC) Count 2.28 mill/uL (4.70-6.10); White Blood Cell (WBC) Count 7.7 thou/uL (4.8-10.8)
[2019-09-22 12:33] LABS: Anion Gap 9 mmol/L (10-20); BUN (Urea Nitrogen) 32 mg/dL (8.4-25.7); Calc. Creatinine Clearance 31 mL/min (70-130); Calcium 8.9 mg/dL (7.8-10.44); Carbon Dioxide 34 mmol/L (23-31); Chloride 103 mmol/L (98-107); Estimated GFR-MDRD 30; Glucose 196 mg/dL (80-115); Sodium 141 mmol/L (136-145)
--- NOTE | 2019-09-22 14:13 | PDOC.HOSPP ---
- Subjective Encounter Date: 09/22/19 Encounter Time: 14:13 Subjective: cc: f/u for in-hospital cardiac arrest, ZENIA on CKD in renal transplant patient, generalize weakness subjective: patient seen at bedside this afternoon. nurse notes patient refused hemodialysis this morning but this afternoon is now agreeable. - Objective Vital Signs & Weight: Vital Signs (12 hours) Temp Pulse Resp BP Pulse Ox 09/22/19 12:01 100 F H 74 18 144/67 H 98 09/22/19 08:20 99 F 92 18 157/77 H 95 09/22/19 04:00 99.2 F 87 20 174/72 H 94 L Weight Admit Weight 211 lb 1.6 oz Weight 183 lb 6.793 oz Most Recent Monitor Data Heart Rate from ECG 91 NIBP 122/62 NIBP BP-Mean 82 Respiration from ECG 20 SpO2 93 I&O: 09/21/19 09/22/19 09/23/19 06:59 06:59 06:59 Intake Total 900 Output Total 3900 520 Balance -3900 380 Result Diagrams: 09/22/19 12:01 09/22/19 12:01 Additional Labs: Accuchecks 09/22/19 09/22/19 09/21/19 10:35 09:34 20:27 POC Glucose 177 H 163 H 108 09/21/19 17:13 POC Glucose 113 H Hospitalist ROS - Review of Systems Other: ROS: pertinent positives per SUBJECTIVE; remainder ROS negative - Medication Medications: Active Medications Generic Name Dose Route Start Last Admin Trade Name Freq PRN Reason Stop Dose Admin Hydrocodone Bitart/Acetaminophen 1 tab 09/13/19 09:58 09/21/19 14:31 [place] 10/325 PO 1 tab Q4H PRN Administration Pain Albuterol/Ipratropium 3 ml 09/09/19 13:00 09/22/19 14:07 Duoneb NEB Not Given [id number] RAJEEV Ammonium Lactate 0 gm 09/07/19 21:00 09/22/19 09:31 Laclotion TOP 225 gm BID RAJEEV Administration Aspirin 81 mg 09/08/19 09:00 09/22/19 09:31 Ecotrin PO 81 mg DAILY RAJEEV Administration Atorvastatin Calcium 40 mg 09/13/19 21:00 09/21/19 20:43 Lipitor PO 40 mg HS RAJEEV Administration Cholecalciferol 2,000 units 09/08/19 09:00 09/22/19 09:31 Vitamin D3 PO 2,000 units DAILY RAJEEV Administration Clotrimazole 10 mg 09/07/19 17:00 09/22/19 12:03 Mycelex Sujatha PO Not Given TID-WM [facility] Dextrose/Water 25 gm 09/07/19 02:10 09/10/19 00:33 Dextrose 50% SLOW IVP 25 gm PRN PRN Administration Hypoglycemia Dorzolamide/Timolol 1 drop 09/07/19 21:00 09/22/19 09:33 Cosopt 2-0.5% Ophth Soln EA EYE 1 drop BID RAJEEV Administration Epoetin Fred-epbx 7,000 unit 09/20/19 20:00 09/20/19 20:54 Retacrit SC 7,000 unit Q7D@2000 RAJEEV Administration Famotidine 20 mg 09/07/19 09:00 09/22/19 09:32 Pepcid PO 20 mg DAILY RAJEEV Administration Gabapentin 100 mg 09/07/19 21:00 09/22/19 09:32 Neurontin PO 100 mg BID RAJEEV Administration Haloperidol Lactate 5 mg 09/15/19 14:00 09/22/19 02:36 Haldol IM Not Given 0200,1400 [facility] Hydroxyzine HCl 25 mg 09/07/19 14:31 09/21/19 20:43 Atarax PO 25 mg BIDPRN PRN Administration Itching Norepinephrine Bitartrate 250 mls @ 0 mls/hr 09/09/19 05:42 09/11/19 10:55 Levophed IVPB 250 mls INF RAJEEV Administration Protocol Titrate Insulin Glargine 12 units/ 0.12 mls @ 0 mls/hr 09/16/19 09:00 09/22/19 09:35 Miscellaneous Medication SC 0.12 mls QAM RAJEEV Administration Insulin Human Lispro 0 units 09/13/19 10:30 09/21/19 12:44 Humalog SC 6 units .AGGRESSIVE SLIDING PRN Administration AGGRESSIVE SLIDING SCALE Protocol Levothyroxine Sodium 175 mcg 09/08/19 06:00 09/22/19 06:11 Synthroid PO Not Given 0600 [facility] Magnesium Oxide 800 mg 09/07/19 21:00 09/22/19 09:32 Magnesium Oxide PO 800 mg BID RAJEEV Administration Metoprolol Tartrate 50 mg 09/22/19 09:00 09/22/19 09:32 Lopressor PO 50 mg BID RAJEEV Administration Multivitamins 1 tab 09/08/19 09:00 09/22/19 09:32 Theragran PO 1 tab DAILY RAJEEV Administration Mycophenolate Mofetil 500 mg 09/20/19 21:00 09/22/19 09:32 Cellcept PO 500 mg BID RAJEEV Administration Ondansetron HCl 4 mg 09/07/19 02:03 09/20/19 20:31 Zofran Odt PO 4 mg Q6H PRN Administration Nausea/Vomiting Sodium Chloride/Aloe Vera 0 gm 09/07/19 21:00 09/22/19 09:32 [place] W/Aloe Gel EA NARE 2 spr BID RAJEEV Administration Tacrolimus 5 mg 09/20/19 21:00 09/22/19 09:33 Prograf PO 5 mg BID RAJEEV Administration Witch Tamiko/Glycerin 1 each 09/08/19 09:00 09/22/19 09:52 Tucks Pads TOP Not Given DAILY RAJEEV Hosp A/P - Plan Exam General Appearance: elderly male who is awake alert, ill appearing, more interactive today. Eye: PERRL, anicteric sclera ENT: normocephalic atraumatic Neck: supple Heart: RRR, no murmur, no anterior chest wall TTP Respiratory: no tachypnea, rhonchi, symmetrical chest expansion Respiratory - other findings: poor air entry on anterior auscultation Gastrointestinal: soft, non-tender, non-distended, normal bowel sounds Extremities - other findings: bilateral UPPER extremity edema. left groin dialysis access. Musculoskeletal: generalized weakness Psychiatric: A&O x 3 Hosp A/P - Plan ZENIA on CKD in patient with renal transplant patient: s/p placement of temporary dialysis catheter. ??Tunneled HD catheter. Nephrology input regarding this needed. Will hold DOAC in interim. continue HD per nephrology via left groin. next session planned for today. on Cellcept and Tacrolimus. In-hosptial cardiac arrest s/p ROSC. unclear etiology. ?trifascicular block. ? bradyarrhythmia from hyperkalemia. continue telemetry monitoring. cardiology and EP input noted. Ventilator dependent respiratory failure. s/p extubation Bilateral upper extremity DVT. continue DOAC but hold in interim until clarification for long-term HD vascular access determined generalized weakness and deconditioning. PT and OT. patient requires significant assistance and will likely need SNF. DVT px: oral anticoagulation Dispo: downgrade to telemetry. continue inpatient monitoring.discharge planning to SNF +/- Hemodialysis. code status: Full code
[2019-09-22] MEDS: Atorvastatin Calcium 40 MG TAB PO SCH (21:52)
[2019-09-23] MEDS: Haloperidol Lactate 5 MG/ML VIAL IM SCH ×2 (02:36→14:47)
[2019-09-23 04:49] LABS: #Basophils 0.1 thou/uL (0.0-0.2); #Eosinphils 0.2 thou/uL (0.0-0.7); #Monocytes 0.6 thou/uL (0.11-0.59); #Neutrophils 4.4 thou/uL (1.40-6.50); %Basophils 0.8 % (0.0-1.0); %Eosinophils 3.9 % (0.0-10.0); %Monocytes 10.1 % (0.0-10.0); %Neutrophils 69.2 % (42.0-75.0); Hemoglobin 7.3 g/dL (14.0-18.0); Mean Corpuscular HGB CONC 32.4 g/dL (32.0-36.0); Mean Corpuscular Hemoglobin 33.1 pg (27.0-31.0); Mean Platelet Volume 9.1 fL (7.4-10.4); Platelet Count 100 thou/uL (130-400); RBC Distribution Width 15.8 % (11.5-14.5); Red Blood Cell (RBC) Count 2.22 mill/uL (4.70-6.10); White Blood Cell (WBC) Count 6.4 thou/uL (4.8-10.8)
[2019-09-23 05:07] LABS: Anion Gap 11 mmol/L (10-20); BUN (Urea Nitrogen) 14 mg/dL (8.4-25.7); Calc. Creatinine Clearance 51 mL/min (70-130); Calcium 8.7 mg/dL (7.8-10.44); Carbon Dioxide 33 mmol/L (23-31); Chloride 104 mmol/L (98-107); Estimated GFR-MDRD 52; Glucose 119 mg/dL (80-115); Potassium 4.8 mmol/L (3.5-5.1); Sodium 143 mmol/L (136-145)
[2019-09-23] MEDS: Levothyroxine 175 MCG TAB PO SCH (06:42)
[2019-09-23] MEDS: HYDROcodone/Acetaminophen 10/325 mg Tablet PO PRN (06:46)
[2019-09-23] MEDS: Aspirin 81 mg Enteric Coated Tablet PO SCH (09:52)
[2019-09-23] MEDS: Insulin Glargine 12 UNITS in Pre-Filled Syringe 1 EACH SC SCH (09:52)
[2019-09-23] MEDS: Tacrolimus 1 MG CAP PO SCH (09:52)
[2019-09-23] MEDS: Magnesium Oxide 400 MG TAB PO SCH (09:52)
[2019-09-23] MEDS: Gabapentin 100 MG CAP PO SCH (09:52)
[2019-09-23] MEDS: Famotidine 20 MG TAB PO SCH (09:52)
[2019-09-23] MEDS: Mycophenolate 250 MG CAP PO SCH (09:52)
[2019-09-23] MEDS: Metoprolol Tartrate 50 MG TAB PO SCH (09:52)
[2019-09-23] MEDS: Multivit, Therapeutic 1 TAB PO SCH (09:52)
[2019-09-23] MEDS: Witch Hazel-Glycerin 1 EACH JAR TOP SCH (09:53)
[2019-09-23] MEDS: Ammonium Lactate 12% Lotion 225 GM BOT TOP SCH (09:53)
[2019-09-23] MEDS: Sodium Chloride Nasal 15 GM TUBE EA NARE SCH (09:53)
[2019-09-23] MEDS: DorzolamidE/Timolol 2%/0.5% Ophth Soln 10 ml Bottle EA EYE SCH (09:53)
[2019-09-23] MEDS: HumaLOG 300 UNITS/3 ML VIAL SC PRN (17:42)
--- NOTE | 2019-09-23 18:03 | PDOC.HOSPP ---
- Subjective Encounter Date: 09/23/19 Encounter Time: 18:03 Subjective: cc: f/u for in-hospital cardiac arrest, ZENIA on CKD in renal transplant patient, generalize weakness subjective: patient seen at bedside. irritated that he can't get up to bathroom to move bowels. multiple RN at bedside and note patient has not gotten up out from bed in days and concerned about his fall risk. nurse notes no acute overnight events. patient offers no other acute complaints and wants to go home. noted patient had HD from RUE HERO access and not left groin john - Objective Vital Signs & Weight: Vital Signs (12 hours) Temp Pulse Resp BP Pulse Ox 09/23/19 14:03 98.7 F 75 18 167/72 H 95 09/23/19 13:09 84 12 09/23/19 08:10 98.9 F 84 18 146/65 H 96 09/23/19 07:34 74 16 09/23/19 07:10 95 Weight Admit Weight 211 lb 1.6 oz Weight 178 lb 9.191 oz Most Recent Monitor Data Heart Rate from ECG 91 NIBP 122/62 NIBP BP-Mean 82 Respiration from ECG 20 SpO2 93 I&O: 09/22/19 09/23/19 09/24/19 06:59 06:59 06:59 Intake Total 900 960 Output Total 520 0 Balance 380 960 Result Diagrams: 09/23/19 04:25 09/23/19 04:25 Additional Labs: Accuchecks 09/23/19 09/23/19 09/23/19 16:03 10:08 05:58 POC Glucose 286 H 200 H 172 H 09/22/19 20:46 POC Glucose 127 H Hospitalist ROS - Review of Systems Other: ROS: pertinent positives per SUBJECTIVE; remainder ROS negative - Medication Medications: Active Medications Generic Name Dose Route Start Last Admin Trade Name Freq PRN Reason Stop Dose Admin Albuterol/Ipratropium 3 ml 09/09/19 13:00 09/23/19 13:09 Duoneb NEB 3 ml [id number] RAJEEV Administration Ammonium Lactate 0 gm 09/07/19 21:00 09/23/19 09:53 Laclotion TOP 225 gm BID RAJEEV Administration Aspirin 81 mg 09/08/19 09:00 09/23/19 09:52 Ecotrin PO 81 mg DAILY RAJEEV Administration Atorvastatin Calcium 40 mg 09/13/19 21:00 09/22/19 21:52 Lipitor PO 40 mg HS RAJEEV Administration Cholecalciferol 2,000 units 09/08/19 09:00 09/23/19 09:52 Vitamin D3 PO 2,000 units DAILY RAJEEV Administration Clotrimazole 10 mg 09/07/19 17:00 09/23/19 17:42 Mycelex Sujatha PO 10 mg TID-WM RAJEEV Administration Dextrose/Water 25 gm 09/07/19 02:10 09/10/19 00:33 Dextrose 50% SLOW IVP 25 gm PRN PRN Administration Hypoglycemia Dorzolamide/Timolol 1 drop 09/07/19 21:00 09/23/19 09:53 Cosopt 2-0.5% Ophth Soln EA EYE 1 drop BID RAJEEV Administration Epoetin Fred-epbx 7,000 unit 09/20/19 20:00 09/20/19 20:54 Retacrit SC 7,000 unit Q7D@2000 RAJEEV Administration Famotidine 20 mg 09/07/19 09:00 09/23/19 09:52 Pepcid PO 20 mg DAILY RAJEEV Administration Gabapentin 100 mg 09/07/19 21:00 09/23/19 09:52 Neurontin PO 100 mg BID RAJEEV Administration Haloperidol Lactate 5 mg 09/15/19 14:00 09/23/19 14:47 Haldol IM Not Given 0200,1400 [facility] Hydroxyzine HCl 25 mg 09/07/19 14:31 09/21/19 20:43 Atarax PO 25 mg BIDPRN PRN Administration Itching Norepinephrine Bitartrate 250 mls @ 0 mls/hr 09/09/19 05:42 09/11/19 10:55 Levophed IVPB 250 mls INF RAJEEV Administration Protocol Titrate Insulin Glargine 12 units/ 0.12 mls @ 0 mls/hr 09/16/19 09:00 09/23/19 09:52 Miscellaneous Medication SC 0.12 mls QAM RAJEEV Administration Insulin Human Lispro 0 units 09/13/19 10:30 09/23/19 17:42 Humalog SC 9 units .AGGRESSIVE SLIDING PRN Administration AGGRESSIVE SLIDING SCALE Protocol Levothyroxine Sodium 175 mcg 09/08/19 06:00 09/23/19 06:42 Synthroid PO 175 mcg 0600 RAJEEV Administration Magnesium Oxide 800 mg 09/07/19 21:00 09/23/19 09:52 Magnesium Oxide PO 800 mg BID RAJEEV Administration Metoprolol Tartrate 50 mg 09/22/19 09:00 09/23/19 09:52 Lopressor PO 50 mg BID RAJEEV Administration Multivitamins 1 tab 09/08/19 09:00 09/23/19 09:52 Theragran PO 1 tab DAILY RAJEEV Administration Mycophenolate Mofetil 500 mg 09/20/19 21:00 09/23/19 09:52 Cellcept PO 500 mg BID RAJEEV Administration Ondansetron HCl 4 mg 09/07/19 02:03 09/20/19 20:31 Zofran Odt PO 4 mg Q6H PRN Administration Nausea/Vomiting Sodium Chloride/Aloe Vera 0 gm 09/07/19 21:00 09/23/19 09:53 [place] W/Aloe Gel EA NARE 2 spr BID RAJEEV Administration Tacrolimus 5 mg 09/20/19 21:00 09/23/19 09:52 Prograf PO 5 mg BID RAJEEV Administration Witch Tamiko/Glycerin 1 each 09/08/19 09:00 09/23/19 09:53 Tucks Pads TOP Not Given DAILY RAJEEV Hosp A/P - Plan Exam General Appearance: elderly male who is awake and alert and more interactive today. Eye: PERRL, anicteric sclera ENT: normocephalic atraumatic Neck: supple Heart: RRR, no murmur, no anterior chest wall TTP Respiratory: no tachypnea, rhonchi, symmetrical chest expansion Respiratory - other findings: poor air entry on anterior auscultation Gastrointestinal: soft, non-tender, non-distended, normal bowel sounds Extremities - other findings: bilateral UPPER extremity edema. left groin dialysis access. RUE dialysis access. Musculoskeletal: generalized weakness Psychiatric: A&O x 3 Hosp A/P - Plan ZENIA on CKD in patient with renal transplant patient: s/p placement of temporary dialysis catheter. repeat H&H in AM and if stable will remove john catheter. Patient has been using RUE prior dialysis access for Hemodialysis and no tunneled catheter site needed. continue on Cellcept and Tacrolimus. Acte on chronic anemia. unspecified etiology. hold DOAC. check FOBT. due to lack of any other peripheral IV access and noted bilateral upper extremity DVT, will continue John catheter now In-hosptial cardiac arrest s/p ROSC. unclear etiology. ?trifascicular block. ? bradyarrhythmia from hyperkalemia. continue telemetry monitoring. cardiology and EP input noted. Ventilator dependent respiratory failure. s/p extubation Bilateral upper extremity DVT. noted in bilateral IJ, bilaterally axillary vein , and left subclavian vein. monitor worsening anemia. no obvious signs of bleeding. check FOBT but today's bowel movement reported to be brown in color. generalized weakness and deconditioning. consult PT and OT and remove bedrest precautions. patient requires significant assistance and will likely need SNF and consult case management DVT px: hold DOAC for now and monitor anemia. check AM labs Dispo: discharge planning to SNF code status: Full code
[2019-09-24] MEDS: Mycophenolate 250 MG CAP PO SCH ×3 (00:18→21:04)
[2019-09-24] MEDS: Tacrolimus 1 MG CAP PO SCH ×3 (00:18→21:12)
[2019-09-24] MEDS: Atorvastatin Calcium 40 MG TAB PO SCH ×2 (00:19→21:05)
[2019-09-24] MEDS: Metoprolol Tartrate 50 MG TAB PO SCH ×3 (00:19→21:04)
[2019-09-24] MEDS: Magnesium Oxide 400 MG TAB PO SCH ×3 (00:19→21:05)
[2019-09-24] MEDS: Gabapentin 100 MG CAP PO SCH ×3 (00:19→21:04)
[2019-09-24] MEDS: Ammonium Lactate 12% Lotion 225 GM BOT TOP SCH ×3 (00:40→21:05)
[2019-09-24] MEDS: DorzolamidE/Timolol 2%/0.5% Ophth Soln 10 ml Bottle EA EYE SCH ×3 (00:41→21:05)
[2019-09-24] MEDS: Sodium Chloride Nasal 15 GM TUBE EA NARE SCH ×3 (00:41→21:06)
[2019-09-24] MEDS: Haloperidol Lactate 5 MG/ML VIAL IM SCH ×2 (02:15→14:37)
[2019-09-24] MEDS: Levothyroxine 175 MCG TAB PO SCH ×2 (05:56→07:47)
[2019-09-24 06:20] LABS: #Eosinphils 0.2 thou/uL (0.0-0.7); #Monocytes 0.7 thou/uL (0.11-0.59); #Neutrophils 3.7 thou/uL (1.40-6.50); %Basophils 0.8 % (0.0-1.0); %Eosinophils 3.4 % (0.0-10.0); %Lymphocytes 16.8 % (21.0-51.0); %Monocytes 12.8 % (0.0-10.0); %Neutrophils 66.3 % (42.0-75.0); Hemoglobin 7.5 g/dL (14.0-18.0); Mean Corpuscular HGB CONC 32.3 g/dL (32.0-36.0); Mean Corpuscular Hemoglobin 33.2 pg (27.0-31.0); Mean Platelet Volume 8.6 fL (7.4-10.4); Platelet Count 109 thou/uL (130-400); RBC Distribution Width 15.7 % (11.5-14.5); Red Blood Cell (RBC) Count 2.26 mill/uL (4.70-6.10); White Blood Cell (WBC) Count 5.6 thou/uL (4.8-10.8)
[2019-09-24 06:40] LABS: Anion Gap 8 mmol/L (10-20); BUN (Urea Nitrogen) 23 mg/dL (8.4-25.7); Calc. Creatinine Clearance 29 mL/min (70-130); Calcium 9.1 mg/dL (7.8-10.44); Carbon Dioxide 34 mmol/L (23-31); Chloride 105 mmol/L (98-107); Estimated GFR-MDRD 30; Glucose 255 mg/dL (80-115); Potassium 4.9 mmol/L (3.5-5.1); Sodium 142 mmol/L (136-145)
[2019-09-24] MEDS: Aspirin 81 mg Enteric Coated Tablet PO SCH (12:23)
[2019-09-24] MEDS: Famotidine 20 MG TAB PO SCH (12:23)
[2019-09-24] MEDS: Insulin Glargine 12 UNITS in Pre-Filled Syringe 1 EACH SC SCH (12:25)
[2019-09-24] MEDS: Multivit, Therapeutic 1 TAB PO SCH (12:25)
[2019-09-24] MEDS: Witch Hazel-Glycerin 1 EACH JAR TOP SCH (13:25)
--- NOTE | 2019-09-24 16:29 | PDOC.HOSPP ---
- Subjective Encounter Date: 09/24/19 Encounter Time: 16:29 Subjective: cc: f/u for in-hospital cardiac arrest, ZENIA on CKD in renal transplant patient, generalize weakness subjective: patient seen at bedside undergoing hemodialysis via RUE Hero. offers no acute complaints. states he aches all over. - Objective Vital Signs & Weight: Vital Signs (12 hours) Temp Pulse Resp BP Pulse Ox 09/24/19 12:11 99.0 F 76 12 152/72 H 100 09/24/19 08:00 100 Weight Admit Weight 211 lb 1.6 oz Weight 168 lb 10.458 oz Most Recent Monitor Data Heart Rate from ECG 91 NIBP 122/62 NIBP BP-Mean 82 Respiration from ECG 20 SpO2 93 I&O: 09/23/19 09/24/19 09/25/19 06:59 06:59 06:59 Intake Total 960 1080 Output Total 0 128 Balance 960 952 Result Diagrams: 09/24/19 06:05 09/24/19 06:05 Additional Labs: Accuchecks 09/24/19 09/24/19 09/24/19 12:24 05:52 00:55 POC Glucose 150 H 255 H 217 H 09/23/19 16:03 POC Glucose 286 H Hospitalist ROS - Review of Systems Other: ROS: limited due to patient's limited communication. pertinent positives per SUBJECTIVE; remainder ROS negative - Medication Medications: Active Medications Generic Name Dose Route Start Last Admin Trade Name Freq PRN Reason Stop Dose Admin Albuterol/Ipratropium 3 ml 09/09/19 13:00 09/24/19 12:17 Duoneb NEB 3 ml [id number] RAJEEV Administration Ammonium Lactate 0 gm 09/07/19 21:00 09/24/19 12:25 Laclotion TOP Not Given BID RAJEEV Aspirin 81 mg 09/08/19 09:00 09/24/19 12:23 Ecotrin PO 81 mg DAILY RAJEEV Administration Atorvastatin Calcium 40 mg 09/13/19 21:00 09/24/19 00:19 Lipitor PO 40 mg HS RAJEEV Administration Cholecalciferol 2,000 units 09/08/19 09:00 09/24/19 12:23 Vitamin D3 PO 2,000 units DAILY RAJEEV Administration Clotrimazole 10 mg 09/07/19 17:00 09/24/19 12:57 Mycelex Sujatha PO 10 mg TID-WM RAJEEV Administration Dextrose/Water 25 gm 09/07/19 02:10 09/10/19 00:33 Dextrose 50% SLOW IVP 25 gm PRN PRN Administration Hypoglycemia Dorzolamide/Timolol 1 drop 09/07/19 21:00 09/24/19 12:26 Cosopt 2-0.5% Ophth Soln EA EYE 1 drop BID RAJEEV Administration Epoetin Fred-epbx 7,000 unit 09/20/19 20:00 09/20/19 20:54 Retacrit SC 7,000 unit Q7D@2000 RAJEEV Administration Famotidine 20 mg 09/07/19 09:00 09/24/19 12:23 Pepcid PO 20 mg DAILY RAJEEV Administration Gabapentin 100 mg 09/07/19 21:00 09/24/19 12:24 Neurontin PO 100 mg BID RAJEEV Administration Haloperidol Lactate 5 mg 09/15/19 14:00 09/24/19 14:37 Haldol IM 5 mg 0200,1400 RAJEEV Administration Hydroxyzine HCl 25 mg 09/07/19 14:31 09/21/19 20:43 Atarax PO 25 mg BIDPRN PRN Administration Itching Norepinephrine Bitartrate 250 mls @ 0 mls/hr 09/09/19 05:42 09/11/19 10:55 Levophed IVPB 250 mls INF RAJEEV Administration Protocol Titrate Insulin Glargine 12 units/ 0.12 mls @ 0 mls/hr 09/16/19 09:00 09/24/19 12:25 Miscellaneous Medication SC 0.12 mls QAM RAJEEV Administration Insulin Human Lispro 0 units 09/13/19 10:30 09/23/19 17:42 Humalog SC 9 units .AGGRESSIVE SLIDING PRN Administration AGGRESSIVE SLIDING SCALE Protocol Levothyroxine Sodium 175 mcg 09/08/19 06:00 09/24/19 07:47 Synthroid PO Not Given 0600 [facility] Magnesium Oxide 800 mg 09/07/19 21:00 09/24/19 12:24 Magnesium Oxide PO 800 mg BID RAJEEV Administration Metoprolol Tartrate 50 mg 09/22/19 09:00 09/24/19 12:24 Lopressor PO 50 mg BID RAJEEV Administration Multivitamins 1 tab 09/08/19 09:00 09/24/19 12:25 Theragran PO 1 tab DAILY RAJEEV Administration Mycophenolate Mofetil 500 mg 09/20/19 21:00 09/24/19 12:23 Cellcept PO 500 mg BID RAJEEV Administration Ondansetron HCl 4 mg 09/07/19 02:03 09/20/19 20:31 Zofran Odt PO 4 mg Q6H PRN Administration Nausea/Vomiting Sodium Chloride/Aloe Vera 0 gm 09/07/19 21:00 09/24/19 12:26 [place] W/Aloe Gel EA NARE Not Given BID RAJEEV Tacrolimus 5 mg 09/20/19 21:00 09/24/19 14:37 Prograf PO 5 mg BID RAJEEV Administration Witch Tamiko/Glycerin 1 each 09/08/19 09:00 09/24/19 13:25 Tucks Pads TOP Not Given DAILY RAJEEV Hosp A/P - Plan Exam General Appearance: elderly male who is awake and alert and more interactive today. Eye: PERRL, anicteric sclera ENT: normocephalic atraumatic Neck: supple Heart: RRR, no murmur, no anterior chest wall TTP Respiratory: no tachypnea, rhonchi, symmetrical chest expansion Respiratory - other findings: poor air entry on anterior auscultation Gastrointestinal: soft, non-tender, non-distended, normal bowel sounds Extremities - other findings: bilateral UPPER extremity edema. left groin dialysis access. RUE dialysis access. Musculoskeletal: generalized weakness Psychiatric: A&O x 3 Hosp A/P - Plan ZENIA on CKD in patient with renal transplant patient: Patient has been using RUE prior dialysis access for Hemodialysis and no tunneled catheter site needed and will discontinue John catheter today. continue on Cellcept and Tacrolimus. nephrology following and continue [employer]. patient undergoing HD today. Acte on chronic anemia. unspecified etiology. H&H stable, monitor. restart Eliquis 10 mg BID started during this hospitalization for bilateral upper extremity DVT. In-hosptial cardiac arrest s/p ROSC. unclear etiology. ?trifascicular block. ? bradyarrhythmia from hyperkalemia. continue telemetry monitoring. cardiology and EP input noted. Ventilator dependent respiratory failure. s/p extubation Bilateral upper extremity DVT. noted in bilateral IJ, bilaterally axillary vein , and left subclavian vein. monitor worsening anemia. no obvious signs of bleeding. restart Eliquis 10 mg po BID started during this hospitalization. generalized weakness and deconditioning. consult PT and OT and encourage patient participation. case managment consulted for SNF referral and await disposition. DVT px: restart DOAC Dispo: discharge planning to SNF code status: Full code. palliative care team following along.
[2019-09-24] MEDS: HumaLOG 300 UNITS/3 ML VIAL SC PRN (18:12)
[2019-09-24] MEDS: Apixaban 5 MG TAB PO SCH (21:04)
[2019-09-24] MEDS: HYDROcodone/Acetaminophen 5/325 mg Tablet PO PRN (21:04)
[2019-09-24] MEDS: Acetaminophen 325 MG TAB PO PRN (21:05)
[2019-09-25] MEDS: Haloperidol Lactate 5 MG/ML VIAL IM SCH ×2 (03:33→14:40)
[2019-09-25] MEDS: Levothyroxine 175 MCG TAB PO SCH (05:19)
[2019-09-25] MEDS: HYDROcodone/Acetaminophen 5/325 mg Tablet PO PRN (05:19)
[2019-09-25 06:14] LABS: Anion Gap 9 mmol/L (10-20); BUN (Urea Nitrogen) 16 mg/dL (8.4-25.7); Calc. Creatinine Clearance 27 mL/min (70-130); Carbon Dioxide 35 mmol/L (23-31); Chloride 103 mmol/L (98-107); Estimated GFR-MDRD 28; Glucose 218 mg/dL (80-115); Potassium 4.7 mmol/L (3.5-5.1); Sodium 142 mmol/L (136-145)
[2019-09-25 06:39] LABS: Eosinophils 4 % (0-10); Hemoglobin 7.5 g/dL (14.0-18.0); Hypochromia SLIGHT = 6-15 cells (100X) (0-5/hpf); Lymphocytes 21 % (21-51); MDiff Complete? YES; Macrocytosis SLIGHT = 6-15 cells (100X) (0-5/hpf); Mean Corpuscular HGB CONC 30.1 g/dL (32.0-36.0); Mean Corpuscular Hemoglobin 31.2 pg (27.0-31.0); Mean Platelet Volume 8.9 fL (7.4-10.4); Monocytes 13 % (0-10); Neutrophil 62 % (42-75); Platelet Count 109 thou/uL (130-400); Platelet Morphology Comment Appears Decreased; Red Blood Cell (RBC) Count 2.42 mill/uL (4.70-6.10); White Blood Cell (WBC) Count 4.6 thou/uL (4.8-10.8)
[2019-09-25] MEDS: Famotidine 20 MG TAB PO SCH (09:23)
[2019-09-25] MEDS: Aspirin 81 mg Enteric Coated Tablet PO SCH (09:23)
[2019-09-25] MEDS: Magnesium Oxide 400 MG TAB PO SCH ×2 (09:24→20:53)
[2019-09-25] MEDS: Metoprolol Tartrate 50 MG TAB PO SCH ×2 (09:24→20:53)
[2019-09-25] MEDS: Apixaban 5 MG TAB PO SCH ×2 (09:24→20:53)
[2019-09-25] MEDS: Gabapentin 100 MG CAP PO SCH ×2 (09:24→20:53)
[2019-09-25] MEDS: Mycophenolate 250 MG CAP PO SCH ×2 (09:24→20:53)
[2019-09-25] MEDS: Multivit, Therapeutic 1 TAB PO SCH (09:24)
[2019-09-25] MEDS: Tacrolimus 1 MG CAP PO SCH ×2 (09:25→20:53)
[2019-09-25] MEDS: Sodium Chloride Nasal 15 GM TUBE EA NARE SCH ×2 (09:27→21:00)
[2019-09-25] MEDS: DorzolamidE/Timolol 2%/0.5% Ophth Soln 10 ml Bottle EA EYE SCH ×2 (09:27→20:59)
[2019-09-25] MEDS: Witch Hazel-Glycerin 1 EACH JAR TOP SCH (09:28)
[2019-09-25] MEDS: Ammonium Lactate 12% Lotion 225 GM BOT TOP SCH ×2 (09:28→21:00)
[2019-09-25] MEDS: Insulin Glargine 12 UNITS in Pre-Filled Syringe 1 EACH SC SCH (09:28)
[2019-09-25] MEDS: HumaLOG 300 UNITS/3 ML VIAL SC PRN (09:40)
--- NOTE | 2019-09-25 13:07 | PDOC.EVN ---
Event Note - Event Note Event Note: [id number] Progress
--- NOTE | 2019-09-25 14:03 | PRG ---
DATE OF SERVICE: 09/25/2019 SUBJECTIVE: The patient is seen at bedside. The patient is complaining of generalized weakness and body aches, he said it is aching all over. PHYSICAL EXAMINATION: VITAL SIGNS: Pulse 75, respiratory rate is 13, and temperature is 98.1, blood pressure 129/67. GENERAL: The patient is awake and alert. The patient is elderly, in mild distress. HEENT: Eyes are anicteric. Pupils are equal, reactive to light. Head, normocephalic and atraumatic. NECK: Supple. HEART: S1 and S2 regular. ABDOMEN: Soft, nontender. Bowel sounds are present. EXTREMITIES: Edema, bilateral upper extremities. Right upper extremity, dialysis access. MUSCULOSKELETAL: Generalized weakness. PSYCH: Awake, alert, oriented. REVIEW OF SYSTEMS: Negative except what is mentioned in the history of present illness. CURRENT MEDICATIONS: Reviewed. ASSESSMENT: 1. [id number] kidney disease in a patient who has renal transplant. Continue hemodialysis as per Nephrology. Nephrology is following. 2. [id number] anemia, unclear etiology. Continue to follow hemoglobin and hematocrit. 3. In-hospital cardiac arrest, status post return of spontaneous circulation. ? Heart block/bradyarrhythmia from hyperkalemia. Continue monitoring. 4. Respiratory failure, status post extubation. 5. Bilateral upper extremity deep venous thrombosis. There are no obvious signs of bleeding. The patient was restarted on Eliquis. 6. Generalized weakness and deconditioning. PT/OT consulted. 7. DVT prophylaxis as appropriate. 8. Disposition; discharge planning to [facility]. 9. Code status, full code. Palliative Care team following along. Job ID: [id number]
[2019-09-25] MEDS: Atorvastatin Calcium 40 MG TAB PO SCH (20:53)
[2019-09-26] MEDS: Haloperidol Lactate 5 MG/ML VIAL IM SCH ×2 (02:02→12:06)
[2019-09-26 04:54] LABS: #Eosinphils 0.3 thou/uL (0.0-0.7); #Lymphocytes 1.3 thou/uL (1.20-3.40); #Monocytes 0.4 thou/uL (0.11-0.59); #Neutrophils 2.8 thou/uL (1.40-6.50); %Basophils 0.3 % (0.0-1.0); %Lymphocytes 27.6 % (21.0-51.0); %Monocytes 8.7 % (0.0-10.0); %Neutrophils 57.4 % (42.0-75.0); Hemoglobin 8.3 g/dL (14.0-18.0); Mean Corpuscular Hemoglobin 33.4 pg (27.0-31.0); Mean Platelet Volume 9.1 fL (7.4-10.4); Platelet Count 130 thou/uL (130-400); RBC Distribution Width 15.8 % (11.5-14.5); Red Blood Cell (RBC) Count 2.48 mill/uL (4.70-6.10); White Blood Cell (WBC) Count 4.9 thou/uL (4.8-10.8)
[2019-09-26 05:05] LABS: Anion Gap 10 mmol/L (10-20); BUN (Urea Nitrogen) 25 mg/dL (8.4-25.7); Calc. Creatinine Clearance 19 mL/min (70-130); Calcium 9.9 mg/dL (7.8-10.44); Carbon Dioxide 34 mmol/L (23-31); Chloride 103 mmol/L (98-107); Estimated GFR-MDRD 19; Glucose 233 mg/dL (80-115); Sodium 142 mmol/L (136-145)
[2019-09-26] MEDS: Levothyroxine 175 MCG TAB PO SCH (06:05)
[2019-09-26] MEDS: Metoprolol Tartrate 50 MG TAB PO SCH ×2 (10:02→20:31)
[2019-09-26] MEDS: Mycophenolate 250 MG CAP PO SCH ×2 (10:04→20:30)
[2019-09-26] MEDS: Tacrolimus 1 MG CAP PO SCH ×2 (10:04→20:48)
[2019-09-26] MEDS: Multivit, Therapeutic 1 TAB PO SCH (10:04)
[2019-09-26] MEDS: Gabapentin 100 MG CAP PO SCH ×2 (10:04→20:31)
[2019-09-26] MEDS: Aspirin 81 mg Enteric Coated Tablet PO SCH (10:05)
[2019-09-26] MEDS: Magnesium Oxide 400 MG TAB PO SCH ×2 (10:05→20:31)
[2019-09-26] MEDS: Famotidine 20 MG TAB PO SCH (10:05)
[2019-09-26] MEDS: Apixaban 5 MG TAB PO SCH ×2 (10:05→20:31)
[2019-09-26] MEDS: DorzolamidE/Timolol 2%/0.5% Ophth Soln 10 ml Bottle EA EYE SCH ×2 (10:06→20:32)
[2019-09-26] MEDS: Insulin Glargine 12 UNITS in Pre-Filled Syringe 1 EACH SC SCH (10:06)
[2019-09-26] MEDS: Ammonium Lactate 12% Lotion 225 GM BOT TOP SCH ×2 (10:07→20:32)
[2019-09-26] MEDS: Sodium Chloride Nasal 15 GM TUBE EA NARE SCH ×2 (10:07→20:32)
[2019-09-26] MEDS: Witch Hazel-Glycerin 1 EACH JAR TOP SCH (10:07)
--- NOTE | 2019-09-26 12:57 | PDOC.EVN ---
Event Note - Event Note Event Note: [id number] Progress
--- NOTE | 2019-09-26 13:28 | PRG ---
DATE OF SERVICE: 09/26/2019 SUBJECTIVE: The patient is seen at the bedside, still complaining of back aches and generalized body pain. The patient is sitting in a chair. PHYSICAL EXAMINATION: VITAL SIGNS: Temperature 98.6, pulse is 80, respiratory rate is 16, blood pressure 140/65. GENERAL: The patient is awake and alert. He is in mild distress. EYES: Sclerae anicteric. Pupils equal and reactive to light. HEAD: Normocephalic and atraumatic. NECK: Supple. HEART: S1, S2. Regular. ABDOMEN: Soft, nontender. Bowel sounds present. EXTREMITIES: No clubbing. No cyanosis. MUSCULOSKELETAL: Generalized weakness. PSYCHIATRY: Awake, alert, and oriented. LABORATORY DATA: WBCs 4.9, hemoglobin 8.3, platelets 130. Sodium 142, potassium 5, BUN is 25, creatinine 2.8. REVIEW OF SYSTEMS: Review of 14 systems negative except what is mentioned in the history of present illness. CURRENT MEDICATIONS: Reviewed. ASSESSMENT AND PLAN: 1. Acute on chronic renal failure in a patient who has renal transplant. Continue hemodialysis per Nephrology. Acute on chronic anemia, continue to monitor hemoglobin and hematocrit. 2. In-hospital cardiac arrest, status post return of spontaneous circulation. ?Heart block/bradyarrhythmia from hyperkalemia? Continue monitoring. 3. Respiratory failure, status post extubation. 4. Bilateral upper extremity deep venous thrombosis. The patient was restarted on Eliquis. 5. Generalized weakness and deconditioning, PT and OT eval and treat. 6. Deep venous thrombosis prophylaxis as appropriate. 7. Disposition; discharge planning to SNF. 8. Code status, full code. Job ID: [id number]
--- NOTE | 2019-09-26 16:03 | PDOC.CPN ---
- Subjective Date: 09/26/19 Time: 16:17 Interval history: The pt seen and examined. No overnight events. No cardiac complaints. - Objective Allergies/Adverse Reactions: Allergies Allergy/AdvReac Type Severity Reaction Status Date / Time morphine Allergy Mental Verified 09/07/19 12:13 changes Penicillins Allergy Hives Verified 09/07/19 12:13 Visit Medications: Current Medications Acetaminophen (Tylenol) 650 mg PO Q4H PRN PRN Reason: Headache/Fever/Mild Pain (1-3) Last Admin: 09/24/19 21:05 Dose: 650 mg Hydrocodone Bitart/Acetaminophen ([place] 5/325) 2 tab PO Q4H PRN PRN Reason: Moderate to Severe Pain (6-10) Last Admin: 09/25/19 05:19 Dose: 2 tab Albuterol/Ipratropium (Duoneb) 3 ml NEB B1PP-QM COUNTS INCLUDE 234 BEDS AT THE [facility] Last Admin: 09/26/19 12:42 Dose: Not Given Ammonium Lactate (Laclotion) 0 gm TOP BID COUNTS INCLUDE 234 BEDS AT THE [facility] Last Admin: 09/26/19 10:07 Dose: 225 gm Apixaban (Eliquis) 10 mg PO BID COUNTS INCLUDE 234 BEDS AT THE [facility] Last Admin: 09/26/19 10:05 Dose: 10 mg Aspirin (Ecotrin) 81 mg PO DAILY COUNTS INCLUDE 234 BEDS AT THE [facility] Last Admin: 09/26/19 10:05 Dose: 81 mg Atorvastatin Calcium (Lipitor) 40 mg PO HS COUNTS INCLUDE 234 BEDS AT THE [facility] Last Admin: 09/25/19 20:53 Dose: 40 mg Atropine Sulfate (Atropine) 0.5 mg IVP Q4H PRN PRN Reason: BRADYCARDIA Cholecalciferol (Vitamin D3) 2,000 units PO DAILY COUNTS INCLUDE 234 BEDS AT THE [facility] Last Admin: 09/26/19 10:04 Dose: 2,000 units Clotrimazole (Mycelex Sujatha) 10 mg PO TID-WM COUNTS INCLUDE 234 BEDS AT THE [facility] Last Admin: 09/26/19 12:06 Dose: Not Given Dextrose/Water (Dextrose 50%) 25 gm SLOW IVP PRN PRN PRN Reason: Hypoglycemia Last Admin: 09/10/19 00:33 Dose: 25 gm Docusate Sodium (Colace) 100 mg PO BIDPRN PRN PRN Reason: Constipation Dorzolamide/Timolol (Cosopt 2-0.5% Ophth Soln) 1 drop EA EYE BID COUNTS INCLUDE 234 BEDS AT THE [facility] Last Admin: 09/26/19 10:06 Dose: 1 drop Epoetin Fred-epbx (Retacrit) 7,000 unit SC Q7D@2000 COUNTS INCLUDE 234 BEDS AT THE [facility] Last Admin: 09/20/19 20:54 Dose: 7,000 unit Famotidine (Pepcid) 20 mg PO DAILY COUNTS INCLUDE 234 BEDS AT THE [facility] Last Admin: 09/26/19 10:05 Dose: 20 mg Gabapentin (Neurontin) 100 mg PO BID COUNTS INCLUDE 234 BEDS AT THE [facility] Last Admin: 09/26/19 10:04 Dose: 100 mg Glucagon (Glucagon) 1 mg IM PRN PRN PRN Reason: Hypoglycemia Haloperidol Lactate (Haldol) 5 mg IM 0200,1400 COUNTS INCLUDE 234 BEDS AT THE [facility] Last Admin: 09/26/19 12:06 Dose: Not Given Hydroxyzine HCl (Atarax) 25 mg PO BIDPRN PRN PRN Reason: Itching Last Admin: 09/21/19 20:43 Dose: 25 mg Dextrose/Water (D5w) 1,000 mls @ 0 mls/hr IV .Q0M PRN PRN Reason: Hypoglycemia Insulin Glargine 12 units/ (Miscellaneous Medication) 0.12 mls @ 0 mls/hr SC QAM COUNTS INCLUDE 234 BEDS AT THE [facility] Last Admin: 09/26/19 10:06 Dose: Not Given Insulin Human Lispro (Humalog) 0 units SC .AGGRESSIVE SLIDING PRN; Protocol PRN Reason: AGGRESSIVE SLIDING SCALE Last Admin: 09/25/19 09:40 Dose: 6 units Levothyroxine Sodium (Synthroid) 175 mcg PO 0600 COUNTS INCLUDE 234 BEDS AT THE [facility] Last Admin: 09/26/19 06:05 Dose: 175 mcg Magnesium Oxide (Magnesium Oxide) 800 mg PO BID COUNTS INCLUDE 234 BEDS AT THE [facility] Last Admin: 09/26/19 10:05 Dose: 800 mg Metoprolol Tartrate (Lopressor) 50 mg PO BID COUNTS INCLUDE 234 BEDS AT THE [facility] Last Admin: 09/26/19 10:02 Dose: Not Given Multivitamins (Theragran) 1 tab PO DAILY COUNTS INCLUDE 234 BEDS AT THE [facility] Last Admin: 09/26/19 10:04 Dose: 1 tab Mycophenolate Mofetil (Cellcept) 500 mg PO BID COUNTS INCLUDE 234 BEDS AT THE [facility] Last Admin: 09/26/19 10:04 Dose: 500 mg Ondansetron HCl (Zofran Odt) 4 mg PO Q6H PRN PRN Reason: Nausea/Vomiting Last Admin: 09/20/19 20:31 Dose: 4 mg Sodium Chloride/Aloe Vera ([place] W/Aloe Gel) 0 gm EA NARE BID COUNTS INCLUDE 234 BEDS AT THE [facility] Last Admin: 09/26/19 10:07 Dose: 2 spr Tacrolimus (Prograf) 5 mg PO BID COUNTS INCLUDE 234 BEDS AT THE [facility] Last Admin: 09/26/19 10:04 Dose: 5 mg Throat Lozenges (Cepastat Lozenges) 1 adilson PO Q2H PRN PRN Reason: Sore Throat Witch Tamiko/Glycerin (Tucks Pads) 1 each TOP DAILY COUNTS INCLUDE 234 BEDS AT THE [facility] Last Admin: 09/26/19 10:07 Dose: Not Given Vital Signs & Weight: Vital Signs Temp Pulse Resp BP BP Pulse Ox 09/26/19 08:00 98.4 F 70 18 137/65 97 09/26/19 07:00 80 16 93 L 09/26/19 04:12 98.6 F 69 18 141/65 H 97 Admit Weight 211 lb 1.6 oz Weight 160 lb 4.417 oz - Physical Exam General: alert & oriented x3 HEENT: mucus membranes moist Neck: supple neck Cardiac: regular rate and rhythm, S1/S2 Lungs: decreased breath sounds - Labs Result Diagrams: 09/26/19 03:53 09/26/19 03:53 Troponin/CKMB CK-MB (CK-2) 4.8 ng/mL (0-6.6) 09/07/19 00:49 Troponin I 0.060 ng/mL (< 0.028) H 09/07/19 11:32 - Telemetry Sinus rhythms and dysrhythmias: sinus rhythm - Assessment/Plan Assessment/Plan: 1. S/p in-hospital cardiac arrest with marked bradycardia on 09/09/2019 - stable ; cont. to monitor on tele; 2. Acute on Chronic diastolic HF - on bblocker and on HD; not on KATHRIN/ARB due to hx of CKD 3. HTN - stable with current med 4. Insulin dependent DM - 5. ESRD on HD (hx of renal tx in past) - HD today 6. Hypothyroidism - 7. BLANE - 8. Large pleural effusion - on HD 9. Hx of DVT of upper extremities - on Eliquis 10mg BID for 10 days (since 09/24); managed by PCP 10. anemia - on Epogin MAR reviewed * Dr Donnelly's pt * Echo on 09/09/2019 with EF 55-60%, mod dilated LA, mod LVH, mild-mod TR, large Pleural effusion, and elevated RVSP Pt. seen and eval. by me. I agree with the A/P by the [employer].Chest : decr. BS bases. Poor insp. effort. C/O'd of back pain, requesting pain meds. gjmays
--- NOTE | 2019-09-26 16:03 | PDOC.CPN ---
- Objective Allergies/Adverse Reactions: Allergies Allergy/AdvReac Type Severity Reaction Status Date / Time morphine Allergy Mental Verified 09/07/19 12:13 changes Penicillins Allergy Hives Verified 09/07/19 12:13 Visit Medications: Current Medications Acetaminophen (Tylenol) 650 mg PO Q4H PRN PRN Reason: Headache/Fever/Mild Pain (1-3) Last Admin: 09/24/19 21:05 Dose: 650 mg Hydrocodone Bitart/Acetaminophen ([place] 5/325) 2 tab PO Q4H PRN PRN Reason: Moderate to Severe Pain (6-10) Last Admin: 09/25/19 05:19 Dose: 2 tab Albuterol/Ipratropium (Duoneb) 3 ml NEB [id number] [facility] Last Admin: 09/26/19 12:42 Dose: Not Given Ammonium Lactate (Laclotion) 0 gm TOP BID [facility] Last Admin: 09/26/19 10:07 Dose: 225 gm Apixaban (Eliquis) 10 mg PO BID [facility] Last Admin: 09/26/19 10:05 Dose: 10 mg Aspirin (Ecotrin) 81 mg PO DAILY [facility] Last Admin: 09/26/19 10:05 Dose: 81 mg Atorvastatin Calcium (Lipitor) 40 mg PO HS [facility] Last Admin: 09/25/19 20:53 Dose: 40 mg Atropine Sulfate (Atropine) 0.5 mg IVP Q4H PRN PRN Reason: BRADYCARDIA Cholecalciferol (Vitamin D3) 2,000 units PO DAILY [facility] Last Admin: 09/26/19 10:04 Dose: 2,000 units Clotrimazole (Mycelex Sujatha) 10 mg PO TID-WM [facility] Last Admin: 09/26/19 12:06 Dose: Not Given Dextrose/Water (Dextrose 50%) 25 gm SLOW IVP PRN PRN PRN Reason: Hypoglycemia Last Admin: 09/10/19 00:33 Dose: 25 gm Docusate Sodium (Colace) 100 mg PO BIDPRN PRN PRN Reason: Constipation Dorzolamide/Timolol (Cosopt 2-0.5% Ophth Soln) 1 drop EA EYE BID [facility] Last Admin: 09/26/19 10:06 Dose: 1 drop Epoetin Fred-epbx (Retacrit) 7,000 unit SC Q7D@1999 [facility] Last Admin: 09/20/19 20:54 Dose: 7,000 unit Famotidine (Pepcid) 20 mg PO DAILY [facility] Last Admin: 09/26/19 10:05 Dose: 20 mg Gabapentin (Neurontin) 100 mg PO BID [facility] Last Admin: 09/26/19 10:04 Dose: 100 mg Glucagon (Glucagon) 1 mg IM PRN PRN PRN Reason: Hypoglycemia Haloperidol Lactate (Haldol) 5 mg IM 0200,1400 [facility] Last Admin: 09/26/19 12:06 Dose: Not Given Hydroxyzine HCl (Atarax) 25 mg PO BIDPRN PRN PRN Reason: Itching Last Admin: 09/21/19 20:43 Dose: 25 mg Dextrose/Water (D5w) 1,000 mls @ 0 mls/hr IV .Q0M PRN PRN Reason: Hypoglycemia Insulin Glargine 12 units/ (Miscellaneous Medication) 0.12 mls @ 0 mls/hr SC QAM [facility] Last Admin: 09/26/19 10:06 Dose: Not Given Insulin Human Lispro (Humalog) 0 units SC .AGGRESSIVE SLIDING PRN; Protocol PRN Reason: AGGRESSIVE SLIDING SCALE Last Admin: 09/25/19 09:40 Dose: 6 units Levothyroxine Sodium (Synthroid) 175 mcg PO 0600 [facility] Last Admin: 09/26/19 06:05 Dose: 175 mcg Magnesium Oxide (Magnesium Oxide) 800 mg PO BID [facility] Last Admin: 09/26/19 10:05 Dose: 800 mg Metoprolol Tartrate (Lopressor) 50 mg PO BID [facility] Last Admin: 09/26/19 10:02 Dose: Not Given Multivitamins (Theragran) 1 tab PO DAILY [facility] Last Admin: 09/26/19 10:04 Dose: 1 tab Mycophenolate Mofetil (Cellcept) 500 mg PO BID [facility] Last Admin: 09/26/19 10:04 Dose: 500 mg Ondansetron HCl (Zofran Odt) 4 mg PO Q6H PRN PRN Reason: Nausea/Vomiting Last Admin: 09/20/19 20:31 Dose: 4 mg Sodium Chloride/Aloe Vera ([place] W/Aloe Gel) 0 gm EA NARE BID [facility] Last Admin: 09/26/19 10:07 Dose: 2 spr Tacrolimus (Prograf) 5 mg PO BID [facility] Last Admin: 09/26/19 10:04 Dose: 5 mg Throat Lozenges (Cepastat Lozenges) 1 adilson PO Q2H PRN PRN Reason: Sore Throat Witch Tamiko/Glycerin (Tucks Pads) 1 each TOP DAILY [facility] Last Admin: 09/26/19 10:07 Dose: Not Given Vital Signs & Weight: Vital Signs Temp Pulse Resp BP BP Pulse Ox 09/26/19 08:00 98.4 F 70 18 137/65 97 09/26/19 07:00 80 16 93 L 09/26/19 04:12 98.6 F 69 18 141/65 H 97 Admit Weight 211 lb 1.6 oz Weight 160 lb 4.417 oz - Labs Result Diagrams: 09/26/19 03:53 09/26/19 03:53 Troponin/CKMB CK-MB (CK-2) 4.8 ng/mL (0-6.6) 09/07/19 00:49 Troponin I 0.060 ng/mL (< 0.028) H 09/07/19 11:32 - Assessment/Plan Assessment/Plan: ZENIA on CKD in patient with renal transplant patient: Patient has been using RUE prior dialysis access for Hemodialysis and no tunneled catheter site needed and will discontinue John catheter today. continue on Cellcept and Tacrolimus. nephrology following and continue [employer]. patient undergoing HD today. Acte on chronic anemia. unspecified etiology. H&H stable, monitor. restart Eliquis 10 mg BID started during this hospitalization for bilateral upper extremity DVT. In-hosptial cardiac arrest s/p ROSC. unclear etiology. ?trifascicular block. ? bradyarrhythmia from hyperkalemia. continue telemetry monitoring. cardiology and EP input noted. Ventilator dependent respiratory failure. s/p extubation Bilateral upper extremity DVT. noted in bilateral IJ, bilaterally axillary vein , and left subclavian vein. monitor worsening anemia. no obvious signs of bleeding. restart Eliquis 10 mg po BID started during this hospitalization. generalized weakness and deconditioning. consult PT and OT and encourage patient participation. case managment consulted for SNF referral and await disposition. DVT px: restart DOAC Dispo: discharge planning to SNF code status: Full code. palliative care team following along.
[2019-09-26] MEDS: Atorvastatin Calcium 40 MG TAB PO SCH (20:31)
[2019-09-26] MEDS: HYDROcodone/Acetaminophen 5/325 mg Tablet PO PRN (20:31)
[2019-09-26] MEDS: HumaLOG 300 UNITS/3 ML VIAL SC PRN (20:46)
[2019-09-27] MEDS: HYDROcodone/Acetaminophen 5/325 mg Tablet PO PRN (03:04)
[2019-09-27] MEDS: Haloperidol Lactate 5 MG/ML VIAL IM SCH ×2 (03:06→14:41)
[2019-09-27 05:03] LABS: #Basophils 0.1 thou/uL (0.0-0.2); #Eosinphils 0.3 thou/uL (0.0-0.7); #Lymphocytes 1.4 thou/uL (1.20-3.40); #Monocytes 0.7 thou/uL (0.11-0.59); #Neutrophils 3.1 thou/uL (1.40-6.50); %Basophils 0.9 % (0.0-1.0); %Eosinophils 5.4 % (0.0-10.0); %Lymphocytes 24.7 % (21.0-51.0); %Monocytes 12.5 % (0.0-10.0); %Neutrophils 56.5 % (42.0-75.0); Hemoglobin 7.8 g/dL (14.0-18.0); Mean Corpuscular HGB CONC 32.4 g/dL (32.0-36.0); Mean Corpuscular Hemoglobin 32.6 pg (27.0-31.0); Mean Platelet Volume 9.7 fL (7.4-10.4); Platelet Count 134 thou/uL (130-400); RBC Distribution Width 15.7 % (11.5-14.5); Red Blood Cell (RBC) Count 2.41 mill/uL (4.70-6.10); White Blood Cell (WBC) Count 5.5 thou/uL (4.8-10.8)
[2019-09-27] MEDS: Levothyroxine 175 MCG TAB PO SCH (05:25)
[2019-09-27 05:28] LABS: Anion Gap 11 mmol/L (10-20); BUN (Urea Nitrogen) 13 mg/dL (8.4-25.7); Calc. Creatinine Clearance 27 mL/min (70-130); Calcium 9.7 mg/dL (7.8-10.44); Carbon Dioxide 32 mmol/L (23-31); Chloride 102 mmol/L (98-107); Estimated GFR-MDRD 29; Glucose 142 mg/dL (80-115); Potassium 4.4 mmol/L (3.5-5.1); Sodium 141 mmol/L (136-145)
[2019-09-27] MEDS: Multivit, Therapeutic 1 TAB PO SCH (08:37)
[2019-09-27] MEDS: Gabapentin 100 MG CAP PO SCH ×2 (08:37→20:03)
[2019-09-27] MEDS: Mycophenolate 250 MG CAP PO SCH ×2 (08:37→20:02)
[2019-09-27] MEDS: Aspirin 81 mg Enteric Coated Tablet PO SCH (08:37)
[2019-09-27] MEDS: Insulin Glargine 12 UNITS in Pre-Filled Syringe 1 EACH SC SCH (08:38)
[2019-09-27] MEDS: Tacrolimus 1 MG CAP PO SCH ×2 (08:38→20:20)
[2019-09-27] MEDS: Magnesium Oxide 400 MG TAB PO SCH ×2 (08:38→20:02)
[2019-09-27] MEDS: Metoprolol Tartrate 50 MG TAB PO SCH ×2 (08:38→20:02)
[2019-09-27] MEDS: DorzolamidE/Timolol 2%/0.5% Ophth Soln 10 ml Bottle EA EYE SCH ×2 (08:39→20:02)
[2019-09-27] MEDS: Sodium Chloride Nasal 15 GM TUBE EA NARE SCH ×2 (08:40→20:03)
[2019-09-27] MEDS: Witch Hazel-Glycerin 1 EACH JAR TOP SCH (08:40)
[2019-09-27] MEDS: Ammonium Lactate 12% Lotion 225 GM BOT TOP SCH ×2 (08:41→20:02)
[2019-09-27] MEDS: Famotidine 20 MG TAB PO SCH (10:48)
[2019-09-27] MEDS: Apixaban 5 MG TAB PO SCH ×2 (10:48→20:02)
[2019-09-27] MEDS: HumaLOG 300 UNITS/3 ML VIAL SC PRN ×2 (12:18→18:08)
--- NOTE | 2019-09-27 12:21 | PDOC.EVN ---
Event Note - Event Note Event Note: [id number] progress
--- NOTE | 2019-09-27 13:27 | PRG ---
DATE OF SERVICE: 09/27/2019 SUBJECTIVE: The patient is seen at the bedside today. No new complaints. Does not appear to be in acute distress. PHYSICAL EXAMINATION: GENERAL: The patient is awake and alert. VITAL SIGNS: Temperature is 98.5, pulse is 70, and blood pressure 144/65. The patient was afebrile. HEAD AND NECK: Normocephalic and atraumatic. Eyes, sclerae are anicteric. NECK: Supple. No JVD. CHEST: Fair bilateral air entry. HEART: S1, S2. Regular. ABDOMEN: Soft, nontender. Bowel sounds present. NEUROLOGIC: Awake, alert, oriented. PSYCH: Unable to assess. EXTREMITIES: No clubbing. No cyanosis. MUSCULOSKELETAL: Generalized weakness. LABORATORY DATA: Hemoglobin 7.8, potassium is 4.4, BUN is 13, creatinine 2.6. ASSESSMENT: 1. Acute on chronic renal failure in a patient who has direct kidney transplant. Continue hemodialysis as per Nephrology. 2. Acute on chronic anemia. Continue to monitor hemoglobin and hematocrit. 3. In-hospital cardiac arrest, status post return of spontaneous circulation ? heart block/bradyarrhythmia from hyperkalemia ? Continue monitoring. 4. Respiratory failure, status post extubation. 5. Bilateral upper extremity deep venous thrombosis, the patient was restarted on Eliquis. 6. Generalized weakness and deconditioning. PT and OT eval and treat. 7. Deep venous thrombosis prophylaxis. The patient is on Eliquis. 8. Disposition and discharge planning assistance. Job ID: [id number]
[2019-09-27 14:03] VITALS: BMI 24.7
[2019-09-27] MEDS: Atorvastatin Calcium 40 MG TAB PO SCH (20:02)
[2019-09-27] MEDS: EPOETIN ALFA-EPBX (ESRD) 4,000 UNIT/ML VIAL SC SCH (20:19)
[2019-09-27] MEDS: Acetaminophen 325 MG TAB PO PRN (23:58)
[2019-09-28] MEDS: Haloperidol Lactate 5 MG/ML VIAL IM SCH ×2 (04:09→14:12)
[2019-09-28 05:13] LABS: #Eosinphils 0.3 thou/uL (0.0-0.7); #Lymphocytes 1.5 thou/uL (1.20-3.40); #Monocytes 0.7 thou/uL (0.11-0.59); #Neutrophils 3.5 thou/uL (1.40-6.50); %Basophils 0.3 % (0.0-1.0); %Eosinophils 4.4 % (0.0-10.0); %Lymphocytes 25.4 % (21.0-51.0); %Monocytes 11.2 % (0.0-10.0); %Neutrophils 58.7 % (42.0-75.0); Hemoglobin 7.6 g/dL (14.0-18.0); Mean Corpuscular HGB CONC 33.5 g/dL (32.0-36.0); Mean Corpuscular Hemoglobin 34.2 pg (27.0-31.0); Mean Platelet Volume 8.5 fL (7.4-10.4); Platelet Count 139 thou/uL (130-400); RBC Distribution Width 15.7 % (11.5-14.5); Red Blood Cell (RBC) Count 2.21 mill/uL (4.70-6.10)
[2019-09-28 05:23] LABS: Anion Gap 12 mmol/L (10-20); BUN (Urea Nitrogen) 20 mg/dL (8.4-25.7); Calc. Creatinine Clearance 18 mL/min (70-130); Calcium 9.8 mg/dL (7.8-10.44); Carbon Dioxide 31 mmol/L (23-31); Chloride 102 mmol/L (98-107); Estimated GFR-MDRD 19; Glucose 139 mg/dL (80-115); Potassium 4.6 mmol/L (3.5-5.1); Sodium 140 mmol/L (136-145)
[2019-09-28] MEDS: Levothyroxine 175 MCG TAB PO SCH (06:39)
--- NOTE | 2019-09-28 11:41 | PDOC.EVN ---
Event Note - Event Note Event Note: [id number] progress
--- NOTE | 2019-09-28 12:04 | PRG ---
DATE OF SERVICE: 09/28/2019 SUBJECTIVE: The patient continues to have mood swings. Sometimes, he likes to talk, sometimes he does not. He does not answer questions. Palliative Care has been in discussion with the patient's daughter regarding discharge planning. Apparently, daughter would like the patient to go for rehab, but seems like the patient has been refusing physical therapy while in the hospital. The patient is for hemodialysis today. OBJECTIVE: VITAL SIGNS: Temperature 98.6, pulse is 71, respiratory rate is 18, blood pressure 113/54. HEAD: Normocephalic, atraumatic. Eyes, sclerae anicteric. NECK: Supple. No JVD. CHEST: Fair bilateral air entry. HEART: S1, S2. Regular. ABDOMEN: Soft, nontender. Bowel sounds present. NEUROLOGIC: Awake, alert, and oriented. PSYCH: Unable to assess. EXTREMITIES: No clubbing, no cyanosis, right arm swollen. MUSCULOSKELETAL: Generalized weakness. LABORATORY DATA: WBC is 6.0, hemoglobin 7.6, platelets 139. Sodium 140, potassium 4.6, BUN is 20, creatinine 3.8, glucose 134. ASSESSMENT AND PLAN: 1. Acute on chronic renal failure. The patient has had a kidney transplant. 2. Acute on chronic anemia. Continue to monitor hemoglobin and hematocrit. 3. In-hospital cardiac arrest, status post return of spontaneous circulation ? block/bradyarrhythmia from hyperkalemia ? continue monitoring. 4. Respiratory failure, status post extubation. 5. Bilateral upper extremity deep venous thrombosis, the patient was restarted on Eliquis. 6. Generalized weakness and deconditioning. PT and OT eval and treat. 7. Deep venous thrombosis prophylaxis. The patient is on Eliquis. 8. Disposition and discharge planning are underway, social insurance adviser had discussions with the patient's daughter who would like the patient to go for rehab, but the patient has to participate in hospital physical therapy and be willing to be accepted. Job ID: [id number]
[2019-09-28] MEDS: Multivit, Therapeutic 1 TAB PO SCH (13:01)
[2019-09-28] MEDS: Mycophenolate 250 MG CAP PO SCH ×2 (13:02→21:58)
[2019-09-28] MEDS: Magnesium Oxide 400 MG TAB PO SCH ×2 (13:02→21:59)
[2019-09-28] MEDS: Tacrolimus 1 MG CAP PO SCH ×2 (13:02→21:58)
[2019-09-28] MEDS: Famotidine 20 MG TAB PO SCH (13:03)
[2019-09-28] MEDS: Gabapentin 100 MG CAP PO SCH ×2 (13:03→21:59)
[2019-09-28] MEDS: Aspirin 81 mg Enteric Coated Tablet PO SCH (13:04)
[2019-09-28] MEDS: Apixaban 5 MG TAB PO SCH ×2 (13:04→22:00)
[2019-09-28] MEDS: Metoprolol Tartrate 50 MG TAB PO SCH ×2 (13:05→22:01)
[2019-09-28] MEDS: Sodium Chloride Nasal 15 GM TUBE EA NARE SCH ×2 (13:06→22:06)
[2019-09-28] MEDS: Witch Hazel-Glycerin 1 EACH JAR TOP SCH (13:06)
[2019-09-28] MEDS: Ammonium Lactate 12% Lotion 225 GM BOT TOP SCH ×3 (13:07→22:23)
[2019-09-28] MEDS: DorzolamidE/Timolol 2%/0.5% Ophth Soln 10 ml Bottle EA EYE SCH ×2 (13:13→22:05)
[2019-09-28] MEDS: Insulin Glargine 12 UNITS in Pre-Filled Syringe 1 EACH SC SCH (13:13)
[2019-09-28] MEDS: HYDROcodone/Acetaminophen 5/325 mg Tablet PO PRN ×2 (17:40→21:59)
[2019-09-28] MEDS: HumaLOG 300 UNITS/3 ML VIAL SC PRN (17:59)
[2019-09-28] MEDS: Atorvastatin Calcium 40 MG TAB PO SCH (22:00)
[2019-09-29] MEDS: Haloperidol Lactate 5 MG/ML VIAL IM SCH ×2 (01:42→14:17)
[2019-09-29] MEDS: HYDROcodone/Acetaminophen 5/325 mg Tablet PO PRN (04:17)
[2019-09-29] MEDS: Levothyroxine 175 MCG TAB PO SCH (04:17)
[2019-09-29] MEDS: Insulin Glargine 12 UNITS in Pre-Filled Syringe 1 EACH SC SCH (08:20)
[2019-09-29] MEDS: Mycophenolate 250 MG CAP PO SCH ×2 (08:21→21:54)
[2019-09-29] MEDS: Multivit, Therapeutic 1 TAB PO SCH (08:21)
[2019-09-29] MEDS: Magnesium Oxide 400 MG TAB PO SCH ×2 (08:21→21:54)
[2019-09-29] MEDS: Tacrolimus 1 MG CAP PO SCH ×2 (08:21→21:54)
[2019-09-29] MEDS: Gabapentin 100 MG CAP PO SCH ×2 (08:22→21:57)
[2019-09-29] MEDS: Metoprolol Tartrate 50 MG TAB PO SCH ×2 (08:22→22:00)
[2019-09-29] MEDS: Apixaban 5 MG TAB PO SCH ×2 (08:23→21:58)
[2019-09-29] MEDS: Famotidine 20 MG TAB PO SCH (08:23)
[2019-09-29] MEDS: Aspirin 81 mg Enteric Coated Tablet PO SCH (08:23)
[2019-09-29] MEDS: DorzolamidE/Timolol 2%/0.5% Ophth Soln 10 ml Bottle EA EYE SCH ×2 (08:31→21:59)
[2019-09-29] MEDS: Witch Hazel-Glycerin 1 EACH JAR TOP SCH (08:31)
[2019-09-29] MEDS: Sodium Chloride Nasal 15 GM TUBE EA NARE SCH ×2 (08:31→22:28)
[2019-09-29] MEDS: Ammonium Lactate 12% Lotion 225 GM BOT TOP SCH ×2 (08:31→21:58)
[2019-09-29] MEDS: HumaLOG 300 UNITS/3 ML VIAL SC PRN (12:02)
--- NOTE | 2019-09-29 18:58 | PRG ---
DATE OF SERVICE: 09/29/2019 HISTORY OF PRESENT ILLNESS: The patient is currently having outpatient hemodialysis setup under Dr. Fitzpatrick's care. I do not believe he has currently undergone dialysis here inpatient since a failed renal transplant. He is pending [facility] placement over the weekend. The patient is status post cardiac arrest this hospitalization with history of diastolic heart failure and current pleural effusions. Review of vital signs; temperature is 98.1, pulse of 66, respiratory rate of 95% on room air, and blood pressure of 140/63. LABORATORY DATA: Yesterday, hemoglobin of 7.6. The patient refused repeat blood work this morning per nursing staff, including CBC and CMP. Yesterday's sodium was 140, potassium of 4.3, creatinine of 3.8,. Blood cultures remain negative at 5 days, reviewed. PHYSICAL EXAMINATION: HEENT: The patient is normocephalic, atraumatic. Extraocular movements are intact. Sclerae are white. NECK: Supple, nontender. HEART: Regular rate and rhythm. No murmurs auscultated. ABDOMEN: Soft, nontender. Positive bowel sounds throughout. NEUROLOGIC: The patient alert and oriented x3. No focal deficits. Speech is normal. EXTREMITIES: Without cyanosis or edema, but right arm, I believe patient already has current hemodialysis access with positive bruit and thrill as above with failed renal transplant that was back in 2018. ASSESSMENT AND PLAN: The patient is status post cardiac arrest; deconditioning with end-stage renal disease, on dialysis every Tuesday, Tuesday, and Tuesday; resolving acute respiratory failure, successfully extubated; continued diastolic heart failure; and history of deep vein thrombosis to extremities. To maintain patent hemodialysis access to right upper arm, patient was restarted on Eliquis on the . No apparent bleeding at this point in time. Awaiting [facility] acceptance going forward and continue dialysis on outpatient basis. We will continue the patient's Eliquis, aspirin, atorvastatin, sliding scale insulin, hydralazine p.r.n. for hypertension, levothyroxine 175 mcg, metoprolol 25 mg b.i.d., and Prograf. Follow up with Case Management. Job ID: [id number] [facility]
[2019-09-29] MEDS: Atorvastatin Calcium 40 MG TAB PO SCH (22:00)
[2019-09-30] MEDS: Haloperidol Lactate 5 MG/ML VIAL IM SCH ×2 (01:33→13:24)
[2019-09-30 04:57] LABS: #Eosinphils 0.4 thou/uL (0.0-0.7); #Lymphocytes 1.3 thou/uL (1.20-3.40); #Monocytes 0.6 thou/uL (0.11-0.59); #Neutrophils 2.4 thou/uL (1.40-6.50); %Basophils 0.2 % (0.0-1.0); %Eosinophils 8.5 % (0.0-10.0); %Lymphocytes 27.1 % (21.0-51.0); %Monocytes 12.7 % (0.0-10.0); %Neutrophils 51.4 % (42.0-75.0); Mean Corpuscular HGB CONC 33.9 g/dL (32.0-36.0); Mean Corpuscular Hemoglobin 34.5 pg (27.0-31.0); Mean Platelet Volume 8.4 fL (7.4-10.4); Platelet Count 188 thou/uL (130-400); RBC Distribution Width 15.3 % (11.5-14.5); Red Blood Cell (RBC) Count 2.31 mill/uL (4.70-6.10); White Blood Cell (WBC) Count 4.6 thou/uL (4.8-10.8)
[2019-09-30 05:20] LABS: Anion Gap 14 mmol/L (10-20); BUN (Urea Nitrogen) 27 mg/dL (8.4-25.7); Calc. Creatinine Clearance 15 mL/min (70-130); Carbon Dioxide 31 mmol/L (23-31); Chloride 98 mmol/L (98-107); Estimated GFR-MDRD 16; Glucose 202 mg/dL (80-115); Potassium 4.6 mmol/L (3.5-5.1); Sodium 138 mmol/L (136-145)
[2019-09-30] MEDS: Levothyroxine 175 MCG TAB PO SCH (06:24)
[2019-09-30] MEDS: Famotidine 20 MG TAB PO SCH (08:33)
[2019-09-30] MEDS: Tacrolimus 1 MG CAP PO SCH ×2 (08:34→20:12)
[2019-09-30] MEDS: HYDROcodone/Acetaminophen 5/325 mg Tablet PO PRN ×2 (08:34→22:44)
[2019-09-30] MEDS: Insulin Glargine 12 UNITS in Pre-Filled Syringe 1 EACH SC SCH (08:34)
[2019-09-30] MEDS: Aspirin 81 mg Enteric Coated Tablet PO SCH (08:35)
[2019-09-30] MEDS: Magnesium Oxide 400 MG TAB PO SCH ×2 (08:35→20:14)
[2019-09-30] MEDS: Metoprolol Tartrate 50 MG TAB PO SCH (08:35)
[2019-09-30] MEDS: Gabapentin 100 MG CAP PO SCH ×2 (08:35→20:13)
[2019-09-30] MEDS: Mycophenolate 250 MG CAP PO SCH ×2 (08:35→20:12)
[2019-09-30] MEDS: Multivit, Therapeutic 1 TAB PO SCH (08:35)
[2019-09-30] MEDS: Apixaban 5 MG TAB PO SCH ×2 (08:35→20:13)
[2019-09-30] MEDS: HumaLOG 300 UNITS/3 ML VIAL SC PRN ×2 (08:37→11:52)
[2019-09-30] MEDS: DorzolamidE/Timolol 2%/0.5% Ophth Soln 10 ml Bottle EA EYE SCH ×2 (08:43→20:13)
[2019-09-30] MEDS: Ammonium Lactate 12% Lotion 225 GM BOT TOP SCH ×2 (08:44→20:13)
[2019-09-30] MEDS: Sodium Chloride Nasal 15 GM TUBE EA NARE SCH ×2 (08:44→20:14)
[2019-09-30] MEDS: Witch Hazel-Glycerin 1 EACH JAR TOP SCH (08:44)
--- NOTE | 2019-09-30 14:05 | PDOC.HOSPP ---
- Subjective Subjective: Seen and examined. Patient breathing comfortably on room air. Patient being fed by hospital staff. Patient states that is excited to leave the hospital on once a good rehabilitation unit. All questions answered in detail. Patient happy with plan of care. - Objective Vital Signs & Weight: Vital Signs (12 hours) Temp Pulse Resp BP Pulse Ox 09/30/19 12:00 97.1 F L 76 97 09/30/19 11:49 106/57 L 09/30/19 08:30 98.5 F 81 18 120/58 L 96 09/30/19 07:12 76 16 09/30/19 03:09 98 F 73 16 137/61 98 Weight Admit Weight 211 lb 1.6 oz Weight 155 lb 3.2 oz Most Recent Monitor Data Heart Rate from ECG 91 NIBP 122/62 NIBP BP-Mean 82 Respiration from ECG 20 SpO2 93 I&O: 09/29/19 09/30/19 10/01/19 06:59 06:59 06:59 Intake Total 640 1440 Balance 640 1440 Result Diagrams: 09/30/19 04:36 09/30/19 04:36 Additional Labs: Accuchecks 09/30/19 09/30/19 09/29/19 11:19 05:46 16:55 POC Glucose 241 H 230 H 153 H Radiology Reviewed by me: Yes Hospitalist ROS - Review of Systems All other systems reviewed; all pertinent +/- noted in HPI/Subj - Medication Medications: Active Medications Generic Name Dose Route Start Last Admin Trade Name Freq PRN Reason Stop Dose Admin Acetaminophen 650 mg 09/07/19 02:03 09/27/19 23:58 Tylenol PO 650 mg Q4H PRN Administration Headache/Fever/Mild Pain (1-3) Hydrocodone Bitart/Acetaminophen 2 tab 09/24/19 20:34 09/30/19 08:34 [place] 5/325 PO 2 tab Q4H PRN Administration Moderate to Severe Pain (6-10) Albuterol/Ipratropium 3 ml 09/09/19 13:00 09/30/19 13:46 Duoneb NEB Not Given [id number] [facility] Ammonium Lactate 0 gm 09/07/19 21:00 09/30/19 08:44 Laclotion TOP Not Given BID [facility] Apixaban 10 mg 09/24/19 21:00 09/30/19 08:35 Eliquis PO 10/01/19 21:01 10 mg BID [facility] Administration Aspirin 81 mg 09/08/19 09:00 09/30/19 08:35 Ecotrin PO 81 mg DAILY [facility] Administration Atorvastatin Calcium 40 mg 09/13/19 21:00 09/29/19 22:00 Lipitor PO 40 mg HS [facility] Administration Cholecalciferol 2,000 units 09/08/19 09:00 09/30/19 08:35 Vitamin D3 PO 2,000 units DAILY [facility] Administration Clotrimazole 10 mg 09/07/19 17:00 09/30/19 11:52 Mycelex Sujatha PO 10 mg TID-WM [facility] Administration Dextrose/Water 25 gm 09/07/19 02:10 09/10/19 00:33 Dextrose 50% SLOW IVP 25 gm PRN PRN Administration Hypoglycemia Dorzolamide/Timolol 1 drop 09/07/19 21:00 09/30/19 08:43 Cosopt 2-0.5% Ophth Soln EA EYE 1 drop BID [facility] Administration Epoetin Fred-epbx 7,000 unit 09/20/19 20:00 09/27/19 20:19 Retacrit SC 7,000 unit Q7D@2000 [facility] Administration Famotidine 20 mg 09/07/19 09:00 09/30/19 08:33 Pepcid PO 20 mg DAILY [facility] Administration Gabapentin 100 mg 09/07/19 21:00 09/30/19 08:35 Neurontin PO 100 mg BID [facility] Administration Haloperidol Lactate 5 mg 09/15/19 14:00 09/30/19 13:24 Haldol IM Not Given 0200,1400 [facility] Hydroxyzine HCl 25 mg 09/07/19 14:31 09/21/19 20:43 Atarax PO 25 mg BIDPRN PRN Administration Itching Insulin Glargine 12 units/ 0.12 mls @ 0 mls/hr 09/16/19 09:00 09/30/19 08:34 Miscellaneous Medication SC 0.12 mls QAM [facility] Administration Insulin Human Lispro 0 units 09/13/19 10:30 09/30/19 11:52 Humalog SC 6 units .AGGRESSIVE SLIDING PRN Administration AGGRESSIVE SLIDING SCALE Protocol Levothyroxine Sodium 175 mcg 09/08/19 06:00 09/30/19 06:24 Synthroid PO 175 mcg 0600 [facility] Administration Magnesium Oxide 800 mg 09/07/19 21:00 09/30/19 08:35 Magnesium Oxide PO 800 mg BID [facility] Administration Multivitamins 1 tab 09/08/19 09:00 09/30/19 08:35 Theragran PO 1 tab DAILY [facility] Administration Mycophenolate Mofetil 500 mg 09/20/19 21:00 09/30/19 08:35 Cellcept PO 500 mg BID [facility] Administration Ondansetron HCl 4 mg 09/07/19 02:03 09/20/19 20:31 Zofran Odt PO 4 mg Q6H PRN Administration Nausea/Vomiting Sodium Chloride/Aloe Vera 0 gm 09/07/19 21:00 09/30/19 08:44 [place] W/Aloe Gel EA NARE Not Given BID [facility] Tacrolimus 5 mg 09/20/19 21:00 09/30/19 08:34 Prograf PO 5 mg BID [facility] Administration Witch Tamiko/Glycerin 1 each 09/08/19 09:00 09/30/19 08:44 Tucks Pads TOP Not Given DAILY [facility] - Exam General Appearance: NAD Eye: anicteric sclera ENT: normocephalic atraumatic, moist mucosa Neck: supple, symmetric, no lymphadenopathy Heart: no murmur, no gallops, no rubs Respiratory: CTAB, no wheezes, no rales, no ronchi Gastrointestinal: soft, non-tender, no guarding, no rigidity Extremities: no clubbing, no edema Skin: no lesions, no rashes Neurological: cranial nerve grossly intact, no focal deficits Musculoskeletal: generalized weakness Psychiatric: normal affect, normal behavior Hosp A/P (1) Acute kidney injury superimposed on chronic kidney disease Code(s): N17.9 - ACUTE KIDNEY FAILURE, UNSPECIFIED; N18.9 - CHRONIC KIDNEY DISEASE, UNSPECIFIED Status: Acute (2) Acute on chronic diastolic (congestive) heart failure Code(s): I50.33 - ACUTE ON CHRONIC DIASTOLIC (CONGESTIVE) HEART FAILURE Status : Acute (3) Acute respiratory failure with hypoxia Code(s): J96.01 - ACUTE RESPIRATORY FAILURE WITH HYPOXIA Status: Acute (4) Bradycardia Code(s): R00.1 - BRADYCARDIA, UNSPECIFIED Status: Acute (5) Chronic renal allograft nephropathy Code(s): T86.11 - KIDNEY TRANSPLANT REJECTION Status: Acute (6) Deep vein thrombosis of upper extremity Code(s): I82.629 - ACUTE EMBOLISM AND THROMBOSIS OF DEEP VN UNSP UP EXTREM Status: Acute Qualifiers: Laterality: bilateral (7) Hyperkalemia Code(s): E87.5 - HYPERKALEMIA Status: Acute (8) Physical deconditioning Code(s): R53.81 - OTHER MALAISE Status: Acute (9) Dehydration Code(s): E86.0 - DEHYDRATION Status: Acute (10) ESRD on dialysis Code(s): N18.6 - END STAGE RENAL DISEASE; Z99.2 - DEPENDENCE ON RENAL DIALYSIS Status: Acute (11) CAD (coronary artery disease) Code(s): I25.10 - ATHSCL HEART DISEASE OF [place] CORONARY ARTERY W/O ANG PCTRS Status: Chronic (12) Hypothyroidism Code(s): E03.9 - HYPOTHYROIDISM, UNSPECIFIED Status: Chronic (13) Insulin dependent diabetes mellitus Code(s): E11.9 - TYPE 2 DIABETES MELLITUS WITHOUT COMPLICATIONS; Z79.4 - METAL POURER (CURRENT) USE OF INSULIN Status: Chronic (14) BLANE (obstructive sleep apnea) Code(s): G47.33 - OBSTRUCTIVE SLEEP APNEA (ADULT) (PEDIATRIC) Status: Chronic - Plan Plan: medical unit telemetry nephrology consultation, recommendations appreciated hemodialysis per nephrology oral anticoagulation for DVT cardiomyopathy regimen is able breathing treatments as needed patient improving on maximal medical therapy Physical therapy evaluation and treatment Occupational Therapy evaluation and treatment blood sugar control blood pressure control G.I. prophylaxis DVT prophylaxis disposition: patient pending rehabilitation unit placement.
[2019-09-30] MEDS: Metoprolol Tartrate 25 MG TAB PO SCH (20:12)
[2019-09-30] MEDS: Atorvastatin Calcium 40 MG TAB PO SCH (21:04)
[2019-10-01] MEDS: Haloperidol Lactate 5 MG/ML VIAL IM SCH ×2 (01:05→15:07)
[2019-10-01] MEDS: Levothyroxine 175 MCG TAB PO SCH (05:19)
[2019-10-01] MEDS: HYDROcodone/Acetaminophen 5/325 mg Tablet PO PRN ×2 (10:13→20:47)
[2019-10-01] MEDS: Apixaban 5 MG TAB PO SCH ×2 (10:15→21:15)
[2019-10-01] MEDS: Aspirin 81 mg Enteric Coated Tablet PO SCH (10:15)
[2019-10-01] MEDS: Magnesium Oxide 400 MG TAB PO SCH ×2 (10:15→21:15)
[2019-10-01] MEDS: Multivit, Therapeutic 1 TAB PO SCH (10:16)
[2019-10-01] MEDS: Mycophenolate 250 MG CAP PO SCH ×2 (10:16→20:39)
[2019-10-01] MEDS: Metoprolol Tartrate 25 MG TAB PO SCH ×2 (10:16→22:17)
[2019-10-01] MEDS: Tacrolimus 1 MG CAP PO SCH ×2 (10:17→21:18)
[2019-10-01] MEDS: Gabapentin 100 MG CAP PO SCH ×2 (10:17→20:39)
[2019-10-01] MEDS: Famotidine 20 MG TAB PO SCH (10:18)
[2019-10-01] MEDS: Witch Hazel-Glycerin 1 EACH JAR TOP SCH (10:34)
[2019-10-01] MEDS: DorzolamidE/Timolol 2%/0.5% Ophth Soln 10 ml Bottle EA EYE SCH (10:34)
[2019-10-01] MEDS: Sodium Chloride Nasal 15 GM TUBE EA NARE SCH (10:36)
[2019-10-01] MEDS: Insulin Glargine 12 UNITS in Pre-Filled Syringe 1 EACH SC SCH (10:37)
[2019-10-01] MEDS: Ammonium Lactate 12% Lotion 225 GM BOT TOP SCH (10:37)
--- NOTE | 2019-10-01 12:30 | PDOC.HOSPP ---
- Subjective Subjective: Seen and examined. Doing well. Only complaints are chronic back pains, improved with medications. Breathing comfortably. Stable for lower level of care. Pending insurance approval. - Objective Vital Signs & Weight: Vital Signs (12 hours) Temp Pulse Resp BP Pulse Ox 10/01/19 10:11 97.7 F 76 16 155/70 H 97 10/01/19 08:12 74 18 99 10/01/19 04:00 98 F 71 16 130/62 99 10/01/19 03:43 98 F 71 16 130/62 99 Weight Admit Weight 211 lb 1.6 oz Weight 160 lb 14.999 oz Most Recent Monitor Data Heart Rate from ECG 91 NIBP 122/62 NIBP BP-Mean 82 Respiration from ECG 20 SpO2 93 I&O: 09/30/19 10/01/19 10/02/19 06:59 06:59 06:59 Intake Total 1440 830 Balance 1440 830 Result Diagrams: 09/30/19 04:36 09/30/19 04:36 Additional Labs: Accuchecks 10/01/19 09/30/19 09/30/19 05:30 20:17 16:59 POC Glucose 146 H 95 101 09/30/19 11:19 POC Glucose 241 H Radiology Reviewed by me: Yes Hospitalist ROS - Review of Systems All other systems reviewed; all pertinent +/- noted in HPI/Subj - Medication Medications: Active Medications Generic Name Dose Route Start Last Admin Trade Name Freq PRN Reason Stop Dose Admin Acetaminophen 650 mg 09/07/19 02:03 09/27/19 23:58 Tylenol PO 650 mg Q4H PRN Administration Headache/Fever/Mild Pain (1-3) Hydrocodone Bitart/Acetaminophen 2 tab 09/24/19 20:34 10/01/19 10:13 [place] 5/325 PO 2 tab Q4H PRN Administration Moderate to Severe Pain (6-10) Albuterol/Ipratropium 3 ml 09/09/19 13:00 10/01/19 08:12 Duoneb NEB 3 ml [id number] RAJEEV Administration Ammonium Lactate 0 gm 09/07/19 21:00 10/01/19 10:37 Laclotion TOP Not Given BID RAJEEV Apixaban 10 mg 09/24/19 21:00 10/01/19 10:15 Eliquis PO 10/01/19 21:01 10 mg BID RAJEEV Administration Aspirin 81 mg 09/08/19 09:00 10/01/19 10:15 Ecotrin PO 81 mg DAILY RAJEEV Administration Atorvastatin Calcium 40 mg 09/13/19 21:00 09/30/19 21:04 Lipitor PO 40 mg HS RAJEEV Administration Cholecalciferol 2,000 units 09/08/19 09:00 10/01/19 10:14 Vitamin D3 PO 2,000 units DAILY RAJEEV Administration Clotrimazole 10 mg 09/07/19 17:00 10/01/19 10:32 Mycelex Sujatha PO 10 mg TID-WM [facility] Administration Dextrose/Water 25 gm 09/07/19 02:10 09/10/19 00:33 Dextrose 50% SLOW IVP 25 gm PRN PRN Administration Hypoglycemia Dorzolamide/Timolol 1 drop 09/07/19 21:00 10/01/19 10:34 Cosopt 2-0.5% Ophth Soln EA EYE 1 drop BID [facility] Administration Epoetin Fred-epbx 7,000 unit 09/20/19 20:00 09/27/19 20:19 Retacrit SC 7,000 unit Q7D@2000 [facility] Administration Famotidine 20 mg 09/07/19 09:00 10/01/19 10:18 Pepcid PO 20 mg DAILY [facility] Administration Gabapentin 100 mg 09/07/19 21:00 10/01/19 10:17 Neurontin PO 100 mg BID RAJEEV Administration Haloperidol Lactate 5 mg 09/15/19 14:00 10/01/19 01:05 Haldol IM Not Given 0200,1400 [facility] Hydroxyzine HCl 25 mg 09/07/19 14:31 09/21/19 20:43 Atarax PO 25 mg BIDPRN PRN Administration Itching Insulin Glargine 12 units/ 0.12 mls @ 0 mls/hr 09/16/19 09:00 10/01/19 10:37 Miscellaneous Medication SC 0.12 mls QAM [facility] Administration Insulin Human Lispro 0 units 09/13/19 10:30 09/30/19 11:52 Humalog SC 6 units .AGGRESSIVE SLIDING PRN Administration AGGRESSIVE SLIDING SCALE Protocol Levothyroxine Sodium 175 mcg 09/08/19 06:00 10/01/19 05:19 Synthroid PO 175 mcg 0600 RAJEEV Administration Magnesium Oxide 800 mg 09/07/19 21:00 10/01/19 10:15 Magnesium Oxide PO 800 mg BID RAJEEV Administration Metoprolol Tartrate 12.5 mg 09/30/19 21:00 10/01/19 10:16 Lopressor PO 12.5 mg BID RAJEEV Administration Multivitamins 1 tab 09/08/19 09:00 10/01/19 10:16 Theragran PO 1 tab DAILY RAJEEV Administration Mycophenolate Mofetil 500 mg 09/20/19 21:00 10/01/19 10:16 Cellcept PO 500 mg BID RAJEEV Administration Ondansetron HCl 4 mg 09/07/19 02:03 09/20/19 20:31 Zofran Odt PO 4 mg Q6H PRN Administration Nausea/Vomiting Sodium Chloride/Aloe Vera 0 gm 09/07/19 21:00 10/01/19 10:36 [place] W/Aloe Gel EA NARE Not Given BID RAJEEV Tacrolimus 5 mg 09/20/19 21:00 10/01/19 10:17 Prograf PO 5 mg BID RAJEEV Administration Witch Tamiko/Glycerin 1 each 09/08/19 09:00 10/01/19 10:34 Tucks Pads TOP Not Given DAILY RAJEEV - Exam General Appearance: NAD, awake alert Eye: PERRL ENT: normocephalic atraumatic, moist mucosa Neck: supple, symmetric, no lymphadenopathy Heart: no murmur, no gallops, no rubs Respiratory: CTAB, no wheezes, no rales, no ronchi, normal chest expansion Gastrointestinal: soft, non-tender, non-distended, no guarding, no rigidity Extremities: no edema Skin: no lesions, no rashes Neurological: cranial nerve grossly intact, no focal deficits Musculoskeletal: generalized weakness Psychiatric: normal affect, normal behavior Hosp A/P (1) Acute kidney injury superimposed on chronic kidney disease Code(s): N17.9 - ACUTE KIDNEY FAILURE, UNSPECIFIED; N18.9 - CHRONIC KIDNEY DISEASE, UNSPECIFIED Status: Acute (2) Acute on chronic diastolic (congestive) heart failure Code(s): I50.33 - ACUTE ON CHRONIC DIASTOLIC (CONGESTIVE) HEART FAILURE Status : Acute (3) Acute respiratory failure with hypoxia Code(s): J96.01 - ACUTE RESPIRATORY FAILURE WITH HYPOXIA Status: Acute (4) Bradycardia Code(s): R00.1 - BRADYCARDIA, UNSPECIFIED Status: Acute (5) Chronic renal allograft nephropathy Code(s): T86.11 - KIDNEY TRANSPLANT REJECTION Status: Acute (6) Deep vein thrombosis of upper extremity Code(s): I82.629 - ACUTE EMBOLISM AND THROMBOSIS OF DEEP VN UNSP UP EXTREM Status: Acute Qualifiers: Laterality: bilateral (7) Hyperkalemia Code(s): E87.5 - HYPERKALEMIA Status: Acute (8) Physical deconditioning Code(s): R53.81 - OTHER MALAISE Status: Acute (9) Dehydration Code(s): E86.0 - DEHYDRATION Status: Acute (10) ESRD on dialysis Code(s): N18.6 - END STAGE RENAL DISEASE; Z99.2 - DEPENDENCE ON RENAL DIALYSIS Status: Acute (11) CAD (coronary artery disease) Code(s): I25.10 - ATHSCL HEART DISEASE OF [place] CORONARY ARTERY W/O ANG PCTRS Status: Chronic (12) Hypothyroidism Code(s): E03.9 - HYPOTHYROIDISM, UNSPECIFIED Status: Chronic (13) Insulin dependent diabetes mellitus Code(s): E11.9 - TYPE 2 DIABETES MELLITUS WITHOUT COMPLICATIONS; Z79.4 - SKILLED NURSING (CURRENT) USE OF INSULIN Status: Chronic (14) BLANE (obstructive sleep apnea) Code(s): G47.33 - OBSTRUCTIVE SLEEP APNEA (ADULT) (PEDIATRIC) Status: Chronic - Plan Plan: medical, stable for D/c to SNF vs Rehab when approved by insurance nephrology consultation, recommendations appreciated hemodialysis per nephrology oral anticoagulation for DVT cardiomyopathy regimen is able breathing treatments as needed patient improving on maximal medical therapy Physical therapy evaluation and treatment Occupational Therapy evaluation and treatment blood sugar control blood pressure control G.I. prophylaxis DVT prophylaxis disposition: patient pending rehabilitation unit placement.
[2019-10-01] MEDS: HumaLOG 300 UNITS/3 ML VIAL SC PRN (16:48)
[2019-10-01] MEDS: Atorvastatin Calcium 40 MG TAB PO SCH (21:17)
[2019-10-01 21:46] VITALS: BP 155/82; TEMP 98.3
[2019-10-02] MEDS ORDERED: Apixaban 5 MG TAB PO SCH (09:00)
--- NOTE | 2019-10-02 14:16 | DIS ---
DATE OF ADMISSION: 09/07/2019 DATE OF DISCHARGE: 10/01/2019 REASON FOR HOSPITALIZATION: Shortness of breath. SIGNIFICANT FINDINGS: The patient was also diagnosed to have diastolic congestive heart failure. The patient was also diagnosed to have DVT and was placed on Eliquis therapy. The patient was found to have positive deep vein thrombosis involving the internal jugular veins, both axillary veins and the left subclavian vein. The patient was admitted to the hospital for close management on 09/07/2019 and diagnosed with acute exacerbation of congestive heart failure and acute on chronic renal failure. The patient does have a history of renal transplant and this has subsequently failed. The patient also has uncontrolled diabetes mellitus, hypertension, and sleep apnea. The patient was seen and evaluated by Cardiology and had maximum medical therapy by carpet mechanic. Unfortunately, the patient did have cardiac arrest on 09/09/2019. After the patient had been seen by carpet mechanic-please see full code reports from 09/09/2019 for details. The patient was intubated and transferred to the intensive care unit for close management. Please see full consultation notes and progress notes from personal care worker, Dr. Hernandez for details on hospital course. The patient was seen and evaluated by Nephrology and had hemodialysis as appropriate. The patient continued to progress throughout his hospitalization and he was eventually extubated. The patient was safely extubated by Pulmonology. The patient had medications adjusted appropriately by all specialists. The patient remaining hemodialysis dependent. The patient was recommended safe for discharge by all specialists to acute rehabilitation facility. The patient was accepted to acute rehabilitation facility on 10/01/2019. CONDITION ON DISCHARGE: Stable. SPECIFIC INSTRUCTIONS FOR THE PATIENT/FAMILY: 1. The patient recommended to take all medications as directed-to be re-evaluated by admitting physician and titrated appropriately. 2. The patient is recommended to follow up with facility service associate and have hemodialysis as directed. 3. The patient recommended to follow up with Cardiology in the next 1 to 2 weeks. 4. The patient recommended to follow up with Pulmonology in the next 1 to 2 weeks. 5. The patient recommended to return to acute care hospital immediately if he is unable to comply with all of those previously mentioned steps. 6. The patient recommended to return to acute care hospital immediately if signs or symptoms return, worsen, or any other new symptoms occur. DISCHARGE MEDICATIONS: 1. Witch zahra, Preparation H topically daily p.r.n. hemorrhoids. 2. Sodium chloride nasal solution two sprays each nostril b.i.d. 3. Ranitidine 150 mg p.o. b.i.d. 4. Multivitamin one tablet p.o. daily. 5. Magnesium oxide 800 mg p.o. b.i.d. 6. Hydroxyzine 25 mg p.o. b.i.d. p.r.n. anxiety. 7. Dorzolamide/timolol maleate ophthalmic solution one drop each eye b.i.d. 8. Vitamin D3 of 2000 units p.o. daily. 9. Ammonium lactate lotion applied topically b.i.d. 10. Docusate 100 mg p.o. b.i.d. p.r.n. constipation. 11. Tylenol with Codeine No. 3 one tablet p.o. q.6 hours p.r.n. pain. 12. Gabapentin 800 mg p.o. b.i.d. 13. Aspirin 81 mg one tablet p.o. daily. 14. Synthroid 175 mcg one tablet p.o. daily. 15. Clotrimazole 10 mg p.o. t.i.d. 16. Tacrolimus 5 mg p.o. b.i.d. 17. Zofran 4 mg p.o. q.6 hours p.r.n. nausea and vomiting. 18. CellCept 500 mg one tablet p.o. b.i.d. 19. Metoprolol tartrate 12.5 mg p.o. b.i.d. 20. DuoNeb q.6 hours p.r.n. shortness of breath. 21. Lantus 12 units subcutaneous injection q.a.m. 22. Humalog aggressive sliding scale coverage a.c. and at bedtime. 23. Famotidine 20 mg p.o. daily. 24. Cepastat lozenges one lozenge p.o. q.2 hours p.r.n. cough or sore throat. 25. Atorvastatin 40 mg p.o. at bedtime. 26. Eliquis 5 mg p.o. b.i.d. 27. Acetaminophen regular strength 650 mg p.o. q.4 hours p.r.n. pain or fever. Greater than 37 minutes spent coordinating care and discharge process for this patient. Job ID: [id number]
== END 2019-10-01 21:50 | DRG 698 ==
LOC: ERS 00:21 → ERHOLD 02:09 → 2NO 11:36 → IMCU/EMU 09-09 02:28 → CCU 09-09 05:37 → IMCU/EMU 09-15 14:45 → 2NO 09-20 21:42 → T4-B 10-01 14:43
PROVIDERS: ADMIT Internal Medicine; ATTEND Internal Medicine
PROC: 5A09357 Assistance with Respiratory Ventilation, Less than 24 Consecutive Hours, Continuous Positive Airway Pressure (ICD-10-PCS; 2019-09-07)
PROC: 06HY33Z Insertion of Infusion Device into Lower Vein, Percutaneous Approach (ICD-10-PCS; 2019-09-08)
PROC: 5A1D70Z Performance of Urinary Filtration, Intermittent, Less than 6 Hours Per Day (ICD-10-PCS; principal; 2019-09-09)
PROC: 5A1945Z Respiratory Ventilation, 24-96 Consecutive Hours (ICD-10-PCS; 2019-09-09)
PROC: 0BH17EZ Insertion of Endotracheal Airway into Trachea, Via Natural or Artificial Opening (ICD-10-PCS; 2019-09-09)
DX: T86.12 Kidney transplant failure (principal); I46.2 Cardiac arrest due to underlying cardiac condition; N18.6 End stage renal disease; I50.33 Acute on chronic diastolic (congestive) heart failure; J96.01 Acute respiratory failure with hypoxia; I13.2 Hypertensive heart and chronic kidney disease with heart failure and with stage 5 chronic kidney disease, or end stage renal disease; N17.9 Acute kidney failure, unspecified; I82.623 Acute embolism and thrombosis of deep veins of upper extremity, bilateral; G93.49 Other encephalopathy; I45.3 Trifascicular block; Y83.0 Surgical operation with transplant of whole organ as the cause of abnormal reaction of the patient, or of later complication, without mention of misadventure at the time of the procedure; I25.10 Atherosclerotic heart disease of native coronary artery without angina pectoris; E11.65 Type 2 diabetes mellitus with hyperglycemia; G47.33 Obstructive sleep apnea (adult) (pediatric); E11.22 Type 2 diabetes mellitus with diabetic chronic kidney disease; E03.9 Hypothyroidism, unspecified; E87.5 Hyperkalemia; R00.1 Bradycardia, unspecified; I49.3 Ventricular premature depolarization; E86.0 Dehydration; Z88.5 Allergy status to narcotic agent; Z88.0 Allergy status to penicillin; Z79.899 Other long term (current) drug therapy; Z79.52 Long term (current) use of systemic steroids; Z79.890 Hormone replacement therapy; Z79.4 Long term (current) use of insulin; Z97.0 Presence of artificial eye; Z79.82 Long term (current) use of aspirin; Z99.2 Dependence on renal dialysis
CPT/HCPCS: 36415; 36416; 71045; 71275; 76856; 76870; 80048; 80053; 80197; 81003; 81015; 82274; 82533; 82553; 82570; 82805; 83605; 83880; 84484; 85025; 86580; 86704; 86705; 86706; 86707; 86803; 87040; 87086; 87340; 87350; 87389; 90935; 93005; 93010; 93306; 93970; 93975; 93976; 94002; 94003; 94640; 96365; 96366; 96375; A4217; G0257; J1265; J1610; J1630; J1644; J1720; J1815; J1940; J2704; J3010; J3490; J7070; J7507; J7512; J7517; J7620; Q0162; Q5105

== ENCOUNTER 2020-02-23 11:07 | Observation (INO) | payer MEDICARE, OTHER ==
[2020-02-23] MEDS ORDERED: HYDROcodone/Acetaminophen 5/325 mg Tablet ONE (11:48)
[2020-02-23] MEDS ORDERED: Senokot S 8.6-50 MG TAB PO PRN (13:08)
[2020-02-23] MEDS ORDERED: Ondansetron ODT 4 MG TAB PO PRN (13:08)
[2020-02-23] MEDS ORDERED: Acetaminophen 325 MG TAB PO PRN ×2 (13:08→16:06)
[2020-02-23] MEDS ORDERED: Apixaban 5 MG TAB PO SCH (13:30)
[2020-02-23 13:34] LABS: #Eosinphils 0.3 thou/uL (0.0-0.7); #Lymphocytes 1.1 thou/uL (1.20-3.40); #Neutrophils 6.4 thou/uL (1.40-6.50); %Basophils 0.2 % (0.0-1.0); %Eosinophils 3.1 % (0.0-10.0); %Lymphocytes 12.8 % (21.0-51.0); %Monocytes 11.4 % (0.0-10.0); %Neutrophils 72.5 % (42.0-75.0); INR-International Normal Ratio 1.1; Mean Corpuscular HGB CONC 31.8 g/dL (32.0-36.0); Mean Corpuscular Hemoglobin 32.6 pg (27.0-31.0); Mean Platelet Volume 8.4 fL (7.4-10.4); PTT 31.6 sec (22.9-36.1); Platelet Count 113 thou/uL (130-400); RBC Distribution Width 13.9 % (11.5-14.5); Red Blood Cell (RBC) Count 3.68 mill/uL (4.70-6.10); White Blood Cell (WBC) Count 8.8 thou/uL (4.8-10.8)
[2020-02-23 13:42] LABS: Large Platelets SLIGHT; MDiff Complete? YES; Macrocytosis SLIGHT = 6-15 cells (100X) (0-5/hpf); Platelet Morphology Comment Appears Decreased; Polychromasia SLIGHT = 2-3 cells (100X) (0-2/hpf)
[2020-02-23 13:49] LABS: ALT (SGPT) 14 U/L (8-55); AST (SGOT) 16 U/L (5-34); Alkaline Phosphatase 128 U/L (40-110); Anion Gap 18 mmol/L (10-20); BUN (Urea Nitrogen) 73 mg/dL (8.4-25.7); Bilirubin, Total 0.5 mg/dL (0.2-1.2); Calc. Creatinine Clearance 0 mL/min (70-130); Calcium 9.7 mg/dL (7.8-10.44); Carbon Dioxide 25 mmol/L (23-31); Chloride 96 mmol/L (98-107); Estimated GFR-MDRD 8; Globulin 3.4 g/dL (2.4-3.5); Glucose 337 mg/dL (80-115); Potassium 4.4 mmol/L (3.5-5.1); Protein, Total 7.4 g/dL (5.8-8.1); Sodium 135 mmol/L (136-145)
--- NOTE | 2020-02-23 13:49 | ULT ---
VENOUS DOPPLER ULTRASOUND OF THE LEFT LOWER EXTREMITY: 02/23/20 HISTORY: Left lower extremity edema. TECHNIQUE: Mina scale, color flow and spectral Doppler imaging of the deep venous system of the left lower extre mity is performed. FINDINGS: There is absence of compression and flow due to occlusive thrombus in the deep veins of the left lowe r extremity including the common femoral, femoral, deep femoral, popliteal, posterior tibial veins. IMPRESSION: Extensive DVT in the left lower extremity. Verbal results were given to Katya Pak in the Emergency Room by the remote advisor, Dieudonne Rojas at the time of the exam. POS: OFF
[2020-02-23] MEDS ORDERED: Cepastat Lozenges 1 LOZ PO PRN (16:06)
[2020-02-23] MEDS ORDERED: Dextrose 5% in Water 1,000 ML IV PRN (16:08)
[2020-02-23] MEDS ORDERED: Dextrose 50% Abboject 50 ML SYRINGE SLOW IVP PRN (16:08)
[2020-02-23 16:26] VITALS: BMI 29.7
--- NOTE | 2020-02-23 16:56 | HP ---
CHIEF COMPLAINT: Leg pain and swelling. HISTORY OF PRESENT ILLNESS: A 69-year-old male with a history of chronic renal failure on dialysis, on hemodialysis and prior failed renal transplant; CHF, preceded by cardiac arrest in August 2019; type 2 diabetes mellitus; hypertension; and obstructive sleep apnea, presented with left leg swelling of 2-day duration. He was admitted in August 2019 for shortness of breath secondary to diastolic CHF. At that time, he was diagnosed with DVT and started on Eliquis. DVT was founded in internal jugular veins, both axillary as well as left subclavian vein. He also had a cardiac arrest in September 09, 2019. During that hospitalization, he was also started on hemodialysis. The patient does have a history of renal transplant remotely and it appears failed one. Currently, the ultrasound of the left leg showed extensive DVT. It has been verified with the daughter that the patient is not taking his Eliquis. The patient is not able to give me much detailed history. Some of the information gathered from his previous hospitalization. Family is not at bedside to elicit further history. REVIEW OF SYSTEMS: Complete review of systems not obtainable directly from the patient. MEDICATIONS: Again, it is based on the previous discharge summary and the medications are not updated yet. It appears that the patient is not taking his Eliquis that he has been discharged with 5 mg twice a day during the last hospitalization after the diagnosis of DVT. Medications again, I will repeat what are given in the previous discharge summary. This needs to be updated. 1. Vitamin D3 2000 units daily. 2. Hydroxyzine 25 mg twice a day as needed for anxiety. 3. Ranitidine 150 mg twice a day. 4. Synthroid 175 mcg daily. 5. Aspirin 81 mg daily. 6. Gabapentin 800 mg twice a day. 7. CellCept 500 mg twice a day. 8. Lopressor 12.5 twice a day. 9. DuoNeb as needed every 6 hours. 10. Lantus 12 units subcutaneous. 11. Humalog sliding scale. 12. Lipitor 40 mg at bedtime. 13. Again, Eliquis 5 mg twice a day. SOCIAL HISTORY: Does not smoke or drink. He lives with his daughter. FAMILY HISTORY: Father of a stroke. Mother had a brain aneurysm. PHYSICAL EXAMINATION: GENERAL: The patient is afebrile. He is normotensive in the monitor. He is in the room air. No respiratory distress. The patient also appears nontoxic. LOWER EXTREMITIES: His left leg is quite swollen, warm, tender, and mild erythema, difficult to discern with the skin color, but definitely more swollen than the right leg. HEENT: Pupils equal, round, reactive to light. Anicteric. Mucous membranes moist. CARDIOVASCULAR: Regular rate and rhythm without murmurs, rubs, or gallops. LUNGS: Clear to auscultation bilaterally without wheezing, rales, or rhonchi. ABDOMEN: Soft, nontender, nondistended. Good bowel sounds. NEUROLOGIC: No focal deficits. PSYCHIATRIC: Appropriate mood and affect. LABORATORY DATA: His hemoglobin 12.0, platelets 113. INR is 1.1. His sodium 135, creatinine is 8.24, potassium 4.4. His Doppler ultrasound of the left leg shows extensive DVT in the lower extremity and it is extending into the common femoral, femoral deep, femoral popliteal, as well as posterior tibial veins. IMPRESSION AND PLAN: 1. A 69-year-old male with multiple medical problems, presenting with the extensive deep venous thrombosis in his left leg. I believe partly noncompliant with his anticoagulant, Eliquis is likely contributory. I have started him on renally dosed Eliquis. Given the extensive nature of the deep venous thrombosis, we will consult a management scientist where we need to consider inferior vena cava filter placement in this patient. 2. History of congestive heart failure and cardiac arrest in August 2019. Continue his home medications including Lopressor, aspirin, and Lipitor. 3. End-stage renal disease, on hemodialysis. I consulted Dr. Garcia. The patient also has renal transplant, and it is not sure whether he is still taking his CellCept and prograft. We will check with the family and follow up on that. 4. Hypothyroidism. Continue with his levothyroxine supplement. 5. Rest of the management based on clinical course. 6. Full code. 7. Deep venous thrombosis prophylaxis. Started on renally dosed Eliquis. Job ID: [id number] [facility]
[2020-02-23] MEDS ORDERED: Insulin Glargine 12 UNITS in Pre-Filled Syringe 1 EACH SC SCH (21:00)
[2020-02-23 22:34] LABS: HBSAg Index 0.14 S/CO (0-0.99); Hep B Surf Ag Non-Reactive S/CO (NonReactive); Hep C IgG Ab Non-Reactive (NonReactive); Hep C Index 0.21 S/CO (0-0.79)
[2020-02-23 22:35] LABS: HBSAB Concentration 194.49 mIU/mL; Hep B Core Total Ab Reactive (NonReactive); Hep B Core Total Index 6.88 S/CO (0-0.79); Hep B Surf AB Reactive (NonReactive)
[2020-02-23] MEDS: Atorvastatin Calcium 40 MG TAB PO SCH ×2 (23:33→23:35)
[2020-02-23] MEDS: Metoprolol Tartrate 25 MG TAB PO SCH (23:33)
[2020-02-23] MEDS: Apixaban 2.5 MG TAB PO SCH (23:34)
[2020-02-24 03:40] LABS: #Eosinphils 0.3 thou/uL (0.0-0.7); #Lymphocytes 1.8 thou/uL (1.20-3.40); #Monocytes 0.7 thou/uL (0.11-0.59); #Neutrophils 4.4 thou/uL (1.40-6.50); %Basophils 0.5 % (0.0-1.0); %Eosinophils 3.8 % (0.0-10.0); %Lymphocytes 24.6 % (21.0-51.0); %Monocytes 10.2 % (0.0-10.0); Hemoglobin 12.2 g/dL (14.0-18.0); Mean Corpuscular HGB CONC 32.3 g/dL (32.0-36.0); Mean Platelet Volume 8.7 fL (7.4-10.4); Platelet Count 111 thou/uL (130-400); Red Blood Cell (RBC) Count 3.69 mill/uL (4.70-6.10); White Blood Cell (WBC) Count 7.1 thou/uL (4.8-10.8)
[2020-02-24 03:56] LABS: Anion Gap 17 mmol/L (10-20); BUN (Urea Nitrogen) 41 mg/dL (8.4-25.7); Calc. Creatinine Clearance 16 mL/min (70-130); Calcium 9.6 mg/dL (7.8-10.44); Carbon Dioxide 27 mmol/L (23-31); Chloride 99 mmol/L (98-107); Estimated GFR-MDRD 13; Glucose 372 mg/dL (80-115); Potassium 4.2 mmol/L (3.5-5.1); Sodium 139 mmol/L (136-145)
[2020-02-24] MEDS: HumaLOG 300 UNITS/3 ML VIAL SC PRN ×4 (05:00→20:41)
[2020-02-24] MEDS: Levothyroxine 175 MCG TAB PO SCH (05:37)
[2020-02-24] MEDS ORDERED: HYDROcodone/Acetaminophen 10/325 mg Tablet PO SCH (06:15)
[2020-02-24] MEDS ORDERED: HumaLOG 300 UNITS/3 ML VIAL SC SCH (06:45)
[2020-02-24] MEDS: Aspirin 81 mg Enteric Coated Tablet PO SCH (08:42)
[2020-02-24] MEDS: Famotidine 20 MG TAB PO SCH (08:42)
[2020-02-24] MEDS: Apixaban 2.5 MG TAB PO SCH ×2 (08:43→20:36)
[2020-02-24] MEDS: Gabapentin 100 MG CAP PO SCH (08:43)
[2020-02-24] MEDS: Multivit, Therapeutic 1 TAB PO SCH (08:43)
[2020-02-24] MEDS: Metoprolol Tartrate 25 MG TAB PO SCH ×2 (08:43→20:35)
[2020-02-24] MEDS ORDERED: Insulin Glargine 12 UNITS in Pre-Filled Syringe 1 EACH SC SCH (09:00)
[2020-02-24] MEDS ORDERED: Insulin Glargine 60 UNITS in Pre-Filled Syringe 1 EACH SC SCH (09:00)
[2020-02-24] MEDS ORDERED: Tacrolimus 1 MG CAP PO SCH (09:30)
[2020-02-24] MEDS ORDERED: Mycophenolate 250 MG CAP PO SCH (09:30)
--- NOTE | 2020-02-24 13:06 | PDOC.HOSPP ---
- Subjective Encounter Date: 02/24/20 Encounter Time: 10:30 Subjective: he says he got norco 200 tablets and take 10 of 10/325 every day for his back pain, shoulder and leg pain - but no home regimen but only tylenol3 as home regimen given. - Objective Vital Signs & Weight: Vital Signs (12 hours) Temp Pulse Resp BP BP Pulse Ox 02/24/20 10:51 98.8 F 69 15 111/67 94 L 02/24/20 07:40 99.1 F 83 17 100/63 93 L 02/24/20 07:35 68 16 94 L 02/24/20 03:41 98.0 F 68 18 120/70 94 L Weight Weight 184 lb 4.903 oz I&O: 02/23/20 02/24/20 02/25/20 06:59 06:59 06:59 Intake Total 950 Balance 950 Result Diagrams: 02/24/20 03:25 02/24/20 03:25 Additional Labs: Accuchecks 02/24/20 02/24/20 02/24/20 10:54 06:33 03:50 POC Glucose 243 H 338 H 409 H 02/23/20 23:28 POC Glucose 258 H Hospitalist ROS - Medication Medications: Active Medications Generic Name Dose Route Start Last Admin Trade Name Freq PRN Reason Stop Dose Admin Albuterol/Ipratropium 3 ml 02/23/20 19:00 02/24/20 07:35 Duoneb NEB 3 ml [id number] RAJEEV Administration Apixaban 2.5 mg 02/23/20 21:00 02/24/20 08:43 Eliquis PO 2.5 mg BID RAJEEV Administration Aspirin 81 mg 02/24/20 09:00 02/24/20 08:42 Ecotrin PO 81 mg DAILY RAJEEV Administration Atorvastatin Calcium 40 mg 02/23/20 21:00 02/23/20 23:35 Lipitor PO Not Given HS [facility] Cholecalciferol 2,000 units 02/24/20 09:00 02/24/20 08:42 Vitamin D3 PO Not Given DAILY RAJEEV Famotidine 20 mg 02/24/20 09:00 02/24/20 08:42 Pepcid PO 20 mg DAILY RAJEEV Administration Gabapentin 200 mg 02/24/20 09:00 02/24/20 08:43 Neurontin PO 200 mg DAILY RAJEEV Administration Insulin Human Lispro 0 units 02/23/20 18:54 02/24/20 11:53 Humalog SC 4 unit .MODERATE SLIDING SC PRN Administration MODERATE SLIDING SCALE Protocol Levothyroxine Sodium 175 mcg 02/24/20 06:00 02/24/20 05:37 Synthroid PO 175 mcg 0600 RAJEEV Administration Metoprolol Tartrate 12.5 mg 02/23/20 21:00 02/24/20 08:43 Lopressor PO 12.5 mg BID RAJEEV Administration Multivitamins 1 tab 02/24/20 09:00 02/24/20 08:43 Theragran PO 1 tab DAILY RAJEEV Administration - Exam General Appearance: NAD, awake alert Eye: PERRL ENT: normocephalic atraumatic Neck: supple Heart: RRR Respiratory: CTAB, normal chest expansion Gastrointestinal: soft, normal bowel sounds Extremities - other findings: left leg >R swollen Neurological: no focal deficits Hosp A/P - Plan Extensive DVT in left leg - started on eliquis, renally dosed -pending Heme c/s, whether any other recommendation incl.. eval for IVC filter, though low threshold for that, currently. Renal transplant Hemodialysis -DR. Fitzpatrick consulted. Hypothyroidism -cw supplement.
[2020-02-24] MEDS ORDERED: Ondansetron ODT 4 MG TAB PO PRN (13:08)
[2020-02-24] MEDS: HYDROcodone/Acetaminophen 10/325 mg Tablet PO PRN ×2 (13:35→20:46)
[2020-02-24] MEDS: Mycophenolate 250 MG CAP PO SCH (20:35)
[2020-02-24] MEDS: Atorvastatin Calcium 40 MG TAB PO SCH (20:36)
[2020-02-24] MEDS: Furosemide 40 MG TAB PO SCH (20:36)
[2020-02-24] MEDS: Magnesium Oxide 400 MG TAB PO SCH (20:36)
[2020-02-24] MEDS: Tacrolimus 1 MG CAP PO SCH (20:36)
[2020-02-24] MEDS ORDERED: Insulin Glargine 40 UNITS in Pre-Filled Syringe 1 EACH SC SCH (21:00)
[2020-02-24] MEDS ORDERED: MAGNESIUM OXIDE 800 MG PO SCH (21:00)
[2020-02-24] MEDS ORDERED: Insulin Glargine 30 UNITS in Pre-Filled Syringe 1 EACH SC SCH (21:00)
--- NOTE | 2020-02-25 02:04 | CON ---
DATE OF CONSULTATION: REASON FOR CONSULTATION: Opinion regarding inferior vena caval filter. HISTORY: This is a 69-year-old male with chronic renal failure, on dialysis. In August 2019, he was found to have thrombosis involving bilateral axillary and internal jugular veins and left subclavian vein. I am not sure how that was treated. He was admitted at this time with swelling in both legs and pain in the left lower extremity. The left leg swelling was more pronounced than the right side. Ultrasound showed extensive DVT in the left lower extremity. The patient has been started on Eliquis 2.5 mg p.o. b.i.d. I was asked to see this patient, whether he will be an appropriate candidate for inferior vena caval filter instead of anticoagulation with oral agents in view of the fact that it seems the patient has been quite noncompliant in the past and the fact that he has end-stage renal disease, on dialysis. The patient lives with his daughter. He has been using walker at home and has very little out of bed activity. PAST MEDICAL HISTORY: Positive for end-stage renal disease, congestive cardiac failure, cardiac arrest in August 2019, hypertension, obstructive sleep apnea, and history of thrombosis involving bilateral axillary and internal jugular veins. PHYSICAL EXAMINATION: He had swelling in both lower extremities, more pronounced on the left side. The left lower extremity is also tender. DISCUSSION: Long-term use of inferior vena cava filter because of complications such as upward migration, development of collaterals and increased swelling involving lower extremities. I think this patient should be treated with either Coumadin or Eliquis. I did discuss his case with his treating physician, Dr. Yuan, and suggested that he talk to real estate lawyer, Dr. Paddy Fitzpatrick, regarding his preference for oral anticoagulant. Job ID: [id number]
[2020-02-25] MEDS: HYDROcodone/Acetaminophen 10/325 mg Tablet PO PRN (05:46)
[2020-02-25] MEDS: Levothyroxine 175 MCG TAB PO SCH (05:46)
[2020-02-25] MEDS: Famotidine 20 MG TAB PO SCH (07:55)
[2020-02-25] MEDS: Gabapentin 100 MG CAP PO SCH (07:56)
[2020-02-25] MEDS: Mycophenolate 250 MG CAP PO SCH (07:56)
[2020-02-25] MEDS: Apixaban 2.5 MG TAB PO SCH (07:56)
[2020-02-25] MEDS: Aspirin 81 mg Enteric Coated Tablet PO SCH (07:56)
[2020-02-25] MEDS: Magnesium Oxide 400 MG TAB PO SCH (07:56)
[2020-02-25] MEDS: Furosemide 40 MG TAB PO SCH (07:57)
[2020-02-25] MEDS: Multivit, Therapeutic 1 TAB PO SCH (07:57)
[2020-02-25] MEDS: Tacrolimus 1 MG CAP PO SCH (08:28)
[2020-02-25] MEDS: Metoprolol Tartrate 25 MG TAB PO SCH (08:28)
[2020-02-25] MEDS ORDERED: Insulin Glargine 80 UNITS in Pre-Filled Syringe 1 EACH SC SCH (09:00)
[2020-02-25] MEDS ORDERED: predniSONE 5 MG TAB PO SCH (09:00)
[2020-02-25 11:06] VITALS: BP 123/73; TEMP 97.6
[2020-02-25 15:39] LABS: Reference Lab Name LABCORP
--- NOTE | 2020-02-26 07:58 | DIS ---
DATE OF ADMISSION: 02/23/2020 DATE OF DISCHARGE: 02/25/2020 DISCHARGE DIAGNOSES: 1. Extensive deep venous thrombosis in the left leg, started on Eliquis. 2. History of renal transplant. 3. End-stage renal disease, on hemodialysis. 4. Hypothyroidism. 5. History of diastolic congestive heart failure. 6. History of deep venous thrombosis involving internal jugular vein, axillary vein, and left subclavian vein in August 2019. 7. Sent on Eliquis, but the patient did not take the medication. DISCHARGE MEDICATIONS: 1. Eliquis 2.5 mg twice a day. 2. Witch Tamiko. 3. Program 3 mg twice a day. 4. CellCept 500 mg twice a day. 5. Metoprolol tartrate 50 mg twice a day. 6. Levemir insulin 80 units in the morning and 40 units in the evening. 7. Hydroxyzine 25 mg twice a day. 8. Humalog sliding scale insulin. 9. Famotidine 20 mg daily. 10. Eye drops. 11. Cephalexin 250 mg twice a day to finish his home antibiotic regimen. 12. Lipitor 20 mg daily. 13. Norvasc 2.5 mg daily. 14. Tylenol with codeine #3 one tablet q.6h p.r.n. CONSULTS: 1. Oncologist, Dr. Lyle. 2. Air Conditioning Sheet Metal Installer, Dr. Paddy Fitzpatrick. IMAGING STUDY: Vascular ultrasound showed extensive DVT in the left lower extremity. Occlusive thrombus in the common femoral, deep femoral, popliteal, posterior tibial veins. PHYSICAL EXAMINATION: VITAL SIGNS: On the day of discharge, temperature 97.6, pulse 77, oxygen sat 94 % in room air, blood pressure 123/73. GENERAL: The patient is sitting and actually using his cell phone. He appears comfortable. Discharge plan discussed. CARDIOVASCULAR: Regular rate and rhythm without murmurs, rubs, or gallops. LUNGS: Clear to auscultation bilaterally without wheezing, rales, or rhonchi. ABDOMEN: Soft, nontender, nondistended. EXTREMITIES: His left leg looks pretty much similar as on admission, mildly swollen, but not tender, hot or erythematous skin color. Otherwise, he looks stable to go home today. HOSPITAL COURSE: A 70-year-old male with multiple medical problems including renal transplant, on immunosuppressants as well as on hemodialysis, presented with left leg extensive DVT in multiple vessels. The patient was hospitalized in August 2019. At that time, he had upper extremity thrombosis. He was discharged with Eliquis 5 b.i.d., but the patient was not taking that. He came with the left leg pain and swelling and new diagnosis of DVT in left leg during this admission. I touched base with hammer repairer whether he needs to have an IVC filter for the future prevention of pulmonary embolism, given he had extensiveness of the thrombosis in his left leg. His recommendation is oral anticoagulation only. IVC filters will have their own complications of upward migration, development of collaterals, and increased swelling in the lower extremities. I also touched base with Dr. Paddy Fitzpatrick. He is agreeable with the Eliquis twice a day on this patient. The patient reached maximum benefit during his hospital stay and he will be discharged home today with close followup with primary care physician as well as routine dialysis. DISCHARGE INSTRUCTIONS: 1. Activity as tolerated. 2. Renal diet. 3. Follow up with primary care in 1 week. Follow up with routine dialysis. Follow up with Dr. Paddy Fitzpatrick, judicial administrative assistant, in 1 to 2 weeks. TIME SPENT: Discharge time took over 30 minutes. Job ID: [id number] [id number]
== END 2020-02-25 16:33 | disposition home or self-care (01) ==
LOC: ERS 11:07 → T4-B 15:53
PROVIDERS: ADMIT Internal Medicine; ATTEND Internal Medicine
DX: I82.412 Acute embolism and thrombosis of left femoral vein (principal); I82.432 Acute embolism and thrombosis of left popliteal vein; I82.442 Acute embolism and thrombosis of left tibial vein; I13.2 Hypertensive heart and chronic kidney disease with heart failure and with stage 5 chronic kidney disease, or end stage renal disease; E11.22 Type 2 diabetes mellitus with diabetic chronic kidney disease; N18.6 End stage renal disease; I50.30 Unspecified diastolic (congestive) heart failure; E03.9 Hypothyroidism, unspecified; G47.33 Obstructive sleep apnea (adult) (pediatric); Z86.74 Personal history of sudden cardiac arrest; Z91.14 Patient's other noncompliance with medication regimen; Z79.2 Long term (current) use of antibiotics; Z79.4 Long term (current) use of insulin; Z79.52 Long term (current) use of systemic steroids; Z79.82 Long term (current) use of aspirin; Z79.899 Other long term (current) drug therapy; Z88.0 Allergy status to penicillin; Z88.5 Allergy status to narcotic agent; Z94.0 Kidney transplant status; Z99.2 Dependence on renal dialysis
CPT/HCPCS: 80048; 80053; 80197; 82962 ×3; 85025 ×2; 85610; 85730; 86704; 86706; 86803; 87340; 93971; 94640 ×3; 94760; 99285; G0378 ×4; 36415; 36416; 90935; G0257; J1815; J7507; J7512; J7517; J7620

== ENCOUNTER 2020-03-21 12:38 | Outpatient (CLI) | payer MEDICARE, OTHER ==
--- NOTE | 2020-03-21 15:59 | ULT ---
RENAL ULTRASOUND: 03/21/20 INDICATIONS: Renal transplant failure. History of renal transplant two years ago. FINDINGS: The [place] kidneys are imaged and are both small with cortical thinning and cortical echogenicity. Th e [place] right kidney measures 7.0 cm and the [place] left kidney measures 6.7 cm in length. No hydron ephrosis or mass involving either of these [place] kidneys. The transplanted kidney in the right pelvis is identified. This kidney measures 12 cm in length. The cortical thickness and echogenicity appears normally maintained. Blood flow is identified to this all ograft. Right allograft kidney/aortic ratio: 1.31. Right allograft [place] renal artery resistive index: 0.89. IMPRESSION: 1. [place] kidneys are small with cortical thinning. 2. Transplanted kidney shows normal cortical thickness and echogenicity. Normal resistive index as noted above. POS: [facility]
== END 2020-03-21 12:39 | disposition home or self-care (01) ==
LOC: BICULT 12:38
PROVIDERS: ATTEND Internal Medicine Nephrology
DX: Z48.22 Encounter for aftercare following kidney transplant (principal); N28.89 Other specified disorders of kidney and ureter; Z94.0 Kidney transplant status
CPT/HCPCS: 76775

== ENCOUNTER 2020-10-25 16:46 | Emergency (ER) | payer MEDICARE, OTHER ==
[2020-10-25] MEDS ORDERED: Insulin Regular 300 UNITS/3 ML VIAL ONE (17:09)
[2020-10-25 17:30] LABS: #Eosinphils 0.4 thou/uL (0.0-0.7); #Lymphocytes 1.7 thou/uL (1.20-3.40); #Monocytes 0.5 thou/uL (0.11-0.59); #Neutrophils 2.2 thou/uL (1.40-6.50); %Basophils 0.8 % (0.0-1.0); %Lymphocytes 34.6 % (21.0-51.0); %Neutrophils 46.6 % (42.0-75.0); Hemoglobin 10.4 g/dL (14.0-18.0); Mean Corpuscular HGB CONC 32.1 g/dL (32.0-36.0); Mean Corpuscular Hemoglobin 31.2 pg (27.0-31.0); Mean Corpuscular Volume 97.1 fL (78.0-98.0); Mean Platelet Volume 8.6 fL (7.4-10.4); Platelet Count 85 thou/uL (130-400); RBC Distribution Width 12.9 % (11.5-14.5); Red Blood Cell (RBC) Count 3.33 mill/uL (4.70-6.10); White Blood Cell (WBC) Count 4.8 thou/uL (4.8-10.8)
[2020-10-25 17:44] LABS: Anion Gap 12 mmol/L (10-20); BUN (Urea Nitrogen) 10 mg/dL (8.4-25.7); Calc. Creatinine Clearance 0 mL/min (70-130); Carbon Dioxide 29 mmol/L (23-31); Chloride 101 mmol/L (98-107); Potassium 3.6 mmol/L (3.5-5.1); Sodium 138 mmol/L (136-145)
[2020-10-25 17:45] LABS: ALT (SGPT) 8 U/L (8-55); AST (SGOT) 10 U/L (5-34); Albumin 3.7 g/dL (3.4-4.8); Alkaline Phosphatase 110 U/L (40-110); Bilirubin, Total 0.4 mg/dL (0.2-1.2); Calcium 9.2 mg/dL (7.8-10.44); Globulin 2.7 g/dL (2.4-3.5); Glucose 390 mg/dL (83-110); Protein, Total 6.4 g/dL (5.8-8.1)
[2020-10-25 18:07] LABS: CKMB 1.4 ng/mL (0-6.6)
== END 2020-10-25 19:43 | disposition home or self-care (01) ==
LOC: ERS 16:46
DX: E11.65 Type 2 diabetes mellitus with hyperglycemia (principal); I10 Essential (primary) hypertension; Z79.82 Long term (current) use of aspirin; Z79.899 Other long term (current) drug therapy
CPT/HCPCS: 36415; 36416; 71045; 80053; 82553; 84443; 84484; 85025; 93005; J1815

== ENCOUNTER 2021-04-30 08:03 | Inpatient (IN) | payer MEDICARE, OTHER ==
[2021-04-30 08:57] LABS: Hemoglobin 11.1 g/dL (14.0-18.0); Mean Corpuscular HGB CONC 31.3 g/dL (32.0-36.0); Mean Corpuscular Hemoglobin 31.1 pg (27.0-31.0); Mean Corpuscular Volume 99.3 fL (78.0-98.0); RBC Distribution Width 12.4 % (11.5-14.5); Red Blood Cell (RBC) Count 3.57 mill/uL (4.70-6.10); White Blood Cell (WBC) Count 5.5 thou/uL (4.8-10.8)
[2021-04-30 09:16] LABS: ALT (SGPT) 13 U/L (8-55); AST (SGOT) 15 U/L (5-34); Albumin 4.1 g/dL (3.4-4.8); Alkaline Phosphatase 78 U/L (40-110); Anion Gap 14 mmol/L (10-20); BUN (Urea Nitrogen) 43 mg/dL (8.4-25.7); Bilirubin, Total 0.6 mg/dL (0.2-1.2); Calc. Creatinine Clearance 0 mL/min (70-130); Calcium 9.9 mg/dL (7.8-10.44); Carbon Dioxide 29 mmol/L (23-31); Chloride 94 mmol/L (98-107); Globulin 2.3 g/dL (2.4-3.5); Potassium 4.1 mmol/L (3.5-5.1); Protein, Total 6.4 g/dL (5.8-8.1); Sodium 133 mmol/L (136-145)
[2021-04-30 09:20] LABS: Glucose 583 mg/dL (83-110)
[2021-04-30] MEDS ORDERED: Pantoprazole 40 MG VIAL ONE (09:22)
[2021-04-30] MEDS ORDERED: Ondansetron PF 4 MG/2 ML Vial ONE (09:22)
[2021-04-30 09:34] LABS: Eosinophils 1 % (0-10); Lymphocytes 26 % (21-51); MDiff Complete? YES; Mean Platelet Volume 9.6 fL (7.4-10.4); Monocytes 5 % (0-10); Neutrophil 67 % (42-75); Platelet Count 103 thou/uL (130-400); Platelet Morphology Comment Appears Decreased; RBC Morphology Normal
[2021-04-30] MEDS ORDERED: Ondansetron ODT 4 MG TAB PO PRN (12:52)
[2021-04-30] MEDS ORDERED: Acetaminophen 325 MG TAB PO PRN (12:52)
[2021-04-30] MEDS ORDERED: Dextrose 5% in Water 1,000 ML IV PRN (12:57)
[2021-04-30] MEDS ORDERED: Dextrose 50% Abboject 50 ML SYRINGE SLOW IVP PRN (12:57)
[2021-04-30] MEDS ORDERED: Lantus 1000 UNITS/10 ML VIAL SC SCH (13:00)
[2021-04-30 14:34] VITALS: BMI 27.7
[2021-04-30 20:56] LABS: SARS-CoV-2 PCR by NAA Not Detected (NotDetected)
[2021-04-30] MEDS: Mycophenolate 250 MG CAP PO SCH (21:55)
[2021-04-30] MEDS: Tacrolimus 1 MG CAP PO SCH (21:55)
[2021-04-30] MEDS: DorzolamidE/Timolol 2%/0.5% Ophth Soln 10 ml Bottle EA EYE SCH (21:56)
[2021-04-30] MEDS: Pantoprazole 80 MG in Sodium Chloride 0.9% 100 ML IVPB SCH (21:56)
[2021-04-30] MEDS: Amlodipine 5 MG TAB PO SCH (22:59)
[2021-05-01] MEDS ORDERED: Levothyroxine Sodium 112 MCG TAB PO SCH (06:00)
[2021-05-01] MEDS ORDERED: Levothyroxine Sodium 25 MCG TAB PO SCH (06:00)
[2021-05-01] MEDS: Levothyroxine Sodium 100 MCG TAB PO SCH (06:14)
[2021-05-01] MEDS: Pantoprazole 80 MG in Sodium Chloride 0.9% 100 ML IVPB SCH (07:30)
[2021-05-01 08:09] LABS: Hemoglobin 10.5 g/dL (14.0-18.0); Mean Corpuscular HGB CONC 33.1 g/dL (32.0-36.0); Mean Corpuscular Hemoglobin 32.7 pg (27.0-31.0); Mean Corpuscular Volume 98.8 fL (78.0-98.0); Mean Platelet Volume 9.6 fL (7.4-10.4); Platelet Count 91 thou/uL (130-400); RBC Distribution Width 12.3 % (11.5-14.5); Red Blood Cell (RBC) Count 3.22 mill/uL (4.70-6.10); White Blood Cell (WBC) Count 4.6 thou/uL (4.8-10.8)
[2021-05-01 08:28] LABS: Anion Gap 8 mmol/L (10-20); BUN (Urea Nitrogen) 16 mg/dL (8.4-25.7); Calc. Creatinine Clearance 25 mL/min (70-130); Calcium 9.1 mg/dL (7.8-10.44); Carbon Dioxide 30 mmol/L (23-31); Chloride 103 mmol/L (98-107); Glucose 145 mg/dL (83-110); Potassium 3.4 mmol/L (3.5-5.1); Sodium 138 mmol/L (136-145)
[2021-05-01 08:31] LABS: Eosinophils 7 % (0-10); Hypersemented Neutrophil SLIGHT; Lymphocytes 42 % (21-51); MDiff Complete? YES; Macrocytosis SLIGHT = 6-15 cells (100X) (0-5/hpf); Monocytes 6 % (0-10); Neutrophil 44 % (42-75); Ovalocytes SLIGHT = 2-5 cells (100X) (0-1/hpf); Platelet Morphology Comment Appears Decreased
[2021-05-01] MEDS ORDERED: Levothyroxine 175 MCG TAB PO SCH (09:00)
[2021-05-01] MEDS: DorzolamidE/Timolol 2%/0.5% Ophth Soln 10 ml Bottle EA EYE SCH ×2 (09:47→20:46)
[2021-05-01] MEDS ORDERED: Metoprolol Tartrate 25 MG TAB PO SCH (10:30)
[2021-05-01] MEDS ORDERED: Mycophenolate 250 MG CAP PO SCH (10:30)
[2021-05-01] MEDS ORDERED: Tacrolimus 1 MG CAP PO SCH (10:30)
[2021-05-01] MEDS: Amlodipine 5 MG TAB PO SCH ×2 (10:56→20:46)
[2021-05-01] MEDS: Tacrolimus 1 MG CAP PO SCH ×2 (10:56→20:46)
[2021-05-01] MEDS: Mycophenolate 250 MG CAP PO SCH ×2 (10:56→20:46)
[2021-05-01] MEDS: Atorvastatin Calcium 20 MG TAB PO SCH (11:02)
[2021-05-01] MEDS: predniSONE 5 MG TAB PO SCH (11:02)
[2021-05-01] MEDS ORDERED: Fentanyl 100 MCG/2 ML VIAL ONE (14:31)
[2021-05-01] MEDS ORDERED: PROPOFOL 200 MG/20 ML VIAL ONE (14:47)
[2021-05-01] MEDS ORDERED: Promethazine HCl 25 MG/ML VIAL IM PRN (14:49)
[2021-05-01] MEDS ORDERED: Ondansetron HCl/PF 4 MG/2 ML Vial IVP PRN (14:49)
[2021-05-01] MEDS ORDERED: Promethazine HCl 25 MG/ML VIAL IVPB PRN (14:49)
[2021-05-02] MEDS: Levothyroxine Sodium 100 MCG TAB PO SCH (04:58)
[2021-05-02 08:18] LABS: Anion Gap 9 mmol/L (10-20); BUN (Urea Nitrogen) 22 mg/dL (8.4-25.7); Calc. Creatinine Clearance 19 mL/min (70-130); Calcium 9.1 mg/dL (7.8-10.44); Carbon Dioxide 30 mmol/L (23-31); Chloride 103 mmol/L (98-107); Glucose 151 mg/dL (83-110); Potassium 3.8 mmol/L (3.5-5.1); Sodium 138 mmol/L (136-145)
[2021-05-02] MEDS: predniSONE 5 MG TAB PO SCH (08:58)
[2021-05-02] MEDS: Tacrolimus 1 MG CAP PO SCH ×2 (08:58→22:37)
[2021-05-02] MEDS: Mycophenolate 250 MG CAP PO SCH ×2 (08:59→22:37)
[2021-05-02] MEDS: Atorvastatin Calcium 20 MG TAB PO SCH (08:59)
[2021-05-02] MEDS: DorzolamidE/Timolol 2%/0.5% Ophth Soln 10 ml Bottle EA EYE SCH ×2 (08:59→22:37)
[2021-05-02 09:00] LABS: Eosinophils 2 % (0-10); Hemoglobin 10.1 g/dL (14.0-18.0); Lymphocytes 30 % (21-51); MDiff Complete? YES; Mean Corpuscular HGB CONC 31.6 g/dL (32.0-36.0); Mean Platelet Volume 9.4 fL (7.4-10.4); Monocytes 12 % (0-10); Neutrophil 56 % (42-75); Platelet Count 91 thou/uL (130-400); Platelet Morphology Comment Appears Decreased; RBC Distribution Width 12.4 % (11.5-14.5); Red Blood Cell (RBC) Count 3.26 mill/uL (4.70-6.10); White Blood Cell (WBC) Count 5.3 thou/uL (4.8-10.8)
[2021-05-02] MEDS: Metoprolol Tartrate 25 MG TAB PO SCH (10:01)
[2021-05-02] MEDS: HumaLOG 300 UNITS/3 ML VIAL SC PRN (12:35)
[2021-05-02] MEDS: Amlodipine 5 MG TAB PO SCH (22:37)
[2021-05-03] MEDS: Levothyroxine Sodium 100 MCG TAB PO SCH (05:37)
[2021-05-03] MEDS: predniSONE 5 MG TAB PO SCH (08:22)
[2021-05-03] MEDS: Atorvastatin Calcium 20 MG TAB PO SCH (08:22)
[2021-05-03] MEDS: Tacrolimus 1 MG CAP PO SCH ×2 (08:22→20:45)
[2021-05-03] MEDS: DorzolamidE/Timolol 2%/0.5% Ophth Soln 10 ml Bottle EA EYE SCH ×2 (08:23→20:46)
[2021-05-03] MEDS: Metoprolol Tartrate 25 MG TAB PO SCH (08:23)
[2021-05-03] MEDS: Mycophenolate 250 MG CAP PO SCH ×2 (08:34→20:46)
[2021-05-03 10:40] LABS: Body Surface Area 1.87
[2021-05-03 10:49] LABS: Protein, Urine 26 mg/dL (1-14)
[2021-05-03 11:00] LABS: Creatinine, Urine 248.48 mg/dL (63-166)
[2021-05-03 11:53] LABS: Protein - 24 Hr 23 mg/24 hr (Less than 300); Urine Total Volume 90 mL (250-2400)
[2021-05-03] MEDS: HumaLOG 300 UNITS/3 ML VIAL SC PRN ×3 (13:31→20:46)
[2021-05-03] MEDS ORDERED: traMADol HCl 50 MG TAB PO PRN (13:51)
[2021-05-03] MEDS ORDERED: Bisacodyl 10 MG SUPP PR PRN (13:53)
[2021-05-03] MEDS: Ketorolac Tromethamine 30 MG/ML VIAL IVP PRN (14:42)
[2021-05-03] MEDS: Dicyclomine 20 MG TAB PO PRN (14:46)
[2021-05-03] MEDS: Amlodipine 5 MG TAB PO SCH (20:45)
[2021-05-03] MEDS: Senokot S 8.6-50 MG TAB PO SCH (20:45)
[2021-05-04] MEDS: Levothyroxine Sodium 100 MCG TAB PO SCH (04:49)
[2021-05-04] MEDS ORDERED: Polyethylene Glycol 3350 17 GM Packet PO SCH (09:00)
[2021-05-04] MEDS: Ketorolac Tromethamine 30 MG/ML VIAL IVP PRN (09:16)
[2021-05-04] MEDS: Dicyclomine 20 MG TAB PO PRN (09:17)
[2021-05-04] MEDS: Senokot S 8.6-50 MG TAB PO SCH (09:17)
[2021-05-04] MEDS: Atorvastatin Calcium 20 MG TAB PO SCH (09:17)
[2021-05-04] MEDS: predniSONE 5 MG TAB PO SCH (09:18)
[2021-05-04] MEDS: DorzolamidE/Timolol 2%/0.5% Ophth Soln 10 ml Bottle EA EYE SCH (09:18)
[2021-05-04] MEDS: Metoprolol Tartrate 25 MG TAB PO SCH (09:19)
[2021-05-04] MEDS: Tacrolimus 1 MG CAP PO SCH (09:20)
[2021-05-04] MEDS: Mycophenolate 250 MG CAP PO SCH (09:24)
[2021-05-04] MEDS: HumaLOG 300 UNITS/3 ML VIAL SC PRN (13:07)
[2021-05-04 15:04] VITALS: BP 148/47; TEMP 98.1
== END 2021-05-04 14:46 | disposition home or self-care (01) | DRG 380 ==
LOC: ERS 08:03 → ERHOLD 11:14 → T4-B 14:41 → OBSVTOIN 05-01 12:15
PROVIDERS: ADMIT Internal Medicine; ATTEND Internal Medicine
PROC: 5A1D70Z Performance of Urinary Filtration, Intermittent, Less than 6 Hours Per Day (ICD-10-PCS; 2021-04-30)
PROC: 0DB58ZX Excision of Esophagus, Via Natural or Artificial Opening Endoscopic, Diagnostic (ICD-10-PCS; principal; 2021-05-01)
PROC: 0DB68ZX Excision of Stomach, Via Natural or Artificial Opening Endoscopic, Diagnostic (ICD-10-PCS; 2021-05-01)
DX: K22.11 Ulcer of esophagus with bleeding (principal); N18.6 End stage renal disease; E87.1 Hypo-osmolality and hyponatremia; T86.12 Kidney transplant failure; I13.2 Hypertensive heart and chronic kidney disease with heart failure and with stage 5 chronic kidney disease, or end stage renal disease; Z20.822 Contact with and (suspected) exposure to COVID-19; I50.9 Heart failure, unspecified; H40.9 Unspecified glaucoma; Y83.0 Surgical operation with transplant of whole organ as the cause of abnormal reaction of the patient, or of later complication, without mention of misadventure at the time of the procedure; E11.22 Type 2 diabetes mellitus with diabetic chronic kidney disease; F32.9 Major depressive disorder, single episode, unspecified; I25.10 Atherosclerotic heart disease of native coronary artery without angina pectoris; G47.33 Obstructive sleep apnea (adult) (pediatric); K29.70 Gastritis, unspecified, without bleeding; E11.43 Type 2 diabetes mellitus with diabetic autonomic (poly)neuropathy; K31.84 Gastroparesis; J44.9 Chronic obstructive pulmonary disease, unspecified; Z86.718 Personal history of other venous thrombosis and embolism; Z80.0 Family history of malignant neoplasm of digestive organs; Z86.74 Personal history of sudden cardiac arrest; Z88.5 Allergy status to narcotic agent; Z88.0 Allergy status to penicillin; Z79.01 Long term (current) use of anticoagulants; Z79.82 Long term (current) use of aspirin; Z79.890 Hormone replacement therapy; Z79.4 Long term (current) use of insulin; Z79.52 Long term (current) use of systemic steroids; Z79.899 Other long term (current) drug therapy; Z99.2 Dependence on renal dialysis; K26.4 Chronic or unspecified duodenal ulcer with hemorrhage
CPT/HCPCS: 36415; 36416; 74176; 80048; 80053; 82575; 84156; 85025; 86850; 86900; 86901; 88305; 88312; 90935; 94760; 96365; 96366; 96374; 96375; C9113; G0257; G0378; J1815; J1885; J2405; J2704; J3010; J3490; J7507; J7512; J7517; Q0162; U0003; U0005

== ENCOUNTER 2022-03-07 07:11 | Inpatient (IN) | payer MEDICARE, OTHER ==
[2022-03-07] MEDS ORDERED: Nitroglycerin 2% Ointment 1 INCH/1 GM Packet ONE (07:35)
[2022-03-07 08:20] LABS: Hemoglobin 11.2 g/dL (14.0-18.0); Mean Corpuscular HGB CONC 30.7 g/dL (32.0-36.0); Mean Corpuscular Hemoglobin 32.9 pg (27.0-31.0); Mean Platelet Volume 8.8 fL (7.4-10.4); Platelet Count 62 thou/uL (130-400); RBC Distribution Width 18.4 % (11.5-14.5)
[2022-03-07 08:39] LABS: #Basophils 0.1 thou/uL (0.0-0.2); #Eosinphils 0.6 thou/uL (0.0-0.7); #Lymphocytes 1.6 thou/uL (1.20-3.40); #Monocytes 0.7 thou/uL (0.11-0.59); %Basophils 1.1 % (0.0-1.0); %Eosinophils 8.1 % (0.0-10.0); %Lymphocytes 23.1 % (21.0-51.0); %Monocytes 10.4 % (0.0-10.0); %Neutrophils 57.4 % (42.0-75.0); ALT (SGPT) 11 U/L (8-55); AST (SGOT) 21 U/L (5-34); Albumin 3.7 g/dL (3.4-4.8); Alkaline Phosphatase 120 U/L (40-110); Anion Gap 14 mmol/L (10-20); BUN (Urea Nitrogen) 32 mg/dL (8.4-25.7); Bilirubin, Total 0.7 mg/dL (0.2-1.2); Calc. Creatinine Clearance 0 mL/min (70-130); Calcium 9.5 mg/dL (7.8-10.44); Carbon Dioxide 26 mmol/L (23-31); Chloride 103 mmol/L (98-107); Globulin 4.8 g/dL (2.4-3.5); Glucose 206 mg/dL (83-110); Lipase 144 U/L (8-78); MDiff Complete? YES; Macrocytosis SLIGHT = 6-15 cells (100X) (0-5/hpf); Platelet Morphology Comment Appears Decreased; Potassium 3.8 mmol/L (3.5-5.1); Protein, Total 8.5 g/dL (5.8-8.1); Sodium 139 mmol/L (136-145)
[2022-03-07 09:00] LABS: CKMB 2.3 ng/mL (0-6.6)
[2022-03-07] MEDS ORDERED: Pantoprazole 40 MG VIAL ONE (09:23)
[2022-03-07] MEDS ORDERED: Lidocaine Viscous Sol 2% 15 ml UD Cup ONE (09:24)
[2022-03-07] MEDS ORDERED: Mag-Al 1200 mg/1200 mg/30 ML UDCUP ONE (09:24)
[2022-03-07] MEDS ORDERED: Nitroglycerin 0.4 MG TAB (25 Tab Bottle) SL PRN (10:46)
[2022-03-07] MEDS ORDERED: Ondansetron PF 4 MG/2 ML Vial IVP PRN (11:19)
[2022-03-07] MEDS ORDERED: Ondansetron ODT 4 MG TAB PO PRN (11:19)
[2022-03-07 11:54] VITALS: BMI 27.3
[2022-03-07] MEDS: HYDROcodone/Acetaminophen 5/325 mg Tablet PO PRN ×2 (12:16→17:43)
[2022-03-07 12:27] LABS: Troponin I 0.046 ng/mL (< 0.028)
[2022-03-07] MEDS ORDERED: Heparin 5,000 UNITS/ML VIAL SC SCH (15:00)
[2022-03-07 15:36] LABS: Troponin I 0.049 ng/mL (< 0.028)
[2022-03-07] MEDS ORDERED: HumaLOG 300 UNITS/3 ML VIAL SC PRN (16:57)
[2022-03-07] MEDS ORDERED: Dextrose 5% in Water 1,000 ML IV PRN (16:57)
[2022-03-07] MEDS ORDERED: Dextrose 50% Abboject 50 ML SYRINGE SLOW IVP PRN (16:57)
[2022-03-07] MEDS ORDERED: Acetaminophen 650 MG/20.3 ML UDCUP PO PRN (17:29)
[2022-03-07] MEDS ORDERED: Acetaminophen 325 MG TAB PO PRN (17:30)
[2022-03-07] MEDS: metroNIDAZOLE 500 MG in Premix Bag 1 BAG IVPB SCH (17:45)
[2022-03-07 17:59] LABS: #Eosinphils 0.1 thou/uL (0.0-0.7); #Lymphocytes 1.6 thou/uL (1.20-3.40); #Monocytes 1.2 thou/uL (0.11-0.59); #Neutrophils 7.4 thou/uL (1.40-6.50); %Basophils 0.3 % (0.0-1.0); %Eosinophils 1.4 % (0.0-10.0); %Lymphocytes 15.1 % (21.0-51.0); %Monocytes 11.4 % (0.0-10.0); %Neutrophils 71.8 % (42.0-75.0); Hemoglobin 11.8 g/dL (14.0-18.0); Mean Corpuscular HGB CONC 31.1 g/dL (32.0-36.0); Mean Corpuscular Hemoglobin 33.2 pg (27.0-31.0); Mean Platelet Volume 8.8 fL (7.4-10.4); Platelet Count 75 thou/uL (130-400); RBC Distribution Width 18.4 % (11.5-14.5); Red Blood Cell (RBC) Count 3.56 mill/uL (4.70-6.10); White Blood Cell (WBC) Count 10.4 thou/uL (4.8-10.8)
[2022-03-07 18:06] LABS: ALT (SGPT) 23 U/L (8-55); AST (SGOT) 40 U/L (5-34); Albumin 3.8 g/dL (3.4-4.8); Alkaline Phosphatase 133 U/L (40-110); Anion Gap 17 mmol/L (10-20); BUN (Urea Nitrogen) 37 mg/dL (8.4-25.7); Bilirubin, Total 1.2 mg/dL (0.2-1.2); Calc. Creatinine Clearance 15 mL/min (70-130); Calcium 10.4 mg/dL (7.8-10.44); Carbon Dioxide 25 mmol/L (23-31); Chloride 104 mmol/L (98-107); Globulin 5.1 g/dL (2.4-3.5); Glucose 173 mg/dL (83-110); Potassium 4.5 mmol/L (3.5-5.1); Protein, Total 8.9 g/dL (5.8-8.1); Sodium 141 mmol/L (136-145)
[2022-03-07] MEDS ORDERED: Meropenem 1 GM in Sodium Chloride 0.9% 100 ML IVPB SCH (19:00)
[2022-03-07 20:49] LABS: Lactic Acid 2.1 mmol/L (0.5-2.2)
[2022-03-07] MEDS: Gabapentin 100 MG CAP PO SCH (21:46)
[2022-03-07] MEDS: Atorvastatin Calcium 40 MG TAB PO SCH (21:46)
[2022-03-07] MEDS: DorzolamidE/Timolol 2%/0.5% Ophth Soln 10 ml Bottle R EYE SCH (21:46)
[2022-03-07] MEDS: Insulin Glargine 30 UNITS/0.3 ML VIAL SC SCH (22:35)
[2022-03-08] MEDS: metroNIDAZOLE 500 MG in Premix Bag 1 BAG IVPB SCH ×2 (02:27→14:36)
[2022-03-08] MEDS: Levothyroxine 175 MCG TAB PO SCH (05:06)
[2022-03-08 05:44] LABS: #Eosinphils 0.1 thou/uL (0.0-0.7); #Lymphocytes 0.8 thou/uL (1.20-3.40); #Monocytes 1.4 thou/uL (0.11-0.59); %Basophils 0.2 % (0.0-1.0); %Eosinophils 1.2 % (0.0-10.0); %Lymphocytes 7.3 % (21.0-51.0); %Monocytes 13.8 % (0.0-10.0); %Neutrophils 77.4 % (42.0-75.0); Hemoglobin 10.9 g/dL (14.0-18.0); Mean Corpuscular HGB CONC 30.5 g/dL (32.0-36.0); Mean Corpuscular Hemoglobin 32.7 pg (27.0-31.0); Mean Platelet Volume 9.4 fL (7.4-10.4); Platelet Count 65 thou/uL (130-400); RBC Distribution Width 18.5 % (11.5-14.5); Red Blood Cell (RBC) Count 3.32 mill/uL (4.70-6.10); White Blood Cell (WBC) Count 10.4 thou/uL (4.8-10.8)
[2022-03-08 06:24] LABS: ALT (SGPT) 294 U/L (8-55); AST (SGOT) 417 U/L (5-34); Albumin 3.1 g/dL (3.4-4.8); Alkaline Phosphatase 221 U/L (40-110); Anion Gap 13 mmol/L (10-20); BUN (Urea Nitrogen) 45 mg/dL (8.4-25.7); Bilirubin, Total 2.8 mg/dL (0.2-1.2); Calc. Creatinine Clearance 13 mL/min (70-130); Calcium 9.4 mg/dL (7.8-10.44); Carbon Dioxide 24 mmol/L (23-31); Chloride 104 mmol/L (98-107); Globulin 4.2 g/dL (2.4-3.5); Glucose 103 mg/dL (83-110); Lipase 74 U/L (8-78); Potassium 4.2 mmol/L (3.5-5.1); Protein, Total 7.3 g/dL (5.8-8.1); Sodium 137 mmol/L (136-145)
[2022-03-08] MEDS ORDERED: Aspirin 325 mg Enteric Coated Tablet PO SCH (09:00)
[2022-03-08] MEDS ORDERED: Bupivacaine PF 0.5% 30 ML VIAL ONE (10:29)
[2022-03-08] MEDS ORDERED: Lidocaine 1% w/Epinephrine 1:100K 20 ML VIAL ONE (10:29)
[2022-03-08] MEDS ORDERED: fentaNYL Citrate/PF 100 MCG/2 ML SYRINGE ONE (10:53)
[2022-03-08] MEDS ORDERED: Iopamidol 30 ML ONE (11:29)
[2022-03-08] MEDS ORDERED: Dextrose 50% Abboject 50 ML SYRINGE ONE (11:59)
[2022-03-08] MEDS ORDERED: Phenylephrine 10 MG/ML VIAL ONE (11:59)
[2022-03-08] MEDS ORDERED: metroNIDAZOLE 500 MG/100 ML BAG ONE (12:05)
[2022-03-08] MEDS ORDERED: Dexamethasone 20 MG/5 ML VIAL ONE (12:13)
[2022-03-08] MEDS ORDERED: Lidocaine 1% PF 5 ML VIAL ONE (12:13)
[2022-03-08] MEDS ORDERED: PROPOFOL 200 MG/20 ML VIAL ONE (12:13)
[2022-03-08] MEDS ORDERED: Rocuronium Bromide 10 MG/ML (10ML VIAL) ONE (12:13)
[2022-03-08] MEDS ORDERED: Succinylcholine 200 MG/10 ml SYRINGE FS ONE (12:13)
[2022-03-08] MEDS ORDERED: Ondansetron PF 4 MG/2 ML Vial ONE (12:13)
[2022-03-08] MEDS ORDERED: SUGAMMADEX SODIUM 200 MG/2 ML VIAL ONE (12:46)
[2022-03-08] MEDS: Insulin Glargine 30 UNITS/0.3 ML VIAL SC SCH ×2 (14:32→20:16)
[2022-03-08] MEDS: HYDROcodone/Acetaminophen 5/325 mg Tablet PO PRN ×2 (14:46→20:16)
[2022-03-08] MEDS: Cholecalciferol 1,000 UNITS (25 MCG) TAB PO SCH (14:48)
[2022-03-08] MEDS: Aspirin 81 mg Enteric Coated Tablet PO SCH (14:48)
[2022-03-08] MEDS: DorzolamidE/Timolol 2%/0.5% Ophth Soln 10 ml Bottle R EYE SCH ×2 (14:48→20:16)
[2022-03-08] MEDS: Gabapentin 100 MG CAP PO SCH ×2 (14:49→20:15)
[2022-03-08] MEDS: Metoprolol Tartrate 25 MG TAB PO SCH (14:50)
[2022-03-08] MEDS ORDERED: Meropenem 500 MG in Sodium Chloride 0.9% 100 ML IVPB SCH (20:00)
[2022-03-08] MEDS: Atorvastatin Calcium 40 MG TAB PO SCH (20:16)
[2022-03-09 05:10] LABS: #Lymphocytes 0.9 thou/uL (1.20-3.40); #Monocytes 0.7 thou/uL (0.11-0.59); #Neutrophils 5.7 thou/uL (1.40-6.50); %Basophils 0.3 % (0.0-1.0); %Eosinophils 0.5 % (0.0-10.0); %Lymphocytes 12.5 % (21.0-51.0); %Monocytes 10.1 % (0.0-10.0); %Neutrophils 76.7 % (42.0-75.0); Hemoglobin 8.4 g/dL (14.0-18.0); Mean Corpuscular HGB CONC 30.4 g/dL (32.0-36.0); Mean Corpuscular Hemoglobin 32.9 pg (27.0-31.0); Mean Platelet Volume 9.3 fL (7.4-10.4); Platelet Count 72 thou/uL (130-400); RBC Distribution Width 18.4 % (11.5-14.5); Red Blood Cell (RBC) Count 2.54 mill/uL (4.70-6.10); White Blood Cell (WBC) Count 7.4 thou/uL (4.8-10.8)
[2022-03-09 05:29] LABS: ALT (SGPT) 158 U/L (8-55); AST (SGOT) 166 U/L (5-34); Albumin 2.8 g/dL (3.4-4.8); Alkaline Phosphatase 154 U/L (40-110); Anion Gap 14 mmol/L (10-20); BUN (Urea Nitrogen) 65 mg/dL (8.4-25.7); Bilirubin, Total 1.2 mg/dL (0.2-1.2); Calc. Creatinine Clearance 11 mL/min (70-130); Calcium 8.7 mg/dL (7.8-10.44); Carbon Dioxide 23 mmol/L (23-31); Chloride 102 mmol/L (98-107); Globulin 3.6 g/dL (2.4-3.5); Glucose 219 mg/dL (83-110); Potassium 5.6 mmol/L (3.5-5.1); Protein, Total 6.4 g/dL (5.8-8.1); Sodium 133 mmol/L (136-145)
[2022-03-09] MEDS: Levothyroxine 175 MCG TAB PO SCH (06:12)
[2022-03-09] MEDS ORDERED: EPOETIN ALFA-EPBX (ESRD) 10,000 UNIT/ML VIAL SC SCH (09:00)
[2022-03-09 09:52] LABS: HBSAg Index 0.22 S/CO (0-0.99); Hep B Surf Ag Non-Reactive S/CO (NonReactive); Hep C IgG Ab Non-Reactive (NonReactive); Hep C Index 0.18 S/CO (0-0.79)
[2022-03-09] MEDS: HYDROcodone/Acetaminophen 5/325 mg Tablet PO PRN ×2 (09:54→14:39)
[2022-03-09 10:17] LABS: Hep B Surf AB Reactive (NonReactive)
[2022-03-09 10:35] LABS: #Eosinphils 0.2 thou/uL (0.0-0.7); #Lymphocytes 0.8 thou/uL (1.20-3.40); #Monocytes 0.6 thou/uL (0.11-0.59); #Neutrophils 4.7 thou/uL (1.40-6.50); %Basophils 0.1 % (0.0-1.0); %Eosinophils 2.5 % (0.0-10.0); %Lymphocytes 13.3 % (21.0-51.0); %Monocytes 9.7 % (0.0-10.0); %Neutrophils 74.3 % (42.0-75.0); Mean Corpuscular HGB CONC 31.2 g/dL (32.0-36.0); Mean Corpuscular Hemoglobin 33.5 pg (27.0-31.0); Mean Platelet Volume 9.4 fL (7.4-10.4); Platelet Count 76 thou/uL (130-400); RBC Distribution Width 18.4 % (11.5-14.5); Red Blood Cell (RBC) Count 2.68 mill/uL (4.70-6.10); White Blood Cell (WBC) Count 6.3 thou/uL (4.8-10.8)
[2022-03-09 10:45] LABS: Hep B Core Total Ab Reactive (NonReactive)
[2022-03-09 10:47] LABS: Hep B Core Total Index 4.97 S/CO (0-0.79)
[2022-03-09 11:27] LABS: MDiff Complete? YES; Macrocytosis SLIGHT = 6-15 cells (100X) (0-5/hpf); Ovalocytes SLIGHT = 2-5 cells (100X) (0-1/hpf); Platelet Morphology Comment Appears Decreased; Polychromasia SLIGHT = 2-3 cells (100X) (0-2/hpf); Schistocytes SLIGHT = 2-5 cells (100X) (0-1/hpf)
[2022-03-09] MEDS: Aspirin 81 mg Enteric Coated Tablet PO SCH (14:35)
[2022-03-09] MEDS: Cholecalciferol 1,000 UNITS (25 MCG) TAB PO SCH (14:36)
[2022-03-09] MEDS: Gabapentin 100 MG CAP PO SCH ×2 (14:36→21:22)
[2022-03-09] MEDS: Metoprolol Tartrate 25 MG TAB PO SCH (14:37)
[2022-03-09] MEDS: Insulin Glargine 30 UNITS/0.3 ML VIAL SC SCH ×2 (15:06→21:23)
[2022-03-09] MEDS: DorzolamidE/Timolol 2%/0.5% Ophth Soln 10 ml Bottle R EYE SCH ×2 (15:08→21:23)
[2022-03-09] MEDS ORDERED: Epoetin (ESRD) 10,000 UNITS/ML VIAL SC SCH (15:30)
[2022-03-09] MEDS ORDERED: Meropenem 1 GM in Sodium Chloride 0.9% 100 ML IVPB SCH (17:30)
[2022-03-09] MEDS: Atorvastatin Calcium 40 MG TAB PO SCH (21:22)
[2022-03-10] MEDS: Meropenem 500 MG in Sodium Chloride 0.9% 100 ML IVPB SCH (00:12)
[2022-03-10] MEDS: HYDROcodone/Acetaminophen 5/325 mg Tablet PO PRN ×2 (00:12→08:12)
[2022-03-10] MEDS: Levothyroxine 175 MCG TAB PO SCH (06:17)
[2022-03-10] MEDS: Aspirin 81 mg Enteric Coated Tablet PO SCH (08:07)
[2022-03-10] MEDS: Cholecalciferol 1,000 UNITS (25 MCG) TAB PO SCH (08:08)
[2022-03-10] MEDS: DorzolamidE/Timolol 2%/0.5% Ophth Soln 10 ml Bottle R EYE SCH ×2 (08:08→21:20)
[2022-03-10] MEDS: Insulin Glargine 30 UNITS/0.3 ML VIAL SC SCH ×2 (08:09→21:20)
[2022-03-10] MEDS: Gabapentin 100 MG CAP PO SCH ×2 (08:09→21:19)
[2022-03-10] MEDS: Metoprolol Tartrate 25 MG TAB PO SCH (08:12)
[2022-03-10] MEDS ORDERED: Docusate 100 MG CAP PO PRN (11:32)
[2022-03-10] MEDS ORDERED: HYDROcodone/Acetaminophen 7.5/325 mg Tablet PO PRN (11:33)
[2022-03-10] MEDS ORDERED: Milk Of Magnesia 30 ML UDCUP PO SCH (11:45)
[2022-03-10] MEDS: HYDROcodone/Acetaminophen 10/325 mg Tablet PO PRN ×2 (16:34→21:25)
[2022-03-10] MEDS: Atorvastatin Calcium 40 MG TAB PO SCH (21:19)
[2022-03-10] MEDS ORDERED: Nitroglycerin 0.4 MG TAB (25 Tab Bottle) ONE (21:38)
[2022-03-11] MEDS: Meropenem 500 MG in Sodium Chloride 0.9% 100 ML IVPB SCH (00:25)
[2022-03-11 05:09] VITALS: TEMP 99.3
[2022-03-11 05:09] LABS: Hemoglobin 7.8 g/dL (14.0-18.0); Mean Corpuscular HGB CONC 31.3 g/dL (32.0-36.0); Mean Corpuscular Hemoglobin 33.4 pg (27.0-31.0); Mean Platelet Volume 7.7 fL (7.4-10.4); Platelet Count 110 thou/uL (130-400); RBC Distribution Width 18.3 % (11.5-14.5); Red Blood Cell (RBC) Count 2.32 mill/uL (4.70-6.10); White Blood Cell (WBC) Count 5.7 thou/uL (4.8-10.8)
[2022-03-11 05:30] LABS: Anion Gap 16 mmol/L (10-20); BUN (Urea Nitrogen) 41 mg/dL (8.4-25.7); Calc. Creatinine Clearance 12 mL/min (70-130); Calcium 8.9 mg/dL (7.8-10.44); Carbon Dioxide 25 mmol/L (23-31); Chloride 101 mmol/L (98-107); Glucose 155 mg/dL (83-110); Sodium 138 mmol/L (136-145)
[2022-03-11] MEDS: Levothyroxine 175 MCG TAB PO SCH (06:32)
[2022-03-11] MEDS: HYDROcodone/Acetaminophen 10/325 mg Tablet PO PRN (08:07)
[2022-03-11 08:25] VITALS: BP 137/67
[2022-03-11] MEDS: Aspirin 81 mg Enteric Coated Tablet PO SCH (10:44)
[2022-03-11] MEDS: Gabapentin 100 MG CAP PO SCH (10:44)
[2022-03-11] MEDS: Metoprolol Tartrate 25 MG TAB PO SCH (10:44)
[2022-03-11] MEDS: Cholecalciferol 1,000 UNITS (25 MCG) TAB PO SCH (10:44)
[2022-03-11] MEDS: Insulin Glargine 30 UNITS/0.3 ML VIAL SC SCH (10:47)
[2022-03-11] MEDS: DorzolamidE/Timolol 2%/0.5% Ophth Soln 10 ml Bottle R EYE SCH (10:47)
== END 2022-03-11 11:24 | disposition home or self-care (01) | DRG 417 ==
LOC: ERS 07:11 → 2SW 09:25 → OBSVTOIN 03-08 12:40
PROVIDERS: ADMIT Internal Medicine; ATTEND Internal Medicine
PROC: 0FT44ZZ Resection of Gallbladder, Percutaneous Endoscopic Approach (ICD-10-PCS; principal; 2022-03-08)
PROC: BF10YZZ Fluoroscopy of Bile Ducts using Other Contrast (ICD-10-PCS; 2022-03-08)
PROC: 5A1D70Z Performance of Urinary Filtration, Intermittent, Less than 6 Hours Per Day (ICD-10-PCS; 2022-03-09)
DX: K80.12 Calculus of gallbladder with acute and chronic cholecystitis without obstruction (principal); N18.6 End stage renal disease; I12.0 Hypertensive chronic kidney disease with stage 5 chronic kidney disease or end stage renal disease; T86.11 Kidney transplant rejection; R78.81 Bacteremia; E11.22 Type 2 diabetes mellitus with diabetic chronic kidney disease; G47.33 Obstructive sleep apnea (adult) (pediatric); F32.A Depression, unspecified; B96.1 Klebsiella pneumoniae [K. pneumoniae] as the cause of diseases classified elsewhere; D63.1 Anemia in chronic kidney disease; Y83.8 Other surgical procedures as the cause of abnormal reaction of the patient, or of later complication, without mention of misadventure at the time of the procedure; Z99.2 Dependence on renal dialysis; Z88.5 Allergy status to narcotic agent; Z88.0 Allergy status to penicillin; Z79.82 Long term (current) use of aspirin; Z79.890 Hormone replacement therapy; Z79.4 Long term (current) use of insulin; Z79.899 Other long term (current) drug therapy
CPT/HCPCS: 36415; 36416; 47532; 71045; 76705; 78227; 80048; 80053; 82553; 83605; 83690; 84484; 85025; 85027; 86704; 87040; 87077; 87149; 87186; 87340; 88304; 93005; 94760; 96365; 96366; 96367; 96374; 96375; A9537; C1713; C9113; G0378; J1100; J1610; J1815; J1956; J2185; J2370; J2405; J2704; J3490; J7999; Q4081; Q9967; S0020; U0003; U0005

== ENCOUNTER 2023-01-14 00:06 | Emergency (ER) | payer MEDICARE, OTHER ==
[2023-01-14 00:35] LABS: Hemoglobin 12.3 g/dL (14.0-18.0); Mean Corpuscular HGB CONC 33.5 g/dL (32.0-36.0); Mean Corpuscular Hemoglobin 36.4 pg (27.0-31.0); RBC Distribution Width 15.3 % (11.5-14.5); Red Blood Cell (RBC) Count 3.37 mill/uL (4.70-6.10); White Blood Cell (WBC) Count 5.8 10x3/uL (4.8-10.8)
[2023-01-14 00:54] LABS: #Eosinphils 0.7 thou/uL (0.0-0.7); #Monocytes 0.7 thou/uL (0.11-0.59); #Neutrophils 2.4 thou/uL (1.40-6.50); %Basophils 0.8 % (0.0-1.0); %Eosinophils 11.5 % (0.0-10.0); %Lymphocytes 34.4 % (21.0-51.0); %Neutrophils 41.4 % (42.0-75.0); MDiff Complete? YES; Macrocytosis SLIGHT = 6-15 cells (100X) (0-5/hpf); Mean Platelet Volume 8.1 fL (7.4-10.4); Platelet Count 93 10x3/uL (130-400); Platelet Morphology Comment Appears Decreased
[2023-01-14 01:17] LABS: CKMB 1.6 ng/mL (0-6.6)
== END 2023-01-14 02:28 | disposition left against medical advice (07) ==
LOC: ERS 00:06
DX: R06.02 Shortness of breath (principal); I10 Essential (primary) hypertension; E11.9 Type 2 diabetes mellitus without complications
CPT/HCPCS: 71045; 82553; 83880; 84484; 85025; 93005

== ENCOUNTER 2023-07-09 19:21 | Inpatient (IN) | payer OTHER ==
[~2023-07-09 19:21] MED LIST: Iopamidol-370 76% 500 ML MDV (1 ML CHARGE) ONE
[2023-07-09] MEDS ORDERED: NOREPINEPHRINE 8 MG/250 ML-D5W 250 ML ONE (19:44)
[2023-07-09 19:51] LABS: #Eosinphils 0.2 thou/uL (0.0-0.7); #Monocytes 0.6 thou/uL (0.11-0.59); #Neutrophils 4.7 thou/uL (1.40-6.50); %Basophils 0.3 % (0.0-1.0); %Eosinophils 2.3 % (0.0-10.0); %Lymphocytes 20.8 % (21.0-51.0); %Monocytes 8.5 % (0.0-10.0); %Neutrophils 67.8 % (42.0-75.0); Hematocrit 36.4 % (42.0-52.0); Hemoglobin 12.5 g/dL (14.0-18.0); Mean Corpuscular HGB CONC 34.3 g/dL (32.0-36.0); Mean Corpuscular Hemoglobin 35.2 pg (27.0-31.0); Mean Corpuscular Volume 102.5 fl (78.0-98.0); Mean Platelet Volume 9.8 fL (7.4-10.4); Platelet Count 118 10x3/uL (130-400); RBC Distribution Width 14.2 % (11.5-14.5); Red Blood Cell (RBC) Count 3.55 mill/uL (4.70-6.10)
[2023-07-09 20:03] LABS: INR-International Normal Ratio 1.1; PTT 32.7 sec (22.9-36.1); Prothrombin Time 14.7 sec (12.0-14.7)
[2023-07-09 20:46] LABS: #Eosinphils 0.1 thou/uL (0.0-0.7); #Monocytes 0.7 thou/uL (0.11-0.59); #Neutrophils 4.8 thou/uL (1.40-6.50); %Basophils 0.3 % (0.0-1.0); %Eosinophils 1.7 % (0.0-10.0); %Lymphocytes 20.6 % (21.0-51.0); %Monocytes 9.2 % (0.0-10.0); %Neutrophils 67.6 % (42.0-75.0); Hemoglobin 11.3 g/dL (14.0-18.0); Mean Corpuscular HGB CONC 34.2 g/dL (32.0-36.0); Mean Corpuscular Hemoglobin 35.2 pg (27.0-31.0); Mean Corpuscular Volume 102.8 fl (78.0-98.0); Mean Platelet Volume 9.9 fL (7.4-10.4); Platelet Count 107 10x3/uL (130-400); RBC Distribution Width 14.3 % (11.5-14.5); Red Blood Cell (RBC) Count 3.21 mill/uL (4.70-6.10); White Blood Cell (WBC) Count 7.1 10x3/uL (4.8-10.8)
[2023-07-09 20:51] LABS: Troponin I 0.054 ng/mL (< 0.028)
[2023-07-09 21:01] LABS: Albumin 3.6 g/dL (3.4-4.8)
[2023-07-09 21:02] LABS: Chloride 105 mmol/L (98-107); Potassium 3.5 mmol/L (3.5-5.1); Sodium 138 mmol/L (136-145)
[2023-07-09 21:03] LABS: Calcium 8.9 mg/dL (7.8-10.44); Glucose 216 mg/dL (83-110)
[2023-07-09 21:04] LABS: Protein, Total 6.6 g/dL (5.8-8.1)
[2023-07-09 21:05] LABS: Anion Gap 15 mmol/L (10-20); Bilirubin, Total 0.4 mg/dL (0.2-1.2); Carbon Dioxide 22 mmol/L (23-31)
[2023-07-09 21:06] LABS: Alcohol Less than 10.0 mg/dL (Less than 10); Alkaline Phosphatase 126 U/L (40-110)
[2023-07-09 21:07] LABS: Calc. Creatinine Clearance 0 mL/min (70-130); Estimated GFR 12
[2023-07-09 21:08] LABS: BUN (Urea Nitrogen) 16 mg/dL (8.4-25.7)
[2023-07-09 21:09] LABS: AST (SGOT) 27 U/L (5-34); Magnesium 2.1 mg/dL (1.6-2.6); Salicylate Less than 8.0 mg/dL (15.0-30.0)
[2023-07-09 21:10] LABS: ALT (SGPT) 23 U/L (8-55); Acetaminophen Less than 10 mcg/mL (10.0-30.0); CK (CPK) 420 U/L (30-200); Lipase 56 U/L (8-78)
[2023-07-09] MEDS ORDERED: fentaNYL 50 mcg/mL 1 mL Vial ONE (21:27)
[2023-07-10] MEDS ORDERED: Glucagon 1 MG/ML KIT IM PRN (00:35)
[2023-07-10] MEDS ORDERED: Dextrose 5% in Water 1,000 ML IV PRN (00:35)
[2023-07-10] MEDS ORDERED: Acetaminophen 325 MG TAB PO PRN (00:41)
[2023-07-10] MEDS ORDERED: Acetaminophen 650 MG Suppository PR PRN (00:41)
[2023-07-10] MEDS ORDERED: Sodium Chloride 0.9% 1,000 ML IV SCH (01:00)
[2023-07-10] MEDS ORDERED: Ondansetron PF 4 MG/2 ML Vial IVP PRN (01:00)
[2023-07-10] MEDS ORDERED: Ondansetron ODT 4 MG TAB SL PRN (01:00)
[2023-07-10 01:01] LABS: INR-International Normal Ratio 1.2; PTT 32.5 sec (22.9-36.1); Prothrombin Time 15.5 sec (12.0-14.7)
[2023-07-10 01:06] LABS: Lactic Acid 1.5 mmol/L (0.5-2.2)
[2023-07-10] MEDS: DOPamine 400 MG/D5W 250 ML 250 ML IVPB SCH ×2 (01:39→15:14)
[2023-07-10 04:21] LABS: #Monocytes 0.6 thou/uL (0.11-0.59); #Neutrophils 6.4 thou/uL (1.40-6.50); %Basophils 0.1 % (0.0-1.0); %Eosinophils 0.4 % (0.0-10.0); %Lymphocytes 12.1 % (21.0-51.0); %Monocytes 7.6 % (0.0-10.0); %Neutrophils 79.7 % (42.0-75.0); Hematocrit 35.5 % (42.0-52.0); Mean Corpuscular HGB CONC 33.8 g/dL (32.0-36.0); Mean Corpuscular Hemoglobin 34.6 pg (27.0-31.0); Mean Corpuscular Volume 102.3 fl (78.0-98.0); Mean Platelet Volume 10.1 fL (7.4-10.4); Platelet Count 127 10x3/uL (130-400); RBC Distribution Width 14.3 % (11.5-14.5); Red Blood Cell (RBC) Count 3.47 mill/uL (4.70-6.10)
[2023-07-10 04:44] LABS: Anion Gap 16 mmol/L (10-20); BUN (Urea Nitrogen) 20 mg/dL (8.4-25.7); Calc. Creatinine Clearance 14 mL/min (70-130); Carbon Dioxide 22 mmol/L (23-31); Cardiac Risk 3.7 (Less than 4.5); Chloride 102 mmol/L (98-107); Cholesterol 153 mg/dl (< 200 Desired); Estimated GFR 11; Glucose 269 mg/dL (83-110); HDL Cholesterol 41 mg/dL (>60 Neg Risk); LDL Cholesterol, Calculated 92 mg/dL; Potassium 3.9 mmol/L (3.5-5.1); Sodium 136 mmol/L (136-145); Triglycerides 102 mg/dL (Less than 150)
[2023-07-10 04:46] LABS: Troponin I 0.075 ng/mL (< 0.028)
[2023-07-10] MEDS: HumaLOG 300 UNITS/3 ML VIAL SC PRN ×4 (04:53→21:29)
[2023-07-10] MEDS ORDERED: Levothyroxine Sodium 200 MCG VIAL IVP SCH (05:45)
[2023-07-10 05:53] LABS: Free T4 (Free Thyroxine) 0.49 ng/dL (0.70-1.48)
[2023-07-10] MEDS: Aspirin Chewable 81 MG TAB PO SCH (08:46)
[2023-07-10] MEDS ORDERED: Aspirin 325 MG TAB PO SCH (09:00)
[2023-07-10] MEDS ORDERED: Pantoprazole 40 MG VIAL IVP SCH (09:00)
[2023-07-10] MEDS ORDERED: Lactated Ringer's 500 ML IV SCH (09:45)
[2023-07-10] MEDS: Hydrocortisone Sod Succ/PF 100 mg/2 ml Vial IVP SCH ×2 (10:00→18:06)
[2023-07-10] MEDS: Atorvastatin Calcium 40 MG TAB PO SCH (21:00)
[2023-07-10] MEDS: Gabapentin 100 MG CAP PO SCH (21:01)
[2023-07-10] MEDS: Heparin 5,000 UNITS/ML VIAL SC SCH (21:03)
[2023-07-10] MEDS ORDERED: Methocarbamol 500 MG TAB PO SCH (21:15)
[2023-07-10] MEDS: DorzolamidE/Timolol 2%/0.5% Ophth Soln 10 ml Bottle R EYE SCH (21:28)
[2023-07-10] MEDS: Insulin Glargine 30 UNITS/0.3 ML VIAL SC SCH (21:29)
[2023-07-11] MEDS: Hydrocortisone Sod Succ/PF 100 mg/2 ml Vial IVP SCH ×3 (02:12→17:37)
[2023-07-11 04:11] LABS: #Monocytes 0.5 thou/uL (0.11-0.59); %Basophils 0.2 % (0.0-1.0); %Eosinophils 0.4 % (0.0-10.0); %Lymphocytes 20.2 % (21.0-51.0); %Monocytes 6.5 % (0.0-10.0); %Neutrophils 72.5 % (42.0-75.0); Hemoglobin 11.3 g/dL (14.0-18.0); Mean Corpuscular HGB CONC 34.2 g/dL (32.0-36.0); Mean Corpuscular Hemoglobin 35.6 pg (27.0-31.0); Mean Corpuscular Volume 104.1 fl (78.0-98.0); Mean Platelet Volume 9.9 fL (7.4-10.4); Platelet Count 123 10x3/uL (130-400); RBC Distribution Width 14.8 % (11.5-14.5); Red Blood Cell (RBC) Count 3.17 mill/uL (4.70-6.10); White Blood Cell (WBC) Count 8.3 10x3/uL (4.8-10.8)
[2023-07-11 04:31] LABS: Anion Gap 14 mmol/L (10-20); BUN (Urea Nitrogen) 36 mg/dL (8.4-25.7); Calc. Creatinine Clearance 10 mL/min (70-130); Calcium 8.8 mg/dL (7.8-10.44); Carbon Dioxide 25 mmol/L (23-31); Chloride 100 mmol/L (98-107); Estimated GFR 7; Glucose 237 mg/dL (83-110); Potassium 4.2 mmol/L (3.5-5.1); Sodium 135 mmol/L (136-145)
[2023-07-11] MEDS ORDERED: Methocarbamol 500 MG TAB PO SCH (04:45)
[2023-07-11] MEDS: HumaLOG 300 UNITS/3 ML VIAL SC PRN ×4 (05:59→20:37)
[2023-07-11] MEDS ORDERED: Levothyroxine Sodium 200 MCG VIAL IVP SCH (06:00)
[2023-07-11] MEDS: Cholecalciferol 1,000 UNITS (25 MCG) TAB PO SCH (07:54)
[2023-07-11] MEDS: Gabapentin 100 MG CAP PO SCH ×2 (07:54→20:26)
[2023-07-11] MEDS: Aspirin Chewable 81 MG TAB PO SCH (07:54)
[2023-07-11] MEDS: Insulin Glargine 30 UNITS/0.3 ML VIAL SC SCH ×2 (08:07→20:36)
[2023-07-11] MEDS: DorzolamidE/Timolol 2%/0.5% Ophth Soln 10 ml Bottle R EYE SCH ×2 (08:33→21:58)
[2023-07-11] MEDS: Methocarbamol 500 MG TAB PO SCH ×3 (09:17→20:28)
[2023-07-11] MEDS ORDERED: Lactated Ringer's 500 ML IV SCH (10:00)
[2023-07-11] MEDS: Heparin 5,000 UNITS/ML VIAL SC SCH ×2 (10:06→20:38)
[2023-07-11] MEDS: Acetaminophen/Codeine 30-300mg Tablet PO PRN ×2 (10:08→22:01)
[2023-07-11] MEDS: Acetaminophen/Codeine 30-300mg Tablet PO SCH ×2 (14:16→20:27)
[2023-07-11] MEDS: DOPamine 400 MG/D5W 250 ML 250 ML IVPB SCH (14:35)
[2023-07-11] MEDS ORDERED: Lorazepam 2 MG/ML VIAL SLOW IVP SCH (16:00)
[2023-07-11] MEDS ORDERED: fentaNYL 50 mcg/mL 1 mL Vial SLOW IVP SCH (16:15)
[2023-07-11] MEDS: Atorvastatin Calcium 40 MG TAB PO SCH (20:26)
[2023-07-12] MEDS: Hydrocortisone Sod Succ/PF 100 mg/2 ml Vial IVP SCH (01:39)
[2023-07-12] MEDS: Acetaminophen/Codeine 30-300mg Tablet PO SCH ×3 (01:41→14:10)
[2023-07-12] MEDS: Acetaminophen/Codeine 30-300mg Tablet PO PRN (04:43)
[2023-07-12 04:55] LABS: #Monocytes 0.5 thou/uL (0.11-0.59); #Neutrophils 5.5 thou/uL (1.40-6.50); %Basophils 0.1 % (0.0-1.0); %Eosinophils 0.1 % (0.0-10.0); %Lymphocytes 15.9 % (21.0-51.0); %Monocytes 6.3 % (0.0-10.0); %Neutrophils 77.3 % (42.0-75.0); Hematocrit 29.4 % (42.0-52.0); Hemoglobin 10.1 g/dL (14.0-18.0); Mean Corpuscular HGB CONC 34.4 g/dL (32.0-36.0); Mean Corpuscular Hemoglobin 35.6 pg (27.0-31.0); Mean Corpuscular Volume 103.5 fl (78.0-98.0); Mean Platelet Volume 9.8 fL (7.4-10.4); Platelet Count 121 10x3/uL (130-400); Red Blood Cell (RBC) Count 2.84 mill/uL (4.70-6.10); White Blood Cell (WBC) Count 7.2 10x3/uL (4.8-10.8)
[2023-07-12 05:16] LABS: Anion Gap 18 mmol/L (10-20); BUN (Urea Nitrogen) 53 mg/dL (8.4-25.7); Calc. Creatinine Clearance 8 mL/min (70-130); Calcium 8.4 mg/dL (7.8-10.44); Carbon Dioxide 21 mmol/L (23-31); Chloride 98 mmol/L (98-107); Estimated GFR 5; Glucose 223 mg/dL (83-110); Potassium 4.4 mmol/L (3.5-5.1); Sodium 133 mmol/L (136-145)
[2023-07-12] MEDS ORDERED: Levothyroxine 175 MCG TAB PO SCH (06:00)
[2023-07-12] MEDS: HumaLOG 300 UNITS/3 ML VIAL SC PRN ×2 (06:20→12:21)
[2023-07-12] MEDS: Aspirin Chewable 81 MG TAB PO SCH (08:13)
[2023-07-12] MEDS: Cholecalciferol 1,000 UNITS (25 MCG) TAB PO SCH (08:13)
[2023-07-12] MEDS: Methocarbamol 500 MG TAB PO SCH ×3 (08:14→20:30)
[2023-07-12] MEDS: Heparin 5,000 UNITS/ML VIAL SC SCH ×2 (08:15→20:30)
[2023-07-12] MEDS: Insulin Glargine 30 UNITS/0.3 ML VIAL SC SCH ×3 (08:15→20:32)
[2023-07-12] MEDS: Gabapentin 100 MG CAP PO SCH ×2 (08:15→20:29)
[2023-07-12] MEDS: DorzolamidE/Timolol 2%/0.5% Ophth Soln 10 ml Bottle R EYE SCH ×2 (08:17→20:41)
[2023-07-12] MEDS ORDERED: Heparin 10,000 UNITS/ 10 ML VIAL ONE (09:21)
[2023-07-12] MEDS ORDERED: Gabapentin 100 MG CAP PO SCH ×2 (14:15→15:00)
[2023-07-12 19:44] LABS: HBSAg Index 0.18 S/CO (0-0.99); Hep B Surf Ag Non-Reactive S/CO (NonReactive)
[2023-07-12 19:46] LABS: HBSAB Concentration 217.79 mIU/mL; Hep B Surf AB Reactive (NonReactive)
[2023-07-12] MEDS: Atorvastatin Calcium 40 MG TAB PO SCH (20:29)
[2023-07-12] MEDS: HYDROcodone/Acetaminophen 5/325 mg Tablet PO PRN (20:30)
[2023-07-13] MEDS ORDERED: diphenhydrAMINE 25 MG CAP ONE (02:42)
[2023-07-13] MEDS: HYDROcodone/Acetaminophen 5/325 mg Tablet PO PRN ×2 (02:45→18:42)
[2023-07-13 05:01] LABS: #Eosinphils 0.6 thou/uL (0.0-0.7); #Monocytes 0.8 thou/uL (0.11-0.59); #Neutrophils 5.8 thou/uL (1.40-6.50); %Basophils 0.2 % (0.0-1.0); %Eosinophils 6.3 % (0.0-10.0); %Lymphocytes 20.3 % (21.0-51.0); %Monocytes 9.2 % (0.0-10.0); %Neutrophils 63.7 % (42.0-75.0); Hematocrit 33.7 % (42.0-52.0); Hemoglobin 11.6 g/dL (14.0-18.0); Mean Corpuscular HGB CONC 34.4 g/dL (32.0-36.0); Mean Corpuscular Hemoglobin 35.5 pg (27.0-31.0); Mean Corpuscular Volume 103.1 fl (78.0-98.0); Mean Platelet Volume 9.8 fL (7.4-10.4); Platelet Count 123 10x3/uL (130-400); RBC Distribution Width 15.1 % (11.5-14.5); Red Blood Cell (RBC) Count 3.27 mill/uL (4.70-6.10); White Blood Cell (WBC) Count 9.1 10x3/uL (4.8-10.8)
[2023-07-13] MEDS: Levothyroxine Sodium 100 MCG TAB PO SCH (06:12)
[2023-07-13 07:02] LABS: Anion Gap 19 mmol/L (10-20); BUN (Urea Nitrogen) 69 mg/dL (8.4-25.7); Calc. Creatinine Clearance 7 mL/min (70-130); Calcium 8.5 mg/dL (7.8-10.44); Carbon Dioxide 23 mmol/L (23-31); Chloride 94 mmol/L (98-107); Estimated GFR 4; Glucose 156 mg/dL (83-110); Magnesium 2.4 mg/dL (1.6-2.6); Potassium 4.1 mmol/L (3.5-5.1); Sodium 132 mmol/L (136-145)
[2023-07-13] MEDS ORDERED: FLU VACC QS2023(65UP)/MF59C/PF 60 MCG/0.5 ML SYRINGE IM ONE (09:00)
[2023-07-13] MEDS ORDERED: Heparin 10,000 UNITS/ 10 ML VIAL ONE (09:00)
[2023-07-13] MEDS: Methocarbamol 500 MG TAB PO SCH ×2 (09:10→15:52)
[2023-07-13] MEDS: Cholecalciferol 1,000 UNITS (25 MCG) TAB PO SCH (09:11)
[2023-07-13] MEDS: Aspirin Chewable 81 MG TAB PO SCH (09:12)
[2023-07-13] MEDS: DorzolamidE/Timolol 2%/0.5% Ophth Soln 10 ml Bottle R EYE SCH ×2 (09:13→21:39)
[2023-07-13] MEDS: Heparin 5,000 UNITS/ML VIAL SC SCH ×2 (09:14→21:38)
[2023-07-13] MEDS: Insulin Glargine 30 UNITS/0.3 ML VIAL SC SCH ×2 (09:15→21:01)
[2023-07-13] MEDS: Gabapentin 100 MG CAP PO SCH (09:16)
[2023-07-13] MEDS: diphenhydrAMINE 25 MG CAP PO PRN (09:47)
[2023-07-13] MEDS: HumaLOG 300 UNITS/3 ML VIAL SC PRN (10:03)
[2023-07-13] MEDS: DOPamine 400 MG/D5W 250 ML 250 ML IVPB SCH (12:06)
[2023-07-13] MEDS ORDERED: Ondansetron PF 4 MG/2 ML Vial IVP PRN (14:12)
[2023-07-13] MEDS ORDERED: Sodium Chloride 0.9% 500 ML IVPB SCH (15:00)
[2023-07-13] MEDS ORDERED: Ondansetron PF 4 MG/2 ML Vial IVP SCH (15:00)
[2023-07-13] MEDS: Dextrose 50% Abboject 50 ML SYRINGE SLOW IVP PRN ×2 (16:43→20:11)
[2023-07-13 16:44] LABS: Actual Bicarbonate (HCO3a) 22.8 mEq/L (22-28); Base Excess (BEa) -5.7 mEq/L (-2.0 to +3.0); CO2 Tension 58.4 mmHg (35.0-45.0); Calcium, Ionized (arterial) 1.12 mmol/L (1.12-1.30); Carboxyhemoglobin (COHb) 0.9 gm% (0.0-3.0); Hematocrit-ABG 37 % (42.0-52.0); Hemoglobin (Hb) 12.7 g/dL (14.0-18.0); O2 Tension (PaO2), arterial 67.9 mmHg (> 70.0); Potassium - ABG Lab 4.19 mmol/L (3.70-5.30)
[2023-07-13 16:46] LABS: Puncture Site LRA
[2023-07-13] MEDS: Atorvastatin Calcium 40 MG TAB PO SCH (21:02)
[2023-07-14] MEDS: Dextrose 50% Abboject 50 ML SYRINGE SLOW IVP PRN (02:50)
[2023-07-14] MEDS: DOPamine 400 MG/D5W 250 ML 250 ML IVPB SCH ×3 (04:52→21:29)
[2023-07-14 04:59] LABS: #Eosinphils 0.7 thou/uL (0.0-0.7); #Monocytes 0.7 thou/uL (0.11-0.59); #Neutrophils 4.5 thou/uL (1.40-6.50); %Basophils 0.3 % (0.0-1.0); %Eosinophils 10.3 % (0.0-10.0); %Lymphocytes 15.8 % (21.0-51.0); %Monocytes 10.2 % (0.0-10.0); %Neutrophils 63.1 % (42.0-75.0); Mean Corpuscular HGB CONC 34.4 g/dL (32.0-36.0); Mean Corpuscular Hemoglobin 35.4 pg (27.0-31.0); Mean Corpuscular Volume 102.9 fl (78.0-98.0); Mean Platelet Volume 9.5 fL (7.4-10.4); Platelet Count 129 10x3/uL (130-400); Red Blood Cell (RBC) Count 3.11 mill/uL (4.70-6.10); White Blood Cell (WBC) Count 7.1 10x3/uL (4.8-10.8)
[2023-07-14 05:20] LABS: Anion Gap 14 mmol/L (10-20); BUN (Urea Nitrogen) 37 mg/dL (8.4-25.7); Calc. Creatinine Clearance 12 mL/min (70-130); Calcium 8.6 mg/dL (7.8-10.44); Carbon Dioxide 27 mmol/L (23-31); Chloride 96 mmol/L (98-107); Estimated GFR 8; Glucose 102 mg/dL (83-110); Potassium 3.9 mmol/L (3.5-5.1); Sodium 133 mmol/L (136-145)
[2023-07-14] MEDS: Levothyroxine Sodium 100 MCG TAB PO SCH (06:06)
[2023-07-14] MEDS: Aspirin Chewable 81 MG TAB PO SCH (08:13)
[2023-07-14] MEDS: Cholecalciferol 1,000 UNITS (25 MCG) TAB PO SCH (08:13)
[2023-07-14] MEDS: Midodrine HCl 5 MG TAB PO SCH ×3 (08:14→21:21)
[2023-07-14] MEDS: Heparin 5,000 UNITS/ML VIAL SC SCH ×2 (08:14→21:20)
[2023-07-14] MEDS: Dextrose 10% in Water 1,000 ML IV SCH (08:15)
[2023-07-14] MEDS ORDERED: Gabapentin 100 MG CAP PO SCH (09:45)
[2023-07-14] MEDS: DorzolamidE/Timolol 2%/0.5% Ophth Soln 10 ml Bottle R EYE SCH ×2 (10:00→21:19)
[2023-07-14] MEDS ORDERED: Heparin 10,000 UNITS/ 10 ML VIAL ONE (11:42)
[2023-07-14] MEDS ORDERED: Activase 2 MG VIAL CATH SCH (11:45)
[2023-07-14] MEDS ORDERED: Sterile Water 10 ML VIAL FS SCH (11:45)
[2023-07-14] MEDS: Insulin Glargine 30 UNITS/0.3 ML VIAL SC SCH (12:19)
[2023-07-14] MEDS: HYDROcodone/Acetaminophen 5/325 mg Tablet PO PRN (13:14)
[2023-07-14] MEDS: Calcium Carbonate 500 MG ChewTAB PO PRN (14:04)
[2023-07-14] MEDS: Metoclopramide HCl 10 MG/2 ML VIAL IVP PRN (17:18)
[2023-07-14] MEDS: Atorvastatin Calcium 40 MG TAB PO SCH (21:19)
[2023-07-14] MEDS: Gabapentin 100 MG CAP PO SCH (21:19)
[2023-07-14] MEDS ORDERED: Acetaminophen 325 MG TAB PO PRN (23:58)
[2023-07-15] MEDS: HYDROcodone/Acetaminophen 5/325 mg Tablet PO PRN ×2 (03:20→19:49)
[2023-07-15] MEDS: Dextrose 10% in Water 1,000 ML IV SCH (04:03)
[2023-07-15] MEDS: DOPamine 400 MG/D5W 250 ML 250 ML IVPB SCH ×3 (04:04→19:47)
[2023-07-15 04:49] LABS: #Eosinphils 0.6 thou/uL (0.0-0.7); #Neutrophils 4.5 thou/uL (1.40-6.50); %Basophils 0.3 % (0.0-1.0); %Eosinophils 8.4 % (0.0-10.0); %Lymphocytes 19.2 % (21.0-51.0); %Monocytes 13.6 % (0.0-10.0); %Neutrophils 58.2 % (42.0-75.0); Hematocrit 33.2 % (42.0-52.0); Hemoglobin 11.3 g/dL (14.0-18.0); Mean Corpuscular Hemoglobin 35.5 pg (27.0-31.0); Mean Corpuscular Volume 104.4 fl (78.0-98.0); Mean Platelet Volume 9.7 fL (7.4-10.4); Platelet Count 132 10x3/uL (130-400); Red Blood Cell (RBC) Count 3.18 mill/uL (4.70-6.10); White Blood Cell (WBC) Count 7.7 10x3/uL (4.8-10.8)
[2023-07-15] MEDS ORDERED: Dextrose 5 % And 0.9 % NaCl 1,000 ML IV SCH (05:00)
[2023-07-15 05:14] LABS: ALT (SGPT) 43 U/L (8-55); AST (SGOT) 60 U/L (5-34); Albumin 3.1 g/dL (3.4-4.8); Alkaline Phosphatase 101 U/L (40-110); Anion Gap 14 mmol/L (10-20); BUN (Urea Nitrogen) 34 mg/dL (8.4-25.7); Bilirubin, Total 0.3 mg/dL (0.2-1.2); Calc. Creatinine Clearance 13 mL/min (70-130); Carbon Dioxide 26 mmol/L (23-31); Chloride 95 mmol/L (98-107); Estimated GFR 8; Globulin 2.9 g/dL (2.4-3.5); Glucose 248 mg/dL (83-110); Potassium 4.6 mmol/L (3.5-5.1); Sodium 130 mmol/L (136-145)
[2023-07-15] MEDS ORDERED: Activase 2 MG VIAL CATH SCH (06:00)
[2023-07-15] MEDS ORDERED: dilTIAZem 25 MG/5 ML VIAL ONE (06:23)
[2023-07-15] MEDS: Levothyroxine Sodium 100 MCG TAB PO SCH (06:31)
[2023-07-15] MEDS ORDERED: Heparin 10,000 UNITS/ 10 ML VIAL ONE (07:42)
[2023-07-15] MEDS: Heparin 5,000 UNITS/ML VIAL SC SCH ×2 (10:00→21:27)
[2023-07-15] MEDS: Aspirin Chewable 81 MG TAB PO SCH (10:33)
[2023-07-15] MEDS: Cholecalciferol 1,000 UNITS (25 MCG) TAB PO SCH (10:33)
[2023-07-15] MEDS: DorzolamidE/Timolol 2%/0.5% Ophth Soln 10 ml Bottle R EYE SCH ×2 (10:34→21:27)
[2023-07-15] MEDS: Midodrine HCl 5 MG TAB PO SCH ×3 (10:34→21:27)
[2023-07-15] MEDS: Gabapentin 100 MG CAP PO SCH ×2 (10:34→21:27)
[2023-07-15] MEDS ORDERED: Iopamidol 300 61% 100 ML VIAL FS ONE (14:28)
[2023-07-15] MEDS: Atorvastatin Calcium 40 MG TAB PO SCH (21:27)
[2023-07-16] MEDS: Levothyroxine Sodium 100 MCG TAB PO SCH (05:54)
[2023-07-16] MEDS: HYDROcodone/Acetaminophen 5/325 mg Tablet PO PRN ×2 (05:57→14:23)
[2023-07-16] MEDS ORDERED: Heparin 10,000 UNITS/ 10 ML VIAL ONE (08:59)
[2023-07-16] MEDS: Aspirin Chewable 81 MG TAB PO SCH (09:42)
[2023-07-16] MEDS: Heparin 5,000 UNITS/ML VIAL SC SCH ×2 (09:42→22:39)
[2023-07-16] MEDS: Gabapentin 100 MG CAP PO SCH ×3 (09:42→22:39)
[2023-07-16] MEDS: Midodrine HCl 5 MG TAB PO SCH ×4 (09:43→22:40)
[2023-07-16] MEDS: Cholecalciferol 1,000 UNITS (25 MCG) TAB PO SCH (09:43)
[2023-07-16] MEDS: DorzolamidE/Timolol 2%/0.5% Ophth Soln 10 ml Bottle R EYE SCH ×2 (14:27→22:39)
[2023-07-16] MEDS: diphenhydrAMINE 25 MG CAP PO PRN (15:49)
[2023-07-16] MEDS: DOPamine 400 MG/D5W 250 ML 250 ML IVPB SCH (17:10)
[2023-07-16] MEDS: HumaLOG 300 UNITS/3 ML VIAL SC PRN (18:36)
[2023-07-16] MEDS: Atorvastatin Calcium 40 MG TAB PO SCH ×2 (21:30→22:39)
[2023-07-17] MEDS: DOPamine 400 MG/D5W 250 ML 250 ML IVPB SCH ×3 (03:12→17:15)
[2023-07-17] MEDS: Levothyroxine Sodium 100 MCG TAB PO SCH (06:01)
[2023-07-17] MEDS: Aspirin Chewable 81 MG TAB PO SCH (08:37)
[2023-07-17] MEDS: Gabapentin 100 MG CAP PO SCH ×2 (08:40→21:30)
[2023-07-17] MEDS: Midodrine HCl 5 MG TAB PO SCH ×3 (08:44→21:30)
[2023-07-17] MEDS: Cholecalciferol 1,000 UNITS (25 MCG) TAB PO SCH (08:48)
[2023-07-17] MEDS: DorzolamidE/Timolol 2%/0.5% Ophth Soln 10 ml Bottle R EYE SCH (08:50)
[2023-07-17] MEDS: Heparin 5,000 UNITS/ML VIAL SC SCH ×2 (08:50→21:30)
[2023-07-17] MEDS ORDERED: Levothyroxine Sodium 25 MCG TAB PO SCH (09:15)
[2023-07-17] MEDS: diphenhydrAMINE 25 MG CAP PO PRN (10:39)
[2023-07-17] MEDS: HumaLOG 300 UNITS/3 ML VIAL SC PRN ×2 (11:34→16:21)
[2023-07-17 12:13] LABS: Chloride 93 mmol/L (98-107); Potassium 4.6 mmol/L (3.5-5.1); Sodium 127 mmol/L (136-145)
[2023-07-17 12:14] LABS: Calcium 8.8 mg/dL (7.8-10.44); Glucose 296 mg/dL (83-110)
[2023-07-17 12:16] LABS: Anion Gap 15 mmol/L (10-20); Carbon Dioxide 24 mmol/L (23-31)
[2023-07-17 12:18] LABS: BUN (Urea Nitrogen) 41 mg/dL (8.4-25.7); Calc. Creatinine Clearance 13 mL/min (70-130); Estimated GFR 8
[2023-07-17] MEDS: HYDROcodone/Acetaminophen 5/325 mg Tablet PO PRN ×2 (12:39→21:55)
[2023-07-17] MEDS ORDERED: Albumin 25% 25 GM/100 ML BOT IVPB SCH (13:30)
[2023-07-17] MEDS: Atorvastatin Calcium 40 MG TAB PO SCH (21:30)
[2023-07-18] MEDS: HYDROcodone/Acetaminophen 5/325 mg Tablet PO PRN (02:30)
[2023-07-18] MEDS: Levothyroxine Sodium 125 MCG TAB PO SCH (07:09)
[2023-07-18] MEDS: DorzolamidE/Timolol 2%/0.5% Ophth Soln 10 ml Bottle R EYE SCH ×3 (07:11→20:56)
[2023-07-18 08:23] LABS: #Monocytes 1.3 thou/uL (0.11-0.59); #Neutrophils 3.6 thou/uL (1.40-6.50); %Basophils 0.4 % (0.0-1.0); %Eosinophils 12.6 % (0.0-10.0); %Lymphocytes 22.5 % (21.0-51.0); %Neutrophils 47.2 % (42.0-75.0); Hematocrit 27.5 % (42.0-52.0); Hemoglobin 9.4 g/dL (14.0-18.0); Mean Corpuscular HGB CONC 34.2 g/dL (32.0-36.0); Mean Corpuscular Hemoglobin 35.6 pg (27.0-31.0); Mean Corpuscular Volume 104.2 fl (78.0-98.0); Mean Platelet Volume 9.7 fL (7.4-10.4); Platelet Count 138 10x3/uL (130-400); RBC Distribution Width 14.5 % (11.5-14.5); Red Blood Cell (RBC) Count 2.64 mill/uL (4.70-6.10); White Blood Cell (WBC) Count 7.7 10x3/uL (4.8-10.8)
[2023-07-18 08:43] LABS: Anion Gap 19 mmol/L (10-20); BUN (Urea Nitrogen) 41 mg/dL (8.4-25.7); Calc. Creatinine Clearance 12 mL/min (70-130); Calcium 9.1 mg/dL (7.8-10.44); Carbon Dioxide 22 mmol/L (23-31); Chloride 94 mmol/L (98-107); Estimated GFR 7; Glucose 202 mg/dL (83-110); Potassium 4.7 mmol/L (3.5-5.1); Sodium 130 mmol/L (136-145)
[2023-07-18] MEDS ORDERED: Cosyntropin 250 MCG VIAL SLOW IVP SCH (09:30)
[2023-07-18] MEDS ORDERED: Sodium Chloride 0.9% 500 ML IV SCH (09:45)
[2023-07-18] MEDS: Cholecalciferol 1,000 UNITS (25 MCG) TAB PO SCH (10:07)
[2023-07-18] MEDS: Aspirin Chewable 81 MG TAB PO SCH (10:07)
[2023-07-18] MEDS: Midodrine HCl 5 MG TAB PO SCH ×3 (10:08→20:55)
[2023-07-18] MEDS: Gabapentin 100 MG CAP PO SCH ×2 (10:09→20:55)
[2023-07-18] MEDS: Heparin 5,000 UNITS/ML VIAL SC SCH ×2 (10:26→20:55)
[2023-07-18] MEDS: DOPamine 400 MG/D5W 250 ML 250 ML IVPB SCH ×2 (12:47→17:03)
[2023-07-18] MEDS ORDERED: Albumin 25% 25 GM/100 ML BOT IVPB PRN (13:34)
[2023-07-18] MEDS ORDERED: Albumin 25% 25 GM/100 ML BOT IVPB SCH ×2 (13:45→15:00)
[2023-07-18] MEDS: Atorvastatin Calcium 40 MG TAB PO SCH (20:56)
[2023-07-19 04:19] LABS: #Eosinphils 0.8 thou/uL (0.0-0.7); #Neutrophils 2.7 thou/uL (1.40-6.50); %Basophils 0.5 % (0.0-1.0); %Eosinophils 14.5 % (0.0-10.0); %Lymphocytes 22.2 % (21.0-51.0); %Monocytes 16.7 % (0.0-10.0); %Neutrophils 45.9 % (42.0-75.0); Hematocrit 27.2 % (42.0-52.0); Hemoglobin 9.3 g/dL (14.0-18.0); Mean Corpuscular HGB CONC 34.2 g/dL (32.0-36.0); Mean Corpuscular Hemoglobin 35.6 pg (27.0-31.0); Mean Corpuscular Volume 104.2 fl (78.0-98.0); Mean Platelet Volume 9.7 fL (7.4-10.4); Platelet Count 142 10x3/uL (130-400); RBC Distribution Width 14.3 % (11.5-14.5); Red Blood Cell (RBC) Count 2.61 mill/uL (4.70-6.10); White Blood Cell (WBC) Count 5.8 10x3/uL (4.8-10.8)
[2023-07-19 04:43] LABS: Anion Gap 17 mmol/L (10-20); BUN (Urea Nitrogen) 29 mg/dL (8.4-25.7); Calc. Creatinine Clearance 16 mL/min (70-130); Calcium 9.5 mg/dL (7.8-10.44); Carbon Dioxide 26 mmol/L (23-31); Chloride 95 mmol/L (98-107); Estimated GFR 11; Glucose 232 mg/dL (83-110); Potassium 4.3 mmol/L (3.5-5.1); Sodium 134 mmol/L (136-145)
[2023-07-19] MEDS: Levothyroxine Sodium 125 MCG TAB PO SCH (06:22)
[2023-07-19] MEDS: HumaLOG 300 UNITS/3 ML VIAL SC PRN ×2 (06:22→18:15)
[2023-07-19] MEDS ORDERED: Heparin 10,000 UNITS/ 10 ML VIAL ONE (08:15)
[2023-07-19] MEDS: HumuLIN 70/30 100 Unit/ ml 10 ml Vial SC SCH (11:47)
[2023-07-19] MEDS: Gabapentin 100 MG CAP PO SCH ×2 (11:47→21:48)
[2023-07-19] MEDS: Aspirin Chewable 81 MG TAB PO SCH (11:48)
[2023-07-19] MEDS: Midodrine HCl 5 MG TAB PO SCH ×3 (11:48→21:46)
[2023-07-19] MEDS: DOPamine 400 MG/D5W 250 ML 250 ML IVPB SCH (11:49)
[2023-07-19] MEDS: DorzolamidE/Timolol 2%/0.5% Ophth Soln 10 ml Bottle R EYE SCH ×2 (11:49→21:48)
[2023-07-19] MEDS: Cholecalciferol 1,000 UNITS (25 MCG) TAB PO SCH (11:49)
[2023-07-19] MEDS: Heparin 5,000 UNITS/ML VIAL SC SCH ×2 (11:50→21:48)
[2023-07-19] MEDS: Albumin 25% 25 GM/100 ML BOT IVPB PRN ×3 (11:50→13:09)
[2023-07-19] MEDS: Hydrocortisone Sod Succ/PF 100 mg/2 ml Vial IVP SCH ×2 (13:05→21:47)
[2023-07-19] MEDS: HYDROcodone/Acetaminophen 5/325 mg Tablet PO PRN ×2 (14:09→21:46)
[2023-07-19] MEDS: HYDROcodone/Acetaminophen 10/325 mg Tablet PO PRN (17:53)
[2023-07-19] MEDS: diphenhydrAMINE 25 MG CAP PO PRN (21:45)
[2023-07-19] MEDS: Atorvastatin Calcium 40 MG TAB PO SCH (21:46)
[2023-07-19] MEDS: Calcium Carbonate 500 MG ChewTAB PO PRN (21:47)
[2023-07-20 06:34] LABS: #Eosinphils 0.4 thou/uL (0.0-0.7); #Neutrophils 3.3 thou/uL (1.40-6.50); %Basophils 0.5 % (0.0-1.0); %Eosinophils 7.4 % (0.0-10.0); %Lymphocytes 21.6 % (21.0-51.0); %Monocytes 15.9 % (0.0-10.0); %Neutrophils 54.3 % (42.0-75.0); Hematocrit 24.9 % (42.0-52.0); Hemoglobin 8.4 g/dL (14.0-18.0); Mean Corpuscular HGB CONC 33.7 g/dL (32.0-36.0); Mean Corpuscular Hemoglobin 34.9 pg (27.0-31.0); Mean Corpuscular Volume 103.3 fl (78.0-98.0); Mean Platelet Volume 9.8 fL (7.4-10.4); Platelet Count 131 10x3/uL (130-400); RBC Distribution Width 14.1 % (11.5-14.5); Red Blood Cell (RBC) Count 2.41 mill/uL (4.70-6.10)
[2023-07-20 06:58] LABS: Anion Gap 16 mmol/L (10-20); BUN (Urea Nitrogen) 26 mg/dL (8.4-25.7); Calc. Creatinine Clearance 18 mL/min (70-130); Calcium 9.5 mg/dL (7.8-10.44); Carbon Dioxide 27 mmol/L (23-31); Chloride 95 mmol/L (98-107); Estimated GFR 13; Glucose 144 mg/dL (83-110); Potassium 3.8 mmol/L (3.5-5.1); Sodium 134 mmol/L (136-145)
[2023-07-20 07:25] LABS: Free T4 (Free Thyroxine) 0.7 ng/dL (0.70-1.48)
[2023-07-20] MEDS ORDERED: Levothyroxine 150 MCG TAB PO SCH (08:30)
[2023-07-20] MEDS ORDERED: Hydrocortisone Sod Succ/PF 100 mg/2 ml Vial IVP SCH (08:30)
[2023-07-20] MEDS: Cholecalciferol 1,000 UNITS (25 MCG) TAB PO SCH (08:36)
[2023-07-20] MEDS: Gabapentin 100 MG CAP PO SCH ×2 (08:36→21:29)
[2023-07-20] MEDS: HumuLIN 70/30 100 Unit/ ml 10 ml Vial SC SCH ×2 (08:37→09:10)
[2023-07-20] MEDS: Midodrine HCl 5 MG TAB PO SCH ×3 (08:37→21:30)
[2023-07-20] MEDS: DorzolamidE/Timolol 2%/0.5% Ophth Soln 10 ml Bottle R EYE SCH ×2 (08:38→21:28)
[2023-07-20] MEDS: Heparin 5,000 UNITS/ML VIAL SC SCH ×2 (08:38→21:30)
[2023-07-20] MEDS: Hydrocortisone Sod Succ/PF 100 mg/2 ml Vial IVP SCH ×3 (09:00→21:30)
[2023-07-20] MEDS: Levothyroxine 150 MCG TAB PO SCH (09:00)
[2023-07-20] MEDS: Aspirin Chewable 81 MG TAB PO SCH (10:17)
[2023-07-20] MEDS: HYDROcodone/Acetaminophen 10/325 mg Tablet PO PRN ×2 (10:17→13:55)
[2023-07-20] MEDS ORDERED: Heparin 10,000 UNITS/ 10 ML VIAL ONE (12:49)
[2023-07-20] MEDS: HumaLOG 300 UNITS/3 ML VIAL SC PRN ×2 (13:14→16:14)
[2023-07-20] MEDS: Calcium Carbonate 500 MG ChewTAB PO PRN (13:26)
[2023-07-20] MEDS: Metoclopramide HCl 10 MG/2 ML VIAL IVP PRN (15:58)
[2023-07-20] MEDS: Albumin 25% 25 GM/100 ML BOT IVPB SCH ×2 (18:16→19:28)
[2023-07-20] MEDS ORDERED: Albumin 25% 100 ML ONE (19:07)
[2023-07-20] MEDS: Atorvastatin Calcium 40 MG TAB PO SCH (21:28)
[2023-07-20] MEDS ORDERED: Senokot S 8.6-50 MG TAB PO PRN (22:32)
[2023-07-21] MEDS: Epoetin (ESRD) 10,000 UNITS/ML VIAL SC SCH (01:18)
[2023-07-21] MEDS: HumaLOG 300 UNITS/3 ML VIAL SC PRN ×5 (01:27→21:49)
[2023-07-21] MEDS: Hydrocortisone Sod Succ/PF 100 mg/2 ml Vial IVP SCH ×3 (06:06→21:11)
[2023-07-21] MEDS: Levothyroxine 150 MCG TAB PO SCH (06:07)
[2023-07-21 06:35] LABS: #Monocytes 0.5 thou/uL (0.11-0.59); #Neutrophils 5.8 thou/uL (1.40-6.50); %Basophils 0.1 % (0.0-1.0); %Eosinophils 0.1 % (0.0-10.0); %Lymphocytes 11.8 % (21.0-51.0); %Neutrophils 80.9 % (42.0-75.0); Hematocrit 24.6 % (42.0-52.0); Hemoglobin 8.3 g/dL (14.0-18.0); Mean Corpuscular HGB CONC 33.7 g/dL (32.0-36.0); Mean Corpuscular Hemoglobin 35.2 pg (27.0-31.0); Mean Corpuscular Volume 104.2 fl (78.0-98.0); Mean Platelet Volume 9.3 fL (7.4-10.4); Platelet Count 150 10x3/uL (130-400); RBC Distribution Width 14.4 % (11.5-14.5); Red Blood Cell (RBC) Count 2.36 mill/uL (4.70-6.10); White Blood Cell (WBC) Count 7.2 10x3/uL (4.8-10.8)
[2023-07-21 06:59] LABS: Anion Gap 18 mmol/L (10-20); BUN (Urea Nitrogen) 28 mg/dL (8.4-25.7); Calc. Creatinine Clearance 0 mL/min (70-130); Calcium 9.8 mg/dL (7.8-10.44); Carbon Dioxide 25 mmol/L (23-31); Chloride 94 mmol/L (98-107); Estimated GFR 13; Glucose 229 mg/dL (83-110); Potassium 4.3 mmol/L (3.5-5.1); Sodium 133 mmol/L (136-145)
[2023-07-21] MEDS ORDERED: Heparin 10,000 UNITS/ 10 ML VIAL ONE (08:42)
[2023-07-21] MEDS: HumuLIN 70/30 100 Unit/ ml 10 ml Vial SC SCH (08:56)
[2023-07-21] MEDS: Cholecalciferol 1,000 UNITS (25 MCG) TAB PO SCH (08:57)
[2023-07-21] MEDS: Gabapentin 100 MG CAP PO SCH ×2 (08:57→21:11)
[2023-07-21] MEDS: Aspirin Chewable 81 MG TAB PO SCH (08:57)
[2023-07-21] MEDS: Midodrine HCl 5 MG TAB PO SCH ×3 (08:57→22:36)
[2023-07-21] MEDS: Polyethylene Glycol 3350 17 GM Packet PO SCH (08:58)
[2023-07-21] MEDS: Heparin 5,000 UNITS/ML VIAL SC SCH ×2 (08:58→21:11)
[2023-07-21] MEDS: DorzolamidE/Timolol 2%/0.5% Ophth Soln 10 ml Bottle R EYE SCH ×2 (10:23→21:48)
[2023-07-21] MEDS: HYDROcodone/Acetaminophen 10/325 mg Tablet PO PRN ×3 (10:35→21:10)
[2023-07-21] MEDS: Atorvastatin Calcium 40 MG TAB PO SCH (21:11)
[2023-07-22 04:15] LABS: #Monocytes 0.7 thou/uL (0.11-0.59); #Neutrophils 8.1 thou/uL (1.40-6.50); %Basophils 0.1 % (0.0-1.0); %Eosinophils 0.2 % (0.0-10.0); %Lymphocytes 10.9 % (21.0-51.0); %Monocytes 6.7 % (0.0-10.0); %Neutrophils 81.6 % (42.0-75.0); Hematocrit 25.4 % (42.0-52.0); Hemoglobin 8.6 g/dL (14.0-18.0); Mean Corpuscular HGB CONC 33.9 g/dL (32.0-36.0); Mean Corpuscular Hemoglobin 35.7 pg (27.0-31.0); Mean Corpuscular Volume 105.4 fl (78.0-98.0); Mean Platelet Volume 9.3 fL (7.4-10.4); Platelet Count 182 10x3/uL (130-400); RBC Distribution Width 14.4 % (11.5-14.5); Red Blood Cell (RBC) Count 2.41 mill/uL (4.70-6.10); White Blood Cell (WBC) Count 9.9 10x3/uL (4.8-10.8)
[2023-07-22 04:40] LABS: Anion Gap 20 mmol/L (10-20); BUN (Urea Nitrogen) 29 mg/dL (8.4-25.7); Calc. Creatinine Clearance 0 mL/min (70-130); Calcium 9.9 mg/dL (7.8-10.44); Carbon Dioxide 26 mmol/L (23-31); Chloride 95 mmol/L (98-107); Estimated GFR 14; Glucose 243 mg/dL (83-110); Potassium 3.9 mmol/L (3.5-5.1); Sodium 137 mmol/L (136-145)
[2023-07-22] MEDS: HumuLIN 70/30 100 Unit/ ml 10 ml Vial SC SCH (05:35)
[2023-07-22] MEDS: Hydrocortisone Sod Succ/PF 100 mg/2 ml Vial IVP SCH ×3 (06:13→15:33)
[2023-07-22] MEDS: Levothyroxine 150 MCG TAB PO SCH (06:13)
[2023-07-22] MEDS ORDERED: Ciprofloxacin Lactate/D5W 400 mg/200 ml Premix ONE (09:11)
[2023-07-22] MEDS ORDERED: Lidocaine 1% (PF) 30 ML VIAL ONE (09:11)
[2023-07-22] MEDS ORDERED: Gentamicin 80 MG/2 ML VIAL ONE (09:11)
[2023-07-22] MEDS: Aspirin Chewable 81 MG TAB PO SCH (09:15)
[2023-07-22] MEDS: Cholecalciferol 1,000 UNITS (25 MCG) TAB PO SCH (09:15)
[2023-07-22] MEDS: Heparin 5,000 UNITS/ML VIAL SC SCH ×2 (09:16→20:37)
[2023-07-22] MEDS: Midodrine HCl 5 MG TAB PO SCH ×3 (09:16→20:35)
[2023-07-22] MEDS: Polyethylene Glycol 3350 17 GM Packet PO SCH (09:16)
[2023-07-22] MEDS: Gabapentin 100 MG CAP PO SCH ×2 (09:16→20:35)
[2023-07-22] MEDS: DorzolamidE/Timolol 2%/0.5% Ophth Soln 10 ml Bottle R EYE SCH ×2 (09:23→22:30)
[2023-07-22] MEDS ORDERED: Heparin 10,000 UNITS/ 10 ML VIAL ONE (09:43)
[2023-07-22] MEDS ORDERED: Clindamycin/D5W 900 mg/50 ml Premix Bag ONE (09:50)
[2023-07-22] MEDS ORDERED: Fentanyl 250 MCG/5 ML VIAL ONE (09:52)
[2023-07-22] MEDS ORDERED: Midazolam HCl 2 mg/2 ml Vial ONE ×2 (09:53)
[2023-07-22] MEDS ORDERED: Dexmedetomidine 200 MCG/2 ML VIAL ONE (09:53)
[2023-07-22] MEDS ORDERED: Vasopressin 20 UNITS/ML VIAL ONE (09:53)
[2023-07-22] MEDS ORDERED: SUGAMMADEX SODIUM 200 MG/2 ML VIAL ONE (09:54)
[2023-07-22] MEDS ORDERED: Iopamidol 370 76% 100 ML VIAL ONE (10:05)
[2023-07-22] MEDS ORDERED: PHENYLEPHRINE-NS 100 MCG/ML 10 ML SYRINGE ONE (10:25)
[2023-07-22] MEDS: Atorvastatin Calcium 40 MG TAB PO SCH (20:34)
[2023-07-22] MEDS: HYDROcodone/Acetaminophen 10/325 mg Tablet PO PRN (20:36)
[2023-07-23] MEDS: Hydrocortisone Sod Succ/PF 100 mg/2 ml Vial IVP SCH ×4 (00:30→22:43)
[2023-07-23] MEDS: HYDROcodone/Acetaminophen 10/325 mg Tablet PO PRN ×4 (00:32→22:45)
[2023-07-23] MEDS: Levothyroxine 175 MCG TAB PO SCH (05:36)
[2023-07-23] MEDS: HumaLOG 300 UNITS/3 ML VIAL SC PRN ×2 (06:27→17:04)
[2023-07-23 07:18] LABS: #Monocytes 0.6 thou/uL (0.11-0.59); #Neutrophils 6.8 thou/uL (1.40-6.50); %Basophils 0.1 % (0.0-1.0); %Eosinophils 0.3 % (0.0-10.0); %Lymphocytes 13.9 % (21.0-51.0); %Neutrophils 78.5 % (42.0-75.0); Hematocrit 23.9 % (42.0-52.0); Mean Corpuscular HGB CONC 33.5 g/dL (32.0-36.0); Mean Corpuscular Hemoglobin 36.2 pg (27.0-31.0); Mean Corpuscular Volume 108.1 fl (78.0-98.0); Mean Platelet Volume 9.4 fL (7.4-10.4); Platelet Count 157 10x3/uL (130-400); Red Blood Cell (RBC) Count 2.21 mill/uL (4.70-6.10); White Blood Cell (WBC) Count 8.7 10x3/uL (4.8-10.8)
[2023-07-23 07:42] LABS: Anion Gap 17 mmol/L (10-20); BUN (Urea Nitrogen) 35 mg/dL (8.4-25.7); Calc. Creatinine Clearance 21 mL/min (70-130); Calcium 9.1 mg/dL (7.8-10.44); Carbon Dioxide 26 mmol/L (23-31); Chloride 101 mmol/L (98-107); Estimated GFR 16; Glucose 234 mg/dL (83-110); Potassium 4.1 mmol/L (3.5-5.1); Sodium 140 mmol/L (136-145)
[2023-07-23] MEDS: Midodrine HCl 5 MG TAB PO SCH ×3 (08:47→22:43)
[2023-07-23] MEDS: Polyethylene Glycol 3350 17 GM Packet PO SCH (08:47)
[2023-07-23] MEDS: Heparin 5,000 UNITS/ML VIAL SC SCH ×2 (08:47→22:47)
[2023-07-23] MEDS: Aspirin Chewable 81 MG TAB PO SCH (08:48)
[2023-07-23] MEDS: Gabapentin 100 MG CAP PO SCH ×2 (08:48→22:44)
[2023-07-23] MEDS: Cholecalciferol 1,000 UNITS (25 MCG) TAB PO SCH (08:48)
[2023-07-23] MEDS: DorzolamidE/Timolol 2%/0.5% Ophth Soln 10 ml Bottle R EYE SCH ×2 (08:49→22:46)
[2023-07-23] MEDS ORDERED: Albumin 25% 25 GM/100 ML BOT IVPB SCH (11:30)
[2023-07-23] MEDS: HumuLIN 70/30 100 Unit/ ml 10 ml Vial SC SCH (17:03)
[2023-07-23] MEDS: Atorvastatin Calcium 40 MG TAB PO SCH (22:44)
[2023-07-24] MEDS: Levothyroxine 175 MCG TAB PO SCH (05:47)
[2023-07-24] MEDS: HYDROcodone/Acetaminophen 10/325 mg Tablet PO PRN ×2 (07:55→17:59)
[2023-07-24] MEDS ORDERED: Heparin 10,000 UNITS/ 10 ML VIAL ONE (08:32)
[2023-07-24] MEDS: DorzolamidE/Timolol 2%/0.5% Ophth Soln 10 ml Bottle R EYE SCH ×2 (09:48→20:41)
[2023-07-24] MEDS: Gabapentin 100 MG CAP PO SCH ×2 (09:49→20:40)
[2023-07-24] MEDS: Heparin 5,000 UNITS/ML VIAL SC SCH ×2 (09:49→20:41)
[2023-07-24] MEDS: Midodrine HCl 5 MG TAB PO SCH ×3 (09:49→20:41)
[2023-07-24] MEDS: Aspirin Chewable 81 MG TAB PO SCH (09:49)
[2023-07-24] MEDS: Hydrocortisone Sod Succ/PF 100 mg/2 ml Vial IVP SCH ×2 (09:50→16:52)
[2023-07-24] MEDS: HumuLIN 70/30 100 Unit/ ml 10 ml Vial SC SCH (09:50)
[2023-07-24] MEDS: Polyethylene Glycol 3350 17 GM Packet PO SCH (10:03)
[2023-07-24] MEDS: HYDROcodone/Acetaminophen 5/325 mg Tablet PO PRN ×2 (12:57→20:57)
[2023-07-24] MEDS: Cholecalciferol 1,000 UNITS (25 MCG) TAB PO SCH (14:50)
[2023-07-24] MEDS: HumaLOG 300 UNITS/3 ML VIAL SC PRN ×2 (17:47→20:50)
[2023-07-24] MEDS: Atorvastatin Calcium 40 MG TAB PO SCH (20:40)
[2023-07-25] MEDS: Levothyroxine 175 MCG TAB PO SCH (05:44)
[2023-07-25] MEDS: HumaLOG 300 UNITS/3 ML VIAL SC PRN ×4 (06:48→21:10)
[2023-07-25] MEDS: HYDROcodone/Acetaminophen 10/325 mg Tablet PO PRN ×4 (08:09→23:59)
[2023-07-25] MEDS: Polyethylene Glycol 3350 17 GM Packet PO SCH (08:10)
[2023-07-25] MEDS: Aspirin Chewable 81 MG TAB PO SCH (08:10)
[2023-07-25] MEDS: Gabapentin 100 MG CAP PO SCH ×2 (08:10→20:18)
[2023-07-25] MEDS: Midodrine HCl 5 MG TAB PO SCH ×3 (08:10→20:18)
[2023-07-25] MEDS: HumuLIN 70/30 100 Unit/ ml 10 ml Vial SC SCH (08:12)
[2023-07-25] MEDS: DorzolamidE/Timolol 2%/0.5% Ophth Soln 10 ml Bottle R EYE SCH ×2 (08:12→20:19)
[2023-07-25] MEDS: Hydrocortisone Sod Succ/PF 100 mg/2 ml Vial IVP SCH ×4 (08:13→23:58)
[2023-07-25] MEDS: Cholecalciferol 1,000 UNITS (25 MCG) TAB PO SCH (08:14)
[2023-07-25] MEDS: Heparin 5,000 UNITS/ML VIAL SC SCH ×2 (08:15→20:19)
[2023-07-25] MEDS: Atorvastatin Calcium 40 MG TAB PO SCH (20:18)
[2023-07-26 04:21] LABS: #Monocytes 0.4 thou/uL (0.11-0.59); #Neutrophils 9.5 thou/uL (1.40-6.50); %Basophils 0.1 % (0.0-1.0); %Eosinophils 0.1 % (0.0-10.0); %Lymphocytes 8.7 % (21.0-51.0); %Monocytes 3.6 % (0.0-10.0); %Neutrophils 86.8 % (42.0-75.0); Hematocrit 25.3 % (42.0-52.0); Hemoglobin 8.5 g/dL (14.0-18.0); Mean Corpuscular HGB CONC 33.6 g/dL (32.0-36.0); Mean Corpuscular Hemoglobin 35.7 pg (27.0-31.0); Mean Corpuscular Volume 106.3 fl (78.0-98.0); Mean Platelet Volume 10.2 fL (7.4-10.4); Platelet Count 182 10x3/uL (130-400); RBC Distribution Width 14.8 % (11.5-14.5); Red Blood Cell (RBC) Count 2.38 mill/uL (4.70-6.10); White Blood Cell (WBC) Count 10.9 10x3/uL (4.8-10.8)
[2023-07-26 04:45] LABS: Anion Gap 20 mmol/L (10-20); BUN (Urea Nitrogen) 77 mg/dL (8.4-25.7); Calc. Creatinine Clearance 14 mL/min (70-130); Calcium 9.7 mg/dL (7.8-10.44); Carbon Dioxide 24 mmol/L (23-31); Chloride 94 mmol/L (98-107); Estimated GFR 10; Glucose 279 mg/dL (83-110); Potassium 5.1 mmol/L (3.5-5.1); Sodium 133 mmol/L (136-145)
[2023-07-26] MEDS: Levothyroxine 175 MCG TAB PO SCH (06:01)
[2023-07-26] MEDS: HumaLOG 300 UNITS/3 ML VIAL SC PRN (06:34)
[2023-07-26] MEDS ORDERED: Albumin 25% 25 GM/100 ML BOT IVPB PRN (08:26)
[2023-07-26] MEDS: Midodrine HCl 5 MG TAB PO SCH ×3 (12:08→20:37)
[2023-07-26] MEDS: HYDROcodone/Acetaminophen 10/325 mg Tablet PO PRN ×3 (12:08→20:38)
[2023-07-26] MEDS: Lidocaine 4% Patch TD SCH (12:08)
[2023-07-26] MEDS: Gabapentin 100 MG CAP PO SCH ×2 (12:09→20:38)
[2023-07-26] MEDS: Polyethylene Glycol 3350 17 GM Packet PO SCH (12:10)
[2023-07-26] MEDS: Hydrocortisone Sod Succ/PF 100 mg/2 ml Vial IVP SCH ×2 (12:10→23:23)
[2023-07-26] MEDS: Aspirin Chewable 81 MG TAB PO SCH (12:10)
[2023-07-26] MEDS: Heparin 5,000 UNITS/ML VIAL SC SCH ×2 (12:10→20:39)
[2023-07-26] MEDS: Cholecalciferol 1,000 UNITS (25 MCG) TAB PO SCH (12:10)
[2023-07-26] MEDS: HumuLIN 70/30 100 Unit/ ml 10 ml Vial SC SCH (12:40)
[2023-07-26] MEDS: DorzolamidE/Timolol 2%/0.5% Ophth Soln 10 ml Bottle R EYE SCH ×2 (12:41→20:39)
[2023-07-26] MEDS: Atorvastatin Calcium 40 MG TAB PO SCH (20:38)
[2023-07-26] MEDS ORDERED: Transdermal Patch Removal TOP SCH (21:00)
[2023-07-27] MEDS: HYDROcodone/Acetaminophen 10/325 mg Tablet PO PRN ×5 (01:28→23:40)
[2023-07-27 04:24] LABS: #Eosinphils 0.4 thou/uL (0.0-0.7); #Monocytes 0.6 thou/uL (0.11-0.59); #Neutrophils 6.8 thou/uL (1.40-6.50); %Basophils 0.1 % (0.0-1.0); %Eosinophils 4.3 % (0.0-10.0); %Lymphocytes 12.4 % (21.0-51.0); %Neutrophils 75.6 % (42.0-75.0); Hematocrit 25.2 % (42.0-52.0); Hemoglobin 8.3 g/dL (14.0-18.0); Mean Corpuscular HGB CONC 32.9 g/dL (32.0-36.0); Mean Corpuscular Hemoglobin 35.9 pg (27.0-31.0); Mean Corpuscular Volume 109.1 fl (78.0-98.0); Mean Platelet Volume 10.1 fL (7.4-10.4); Platelet Count 153 10x3/uL (130-400); RBC Distribution Width 15.7 % (11.5-14.5); Red Blood Cell (RBC) Count 2.31 mill/uL (4.70-6.10)
[2023-07-27 04:51] LABS: Anion Gap 20 mmol/L (10-20); BUN (Urea Nitrogen) 78 mg/dL (8.4-25.7); Calc. Creatinine Clearance 14 mL/min (70-130); Calcium 9.5 mg/dL (7.8-10.44); Carbon Dioxide 23 mmol/L (23-31); Chloride 95 mmol/L (98-107); Estimated GFR 10; Glucose 230 mg/dL (83-110); Potassium 4.9 mmol/L (3.5-5.1); Sodium 133 mmol/L (136-145)
[2023-07-27] MEDS: Levothyroxine 175 MCG TAB PO SCH (04:52)
[2023-07-27] MEDS: HumaLOG 300 UNITS/3 ML VIAL SC PRN ×2 (05:38→13:11)
[2023-07-27] MEDS ORDERED: Lidocaine 4% Patch TD SCH (09:30)
[2023-07-27] MEDS: DorzolamidE/Timolol 2%/0.5% Ophth Soln 10 ml Bottle R EYE SCH ×2 (09:41→20:12)
[2023-07-27] MEDS: HumuLIN 70/30 100 Unit/ ml 10 ml Vial SC SCH (09:42)
[2023-07-27] MEDS: Midodrine HCl 5 MG TAB PO SCH ×3 (09:43→19:50)
[2023-07-27] MEDS: Gabapentin 100 MG CAP PO SCH ×2 (09:43→19:50)
[2023-07-27] MEDS: Polyethylene Glycol 3350 17 GM Packet PO SCH (09:43)
[2023-07-27] MEDS: Aspirin Chewable 81 MG TAB PO SCH (09:43)
[2023-07-27] MEDS: Heparin 5,000 UNITS/ML VIAL SC SCH ×2 (09:44→19:51)
[2023-07-27] MEDS: Cholecalciferol 1,000 UNITS (25 MCG) TAB PO SCH (09:44)
[2023-07-27] MEDS ORDERED: Metoclopramide HCl 10 MG/2 ML VIAL IVP PRN (11:00)
[2023-07-27] MEDS: Lidocaine 4% Patch TD SCH (11:38)
[2023-07-27] MEDS: Hydrocortisone Sod Succ/PF 100 mg/2 ml Vial IVP SCH ×2 (13:08→22:24)
[2023-07-27] MEDS ORDERED: Fludrocortisone Acetate 0.1 MG TAB PO SCH (17:30)
[2023-07-27] MEDS: Atorvastatin Calcium 40 MG TAB PO SCH (19:50)
[2023-07-27] MEDS ORDERED: Sodium Chloride 0.9% 500 ML IV SCH (20:00)
[2023-07-27] MEDS: Transdermal Patch Removal TOP SCH (20:13)
[2023-07-27] MEDS: Epoetin (ESRD) 10,000 UNITS/ML VIAL SC SCH (22:23)
[2023-07-28] MEDS: HYDROcodone/Acetaminophen 10/325 mg Tablet PO PRN ×4 (03:42→20:45)
[2023-07-28] MEDS: Levothyroxine 175 MCG TAB PO SCH (04:46)
[2023-07-28] MEDS: HumaLOG 300 UNITS/3 ML VIAL SC PRN ×3 (05:53→21:47)
[2023-07-28 06:09] LABS: #Eosinphils 0.1 thou/uL (0.0-0.7); #Monocytes 1.5 thou/uL (0.11-0.59); #Neutrophils 11.1 thou/uL (1.40-6.50); %Basophils 0.1 % (0.0-1.0); %Lymphocytes 10.1 % (21.0-51.0); %Monocytes 10.6 % (0.0-10.0); %Neutrophils 77.9 % (42.0-75.0); Hematocrit 26.8 % (42.0-52.0); Hemoglobin 8.7 g/dL (14.0-18.0); Mean Corpuscular HGB CONC 32.5 g/dL (32.0-36.0); Mean Corpuscular Hemoglobin 35.8 pg (27.0-31.0); Mean Corpuscular Volume 110.3 fl (78.0-98.0); Mean Platelet Volume 10.1 fL (7.4-10.4); Platelet Count 132 10x3/uL (130-400); RBC Distribution Width 15.5 % (11.5-14.5); Red Blood Cell (RBC) Count 2.43 mill/uL (4.70-6.10); White Blood Cell (WBC) Count 14.3 10x3/uL (4.8-10.8)
[2023-07-28 06:30] LABS: Anion Gap 19 mmol/L (10-20); BUN (Urea Nitrogen) 106 mg/dL (8.4-25.7); Calc. Creatinine Clearance 11 mL/min (70-130); Calcium 9.6 mg/dL (7.8-10.44); Carbon Dioxide 23 mmol/L (23-31); Chloride 92 mmol/L (98-107); Estimated GFR 8; Glucose 234 mg/dL (83-110); Potassium 5.6 mmol/L (3.5-5.1); Sodium 128 mmol/L (136-145)
[2023-07-28 06:39] LABS: Anisocytosis SLIGHT = 6-15 cells HPF (0-5); CellaVision Operator ID lab.sh2; Hypochromia MODERATE=16-30 cells HPF (0-5); Macrocytosis MODERATE=16-30 cells HPF (0-5); Platelet Adequacy Comment Platelets Normal; Polychromasia SLIGHT = 2-3 cells HPF (0-2); Vacuoles SLIGHT
[2023-07-28] MEDS: Fludrocortisone Acetate 0.1 MG TAB PO SCH (07:27)
[2023-07-28] MEDS: Lidocaine 4% Patch TD SCH (07:33)
[2023-07-28] MEDS: Polyethylene Glycol 3350 17 GM Packet PO SCH (07:34)
[2023-07-28] MEDS: Gabapentin 100 MG CAP PO SCH ×2 (07:34→20:18)
[2023-07-28] MEDS: Cholecalciferol 1,000 UNITS (25 MCG) TAB PO SCH (07:34)
[2023-07-28] MEDS: Midodrine HCl 5 MG TAB PO SCH ×3 (07:34→20:18)
[2023-07-28] MEDS: Aspirin Chewable 81 MG TAB PO SCH (07:35)
[2023-07-28] MEDS: DorzolamidE/Timolol 2%/0.5% Ophth Soln 10 ml Bottle R EYE SCH ×2 (07:35→20:18)
[2023-07-28] MEDS: Heparin 5,000 UNITS/ML VIAL SC SCH ×2 (07:36→20:19)
[2023-07-28] MEDS: HumuLIN 70/30 100 Unit/ ml 10 ml Vial SC SCH (07:36)
[2023-07-28] MEDS: Hydrocortisone Sod Succ/PF 100 mg/2 ml Vial IVP SCH ×2 (10:05→23:51)
[2023-07-28] MEDS ORDERED: Hydrocortisone Sod Succ/PF 100 mg/2 ml Vial IVP SCH ×2 (12:00)
[2023-07-28] MEDS: Atorvastatin Calcium 40 MG TAB PO SCH (20:19)
[2023-07-28] MEDS: Transdermal Patch Removal TOP SCH (20:50)
[2023-07-29] MEDS: HYDROcodone/Acetaminophen 10/325 mg Tablet PO PRN (01:03)
[2023-07-29 04:39] LABS: #Monocytes 1.5 thou/uL (0.11-0.59); #Neutrophils 12.5 thou/uL (1.40-6.50); %Basophils 0.1 % (0.0-1.0); %Eosinophils 0.2 % (0.0-10.0); %Lymphocytes 6.1 % (21.0-51.0); %Monocytes 9.9 % (0.0-10.0); %Neutrophils 82.6 % (42.0-75.0); Hematocrit 23.2 % (42.0-52.0); Hemoglobin 7.6 g/dL (14.0-18.0); Mean Corpuscular HGB CONC 32.8 g/dL (32.0-36.0); Mean Platelet Volume 10.3 fL (7.4-10.4); Platelet Count 124 10x3/uL (130-400); RBC Distribution Width 15.6 % (11.5-14.5); Red Blood Cell (RBC) Count 2.11 mill/uL (4.70-6.10); White Blood Cell (WBC) Count 15.2 10x3/uL (4.8-10.8)
[2023-07-29] MEDS: HumaLOG 300 UNITS/3 ML VIAL SC PRN ×4 (05:07→22:46)
[2023-07-29] MEDS: Levothyroxine 175 MCG TAB PO SCH (05:07)
[2023-07-29 05:11] LABS: Anion Gap 23 mmol/L (10-20); BUN (Urea Nitrogen) 96 mg/dL (8.4-25.7); Calc. Creatinine Clearance 13 mL/min (70-130); Calcium 9.5 mg/dL (7.8-10.44); Carbon Dioxide 19 mmol/L (23-31); Chloride 93 mmol/L (98-107); Estimated GFR 9; Glucose 280 mg/dL (83-110); Potassium 5.7 mmol/L (3.5-5.1); Sodium 129 mmol/L (136-145)
[2023-07-29] MEDS ORDERED: EPINEPHrine 1 MG/10 ML Abboject SYRINGE ONE (07:44)
[2023-07-29] MEDS ORDERED: Calcium Chloride 1 GM/10 ML Abboject SYRINGE ONE (07:44)
[2023-07-29] MEDS ORDERED: Amiodarone 150 MG/3 ML VIAL ONE (07:44)
[2023-07-29] MEDS ORDERED: Sodium Bicarb 50 MEQ/50 ML Abboject 8.4% SYRINGE ONE (07:44)
[2023-07-29 08:18] LABS: Actual Bicarbonate (HCO3a) 15.1 mEq/L (22-28); Base Excess (BEa) -11.1 mEq/L (-2.0 to +3.0); CO2 Tension 34.7 mmHg (35.0-45.0); Calcium, Ionized (arterial) 1.31 mmol/L (1.12-1.30); Carboxyhemoglobin (COHb) 0.8 gm% (0.0-3.0); Hematocrit-ABG 28 % (42.0-52.0); Hemoglobin (Hb) 9.5 g/dL (14.0-18.0); O2 Tension (PaO2), arterial 191.4 mmHg (> 70.0); pH, Arterial 7.256 (7.35-7.45)
[2023-07-29 08:20] LABS: ALV-art Gradient 478.225 mmHg (0-20); Potassium - ABG Lab 6.38 mmol/L (3.70-5.30); Puncture Site RBA
[2023-07-29] MEDS ORDERED: DOPamine 400 MG/D5W 250 ML 250 ML ONE (08:41)
[2023-07-29 09:17] LABS: Hematocrit 26.6 % (42.0-52.0); Hemoglobin 8.4 g/dL (14.0-18.0); Mean Corpuscular HGB CONC 31.6 g/dL (32.0-36.0); Mean Corpuscular Hemoglobin 36.2 pg (27.0-31.0); Mean Platelet Volume 10.9 fL (7.4-10.4); Platelet Count 124 10x3/uL (130-400); RBC Distribution Width 16.1 % (11.5-14.5); Red Blood Cell (RBC) Count 2.32 mill/uL (4.70-6.10)
[2023-07-29 09:30] LABS: Delete Auto Diff?? YES; Manual Diff?? YES; Mean Corpuscular Volume 114.7 fl (78.0-98.0)
[2023-07-29] MEDS ORDERED: Amiodarone 450 MG, Admixture Fee 1 EACH in Dextrose 5% in Water 250 ML IVPB SCH (09:30)
[2023-07-29] MEDS: HumuLIN 70/30 100 Unit/ ml 10 ml Vial SC SCH (09:37)
[2023-07-29 09:50] LABS: Anion Gap 25 mmol/L (10-20); BUN (Urea Nitrogen) 97 mg/dL (8.4-25.7); Calc. Creatinine Clearance 12 mL/min (70-130); Carbon Dioxide 19 mmol/L (23-31); Chloride 90 mmol/L (98-107); Estimated GFR 8; Glucose 342 mg/dL (83-110); Potassium 5.3 mmol/L (3.5-5.1); Sodium 129 mmol/L (136-145)
[2023-07-29] MEDS ORDERED: Sodium Chloride 0.9% 1,000 ML IV SCH (10:00)
[2023-07-29] MEDS: Aspirin Chewable 81 MG TAB PO SCH (10:42)
[2023-07-29] MEDS: Gabapentin 100 MG CAP PO SCH ×2 (10:42→20:56)
[2023-07-29] MEDS: Cholecalciferol 1,000 UNITS (25 MCG) TAB PO SCH (10:42)
[2023-07-29] MEDS: Fludrocortisone Acetate 0.1 MG TAB PO SCH (10:42)
[2023-07-29] MEDS: DorzolamidE/Timolol 2%/0.5% Ophth Soln 10 ml Bottle R EYE SCH (10:42)
[2023-07-29] MEDS: Lidocaine 4% Patch TD SCH (10:43)
[2023-07-29] MEDS: Heparin 5,000 UNITS/ML VIAL SC SCH ×2 (10:43→20:57)
[2023-07-29] MEDS: Midodrine HCl 5 MG TAB PO SCH ×3 (10:43→20:57)
[2023-07-29] MEDS: Polyethylene Glycol 3350 17 GM Packet PO SCH (10:44)
[2023-07-29] MEDS: Sodium Chloride 0.9% 1,000 ML IV SCH (10:45)
[2023-07-29] MEDS: DOPamine 400 MG/D5W 250 ML 250 ML IVPB SCH (10:46)
[2023-07-29 10:51] LABS: Band 3 % (5-11); Burr Cells SLIGHT = 2-5 cells HPF (0-1); CellaVision Operator ID LAB.GE; Lymphocytes 12 % (21-51); Monocytes 6 % (0-10); Neutrophil 79 % (42-75); Nucleated RBC (Manual Ct) 1 % (0); Platelet Adequacy Comment Platelets Decreased; Polychromasia SLIGHT = 2-3 cells HPF (0-2); Total Cell Count 101
[2023-07-29] MEDS: Hydrocortisone Sod Succ/PF 100 mg/2 ml Vial IVP SCH (11:04)
[2023-07-29 12:54] LABS: #Monocytes 1.4 thou/uL (0.11-0.59); #Neutrophils 12.4 thou/uL (1.40-6.50); %Basophils 0.1 % (0.0-1.0); %Eosinophils 0.2 % (0.0-10.0); %Monocytes 9.5 % (0.0-10.0); %Neutrophils 83.1 % (42.0-75.0); Hematocrit 26.2 % (42.0-52.0); Hemoglobin 9.1 g/dL (14.0-18.0); Mean Corpuscular HGB CONC 34.7 g/dL (32.0-36.0); Mean Corpuscular Hemoglobin 36.7 pg (27.0-31.0); Mean Platelet Volume 10.3 fL (7.4-10.4); Platelet Count 127 10x3/uL (130-400); RBC Distribution Width 15.4 % (11.5-14.5); Red Blood Cell (RBC) Count 2.48 mill/uL (4.70-6.10)
[2023-07-29 13:05] LABS: Mean Corpuscular Volume 105.6 fl (78.0-98.0)
[2023-07-29 13:21] LABS: Anion Gap 22 mmol/L (10-20); BUN (Urea Nitrogen) 102 mg/dL (8.4-25.7); Calc. Creatinine Clearance 13 mL/min (70-130); Calcium 9.8 mg/dL (7.8-10.44); Carbon Dioxide 20 mmol/L (23-31); Chloride 91 mmol/L (98-107); Estimated GFR 9; Glucose 341 mg/dL (83-110); Sodium 128 mmol/L (136-145)
[2023-07-29 13:33] LABS: Troponin I 0.617 ng/mL (< 0.028)
[2023-07-29] MEDS: Atorvastatin Calcium 40 MG TAB PO SCH (20:56)
[2023-07-29] MEDS: Transdermal Patch Removal TOP SCH (22:44)
[2023-07-30] MEDS ORDERED: Ventilator Sedation Protocol 1 EACH FS SCH (00:15)
[2023-07-30] MEDS ORDERED: Propofol 1,000 MG/100 ML VIAL IV PRN (00:30)
[2023-07-30] MEDS ORDERED: Lorazepam 2 MG/ML VIAL SLOW IVP PRN (00:30)
[2023-07-30] MEDS ORDERED: Fentanyl BOLUS 250 ML IVPB PRN (00:30)
[2023-07-30] MEDS ORDERED: Fentanyl CADD 100 ML IV SCH (00:30)
[2023-07-30] MEDS ORDERED: DISCONTINUE PREVIOUS NARCOTIC PAIN MEDICATIONS AND BENZODIAZEPINES FS SCH (00:30)
[2023-07-30] MEDS ORDERED: Morphine 2 MG/ML VIAL SLOW IVP PRN (00:30)
[2023-07-30] MEDS ORDERED: Propofol BOLUS 1,000 MG/100 ML VIAL IV PRN (00:30)
[2023-07-30] MEDS: DorzolamidE/Timolol 2%/0.5% Ophth Soln 10 ml Bottle R EYE SCH ×3 (00:41→21:12)
[2023-07-30] MEDS: Hydrocortisone Sod Succ/PF 100 mg/2 ml Vial IVP SCH ×3 (00:42→23:22)
[2023-07-30] MEDS: DOPamine 400 MG/D5W 250 ML 250 ML IVPB SCH ×2 (00:43→15:36)
[2023-07-30 00:50] LABS: Troponin I 1.676 ng/mL (< 0.028)
[2023-07-30 04:34] LABS: #Neutrophils 11.4 thou/uL (1.40-6.50); %Basophils 0.1 % (0.0-1.0); %Eosinophils 0.1 % (0.0-10.0); %Lymphocytes 7.1 % (21.0-51.0); %Monocytes 7.3 % (0.0-10.0); %Neutrophils 84.7 % (42.0-75.0); Hematocrit 24.4 % (42.0-52.0); Hemoglobin 8.6 g/dL (14.0-18.0); Mean Corpuscular HGB CONC 35.2 g/dL (32.0-36.0); Mean Corpuscular Hemoglobin 35.8 pg (27.0-31.0); Mean Platelet Volume 10.8 fL (7.4-10.4); Platelet Count 128 10x3/uL (130-400); RBC Distribution Width 15.7 % (11.5-14.5); White Blood Cell (WBC) Count 13.5 10x3/uL (4.8-10.8)
[2023-07-30 04:43] LABS: Mean Corpuscular Volume 101.7 fl (78.0-98.0)
[2023-07-30 05:01] LABS: ALT (SGPT) 115 U/L (8-55); AST (SGOT) 94 U/L (5-34); Albumin 4.2 g/dL (3.4-4.8); Alkaline Phosphatase 213 U/L (40-110); Anion Gap 24 mmol/L (10-20); BUN (Urea Nitrogen) 117 mg/dL (8.4-25.7); Bilirubin, Total 0.4 mg/dL (0.2-1.2); Calc. Creatinine Clearance 11 mL/min (70-130); Calcium 9.7 mg/dL (7.8-10.44); Carbon Dioxide 18 mmol/L (23-31); Chloride 94 mmol/L (98-107); Estimated GFR 8; Globulin 2.1 g/dL (2.4-3.5); Glucose 247 mg/dL (83-110); Potassium 5.5 mmol/L (3.5-5.1); Protein, Total 6.3 g/dL (5.8-8.1); Sodium 130 mmol/L (136-145)
[2023-07-30] MEDS: HumaLOG 300 UNITS/3 ML VIAL SC PRN ×2 (05:20→22:59)
[2023-07-30] MEDS: Sodium Chloride 0.9% 1,000 ML IV SCH (06:09)
[2023-07-30] MEDS: Levothyroxine 175 MCG TAB PO SCH (06:09)
[2023-07-30] MEDS: Cholecalciferol 1,000 UNITS (25 MCG) TAB PO SCH (11:32)
[2023-07-30] MEDS: HumuLIN 70/30 100 Unit/ ml 10 ml Vial SC SCH (11:32)
[2023-07-30] MEDS: Fludrocortisone Acetate 0.1 MG TAB PO SCH (11:32)
[2023-07-30] MEDS: Aspirin Chewable 81 MG TAB PO SCH (11:32)
[2023-07-30] MEDS: Lidocaine 4% Patch TD SCH (11:33)
[2023-07-30] MEDS: Midodrine HCl 5 MG TAB PO SCH ×3 (11:33→21:03)
[2023-07-30] MEDS: Heparin 5,000 UNITS/ML VIAL SC SCH ×2 (11:33→22:57)
[2023-07-30] MEDS: Gabapentin 100 MG CAP PO SCH ×2 (11:33→21:03)
[2023-07-30] MEDS: Polyethylene Glycol 3350 17 GM Packet PO SCH (11:33)
[2023-07-30] MEDS ORDERED: Lorazepam 2 MG/ML VIAL SLOW IVP SCH (16:45)
[2023-07-30] MEDS: Fosphenytoin Sodium 100 MG in Sodium Chloride 0.9% 50 ML IVPB SCH (18:16)
[2023-07-30] MEDS: Transdermal Patch Removal TOP SCH (21:03)
[2023-07-30] MEDS: Atorvastatin Calcium 40 MG TAB PO SCH (21:03)
[2023-07-31] MEDS: Fosphenytoin Sodium 100 MG in Sodium Chloride 0.9% 50 ML IVPB SCH ×3 (02:43→19:21)
[2023-07-31] MEDS: Sodium Chloride 0.9% 1,000 ML IV SCH ×2 (02:44→20:22)
[2023-07-31] MEDS: HumaLOG 300 UNITS/3 ML VIAL SC PRN (03:57)
[2023-07-31 04:02] LABS: #Neutrophils 12.1 thou/uL (1.40-6.50); %Basophils 0.1 % (0.0-1.0); %Lymphocytes 4.9 % (21.0-51.0); %Monocytes 7.4 % (0.0-10.0); %Neutrophils 87.2 % (42.0-75.0); Hematocrit 23.3 % (42.0-52.0); Hemoglobin 8.3 g/dL (14.0-18.0); Mean Corpuscular HGB CONC 35.6 g/dL (32.0-36.0); Mean Corpuscular Hemoglobin 36.4 pg (27.0-31.0); Mean Corpuscular Volume 102.2 fl (78.0-98.0); Mean Platelet Volume 10.1 fL (7.4-10.4); Platelet Count 128 10x3/uL (130-400); RBC Distribution Width 16.4 % (11.5-14.5); Red Blood Cell (RBC) Count 2.28 mill/uL (4.70-6.10); White Blood Cell (WBC) Count 13.9 10x3/uL (4.8-10.8)
[2023-07-31 04:45] LABS: ALT (SGPT) 86 U/L (8-55); AST (SGOT) 66 U/L (5-34); Albumin 3.8 g/dL (3.4-4.8); Alkaline Phosphatase 182 U/L (40-110); Anion Gap 27 mmol/L (10-20); Bilirubin, Total 0.6 mg/dL (0.2-1.2); Calc. Creatinine Clearance 12 mL/min (70-130); Calcium 9.6 mg/dL (7.8-10.44); Carbon Dioxide 17 mmol/L (23-31); Chloride 96 mmol/L (98-107); Estimated GFR 7; Globulin 2.3 g/dL (2.4-3.5); Glucose 224 mg/dL (83-110); Potassium 5.6 mmol/L (3.5-5.1); Protein, Total 6.1 g/dL (5.8-8.1); Sodium 134 mmol/L (136-145)
[2023-07-31 04:58] LABS: BUN (Urea Nitrogen) 123 mg/dL (8.4-25.7)
[2023-07-31] MEDS: Levothyroxine 175 MCG TAB PO SCH (05:45)
[2023-07-31] MEDS: DOPamine 400 MG/D5W 250 ML 250 ML IVPB SCH ×2 (05:46→20:22)
[2023-07-31 06:52] LABS: Actual Bicarbonate (HCO3a) 18.4 mEq/L (22-28); Base Excess (BEa) -3.4 mEq/L (-2.0 to +3.0); Carboxyhemoglobin (COHb) 0.6 gm% (0.0-3.0); Hematocrit-ABG 26 % (42.0-52.0); Hemoglobin (Hb) 8.9 g/dL (14.0-18.0); O2 Tension (PaO2), arterial 86.1 mmHg (> 70.0); Potassium - ABG Lab 5.17 mmol/L (3.70-5.30); pH, Arterial 7.521 (7.35-7.45)
[2023-07-31 07:38] LABS: Puncture Site LRA
[2023-07-31] MEDS: HumuLIN 70/30 100 Unit/ ml 10 ml Vial SC SCH (08:02)
[2023-07-31] MEDS ORDERED: Heparin 10,000 UNITS/ 10 ML VIAL ONE (08:26)
[2023-07-31] MEDS: Gabapentin 100 MG CAP PO SCH ×2 (08:28→20:22)
[2023-07-31] MEDS: Aspirin Chewable 81 MG TAB PO SCH (08:28)
[2023-07-31] MEDS: DorzolamidE/Timolol 2%/0.5% Ophth Soln 10 ml Bottle R EYE SCH ×2 (08:29→20:40)
[2023-07-31] MEDS: Fludrocortisone Acetate 0.1 MG TAB PO SCH (08:29)
[2023-07-31] MEDS: Midodrine HCl 5 MG TAB PO SCH ×3 (08:29→22:03)
[2023-07-31] MEDS: Cholecalciferol 1,000 UNITS (25 MCG) TAB PO SCH (08:33)
[2023-07-31] MEDS: Lidocaine 4% Patch TD SCH (08:33)
[2023-07-31] MEDS: Heparin 5,000 UNITS/ML VIAL SC SCH ×2 (08:33→20:23)
[2023-07-31] MEDS: Polyethylene Glycol 3350 17 GM Packet PO SCH (08:34)
[2023-07-31] MEDS: Albumin 25% 25 GM/100 ML BOT IVPB SCH ×2 (09:26→10:15)
[2023-07-31] MEDS: Hydrocortisone Sod Succ/PF 100 mg/2 ml Vial IVP SCH ×2 (11:14→23:21)
[2023-07-31] MEDS: Atorvastatin Calcium 40 MG TAB PO SCH (20:23)
[2023-07-31] MEDS: Pantoprazole 40 MG VIAL IVP SCH (20:23)
[2023-07-31] MEDS: Transdermal Patch Removal TOP SCH (22:03)
[2023-08-01] MEDS: Fosphenytoin Sodium 100 MG in Sodium Chloride 0.9% 50 ML IVPB SCH ×3 (02:26→17:11)
[2023-08-01 05:59] LABS: #Monocytes 1.1 thou/uL (0.11-0.59); #Neutrophils 9.3 thou/uL (1.40-6.50); %Basophils 0.1 % (0.0-1.0); %Eosinophils 0.2 % (0.0-10.0); %Lymphocytes 6.1 % (21.0-51.0); %Neutrophils 83.1 % (42.0-75.0); Hematocrit 23.8 % (42.0-52.0); Mean Corpuscular HGB CONC 33.6 g/dL (32.0-36.0); Mean Corpuscular Hemoglobin 34.6 pg (27.0-31.0); Mean Platelet Volume 9.7 fL (7.4-10.4); Platelet Count 124 10x3/uL (130-400); RBC Distribution Width 16.3 % (11.5-14.5); Red Blood Cell (RBC) Count 2.31 mill/uL (4.70-6.10); White Blood Cell (WBC) Count 11.1 10x3/uL (4.8-10.8)
[2023-08-01 06:19] LABS: ALT (SGPT) 90 U/L (8-55); AST (SGOT) 105 U/L (5-34); Albumin 4.1 g/dL (3.4-4.8); Alkaline Phosphatase 162 U/L (40-110); Anion Gap 20 mmol/L (10-20); BUN (Urea Nitrogen) 84 mg/dL (8.4-25.7); Bilirubin, Total 0.7 mg/dL (0.2-1.2); Calc. Creatinine Clearance 16 mL/min (70-130); Calcium 9.5 mg/dL (7.8-10.44); Carbon Dioxide 22 mmol/L (23-31); Chloride 96 mmol/L (98-107); Estimated GFR 10; Glucose 194 mg/dL (83-110); Potassium 4.7 mmol/L (3.5-5.1); Protein, Total 6.1 g/dL (5.8-8.1); Sodium 133 mmol/L (136-145)
[2023-08-01] MEDS: Levothyroxine 175 MCG TAB PO SCH (06:48)
[2023-08-01] MEDS: HumaLOG 300 UNITS/3 ML VIAL SC PRN ×2 (06:48→11:09)
[2023-08-01] MEDS: Gabapentin 100 MG CAP PO SCH ×2 (09:26→21:13)
[2023-08-01] MEDS: Cholecalciferol 1,000 UNITS (25 MCG) TAB PO SCH (09:27)
[2023-08-01] MEDS: Midodrine HCl 5 MG TAB PO SCH ×3 (09:27→20:58)
[2023-08-01] MEDS: Aspirin Chewable 81 MG TAB PO SCH (09:27)
[2023-08-01] MEDS: Heparin 5,000 UNITS/ML VIAL SC SCH ×2 (09:28→20:59)
[2023-08-01] MEDS: DorzolamidE/Timolol 2%/0.5% Ophth Soln 10 ml Bottle R EYE SCH ×2 (09:28→21:12)
[2023-08-01] MEDS: Pantoprazole 40 MG VIAL IVP SCH ×2 (09:28→21:03)
[2023-08-01] MEDS: Polyethylene Glycol 3350 17 GM Packet PO SCH (09:29)
[2023-08-01] MEDS: HumuLIN 70/30 100 Unit/ ml 10 ml Vial SC SCH (09:34)
[2023-08-01] MEDS: Fludrocortisone Acetate 0.1 MG TAB PO SCH (09:35)
[2023-08-01] MEDS: Lidocaine 4% Patch TD SCH (09:35)
[2023-08-01] MEDS: DOPamine 400 MG/D5W 250 ML 250 ML IVPB SCH (10:31)
[2023-08-01] MEDS: Hydrocortisone Sod Succ/PF 100 mg/2 ml Vial IVP SCH ×2 (12:01→23:25)
[2023-08-01] MEDS: Sodium Chloride 0.9% 1,000 ML IV SCH (17:12)
[2023-08-01] MEDS: Transdermal Patch Removal TOP SCH (21:17)
[2023-08-02] MEDS: DOPamine 400 MG/D5W 250 ML 250 ML IVPB SCH ×2 (00:46→14:51)
[2023-08-02] MEDS: Fosphenytoin Sodium 100 MG in Sodium Chloride 0.9% 50 ML IVPB SCH ×3 (01:45→17:52)
[2023-08-02] MEDS: HumaLOG 300 UNITS/3 ML VIAL SC PRN ×2 (04:03→21:13)
[2023-08-02] MEDS: Levothyroxine 175 MCG TAB PO SCH (05:16)
[2023-08-02] MEDS: HumuLIN 70/30 100 Unit/ ml 10 ml Vial SC SCH (06:34)
[2023-08-02] MEDS ORDERED: Albumin 25% 25 GM/100 ML BOT IVPB SCH (08:00)
[2023-08-02] MEDS: Fludrocortisone Acetate 0.1 MG TAB PO SCH (08:24)
[2023-08-02] MEDS: DorzolamidE/Timolol 2%/0.5% Ophth Soln 10 ml Bottle R EYE SCH ×2 (08:24→20:57)
[2023-08-02] MEDS: Heparin 5,000 UNITS/ML VIAL SC SCH ×2 (08:25→20:56)
[2023-08-02] MEDS: Gabapentin 300 MG CAP PO SCH ×2 (08:25→20:55)
[2023-08-02] MEDS: Midodrine HCl 5 MG TAB PO SCH ×3 (08:25→20:56)
[2023-08-02] MEDS: Pantoprazole 40 MG VIAL IVP SCH ×2 (08:26→20:56)
[2023-08-02] MEDS: Polyethylene Glycol 3350 17 GM Packet PO SCH (08:27)
[2023-08-02] MEDS: Lidocaine 4% Patch TD SCH (08:27)
[2023-08-02] MEDS: Cholecalciferol 1,000 UNITS (25 MCG) TAB PO SCH (08:27)
[2023-08-02] MEDS: Aspirin Chewable 81 MG TAB PO SCH (08:27)
[2023-08-02] MEDS: Hydrocortisone Sod Succ/PF 100 mg/2 ml Vial IVP SCH (11:53)
[2023-08-02] MEDS: Transdermal Patch Removal TOP SCH (20:57)
[2023-08-03] MEDS: Hydrocortisone Sod Succ/PF 100 mg/2 ml Vial IVP SCH ×3 (00:20→23:36)
[2023-08-03] MEDS ORDERED: NOREPINEPHRINE 8 MG/250 ML-D5W 0 ML ONE (01:33)
[2023-08-03] MEDS: Fosphenytoin Sodium 100 MG in Sodium Chloride 0.9% 50 ML IVPB SCH ×3 (02:46→16:31)
[2023-08-03] MEDS: HumaLOG 300 UNITS/3 ML VIAL SC PRN ×4 (04:39→21:11)
[2023-08-03] MEDS: Levothyroxine 175 MCG TAB PO SCH (05:49)
[2023-08-03] MEDS: DOPamine 400 MG/D5W 250 ML 250 ML IVPB SCH ×2 (05:50→16:33)
[2023-08-03] MEDS: HumuLIN 70/30 100 Unit/ ml 10 ml Vial SC SCH (06:38)
[2023-08-03] MEDS: Aspirin Chewable 81 MG TAB PO SCH (08:26)
[2023-08-03] MEDS: Gabapentin 300 MG CAP PO SCH ×2 (08:27→20:56)
[2023-08-03] MEDS: Heparin 5,000 UNITS/ML VIAL SC SCH ×2 (08:27→20:57)
[2023-08-03] MEDS: Pantoprazole 40 MG VIAL IVP SCH ×2 (08:27→20:58)
[2023-08-03] MEDS: Midodrine HCl 5 MG TAB PO SCH ×3 (08:27→20:57)
[2023-08-03] MEDS: Fludrocortisone Acetate 0.1 MG TAB PO SCH (08:27)
[2023-08-03] MEDS: Cholecalciferol 1,000 UNITS (25 MCG) TAB PO SCH (08:27)
[2023-08-03] MEDS: Polyethylene Glycol 3350 17 GM Packet PO SCH (08:28)
[2023-08-03] MEDS: Lidocaine 4% Patch TD SCH (08:28)
[2023-08-03] MEDS: DorzolamidE/Timolol 2%/0.5% Ophth Soln 10 ml Bottle R EYE SCH ×2 (08:31→20:56)
[2023-08-03] MEDS: Transdermal Patch Removal TOP SCH (20:58)
[2023-08-03] MEDS: Epoetin (ESRD) 10,000 UNITS/ML VIAL SC SCH (22:10)
[2023-08-04] MEDS: Fosphenytoin Sodium 100 MG in Sodium Chloride 0.9% 50 ML IVPB SCH ×3 (02:19→17:35)
[2023-08-04] MEDS: HumaLOG 300 UNITS/3 ML VIAL SC PRN ×2 (04:04→17:05)
[2023-08-04] MEDS: Levothyroxine 175 MCG TAB PO SCH (05:41)
[2023-08-04] MEDS: HumuLIN 70/30 100 Unit/ ml 10 ml Vial SC SCH (08:00)
[2023-08-04] MEDS: Lidocaine 4% Patch TD SCH (09:00)
[2023-08-04 09:34] LABS: Base Excess -4.8 mEq/L (-2.0 to +3.0); Calcium, Ionized (venous) 1.13 mmol/L (1.16-1.32); Chloride (VBG) 92 mmol/L (98-106); Hematocrit-VBG 27 % (42.0-52.0); Hemoglobin (Hb) 9.3 g/dL (12.6-17.4); Potassium (VBG) 4.91 mmol/L (3.70-5.30); Sodium 130 mmol/L (133-146); pH (venous) 7.318 (7.32-7.43)
[2023-08-04] MEDS: Fludrocortisone Acetate 0.1 MG TAB PO SCH (10:31)
[2023-08-04] MEDS: Cholecalciferol 1,000 UNITS (25 MCG) TAB PO SCH (10:31)
[2023-08-04] MEDS: Midodrine HCl 5 MG TAB PO SCH ×3 (10:31→22:40)
[2023-08-04] MEDS: Gabapentin 300 MG CAP PO SCH ×2 (10:32→22:40)
[2023-08-04] MEDS: DorzolamidE/Timolol 2%/0.5% Ophth Soln 10 ml Bottle R EYE SCH ×2 (10:33→22:42)
[2023-08-04] MEDS: Heparin 5,000 UNITS/ML VIAL SC SCH ×2 (10:34→22:41)
[2023-08-04] MEDS: Polyethylene Glycol 3350 17 GM Packet PO SCH (10:35)
[2023-08-04] MEDS: Pantoprazole 40 MG VIAL IVP SCH ×2 (10:35→22:41)
[2023-08-04] MEDS: Aspirin Chewable 81 MG TAB PO SCH (10:42)
[2023-08-04 11:29] LABS: Actual Bicarbonate (HCO3a) 19.9 mEq/L (22-28); Base Excess (BEa) -5.5 mEq/L (-2.0 to +3.0); Calcium, Ionized (arterial) 1.12 mmol/L (1.12-1.30); Carboxyhemoglobin (COHb) 0.8 gm% (0.0-3.0); Hematocrit-ABG 26 % (42.0-52.0); Hemoglobin (Hb) 8.8 g/dL (14.0-18.0); O2 Tension (PaO2), arterial 422.1 mmHg (> 70.0); Potassium - ABG Lab 4.81 mmol/L (3.70-5.30); Puncture Site RRA; pH, Arterial 7.336 (7.35-7.45)
[2023-08-04 11:47] LABS: Actual Bicarbonate (HCO3a) 23.5 mEq/L (22-28); Analyzer IN Cardio ER; Base Excess (BEa) -4.5 mEq/L (-2.0 to +3.0); CO2 Tension 59.2 mmHg (35.0-45.0); Calcium, Ionized (arterial) 1.15 mmol/L (1.12-1.30); Carboxyhemoglobin (COHb) 0.2 gm% (0.0-3.0); Hematocrit-ABG 27 % (42.0-52.0); Hemoglobin (Hb) 9.2 g/dL (14.0-18.0); Potassium - ABG Lab 4.77 mmol/L (3.70-5.30); pH, Arterial 7.216 (7.35-7.45)
[2023-08-04] MEDS: Hydrocortisone Sod Succ/PF 100 mg/2 ml Vial IVP SCH ×2 (11:51→23:06)
[2023-08-04 11:52] LABS: Puncture Site RRA
[2023-08-04] MEDS: DOPamine 400 MG/D5W 250 ML 250 ML IVPB SCH ×2 (12:37→23:22)
[2023-08-04] MEDS ORDERED: Albumin 25% 25 GM/100 ML BOT IVPB PRN (17:18)
[2023-08-04] MEDS: Transdermal Patch Removal TOP SCH (22:43)
[2023-08-05] MEDS: Fosphenytoin Sodium 100 MG in Sodium Chloride 0.9% 50 ML IVPB SCH ×3 (01:19→17:54)
[2023-08-05] MEDS: HumaLOG 300 UNITS/3 ML VIAL SC PRN ×3 (05:16→21:03)
[2023-08-05] MEDS: Levothyroxine 175 MCG TAB PO SCH (06:25)
[2023-08-05] MEDS: HumuLIN 70/30 100 Unit/ ml 10 ml Vial SC SCH (07:53)
[2023-08-05] MEDS: Heparin 5,000 UNITS/ML VIAL SC SCH ×2 (09:34→20:32)
[2023-08-05] MEDS: Polyethylene Glycol 3350 17 GM Packet PO SCH (09:34)
[2023-08-05] MEDS: Pantoprazole 40 MG VIAL IVP SCH ×2 (09:34→20:33)
[2023-08-05] MEDS: Fludrocortisone Acetate 0.1 MG TAB PO SCH (09:34)
[2023-08-05] MEDS: Gabapentin 300 MG CAP PO SCH ×2 (09:34→20:30)
[2023-08-05] MEDS: Aspirin Chewable 81 MG TAB PO SCH (09:34)
[2023-08-05] MEDS: Cholecalciferol 1,000 UNITS (25 MCG) TAB PO SCH (09:35)
[2023-08-05] MEDS: Midodrine HCl 5 MG TAB PO SCH ×3 (10:00→20:30)
[2023-08-05] MEDS: DOPamine 400 MG/D5W 250 ML 250 ML IVPB SCH ×2 (10:01→20:30)
[2023-08-05] MEDS: DorzolamidE/Timolol 2%/0.5% Ophth Soln 10 ml Bottle R EYE SCH ×2 (10:02→20:33)
[2023-08-05] MEDS: Lidocaine 4% Patch TD SCH (10:27)
[2023-08-05] MEDS: Hydrocortisone Sod Succ/PF 100 mg/2 ml Vial IVP SCH ×2 (14:13→23:44)
[2023-08-05] MEDS: Transdermal Patch Removal TOP SCH (20:33)
[2023-08-06] MEDS: Fosphenytoin Sodium 100 MG in Sodium Chloride 0.9% 50 ML IVPB SCH ×3 (02:55→20:08)
[2023-08-06 04:57] LABS: Anion Gap 20 mmol/L (10-20); BUN (Urea Nitrogen) 85 mg/dL (8.4-25.7); Calc. Creatinine Clearance 19 mL/min (70-130); Calcium 9.5 mg/dL (7.8-10.44); Carbon Dioxide 24 mmol/L (23-31); Chloride 91 mmol/L (98-107); Estimated GFR 13; Glucose 335 mg/dL (83-110); Potassium 5.2 mmol/L (3.5-5.1); Sodium 130 mmol/L (136-145)
[2023-08-06 05:11] LABS: #Eosinphils 0.1 thou/uL (0.0-0.7); #Monocytes 0.7 thou/uL (0.11-0.59); %Basophils 0.1 % (0.0-1.0); %Eosinophils 0.6 % (0.0-10.0); %Monocytes 4.9 % (0.0-10.0); %Neutrophils 90.9 % (42.0-75.0); Hematocrit 25.1 % (42.0-52.0); Hemoglobin 8.5 g/dL (14.0-18.0); Mean Corpuscular HGB CONC 33.9 g/dL (32.0-36.0); Mean Corpuscular Hemoglobin 35.9 pg (27.0-31.0); Mean Corpuscular Volume 105.9 fl (78.0-98.0); Mean Platelet Volume 10.4 fL (7.4-10.4); Platelet Count 157 10x3/uL (130-400); RBC Distribution Width 16.1 % (11.5-14.5); Red Blood Cell (RBC) Count 2.37 mill/uL (4.70-6.10); White Blood Cell (WBC) Count 14.3 10x3/uL (4.8-10.8)
[2023-08-06] MEDS: Levothyroxine 175 MCG TAB PO SCH (05:11)
[2023-08-06] MEDS: HumaLOG 300 UNITS/3 ML VIAL SC PRN ×4 (06:14→22:24)
[2023-08-06] MEDS: DOPamine 400 MG/D5W 250 ML 250 ML IVPB SCH ×2 (07:31→14:18)
[2023-08-06] MEDS: Midodrine HCl 5 MG TAB PO SCH ×3 (08:52→21:29)
[2023-08-06] MEDS: Polyethylene Glycol 3350 17 GM Packet PO SCH (08:53)
[2023-08-06] MEDS: Pantoprazole 40 MG VIAL IVP SCH ×2 (08:53→21:29)
[2023-08-06] MEDS: HumuLIN 70/30 100 Unit/ ml 10 ml Vial SC SCH (08:54)
[2023-08-06] MEDS ORDERED: Albumin 25% 25 GM/100 ML BOT IVPB SCH (09:45)
[2023-08-06] MEDS: Lidocaine 4% Patch TD SCH (12:26)
[2023-08-06] MEDS: Fludrocortisone Acetate 0.1 MG TAB PO SCH (12:45)
[2023-08-06] MEDS: Cholecalciferol 1,000 UNITS (25 MCG) TAB PO SCH (12:45)
[2023-08-06] MEDS: Aspirin Chewable 81 MG TAB PO SCH (12:45)
[2023-08-06] MEDS: Gabapentin 300 MG CAP PO SCH ×2 (12:46→21:29)
[2023-08-06] MEDS: DorzolamidE/Timolol 2%/0.5% Ophth Soln 10 ml Bottle R EYE SCH ×2 (12:47→21:29)
[2023-08-06] MEDS: Heparin 5,000 UNITS/ML VIAL SC SCH ×2 (12:53→21:27)
[2023-08-06] MEDS: Transdermal Patch Removal TOP SCH (21:33)
[2023-08-07] MEDS: DOPamine 400 MG/D5W 250 ML 250 ML IVPB SCH ×4 (00:03→22:52)
[2023-08-07] MEDS: Fosphenytoin Sodium 100 MG in Sodium Chloride 0.9% 50 ML IVPB SCH ×3 (01:00→18:33)
[2023-08-07] MEDS: Levothyroxine 175 MCG TAB PO SCH (06:26)
[2023-08-07] MEDS: Polyethylene Glycol 3350 17 GM Packet PO SCH (08:38)
[2023-08-07] MEDS: Hydrocortisone Sod Succ/PF 100 mg/2 ml Vial IVP SCH (08:38)
[2023-08-07] MEDS: Pantoprazole 40 MG VIAL IVP SCH ×2 (08:39→20:54)
[2023-08-07] MEDS: Midodrine HCl 5 MG TAB PO SCH ×3 (08:39→20:54)
[2023-08-07] MEDS: Gabapentin 300 MG CAP PO SCH ×2 (08:40→20:54)
[2023-08-07] MEDS: DorzolamidE/Timolol 2%/0.5% Ophth Soln 10 ml Bottle R EYE SCH ×2 (08:41→20:53)
[2023-08-07] MEDS: Aspirin Chewable 81 MG TAB PO SCH (08:41)
[2023-08-07] MEDS: Cholecalciferol 1,000 UNITS (25 MCG) TAB PO SCH (08:41)
[2023-08-07] MEDS: Fludrocortisone Acetate 0.1 MG TAB PO SCH (08:41)
[2023-08-07] MEDS: Heparin 5,000 UNITS/ML VIAL SC SCH ×2 (08:42→20:54)
[2023-08-07] MEDS: HumuLIN 70/30 100 Unit/ ml 10 ml Vial SC SCH (08:46)
[2023-08-07] MEDS: HumaLOG 300 UNITS/3 ML VIAL SC PRN ×2 (08:47→08:50)
[2023-08-07] MEDS: Lidocaine 4% Patch TD SCH (13:39)
[2023-08-07] MEDS: Transdermal Patch Removal TOP SCH (20:54)
[2023-08-08] MEDS: HumaLOG 300 UNITS/3 ML VIAL SC PRN ×3 (01:31→23:58)
[2023-08-08] MEDS: Fosphenytoin Sodium 100 MG in Sodium Chloride 0.9% 50 ML IVPB SCH ×3 (01:44→21:02)
[2023-08-08 05:22] LABS: Hematocrit 21.5 % (42.0-52.0); Hemoglobin 7.3 g/dL (14.0-18.0); Mean Corpuscular Hemoglobin 35.6 pg (27.0-31.0); Mean Corpuscular Volume 104.9 fl (78.0-98.0); Platelet Count 132 10x3/uL (130-400); RBC Distribution Width 15.9 % (11.5-14.5); Red Blood Cell (RBC) Count 2.05 mill/uL (4.70-6.10); White Blood Cell (WBC) Count 10.2 10x3/uL (4.8-10.8)
[2023-08-08 05:25] LABS: Delete Auto Diff?? YES; Manual Diff?? YES
[2023-08-08 05:42] LABS: Actual Bicarbonate (HCO3v) 24.8 mEq/L (22-28); Base Excess -0.8 mEq/L (-2.0 to +3.0); Calcium, Ionized (venous) 1.14 mmol/L (1.16-1.32); Chloride (VBG) 89 mmol/L (98-106); Hematocrit-VBG 24 % (42.0-52.0); Potassium (VBG) 4.58 mmol/L (3.70-5.30); Sodium 127 mmol/L (133-146); pH (venous) 7.355 (7.32-7.43)
[2023-08-08 05:51] LABS: Anisocytosis MODERATE=16-30 cells HPF (0-5); CellaVision Operator ID lab.sh2; Dohle Bodies SLIGHT; Eosinophils 6 % (0-10); Lymphocytes 5 % (21-51); Macrocytosis MODERATE=16-30 cells HPF (0-5); Monocytes 6 % (0-10); Neutrophil 84 % (42-75); Nucleated RBC (Manual Ct) 1 % (0); Ovalocytes SLIGHT = 2-5 cells HPF (0-1); Platelet Adequacy Comment Platelets Decreased; Polychromasia SLIGHT = 2-3 cells HPF (0-2); Smudge Cells 14.6 %; Target Cells SLIGHT = 2-5 cells HPF (0-1); Total Cell Count 103
[2023-08-08 05:53] LABS: Anion Gap 23 mmol/L (10-20); BUN (Urea Nitrogen) 72 mg/dL (8.4-25.7); Calc. Creatinine Clearance 19 mL/min (70-130); Calcium 9.6 mg/dL (7.8-10.44); Carbon Dioxide 22 mmol/L (23-31); Chloride 91 mmol/L (98-107); Estimated GFR 13; Glucose 257 mg/dL (83-110); Potassium 4.8 mmol/L (3.5-5.1); Sodium 131 mmol/L (136-145)
[2023-08-08] MEDS: Levothyroxine 175 MCG TAB PO SCH (06:38)
[2023-08-08] MEDS: Aspirin Chewable 81 MG TAB PO SCH (08:28)
[2023-08-08] MEDS: Fludrocortisone Acetate 0.1 MG TAB PO SCH (08:28)
[2023-08-08] MEDS: Gabapentin 300 MG CAP PO SCH ×2 (08:28→20:51)
[2023-08-08] MEDS: Midodrine HCl 5 MG TAB PO SCH ×3 (08:28→20:51)
[2023-08-08] MEDS: Cholecalciferol 1,000 UNITS (25 MCG) TAB PO SCH (08:29)
[2023-08-08] MEDS: Heparin 5,000 UNITS/ML VIAL SC SCH ×2 (08:29→20:52)
[2023-08-08] MEDS: Hydrocortisone Sod Succ/PF 100 mg/2 ml Vial IVP SCH (08:29)
[2023-08-08] MEDS: Pantoprazole 40 MG VIAL IVP SCH ×2 (08:32→20:52)
[2023-08-08] MEDS: Lidocaine 4% Patch TD SCH (08:33)
[2023-08-08] MEDS: Polyethylene Glycol 3350 17 GM Packet PO SCH (08:33)
[2023-08-08] MEDS: HumuLIN 70/30 100 Unit/ ml 10 ml Vial SC SCH ×2 (09:08→17:13)
[2023-08-08] MEDS: DorzolamidE/Timolol 2%/0.5% Ophth Soln 10 ml Bottle R EYE SCH ×2 (09:11→20:57)
[2023-08-08] MEDS: DOPamine 400 MG/D5W 250 ML 250 ML IVPB SCH ×3 (11:33→22:32)
[2023-08-08] MEDS: Transdermal Patch Removal TOP SCH (20:58)
[2023-08-09] MEDS: Fosphenytoin Sodium 100 MG in Sodium Chloride 0.9% 50 ML IVPB SCH ×3 (03:28→17:59)
[2023-08-09] MEDS: HumaLOG 300 UNITS/3 ML VIAL SC PRN ×3 (04:33→22:37)
[2023-08-09] MEDS: Levothyroxine 175 MCG TAB PO SCH (04:43)
[2023-08-09 05:38] LABS: Hematocrit 19.9 % (42.0-52.0); Hemoglobin 6.8 g/dL (14.0-18.0); Mean Corpuscular HGB CONC 34.2 g/dL (32.0-36.0); Mean Corpuscular Hemoglobin 35.1 pg (27.0-31.0); Mean Corpuscular Volume 102.6 fl (78.0-98.0); Mean Platelet Volume 10.6 fL (7.4-10.4); Platelet Count 123 10x3/uL (130-400); RBC Distribution Width 15.9 % (11.5-14.5); Red Blood Cell (RBC) Count 1.94 mill/uL (4.70-6.10); White Blood Cell (WBC) Count 6.9 10x3/uL (4.8-10.8)
[2023-08-09 05:42] LABS: Delete Auto Diff?? YES; Manual Diff?? YES
[2023-08-09 06:06] LABS: Anion Gap 18 mmol/L (10-20); BUN (Urea Nitrogen) 53 mg/dL (8.4-25.7); Calc. Creatinine Clearance 24 mL/min (70-130); Calcium 9.5 mg/dL (7.8-10.44); Carbon Dioxide 25 mmol/L (23-31); Chloride 92 mmol/L (98-107); Estimated GFR 17; Glucose 228 mg/dL (83-110); Potassium 4.3 mmol/L (3.5-5.1); Sodium 131 mmol/L (136-145)
[2023-08-09 06:08] LABS: Band 14 % (5-11); CellaVision Operator ID LAB.CLH1; Eosinophils 3 % (0-10); Hypochromia SLIGHT = 6-15 cells HPF (0-5); Lymphocytes 8 % (21-51); Macrocytosis SLIGHT = 6-15 cells HPF (0-5); Monocytes 6 % (0-10); Neutrophil 70 % (42-75); Nucleated RBC (Manual Ct) 1 % (0); Platelet Adequacy Comment Platelets Decreased; Polychromasia SLIGHT = 2-3 cells HPF (0-2); Target Cells SLIGHT = 2-5 cells HPF (0-1); Total Cell Count 102
[2023-08-09] MEDS ORDERED: NOREPINEPHRINE 8 MG/250 ML-D5W 250 ML IVPB SCH (08:15)
[2023-08-09] MEDS: NOREPINEPHRINE 8 MG/250 ML-D5W 250 ML IVPB SCH ×2 (08:54→21:34)
[2023-08-09] MEDS: DorzolamidE/Timolol 2%/0.5% Ophth Soln 10 ml Bottle R EYE SCH ×2 (09:02→21:44)
[2023-08-09] MEDS: Pantoprazole 40 MG VIAL IVP SCH ×2 (09:03→21:50)
[2023-08-09] MEDS: Fludrocortisone Acetate 0.1 MG TAB PO SCH (09:03)
[2023-08-09] MEDS: Hydrocortisone Sod Succ/PF 100 mg/2 ml Vial IVP SCH (09:03)
[2023-08-09] MEDS: Midodrine HCl 5 MG TAB PO SCH ×3 (09:04→21:43)
[2023-08-09] MEDS: Gabapentin 300 MG CAP PO SCH ×2 (09:04→21:42)
[2023-08-09] MEDS: Aspirin Chewable 81 MG TAB PO SCH (09:04)
[2023-08-09] MEDS: Heparin 5,000 UNITS/ML VIAL SC SCH (09:04)
[2023-08-09] MEDS: Cholecalciferol 1,000 UNITS (25 MCG) TAB PO SCH (09:05)
[2023-08-09] MEDS: Polyethylene Glycol 3350 17 GM Packet PO SCH (09:05)
[2023-08-09] MEDS: Lidocaine 4% Patch TD SCH (09:05)
[2023-08-09] MEDS: HumuLIN 70/30 100 Unit/ ml 10 ml Vial SC SCH ×2 (09:06→15:27)
[2023-08-09] MEDS: Transdermal Patch Removal TOP SCH (21:46)
[2023-08-10] MEDS: Fosphenytoin Sodium 100 MG in Sodium Chloride 0.9% 50 ML IVPB SCH ×3 (01:20→18:52)
[2023-08-10] MEDS: HumaLOG 300 UNITS/3 ML VIAL SC PRN ×4 (03:55→22:04)
[2023-08-10 05:06] LABS: #Eosinphils 0.2 thou/uL (0.0-0.7); #Monocytes 0.8 thou/uL (0.11-0.59); #Neutrophils 5.1 thou/uL (1.40-6.50); %Basophils 0.1 % (0.0-1.0); %Eosinophils 3.4 % (0.0-10.0); %Lymphocytes 10.4 % (21.0-51.0); %Monocytes 11.7 % (0.0-10.0); %Neutrophils 73.8 % (42.0-75.0); Hematocrit 20.1 % (42.0-52.0); Mean Corpuscular HGB CONC 34.8 g/dL (32.0-36.0); Mean Corpuscular Hemoglobin 34.7 pg (27.0-31.0); Mean Platelet Volume 10.8 fL (7.4-10.4); Platelet Count 124 10x3/uL (130-400); RBC Distribution Width 17.4 % (11.5-14.5); Red Blood Cell (RBC) Count 2.02 mill/uL (4.70-6.10); White Blood Cell (WBC) Count 6.8 10x3/uL (4.8-10.8)
[2023-08-10 05:19] LABS: Mean Corpuscular Volume 99.5 fl (78.0-98.0)
[2023-08-10 05:21] LABS: Anion Gap 20 mmol/L (10-20); BUN (Urea Nitrogen) 67 mg/dL (8.4-25.7); Calc. Creatinine Clearance 20 mL/min (70-130); Calcium 9.1 mg/dL (7.8-10.44); Carbon Dioxide 24 mmol/L (23-31); Chloride 91 mmol/L (98-107); Estimated GFR 14; Glucose 288 mg/dL (83-110); Potassium 4.4 mmol/L (3.5-5.1); Sodium 131 mmol/L (136-145)
[2023-08-10] MEDS: Levothyroxine 175 MCG TAB PO SCH (06:03)
[2023-08-10] MEDS: HumuLIN 70/30 100 Unit/ ml 10 ml Vial SC SCH ×2 (08:13→15:54)
[2023-08-10] MEDS: Cholecalciferol 1,000 UNITS (25 MCG) TAB PO SCH (08:14)
[2023-08-10] MEDS: Aspirin Chewable 81 MG TAB PO SCH (08:14)
[2023-08-10] MEDS: Fludrocortisone Acetate 0.1 MG TAB PO SCH (08:14)
[2023-08-10] MEDS: Pantoprazole 40 MG VIAL IVP SCH ×2 (08:14→20:15)
[2023-08-10] MEDS: Midodrine HCl 5 MG TAB PO SCH ×3 (08:15→20:16)
[2023-08-10] MEDS: Hydrocortisone Sod Succ/PF 100 mg/2 ml Vial IVP SCH (08:15)
[2023-08-10] MEDS: Gabapentin 300 MG CAP PO SCH ×2 (08:15→20:15)
[2023-08-10] MEDS: Polyethylene Glycol 3350 17 GM Packet PO SCH (08:18)
[2023-08-10] MEDS: DorzolamidE/Timolol 2%/0.5% Ophth Soln 10 ml Bottle R EYE SCH ×2 (08:26→20:16)
[2023-08-10] MEDS: NOREPINEPHRINE 8 MG/250 ML-D5W 250 ML IVPB SCH (09:26)
[2023-08-10 10:42] LABS: Hematocrit 26.1 % (42.0-52.0); Hemoglobin 9.1 g/dL (14.0-18.0); Mean Corpuscular HGB CONC 34.9 g/dL (32.0-36.0); Mean Corpuscular Hemoglobin 32.9 pg (27.0-31.0); Mean Platelet Volume 10.5 fL (7.4-10.4); Platelet Count 133 10x3/uL (130-400); RBC Distribution Width 19.8 % (11.5-14.5); Red Blood Cell (RBC) Count 2.77 mill/uL (4.70-6.10); White Blood Cell (WBC) Count 9.1 10x3/uL (4.8-10.8)
[2023-08-10 10:46] LABS: Mean Corpuscular Volume 94.2 fl (78.0-98.0)
[2023-08-10] MEDS: Heparin 5,000 UNITS/ML VIAL SC SCH (10:54)
[2023-08-10] MEDS: Lidocaine 4% Patch TD SCH (15:05)
[2023-08-10] MEDS: Epoetin (ESRD) 10,000 UNITS/ML VIAL SC SCH (22:29)
[2023-08-11] MEDS: Fosphenytoin Sodium 100 MG in Sodium Chloride 0.9% 50 ML IVPB SCH ×3 (02:07→18:19)
[2023-08-11] MEDS: HumaLOG 300 UNITS/3 ML VIAL SC PRN ×3 (03:51→22:33)
[2023-08-11 04:37] LABS: #Eosinphils 0.3 thou/uL (0.0-0.7); #Monocytes 0.8 thou/uL (0.11-0.59); #Neutrophils 5.5 thou/uL (1.40-6.50); %Basophils 0.1 % (0.0-1.0); %Eosinophils 3.7 % (0.0-10.0); %Lymphocytes 9.7 % (21.0-51.0); %Monocytes 10.9 % (0.0-10.0); %Neutrophils 74.5 % (42.0-75.0); Hematocrit 22.9 % (42.0-52.0); Hemoglobin 7.9 g/dL (14.0-18.0); Mean Corpuscular HGB CONC 34.5 g/dL (32.0-36.0); Mean Corpuscular Hemoglobin 32.6 pg (27.0-31.0); Mean Corpuscular Volume 94.6 fl (78.0-98.0); Platelet Count 110 10x3/uL (130-400); RBC Distribution Width 20.7 % (11.5-14.5); Red Blood Cell (RBC) Count 2.42 mill/uL (4.70-6.10); White Blood Cell (WBC) Count 7.4 10x3/uL (4.8-10.8)
[2023-08-11 04:59] LABS: Anion Gap 18 mmol/L (10-20); BUN (Urea Nitrogen) 52 mg/dL (8.4-25.7); Calc. Creatinine Clearance 26 mL/min (70-130); Calcium 9.1 mg/dL (7.8-10.44); Carbon Dioxide 26 mmol/L (23-31); Chloride 94 mmol/L (98-107); Estimated GFR 18; Glucose 261 mg/dL (83-110); Potassium 3.8 mmol/L (3.5-5.1); Sodium 134 mmol/L (136-145)
[2023-08-11] MEDS: Levothyroxine 175 MCG TAB PO SCH (06:14)
[2023-08-11] MEDS: Aspirin Chewable 81 MG TAB PO SCH (08:37)
[2023-08-11] MEDS: Fludrocortisone Acetate 0.1 MG TAB PO SCH (08:37)
[2023-08-11] MEDS: Cholecalciferol 1,000 UNITS (25 MCG) TAB PO SCH (08:37)
[2023-08-11] MEDS: DorzolamidE/Timolol 2%/0.5% Ophth Soln 10 ml Bottle R EYE SCH ×2 (08:37→21:21)
[2023-08-11] MEDS: Polyethylene Glycol 3350 17 GM Packet PO SCH (08:38)
[2023-08-11] MEDS: Midodrine HCl 5 MG TAB PO SCH ×3 (08:38→21:20)
[2023-08-11] MEDS: Gabapentin 300 MG CAP PO SCH ×2 (08:38→21:20)
[2023-08-11] MEDS: Pantoprazole 40 MG VIAL IVP SCH ×2 (08:38→21:21)
[2023-08-11] MEDS: Hydrocortisone Sod Succ/PF 100 mg/2 ml Vial IVP SCH (08:38)
[2023-08-11] MEDS: Heparin 5,000 UNITS/ML VIAL SC SCH ×2 (09:40→21:21)
[2023-08-11] MEDS: HumuLIN 70/30 100 Unit/ ml 10 ml Vial SC SCH ×2 (10:01→17:46)
[2023-08-12] MEDS: Fosphenytoin Sodium 100 MG in Sodium Chloride 0.9% 50 ML IVPB SCH ×3 (02:38→18:19)
[2023-08-12 04:50] LABS: Anion Gap 18 mmol/L (10-20); BUN (Urea Nitrogen) 67 mg/dL (8.4-25.7); Calc. Creatinine Clearance 23 mL/min (70-130); Carbon Dioxide 25 mmol/L (23-31); Chloride 92 mmol/L (98-107); Estimated GFR 15; Glucose 143 mg/dL (83-110); Potassium 4.3 mmol/L (3.5-5.1); Sodium 131 mmol/L (136-145)
[2023-08-12 05:52] LABS: #Eosinphils 0.3 thou/uL (0.0-0.7); #Neutrophils 5.6 thou/uL (1.40-6.50); %Basophils 0.3 % (0.0-1.0); %Eosinophils 3.4 % (0.0-10.0); %Monocytes 12.4 % (0.0-10.0); %Neutrophils 69.8 % (42.0-75.0); Hematocrit 23.7 % (42.0-52.0); Mean Corpuscular HGB CONC 33.8 g/dL (32.0-36.0); Mean Corpuscular Hemoglobin 32.9 pg (27.0-31.0); Mean Corpuscular Volume 97.5 fl (78.0-98.0); Mean Platelet Volume 10.4 fL (7.4-10.4); Platelet Count 129 10x3/uL (130-400); RBC Distribution Width 20.5 % (11.5-14.5); Red Blood Cell (RBC) Count 2.43 mill/uL (4.70-6.10)
[2023-08-12] MEDS: Levothyroxine 175 MCG TAB PO SCH (06:21)
[2023-08-12] MEDS: HumuLIN 70/30 100 Unit/ ml 10 ml Vial SC SCH ×2 (08:36→16:57)
[2023-08-12] MEDS: Hydrocortisone Sod Succ/PF 100 mg/2 ml Vial IVP SCH (08:37)
[2023-08-12] MEDS: Pantoprazole 40 MG VIAL IVP SCH ×2 (08:37→21:46)
[2023-08-12] MEDS: DorzolamidE/Timolol 2%/0.5% Ophth Soln 10 ml Bottle R EYE SCH ×2 (08:39→21:40)
[2023-08-12] MEDS: Cholecalciferol 1,000 UNITS (25 MCG) TAB PO SCH (09:02)
[2023-08-12] MEDS: Fludrocortisone Acetate 0.1 MG TAB PO SCH (09:02)
[2023-08-12] MEDS: Aspirin Chewable 81 MG TAB PO SCH (09:02)
[2023-08-12] MEDS: Gabapentin 300 MG CAP PO SCH ×2 (09:02→21:45)
[2023-08-12] MEDS: Midodrine HCl 5 MG TAB PO SCH ×3 (09:03→21:45)
[2023-08-12] MEDS: Heparin 5,000 UNITS/ML VIAL SC SCH ×2 (09:03→21:45)
[2023-08-12] MEDS: Polyethylene Glycol 3350 17 GM Packet PO SCH (09:03)
[2023-08-12] MEDS ORDERED: Midazolam HCl 5 mg/ml Vial ONE (09:31)
[2023-08-12] MEDS ORDERED: fentaNYL PF 100 MCG/2 ML SYRINGE ONE (09:31)
[2023-08-12] MEDS ORDERED: Rocuronium Bromide 10 MG/ML (10ML VIAL) ONE (09:39)
[2023-08-12] MEDS: NOREPINEPHRINE 8 MG/250 ML-D5W 250 ML IVPB SCH (09:45)
[2023-08-12] MEDS ORDERED: Sevoflurane 250 ML INH ANEST BOTTLE ONE (10:21)
[2023-08-13] MEDS: Fosphenytoin Sodium 100 MG in Sodium Chloride 0.9% 50 ML IVPB SCH ×3 (02:23→18:03)
[2023-08-13 04:37] LABS: #Eosinphils 0.3 thou/uL (0.0-0.7); #Monocytes 0.8 thou/uL (0.11-0.59); #Neutrophils 8.1 thou/uL (1.40-6.50); %Basophils 0.2 % (0.0-1.0); %Eosinophils 2.8 % (0.0-10.0); %Lymphocytes 7.6 % (21.0-51.0); %Monocytes 8.1 % (0.0-10.0); %Neutrophils 80.3 % (42.0-75.0); Hematocrit 24.9 % (42.0-52.0); Hemoglobin 8.2 g/dL (14.0-18.0); Mean Corpuscular HGB CONC 32.9 g/dL (32.0-36.0); Mean Corpuscular Hemoglobin 32.7 pg (27.0-31.0); Mean Corpuscular Volume 99.2 fl (78.0-98.0); Mean Platelet Volume 10.6 fL (7.4-10.4); Red Blood Cell (RBC) Count 2.51 mill/uL (4.70-6.10); White Blood Cell (WBC) Count 10.1 10x3/uL (4.8-10.8)
[2023-08-13 04:43] LABS: Platelet Count 116 10x3/uL (130-400)
[2023-08-13 05:00] LABS: Anion Gap 20 mmol/L (10-20); BUN (Urea Nitrogen) 58 mg/dL (8.4-25.7); Calc. Creatinine Clearance 24 mL/min (70-130); Calcium 8.8 mg/dL (7.8-10.44); Carbon Dioxide 25 mmol/L (23-31); Chloride 92 mmol/L (98-107); Estimated GFR 16; Glucose 280 mg/dL (83-110); Potassium 4.3 mmol/L (3.5-5.1); Sodium 133 mmol/L (136-145)
[2023-08-13] MEDS: HumaLOG 300 UNITS/3 ML VIAL SC PRN (05:05)
[2023-08-13] MEDS: Levothyroxine 175 MCG TAB PO SCH (06:03)
[2023-08-13] MEDS: HumuLIN 70/30 100 Unit/ ml 10 ml Vial SC SCH ×2 (08:09→16:56)
[2023-08-13] MEDS ORDERED: Albumin 25% 25 GM/100 ML BOT IVPB PRN (08:29)
[2023-08-13] MEDS: Gabapentin 300 MG CAP PO SCH ×2 (09:19→22:08)
[2023-08-13] MEDS: Hydrocortisone Sod Succ/PF 100 mg/2 ml Vial IVP SCH (09:20)
[2023-08-13] MEDS: Cholecalciferol 1,000 UNITS (25 MCG) TAB PO SCH (09:20)
[2023-08-13] MEDS: Polyethylene Glycol 3350 17 GM Packet PO SCH (09:20)
[2023-08-13] MEDS: Fludrocortisone Acetate 0.1 MG TAB PO SCH (09:20)
[2023-08-13] MEDS: Pantoprazole 40 MG VIAL IVP SCH ×2 (09:20→22:11)
[2023-08-13] MEDS: Aspirin Chewable 81 MG TAB PO SCH (09:20)
[2023-08-13] MEDS: Midodrine HCl 5 MG TAB PO SCH ×3 (09:21→22:08)
[2023-08-13] MEDS: Heparin 5,000 UNITS/ML VIAL SC SCH ×2 (09:21→22:08)
[2023-08-13] MEDS: DorzolamidE/Timolol 2%/0.5% Ophth Soln 10 ml Bottle R EYE SCH ×2 (09:22→22:05)
[2023-08-13] MEDS ORDERED: Albumin 25% 25 GM/100 ML BOT IVPB SCH (20:15)
[2023-08-14] MEDS: Fosphenytoin Sodium 100 MG in Sodium Chloride 0.9% 50 ML IVPB SCH ×3 (02:28→18:26)
[2023-08-14 03:41] LABS: #Eosinphils 0.3 thou/uL (0.0-0.7); #Monocytes 0.7 thou/uL (0.11-0.59); #Neutrophils 7.2 thou/uL (1.40-6.50); %Basophils 0.2 % (0.0-1.0); %Eosinophils 3.1 % (0.0-10.0); %Lymphocytes 7.4 % (21.0-51.0); %Monocytes 7.9 % (0.0-10.0); %Neutrophils 80.4 % (42.0-75.0); Hematocrit 22.4 % (42.0-52.0); Hemoglobin 7.4 g/dL (14.0-18.0); Mean Corpuscular Hemoglobin 33.2 pg (27.0-31.0); Mean Corpuscular Volume 100.4 fl (78.0-98.0); Mean Platelet Volume 10.4 fL (7.4-10.4); RBC Distribution Width 19.7 % (11.5-14.5); Red Blood Cell (RBC) Count 2.23 mill/uL (4.70-6.10); White Blood Cell (WBC) Count 8.9 10x3/uL (4.8-10.8)
[2023-08-14 03:54] LABS: Platelet Count 111 10x3/uL (130-400)
[2023-08-14 04:04] LABS: Anion Gap 16 mmol/L (10-20); BUN (Urea Nitrogen) 45 mg/dL (8.4-25.7); Calc. Creatinine Clearance 31 mL/min (70-130); Calcium 9.3 mg/dL (7.8-10.44); Carbon Dioxide 29 mmol/L (23-31); Chloride 93 mmol/L (98-107); Estimated GFR 22; Glucose 298 mg/dL (83-110); Potassium 3.9 mmol/L (3.5-5.1); Sodium 134 mmol/L (136-145)
[2023-08-14] MEDS: Levothyroxine 175 MCG TAB PO SCH (05:55)
[2023-08-14] MEDS: HumaLOG 300 UNITS/3 ML VIAL SC PRN ×2 (05:57→21:55)
[2023-08-14] MEDS: HumuLIN 70/30 100 Unit/ ml 10 ml Vial SC SCH ×2 (07:49→16:51)
[2023-08-14] MEDS: Cholecalciferol 1,000 UNITS (25 MCG) TAB PO SCH (09:54)
[2023-08-14] MEDS: Gabapentin 300 MG CAP PO SCH ×2 (09:54→21:59)
[2023-08-14] MEDS: Aspirin Chewable 81 MG TAB PO SCH (09:54)
[2023-08-14] MEDS: Fludrocortisone Acetate 0.1 MG TAB PO SCH (09:54)
[2023-08-14] MEDS: Hydrocortisone Sod Succ/PF 100 mg/2 ml Vial IVP SCH (09:54)
[2023-08-14] MEDS: Midodrine HCl 5 MG TAB PO SCH ×3 (09:54→21:58)
[2023-08-14] MEDS: Pantoprazole 40 MG VIAL IVP SCH ×2 (09:55→21:58)
[2023-08-14] MEDS: Polyethylene Glycol 3350 17 GM Packet PO SCH (09:55)
[2023-08-14] MEDS: Heparin 5,000 UNITS/ML VIAL SC SCH ×2 (09:55→21:59)
[2023-08-14] MEDS: DorzolamidE/Timolol 2%/0.5% Ophth Soln 10 ml Bottle R EYE SCH ×2 (10:39→21:56)
[2023-08-14] MEDS: Albumin 25% 25 GM/100 ML BOT IVPB PRN ×2 (11:15→13:15)
[2023-08-14] MEDS ORDERED: Heparin 10,000 UNITS/ 10 ML VIAL ONE (11:28)
[2023-08-14] MEDS: NOREPINEPHRINE 8 MG/250 ML-D5W 250 ML IVPB SCH (11:53)
[2023-08-15] MEDS: Fosphenytoin Sodium 100 MG in Sodium Chloride 0.9% 50 ML IVPB SCH ×3 (02:18→17:41)
[2023-08-15 05:42] LABS: #Eosinphils 0.3 thou/uL (0.0-0.7); #Monocytes 0.8 thou/uL (0.11-0.59); #Neutrophils 7.4 thou/uL (1.40-6.50); %Basophils 0.2 % (0.0-1.0); %Eosinophils 3.2 % (0.0-10.0); %Lymphocytes 6.6 % (21.0-51.0); %Monocytes 8.5 % (0.0-10.0); %Neutrophils 80.4 % (42.0-75.0); Hematocrit 23.5 % (42.0-52.0); Hemoglobin 7.6 g/dL (14.0-18.0); Mean Corpuscular HGB CONC 32.3 g/dL (32.0-36.0); Mean Corpuscular Hemoglobin 33.2 pg (27.0-31.0); Mean Corpuscular Volume 102.6 fl (78.0-98.0); Mean Platelet Volume 10.8 fL (7.4-10.4); Platelet Count 117 10x3/uL (130-400); RBC Distribution Width 19.4 % (11.5-14.5); Red Blood Cell (RBC) Count 2.29 mill/uL (4.70-6.10); White Blood Cell (WBC) Count 9.2 10x3/uL (4.8-10.8)
[2023-08-15] MEDS: Levothyroxine 175 MCG TAB PO SCH (06:27)
[2023-08-15 06:53] LABS: Anion Gap 15 mmol/L (10-20); BUN (Urea Nitrogen) 39 mg/dL (8.4-25.7); Calc. Creatinine Clearance 34 mL/min (70-130); Calcium 9.5 mg/dL (7.8-10.44); Carbon Dioxide 30 mmol/L (23-31); Chloride 95 mmol/L (98-107); Estimated GFR 25; Glucose 274 mg/dL (83-110); Potassium 3.9 mmol/L (3.5-5.1); Sodium 136 mmol/L (136-145)
[2023-08-15] MEDS: Gabapentin 300 MG CAP PO SCH ×2 (08:25→20:22)
[2023-08-15] MEDS: Polyethylene Glycol 3350 17 GM Packet PO SCH (08:25)
[2023-08-15] MEDS: Cholecalciferol 1,000 UNITS (25 MCG) TAB PO SCH (08:25)
[2023-08-15] MEDS: Midodrine HCl 5 MG TAB PO SCH ×3 (08:26→21:12)
[2023-08-15] MEDS: Fludrocortisone Acetate 0.1 MG TAB PO SCH (08:26)
[2023-08-15] MEDS: Aspirin Chewable 81 MG TAB PO SCH (08:26)
[2023-08-15] MEDS: Heparin 5,000 UNITS/ML VIAL SC SCH ×2 (08:26→20:22)
[2023-08-15] MEDS: Pantoprazole 40 MG VIAL IVP SCH ×2 (08:27→20:23)
[2023-08-15] MEDS: Hydrocortisone Sod Succ/PF 100 mg/2 ml Vial IVP SCH (08:28)
[2023-08-15] MEDS: DorzolamidE/Timolol 2%/0.5% Ophth Soln 10 ml Bottle R EYE SCH ×2 (08:29→20:20)
[2023-08-15] MEDS: HumuLIN 70/30 100 Unit/ ml 10 ml Vial SC SCH ×2 (08:29→16:47)
[2023-08-15] MEDS: HumaLOG 300 UNITS/3 ML VIAL SC PRN ×2 (11:24→16:47)
[2023-08-16] MEDS: Fosphenytoin Sodium 100 MG in Sodium Chloride 0.9% 50 ML IVPB SCH ×3 (01:38→17:45)
[2023-08-16 05:06] LABS: #Eosinphils 0.3 thou/uL (0.0-0.7); #Monocytes 0.8 thou/uL (0.11-0.59); #Neutrophils 7.9 thou/uL (1.40-6.50); %Basophils 0.3 % (0.0-1.0); %Eosinophils 2.9 % (0.0-10.0); %Lymphocytes 7.5 % (21.0-51.0); %Monocytes 7.7 % (0.0-10.0); %Neutrophils 80.7 % (42.0-75.0); Hematocrit 24.8 % (42.0-52.0); Mean Corpuscular HGB CONC 32.3 g/dL (32.0-36.0); Mean Corpuscular Hemoglobin 33.2 pg (27.0-31.0); Mean Corpuscular Volume 102.9 fl (78.0-98.0); Mean Platelet Volume 11.1 fL (7.4-10.4); Platelet Count 126 10x3/uL (130-400); RBC Distribution Width 19.5 % (11.5-14.5); Red Blood Cell (RBC) Count 2.41 mill/uL (4.70-6.10); White Blood Cell (WBC) Count 9.8 10x3/uL (4.8-10.8)
[2023-08-16 05:28] LABS: Anion Gap 15 mmol/L (10-20); BUN (Urea Nitrogen) 56 mg/dL (8.4-25.7); Calc. Creatinine Clearance 29 mL/min (70-130); Calcium 9.7 mg/dL (7.8-10.44); Carbon Dioxide 29 mmol/L (23-31); Chloride 94 mmol/L (98-107); Estimated GFR 20; Glucose 234 mg/dL (83-110); Potassium 4.1 mmol/L (3.5-5.1); Sodium 134 mmol/L (136-145)
[2023-08-16] MEDS: HumaLOG 300 UNITS/3 ML VIAL SC PRN ×3 (05:37→15:41)
[2023-08-16] MEDS: Levothyroxine 175 MCG TAB PO SCH (05:37)
[2023-08-16] MEDS: HumuLIN 70/30 100 Unit/ ml 10 ml Vial SC SCH ×2 (07:45→15:30)
[2023-08-16] MEDS: Hydrocortisone Sod Succ/PF 100 mg/2 ml Vial IVP SCH (08:00)
[2023-08-16] MEDS: Cholecalciferol 1,000 UNITS (25 MCG) TAB PO SCH (08:00)
[2023-08-16] MEDS: Polyethylene Glycol 3350 17 GM Packet PO SCH (08:00)
[2023-08-16] MEDS: Midodrine HCl 5 MG TAB PO SCH ×3 (08:00→20:46)
[2023-08-16] MEDS: NOREPINEPHRINE 8 MG/250 ML-D5W 250 ML IVPB SCH ×2 (08:00→15:30)
[2023-08-16] MEDS: Aspirin Chewable 81 MG TAB PO SCH (08:00)
[2023-08-16] MEDS: Pantoprazole 40 MG VIAL IVP SCH ×2 (08:00→20:47)
[2023-08-16] MEDS: Heparin 5,000 UNITS/ML VIAL SC SCH ×2 (08:00→20:46)
[2023-08-16] MEDS: Gabapentin 300 MG CAP PO SCH ×2 (08:00→20:46)
[2023-08-16] MEDS: Fludrocortisone Acetate 0.1 MG TAB PO SCH (08:00)
[2023-08-16] MEDS: DorzolamidE/Timolol 2%/0.5% Ophth Soln 10 ml Bottle R EYE SCH ×2 (08:00→20:47)
[2023-08-16] MEDS ORDERED: NOREPINEPHRINE 8 MG/250 ML-D5W 250 ML ONE ×2 (08:10→15:36)
[2023-08-16] MEDS ORDERED: Heparin 10,000 UNITS/ 10 ML VIAL ONE (10:35)
[2023-08-17] MEDS: Fosphenytoin Sodium 100 MG in Sodium Chloride 0.9% 50 ML IVPB SCH ×3 (02:22→17:45)
[2023-08-17 03:56] LABS: #Basophils 0.1 thou/uL (0.0-0.2); #Eosinphils 0.3 thou/uL (0.0-0.7); #Monocytes 1.2 thou/uL (0.11-0.59); #Neutrophils 7.8 thou/uL (1.40-6.50); %Basophils 0.5 % (0.0-1.0); %Eosinophils 2.8 % (0.0-10.0); %Lymphocytes 10.1 % (21.0-51.0); %Neutrophils 73.8 % (42.0-75.0); Hematocrit 24.2 % (42.0-52.0); Hemoglobin 7.8 g/dL (14.0-18.0); Mean Corpuscular HGB CONC 32.2 g/dL (32.0-36.0); Mean Corpuscular Hemoglobin 33.1 pg (27.0-31.0); Mean Corpuscular Volume 102.5 fl (78.0-98.0); Mean Platelet Volume 10.8 fL (7.4-10.4); Platelet Count 138 10x3/uL (130-400); RBC Distribution Width 19.3 % (11.5-14.5); Red Blood Cell (RBC) Count 2.36 mill/uL (4.70-6.10); White Blood Cell (WBC) Count 10.5 10x3/uL (4.8-10.8)
[2023-08-17 04:20] LABS: Anion Gap 16 mmol/L (10-20); BUN (Urea Nitrogen) 49 mg/dL (8.4-25.7); Calc. Creatinine Clearance 34 mL/min (70-130); Calcium 9.2 mg/dL (7.8-10.44); Carbon Dioxide 28 mmol/L (23-31); Chloride 94 mmol/L (98-107); Estimated GFR 25; Glucose 124 mg/dL (83-110); Potassium 4.1 mmol/L (3.5-5.1); Sodium 134 mmol/L (136-145)
[2023-08-17] MEDS: Levothyroxine 175 MCG TAB PO SCH (06:22)
[2023-08-17] MEDS: HumuLIN 70/30 100 Unit/ ml 10 ml Vial SC SCH ×2 (07:35→15:40)
[2023-08-17] MEDS: Pantoprazole 40 MG VIAL IVP SCH ×2 (08:00→21:39)
[2023-08-17] MEDS: DorzolamidE/Timolol 2%/0.5% Ophth Soln 10 ml Bottle R EYE SCH ×2 (08:00→21:49)
[2023-08-17] MEDS: Aspirin Chewable 81 MG TAB PO SCH (08:00)
[2023-08-17] MEDS: Gabapentin 300 MG CAP PO SCH ×2 (08:00→21:39)
[2023-08-17] MEDS: Midodrine HCl 5 MG TAB PO SCH ×3 (08:00→21:40)
[2023-08-17] MEDS: Fludrocortisone Acetate 0.1 MG TAB PO SCH (08:00)
[2023-08-17] MEDS: Hydrocortisone Sod Succ/PF 100 mg/2 ml Vial IVP SCH (08:00)
[2023-08-17] MEDS: Heparin 5,000 UNITS/ML VIAL SC SCH ×2 (08:00→21:41)
[2023-08-17] MEDS: Cholecalciferol 1,000 UNITS (25 MCG) TAB PO SCH (08:00)
[2023-08-17] MEDS: Polyethylene Glycol 3350 17 GM Packet PO SCH (08:00)
[2023-08-17 10:33] LABS: Actual Bicarbonate (HCO3a) 25.5 mEq/L (22-28); Base Excess (BEa) -0.9 mEq/L (-2.0 to +3.0); CO2 Tension 51.5 mmHg (35.0-45.0); Calcium, Ionized (arterial) 1.19 mmol/L (1.12-1.30); Carboxyhemoglobin (COHb) 0.7 gm% (0.0-3.0); Hematocrit-ABG 26 % (42.0-52.0); Hemoglobin (Hb) 8.9 g/dL (14.0-18.0); O2 Tension (PaO2), arterial 81.1 mmHg (> 70.0); Potassium - ABG Lab 4.29 mmol/L (3.70-5.30); pH, Arterial 7.313 (7.35-7.45)
[2023-08-17 10:37] LABS: Puncture Site LRA
[2023-08-17 10:38] LABS: ALV-art Gradient 139.725 mmHg (0-20)
[2023-08-17] MEDS: EPOETIN ALFA-EPBX 10,000 UNITS/ML VIAL SC SCH (11:00)
[2023-08-17] MEDS: NOREPINEPHRINE 8 MG/250 ML-D5W 250 ML IVPB SCH (12:15)
[2023-08-17] MEDS: HumaLOG 300 UNITS/3 ML VIAL SC PRN (15:41)
[2023-08-18] MEDS: Fosphenytoin Sodium 100 MG in Sodium Chloride 0.9% 50 ML IVPB SCH ×3 (02:42→18:05)
[2023-08-18 03:41] LABS: #Eosinphils 0.3 thou/uL (0.0-0.7); #Monocytes 1.2 thou/uL (0.11-0.59); %Basophils 0.2 % (0.0-1.0); %Lymphocytes 10.3 % (21.0-51.0); %Neutrophils 72.2 % (42.0-75.0); Hemoglobin 7.7 g/dL (14.0-18.0); Mean Corpuscular HGB CONC 32.1 g/dL (32.0-36.0); Mean Corpuscular Hemoglobin 33.2 pg (27.0-31.0); Mean Corpuscular Volume 103.4 fl (78.0-98.0); Mean Platelet Volume 9.8 fL (7.4-10.4); Platelet Count 141 10x3/uL (130-400); RBC Distribution Width 19.5 % (11.5-14.5); Red Blood Cell (RBC) Count 2.32 mill/uL (4.70-6.10); White Blood Cell (WBC) Count 9.7 10x3/uL (4.8-10.8)
[2023-08-18 04:21] LABS: Anion Gap 17 mmol/L (10-20); BUN (Urea Nitrogen) 69 mg/dL (8.4-25.7); Calc. Creatinine Clearance 26 mL/min (70-130); Calcium 9.5 mg/dL (7.8-10.44); Carbon Dioxide 27 mmol/L (23-31); Chloride 93 mmol/L (98-107); Estimated GFR 18; Glucose 173 mg/dL (83-110); Potassium 4.4 mmol/L (3.5-5.1); Sodium 133 mmol/L (136-145)
[2023-08-18] MEDS: NOREPINEPHRINE 8 MG/250 ML-D5W 250 ML IVPB SCH ×2 (04:33→15:17)
[2023-08-18] MEDS: HumaLOG 300 UNITS/3 ML VIAL SC PRN ×2 (04:33→16:22)
[2023-08-18] MEDS: Levothyroxine 175 MCG TAB PO SCH (06:42)
[2023-08-18] MEDS: Midodrine HCl 5 MG TAB PO SCH ×3 (08:18→20:05)
[2023-08-18] MEDS: Aspirin Chewable 81 MG TAB PO SCH (08:18)
[2023-08-18] MEDS: Gabapentin 300 MG CAP PO SCH ×2 (08:18→20:04)
[2023-08-18] MEDS: Cholecalciferol 1,000 UNITS (25 MCG) TAB PO SCH (08:19)
[2023-08-18] MEDS: Fludrocortisone Acetate 0.1 MG TAB PO SCH (08:19)
[2023-08-18] MEDS: Heparin 5,000 UNITS/ML VIAL SC SCH ×2 (08:19→20:04)
[2023-08-18] MEDS: HumuLIN 70/30 100 Unit/ ml 10 ml Vial SC SCH ×2 (08:19→16:22)
[2023-08-18] MEDS: Hydrocortisone Sod Succ/PF 100 mg/2 ml Vial IVP SCH (08:20)
[2023-08-18] MEDS: DorzolamidE/Timolol 2%/0.5% Ophth Soln 10 ml Bottle R EYE SCH ×2 (08:20→20:06)
[2023-08-18] MEDS: Polyethylene Glycol 3350 17 GM Packet PO SCH (08:21)
[2023-08-18] MEDS ORDERED: Heparin 10,000 UNITS/ 10 ML VIAL ONE (09:01)
[2023-08-18] MEDS: Pantoprazole 40 MG VIAL IVP SCH ×2 (09:33→20:05)
[2023-08-19] MEDS: Fosphenytoin Sodium 100 MG in Sodium Chloride 0.9% 50 ML IVPB SCH ×3 (01:16→18:20)
[2023-08-19 04:53] LABS: #Eosinphils 0.3 thou/uL (0.0-0.7); #Monocytes 1.1 thou/uL (0.11-0.59); #Neutrophils 5.2 thou/uL (1.40-6.50); %Basophils 0.5 % (0.0-1.0); %Eosinophils 3.3 % (0.0-10.0); %Lymphocytes 10.6 % (21.0-51.0); %Monocytes 14.4 % (0.0-10.0); %Neutrophils 68.3 % (42.0-75.0); Hematocrit 22.7 % (42.0-52.0); Hemoglobin 7.4 g/dL (14.0-18.0); Mean Corpuscular HGB CONC 32.6 g/dL (32.0-36.0); Mean Corpuscular Volume 101.3 fl (78.0-98.0); Mean Platelet Volume 10.8 fL (7.4-10.4); Platelet Count 124 10x3/uL (130-400); RBC Distribution Width 19.1 % (11.5-14.5); Red Blood Cell (RBC) Count 2.24 mill/uL (4.70-6.10); White Blood Cell (WBC) Count 7.6 10x3/uL (4.8-10.8)
[2023-08-19 05:14] LABS: Anion Gap 16 mmol/L (10-20); BUN (Urea Nitrogen) 53 mg/dL (8.4-25.7); Calc. Creatinine Clearance 32 mL/min (70-130); Calcium 9.2 mg/dL (7.8-10.44); Carbon Dioxide 26 mmol/L (23-31); Chloride 94 mmol/L (98-107); Estimated GFR 23; Glucose 140 mg/dL (83-110); Sodium 132 mmol/L (136-145)
[2023-08-19] MEDS: Levothyroxine 175 MCG TAB PO SCH (05:55)
[2023-08-19] MEDS: HumuLIN 70/30 100 Unit/ ml 10 ml Vial SC SCH ×2 (08:13→16:13)
[2023-08-19] MEDS: Gabapentin 300 MG CAP PO SCH ×2 (09:38→20:00)
[2023-08-19] MEDS: Fludrocortisone Acetate 0.1 MG TAB PO SCH (09:38)
[2023-08-19] MEDS: Midodrine HCl 5 MG TAB PO SCH ×3 (09:38→20:00)
[2023-08-19] MEDS: Pantoprazole 40 MG VIAL IVP SCH ×2 (09:38→20:00)
[2023-08-19] MEDS: Aspirin Chewable 81 MG TAB PO SCH (09:38)
[2023-08-19] MEDS: predniSONE 20 MG TAB PER TUBE SCH (09:38)
[2023-08-19] MEDS: Heparin 5,000 UNITS/ML VIAL SC SCH ×2 (09:38→20:01)
[2023-08-19] MEDS: Cholecalciferol 1,000 UNITS (25 MCG) TAB PO SCH (09:38)
[2023-08-19] MEDS: Polyethylene Glycol 3350 17 GM Packet PO SCH (09:39)
[2023-08-19] MEDS: DorzolamidE/Timolol 2%/0.5% Ophth Soln 10 ml Bottle R EYE SCH ×2 (09:39→20:01)
[2023-08-19] MEDS: NOREPINEPHRINE 8 MG/250 ML-D5W 250 ML IVPB SCH (16:08)
[2023-08-19] MEDS: HumaLOG 300 UNITS/3 ML VIAL SC PRN (22:39)
[2023-08-20] MEDS: Fosphenytoin Sodium 100 MG in Sodium Chloride 0.9% 50 ML IVPB SCH ×3 (02:48→18:13)
[2023-08-20] MEDS: HumaLOG 300 UNITS/3 ML VIAL SC PRN (04:10)
[2023-08-20 04:46] LABS: #Eosinphils 0.3 thou/uL (0.0-0.7); #Monocytes 0.9 thou/uL (0.11-0.59); #Neutrophils 4.7 thou/uL (1.40-6.50); %Basophils 0.3 % (0.0-1.0); %Lymphocytes 11.8 % (21.0-51.0); %Monocytes 13.4 % (0.0-10.0); %Neutrophils 67.6 % (42.0-75.0); Hematocrit 21.6 % (42.0-52.0); Hemoglobin 7.1 g/dL (14.0-18.0); Mean Corpuscular HGB CONC 32.9 g/dL (32.0-36.0); Mean Corpuscular Hemoglobin 33.2 pg (27.0-31.0); Mean Corpuscular Volume 100.9 fl (78.0-98.0); Mean Platelet Volume 11.1 fL (7.4-10.4); Platelet Count 123 10x3/uL (130-400); RBC Distribution Width 18.9 % (11.5-14.5); Red Blood Cell (RBC) Count 2.14 mill/uL (4.70-6.10); White Blood Cell (WBC) Count 6.9 10x3/uL (4.8-10.8)
[2023-08-20 05:12] LABS: Anion Gap 17 mmol/L (10-20); BUN (Urea Nitrogen) 68 mg/dL (8.4-25.7); Calc. Creatinine Clearance 26 mL/min (70-130); Calcium 9.2 mg/dL (7.8-10.44); Carbon Dioxide 26 mmol/L (23-31); Chloride 92 mmol/L (98-107); Estimated GFR 18; Glucose 174 mg/dL (83-110); Potassium 4.3 mmol/L (3.5-5.1); Sodium 131 mmol/L (136-145)
[2023-08-20] MEDS: Levothyroxine 175 MCG TAB PO SCH (05:17)
[2023-08-20] MEDS: Midodrine HCl 5 MG TAB PO SCH ×3 (09:33→20:58)
[2023-08-20] MEDS: Gabapentin 300 MG CAP PO SCH ×2 (09:33→20:58)
[2023-08-20] MEDS: Pantoprazole 40 MG VIAL IVP SCH ×2 (09:33→20:58)
[2023-08-20] MEDS: Polyethylene Glycol 3350 17 GM Packet PO SCH (09:33)
[2023-08-20] MEDS: Aspirin Chewable 81 MG TAB PO SCH (09:34)
[2023-08-20] MEDS: predniSONE 20 MG TAB PER TUBE SCH (09:34)
[2023-08-20] MEDS: Cholecalciferol 1,000 UNITS (25 MCG) TAB PO SCH (09:34)
[2023-08-20] MEDS: Fludrocortisone Acetate 0.1 MG TAB PO SCH (09:35)
[2023-08-20] MEDS: Albumin 25% 25 GM/100 ML BOT IVPB SCH (10:00)
[2023-08-20] MEDS: HumuLIN 70/30 100 Unit/ ml 10 ml Vial SC SCH ×2 (10:01→16:29)
[2023-08-20] MEDS: Heparin 5,000 UNITS/ML VIAL SC SCH ×2 (10:02→20:59)
[2023-08-20] MEDS: DorzolamidE/Timolol 2%/0.5% Ophth Soln 10 ml Bottle R EYE SCH ×2 (10:08→20:59)
[2023-08-21] MEDS: Fosphenytoin Sodium 100 MG in Sodium Chloride 0.9% 50 ML IVPB SCH ×3 (01:57→17:43)
[2023-08-21 04:28] LABS: #Eosinphils 0.3 thou/uL (0.0-0.7); #Monocytes 1.1 thou/uL (0.11-0.59); #Neutrophils 5.8 thou/uL (1.40-6.50); %Basophils 0.4 % (0.0-1.0); %Eosinophils 3.9 % (0.0-10.0); %Monocytes 13.4 % (0.0-10.0); %Neutrophils 71.2 % (42.0-75.0); Hematocrit 21.5 % (42.0-52.0); Hemoglobin 6.9 g/dL (14.0-18.0); Mean Corpuscular HGB CONC 32.1 g/dL (32.0-36.0); Mean Corpuscular Hemoglobin 32.7 pg (27.0-31.0); Mean Corpuscular Volume 101.9 fl (78.0-98.0); Platelet Count 124 10x3/uL (130-400); RBC Distribution Width 19.5 % (11.5-14.5); Red Blood Cell (RBC) Count 2.11 mill/uL (4.70-6.10); White Blood Cell (WBC) Count 8.1 10x3/uL (4.8-10.8)
[2023-08-21 04:51] LABS: Anion Gap 16 mmol/L (10-20); BUN (Urea Nitrogen) 50 mg/dL (8.4-25.7); Calc. Creatinine Clearance 33 mL/min (70-130); Calcium 9.5 mg/dL (7.8-10.44); Carbon Dioxide 28 mmol/L (23-31); Chloride 91 mmol/L (98-107); Estimated GFR 24; Potassium 3.9 mmol/L (3.5-5.1); Sodium 131 mmol/L (136-145)
[2023-08-21 05:02] LABS: Glucose 35 mg/dL (83-110)
[2023-08-21] MEDS: Levothyroxine 175 MCG TAB PO SCH (05:25)
[2023-08-21] MEDS: Dextrose 50% Abboject 50 ML SYRINGE SLOW IVP PRN (05:30)
[2023-08-21] MEDS: Pantoprazole 40 MG VIAL IVP SCH ×2 (10:30→20:19)
[2023-08-21] MEDS: Cholecalciferol 1,000 UNITS (25 MCG) TAB PO SCH (10:30)
[2023-08-21] MEDS: Heparin 5,000 UNITS/ML VIAL SC SCH ×2 (10:31→20:20)
[2023-08-21] MEDS: Midodrine HCl 5 MG TAB PO SCH ×3 (10:31→20:19)
[2023-08-21] MEDS: Polyethylene Glycol 3350 17 GM Packet PO SCH (10:31)
[2023-08-21] MEDS: predniSONE 20 MG TAB PER TUBE SCH (10:32)
[2023-08-21] MEDS: Aspirin Chewable 81 MG TAB PO SCH (10:32)
[2023-08-21] MEDS: Gabapentin 300 MG CAP PO SCH ×2 (10:32→20:19)
[2023-08-21] MEDS: Fludrocortisone Acetate 0.1 MG TAB PO SCH (10:32)
[2023-08-21] MEDS: HumuLIN 70/30 100 Unit/ ml 10 ml Vial SC SCH ×2 (10:33→17:42)
[2023-08-21] MEDS: DorzolamidE/Timolol 2%/0.5% Ophth Soln 10 ml Bottle R EYE SCH ×2 (10:33→20:20)
[2023-08-21] MEDS: Pseudoephedrine HCl 30 MG TAB PER TUBE SCH ×2 (10:35→17:43)
[2023-08-21] MEDS: Albumin 25% 25 GM/100 ML BOT IVPB SCH (10:49)
[2023-08-21] MEDS: NOREPINEPHRINE 8 MG/250 ML-D5W 250 ML IVPB SCH (11:01)
[2023-08-22] MEDS: Pseudoephedrine HCl 30 MG TAB PER TUBE SCH ×6 (00:55→23:51)
[2023-08-22] MEDS: Fosphenytoin Sodium 100 MG in Sodium Chloride 0.9% 50 ML IVPB SCH ×3 (02:29→18:23)
[2023-08-22 04:17] LABS: #Basophils 0.1 thou/uL (0.0-0.2); #Eosinphils 0.3 thou/uL (0.0-0.7); #Monocytes 1.2 thou/uL (0.11-0.59); %Basophils 0.6 % (0.0-1.0); %Eosinophils 2.4 % (0.0-10.0); %Lymphocytes 8.9 % (21.0-51.0); %Monocytes 11.6 % (0.0-10.0); Hematocrit 24.2 % (42.0-52.0); Hemoglobin 7.8 g/dL (14.0-18.0); Mean Corpuscular HGB CONC 32.2 g/dL (32.0-36.0); Mean Corpuscular Hemoglobin 32.5 pg (27.0-31.0); Mean Corpuscular Volume 100.8 fl (78.0-98.0); Mean Platelet Volume 10.9 fL (7.4-10.4); Platelet Count 120 10x3/uL (130-400); RBC Distribution Width 19.4 % (11.5-14.5); White Blood Cell (WBC) Count 10.6 10x3/uL (4.8-10.8)
[2023-08-22] MEDS: Levothyroxine 175 MCG TAB PO SCH (05:43)
[2023-08-22] MEDS: Fludrocortisone Acetate 0.1 MG TAB PO SCH (09:51)
[2023-08-22] MEDS: Heparin 5,000 UNITS/ML VIAL SC SCH ×2 (09:51→20:38)
[2023-08-22] MEDS: Midodrine HCl 5 MG TAB PO SCH ×3 (09:51→20:38)
[2023-08-22] MEDS: Gabapentin 300 MG CAP PO SCH ×2 (09:51→20:39)
[2023-08-22] MEDS: predniSONE 20 MG TAB PER TUBE SCH (09:51)
[2023-08-22] MEDS: DorzolamidE/Timolol 2%/0.5% Ophth Soln 10 ml Bottle R EYE SCH ×2 (09:52→20:41)
[2023-08-22] MEDS: Aspirin Chewable 81 MG TAB PO SCH (09:52)
[2023-08-22] MEDS: Cholecalciferol 1,000 UNITS (25 MCG) TAB PO SCH (09:52)
[2023-08-22] MEDS: HumuLIN 70/30 100 Unit/ ml 10 ml Vial SC SCH ×2 (09:55→17:22)
[2023-08-22] MEDS: Polyethylene Glycol 3350 17 GM Packet PO SCH (09:58)
[2023-08-22] MEDS: Pantoprazole 40 MG VIAL IVP SCH ×2 (10:08→20:39)
[2023-08-22] MEDS ORDERED: Heparin 10,000 UNITS/ 10 ML VIAL ONE (10:09)
[2023-08-22] MEDS: Albumin 25% 25 GM/100 ML BOT IVPB SCH ×2 (13:01→14:48)
[2023-08-22] MEDS ORDERED: Albumin 25% 100 ML ONE (14:47)
[2023-08-22] MEDS: HumaLOG 300 UNITS/3 ML VIAL SC PRN (22:38)
[2023-08-23] MEDS: Fosphenytoin Sodium 100 MG in Sodium Chloride 0.9% 50 ML IVPB SCH ×3 (01:17→20:51)
[2023-08-23] MEDS: HumaLOG 300 UNITS/3 ML VIAL SC PRN ×3 (05:00→20:55)
[2023-08-23 05:22] LABS: Anion Gap 19 mmol/L (10-20); BUN (Urea Nitrogen) 42 mg/dL (8.4-25.7); Calc. Creatinine Clearance 33 mL/min (70-130); Calcium 9.7 mg/dL (7.8-10.44); Carbon Dioxide 26 mmol/L (23-31); Chloride 92 mmol/L (98-107); Estimated GFR 25; Glucose 216 mg/dL (83-110); Potassium 4.2 mmol/L (3.5-5.1); Sodium 133 mmol/L (136-145)
[2023-08-23] MEDS: Levothyroxine 175 MCG TAB PO SCH (05:29)
[2023-08-23] MEDS: Pseudoephedrine HCl 30 MG TAB PER TUBE SCH ×3 (05:29→17:57)
[2023-08-23] MEDS: Aspirin Chewable 81 MG TAB PO SCH (09:00)
[2023-08-23] MEDS: Pantoprazole 40 MG VIAL IVP SCH ×2 (09:00→20:31)
[2023-08-23] MEDS: Gabapentin 300 MG CAP PO SCH ×2 (09:01→20:31)
[2023-08-23] MEDS: Midodrine HCl 5 MG TAB PO SCH ×3 (09:01→20:36)
[2023-08-23] MEDS: predniSONE 20 MG TAB PER TUBE SCH (09:01)
[2023-08-23] MEDS: Cholecalciferol 1,000 UNITS (25 MCG) TAB PO SCH (09:01)
[2023-08-23] MEDS: Fludrocortisone Acetate 0.1 MG TAB PO SCH (09:01)
[2023-08-23] MEDS: Polyethylene Glycol 3350 17 GM Packet PO SCH (09:02)
[2023-08-23] MEDS: DorzolamidE/Timolol 2%/0.5% Ophth Soln 10 ml Bottle R EYE SCH ×2 (09:02→20:30)
[2023-08-23] MEDS: Heparin 5,000 UNITS/ML VIAL SC SCH ×2 (09:04→20:32)
[2023-08-23] MEDS: HumuLIN 70/30 100 Unit/ ml 10 ml Vial SC SCH ×2 (09:29→17:47)
[2023-08-24] MEDS: Pseudoephedrine HCl 30 MG TAB PER TUBE SCH ×4 (00:22→17:48)
[2023-08-24] MEDS: Levothyroxine 175 MCG TAB PO SCH (06:11)
[2023-08-24] MEDS: Midodrine HCl 5 MG TAB PO SCH ×3 (08:10→20:37)
[2023-08-24] MEDS: predniSONE 20 MG TAB PER TUBE SCH (08:10)
[2023-08-24] MEDS: Cholecalciferol 1,000 UNITS (25 MCG) TAB PO SCH (08:10)
[2023-08-24] MEDS: Gabapentin 300 MG CAP PO SCH ×2 (08:10→20:37)
[2023-08-24] MEDS: Fosphenytoin Sodium 100 MG in Sodium Chloride 0.9% 50 ML IVPB SCH ×2 (08:11→20:37)
[2023-08-24] MEDS: Fludrocortisone Acetate 0.1 MG TAB PO SCH (08:11)
[2023-08-24] MEDS: Pantoprazole 40 MG VIAL IVP SCH ×2 (08:11→20:37)
[2023-08-24] MEDS: Aspirin Chewable 81 MG TAB PO SCH (08:11)
[2023-08-24] MEDS: Polyethylene Glycol 3350 17 GM Packet PO SCH (08:11)
[2023-08-24] MEDS: Heparin 5,000 UNITS/ML VIAL SC SCH ×2 (08:12→20:38)
[2023-08-24] MEDS: DorzolamidE/Timolol 2%/0.5% Ophth Soln 10 ml Bottle R EYE SCH ×2 (08:15→20:38)
[2023-08-24] MEDS: HumuLIN 70/30 100 Unit/ ml 10 ml Vial SC SCH ×2 (08:23→16:50)
[2023-08-24] MEDS ORDERED: Heparin 10,000 UNITS/ 10 ML VIAL ONE (08:49)
[2023-08-24] MEDS ORDERED: predniSONE 5 MG TAB PER TUBE SCH (09:00)
[2023-08-24] MEDS: EPOETIN ALFA-EPBX 10,000 UNITS/ML VIAL SC SCH (09:57)
[2023-08-24] MEDS: Albumin 25% 25 GM/100 ML BOT IVPB PRN ×2 (17:06→17:49)
[2023-08-25] MEDS: Pseudoephedrine HCl 30 MG TAB PER TUBE SCH ×4 (00:35→16:45)
[2023-08-25] MEDS: Levothyroxine 175 MCG TAB PO SCH (05:14)
[2023-08-25] MEDS: HumuLIN 70/30 100 Unit/ ml 10 ml Vial SC SCH ×2 (08:00→15:45)
[2023-08-25] MEDS: Gabapentin 300 MG CAP PO SCH ×2 (08:55→21:54)
[2023-08-25] MEDS: Fludrocortisone Acetate 0.1 MG TAB PO SCH (08:55)
[2023-08-25] MEDS: predniSONE 5 MG TAB PER TUBE SCH (08:55)
[2023-08-25] MEDS: Cholecalciferol 1,000 UNITS (25 MCG) TAB PO SCH (08:55)
[2023-08-25] MEDS: Aspirin Chewable 81 MG TAB PO SCH (08:55)
[2023-08-25] MEDS: Polyethylene Glycol 3350 17 GM Packet PO SCH (08:55)
[2023-08-25] MEDS: Fosphenytoin Sodium 100 MG in Sodium Chloride 0.9% 50 ML IVPB SCH ×2 (08:55→21:54)
[2023-08-25] MEDS: Midodrine HCl 5 MG TAB PO SCH ×3 (08:55→21:53)
[2023-08-25] MEDS: Heparin 5,000 UNITS/ML VIAL SC SCH ×2 (09:00→21:55)
[2023-08-25] MEDS: Pantoprazole 40 MG VIAL IVP SCH ×2 (09:00→21:54)
[2023-08-25] MEDS: DorzolamidE/Timolol 2%/0.5% Ophth Soln 10 ml Bottle R EYE SCH ×2 (09:08→21:59)
[2023-08-25] MEDS: Ciprofloxacin 0.3% Ophth Soln 2.5 ml Bottle R EYE SCH ×3 (15:30→21:47)
[2023-08-26] MEDS: Pseudoephedrine HCl 30 MG TAB PER TUBE SCH ×4 (00:04→17:40)
[2023-08-26] MEDS: Levothyroxine 175 MCG TAB PO SCH (05:07)
[2023-08-26] MEDS: Gabapentin 300 MG CAP PO SCH ×2 (07:57→21:34)
[2023-08-26] MEDS: predniSONE 5 MG TAB PER TUBE SCH (07:58)
[2023-08-26] MEDS: Cholecalciferol 1,000 UNITS (25 MCG) TAB PO SCH (07:59)
[2023-08-26] MEDS: Aspirin Chewable 81 MG TAB PO SCH (07:59)
[2023-08-26] MEDS: Fludrocortisone Acetate 0.1 MG TAB PO SCH (07:59)
[2023-08-26] MEDS: Midodrine HCl 5 MG TAB PO SCH ×3 (07:59→21:33)
[2023-08-26] MEDS: Polyethylene Glycol 3350 17 GM Packet PO SCH (08:00)
[2023-08-26] MEDS: Heparin 5,000 UNITS/ML VIAL SC SCH ×2 (08:18→21:34)
[2023-08-26] MEDS: Pantoprazole 40 MG VIAL IVP SCH ×2 (08:19→21:32)
[2023-08-26] MEDS: DorzolamidE/Timolol 2%/0.5% Ophth Soln 10 ml Bottle R EYE SCH ×2 (08:29→21:35)
[2023-08-26] MEDS: HumuLIN 70/30 100 Unit/ ml 10 ml Vial SC SCH ×2 (08:32→16:28)
[2023-08-26] MEDS: Ciprofloxacin 0.3% Ophth Soln 2.5 ml Bottle R EYE SCH ×4 (09:22→21:34)
[2023-08-26] MEDS ORDERED: Lorazepam 2 MG/ML VIAL SLOW IVP PRN (10:41)
[2023-08-26] MEDS: Fosphenytoin Sodium 100 MG in Sodium Chloride 0.9% 50 ML IVPB SCH (10:43)
[2023-08-26] MEDS ORDERED: Heparin 10,000 UNITS/ 10 ML VIAL ONE (11:17)
[2023-08-27] MEDS: Pseudoephedrine HCl 30 MG TAB PER TUBE SCH ×5 (00:13→23:36)
[2023-08-27] MEDS: HumaLOG 300 UNITS/3 ML VIAL SC PRN ×3 (05:36→22:41)
[2023-08-27] MEDS: Levothyroxine 175 MCG TAB PO SCH (05:37)
[2023-08-27] MEDS: Heparin 5,000 UNITS/ML VIAL SC SCH ×2 (08:08→21:24)
[2023-08-27] MEDS: Aspirin Chewable 81 MG TAB PO SCH (08:08)
[2023-08-27] MEDS: Pantoprazole 40 MG VIAL IVP SCH ×2 (08:08→21:24)
[2023-08-27] MEDS: Polyethylene Glycol 3350 17 GM Packet PO SCH (08:08)
[2023-08-27] MEDS: Gabapentin 300 MG CAP PO SCH ×2 (08:08→21:25)
[2023-08-27] MEDS: predniSONE 5 MG TAB PER TUBE SCH (08:09)
[2023-08-27] MEDS: Fludrocortisone Acetate 0.1 MG TAB PO SCH (08:09)
[2023-08-27] MEDS: Cholecalciferol 1,000 UNITS (25 MCG) TAB PO SCH (08:09)
[2023-08-27] MEDS: Midodrine HCl 5 MG TAB PO SCH ×3 (08:09→21:24)
[2023-08-27] MEDS: HumuLIN 70/30 100 Unit/ ml 10 ml Vial SC SCH ×2 (08:32→16:07)
[2023-08-27] MEDS: Fosphenytoin Sodium 100 MG in Sodium Chloride 0.9% 50 ML IVPB SCH (08:33)
[2023-08-27] MEDS: DorzolamidE/Timolol 2%/0.5% Ophth Soln 10 ml Bottle R EYE SCH ×2 (08:34→21:24)
[2023-08-27] MEDS: Ciprofloxacin 0.3% Ophth Soln 2.5 ml Bottle R EYE SCH ×4 (08:34→21:24)
[2023-08-28 04:58] LABS: #Eosinphils 0.5 thou/uL (0.0-0.7); #Neutrophils 6.2 thou/uL (1.40-6.50); %Basophils 0.3 % (0.0-1.0); %Eosinophils 5.3 % (0.0-10.0); %Lymphocytes 10.3 % (21.0-51.0); %Monocytes 11.1 % (0.0-10.0); Hematocrit 23.6 % (42.0-52.0); Hemoglobin 7.5 g/dL (14.0-18.0); Mean Corpuscular HGB CONC 31.8 g/dL (32.0-36.0); Mean Corpuscular Hemoglobin 32.8 pg (27.0-31.0); Mean Corpuscular Volume 103.1 fl (78.0-98.0); Platelet Count 163 10x3/uL (130-400); RBC Distribution Width 20.4 % (11.5-14.5); Red Blood Cell (RBC) Count 2.29 mill/uL (4.70-6.10); White Blood Cell (WBC) Count 8.7 10x3/uL (4.8-10.8)
[2023-08-28 05:22] LABS: Anion Gap 19 mmol/L (10-20); BUN (Urea Nitrogen) 69 mg/dL (8.4-25.7); Calc. Creatinine Clearance 28 mL/min (70-130); Calcium 9.7 mg/dL (7.8-10.44); Carbon Dioxide 27 mmol/L (23-31); Chloride 93 mmol/L (98-107); Estimated GFR 19; Glucose 112 mg/dL (83-110); Magnesium 1.9 mg/dL (1.6-2.6); Potassium 4.2 mmol/L (3.5-5.1); Sodium 135 mmol/L (136-145)
[2023-08-28] MEDS: Levothyroxine 175 MCG TAB PO SCH (05:36)
[2023-08-28] MEDS: Pseudoephedrine HCl 30 MG TAB PER TUBE SCH ×3 (05:36→17:54)
[2023-08-28] MEDS: HumuLIN 70/30 100 Unit/ ml 10 ml Vial SC SCH ×2 (07:26→17:26)
[2023-08-28] MEDS: Midodrine HCl 5 MG TAB PO SCH ×3 (08:48→20:47)
[2023-08-28] MEDS: Cholecalciferol 1,000 UNITS (25 MCG) TAB PO SCH (08:48)
[2023-08-28] MEDS: Polyethylene Glycol 3350 17 GM Packet PO SCH (08:48)
[2023-08-28] MEDS: predniSONE 5 MG TAB PER TUBE SCH (08:48)
[2023-08-28] MEDS: Fludrocortisone Acetate 0.1 MG TAB PO SCH (08:48)
[2023-08-28] MEDS: Aspirin Chewable 81 MG TAB PO SCH (08:48)
[2023-08-28] MEDS: Gabapentin 300 MG CAP PO SCH ×2 (08:49→20:46)
[2023-08-28] MEDS: Heparin 5,000 UNITS/ML VIAL SC SCH ×2 (08:59→20:47)
[2023-08-28] MEDS: Fosphenytoin Sodium 100 MG in Sodium Chloride 0.9% 50 ML IVPB SCH (08:59)
[2023-08-28] MEDS: DorzolamidE/Timolol 2%/0.5% Ophth Soln 10 ml Bottle R EYE SCH ×2 (09:00→20:47)
[2023-08-28] MEDS: Ciprofloxacin 0.3% Ophth Soln 2.5 ml Bottle R EYE SCH ×4 (09:00→20:47)
[2023-08-28] MEDS: Pantoprazole 40 MG VIAL IVP SCH ×2 (09:01→20:46)
[2023-08-28] MEDS: HumaLOG 300 UNITS/3 ML VIAL SC PRN (22:07)
[2023-08-29] MEDS: Pseudoephedrine HCl 30 MG TAB PER TUBE SCH ×4 (00:20→17:05)
[2023-08-29] MEDS: HumaLOG 300 UNITS/3 ML VIAL SC PRN ×3 (04:40→20:18)
[2023-08-29 04:54] LABS: #Eosinphils 0.6 thou/uL (0.0-0.7); #Monocytes 1.3 thou/uL (0.11-0.59); #Neutrophils 8.9 thou/uL (1.40-6.50); %Basophils 0.3 % (0.0-1.0); %Eosinophils 4.7 % (0.0-10.0); %Lymphocytes 8.3 % (21.0-51.0); %Monocytes 10.9 % (0.0-10.0); %Neutrophils 74.5 % (42.0-75.0); Hematocrit 25.7 % (42.0-52.0); Hemoglobin 8.4 g/dL (14.0-18.0); Mean Corpuscular HGB CONC 32.7 g/dL (32.0-36.0); Mean Corpuscular Hemoglobin 32.9 pg (27.0-31.0); Mean Corpuscular Volume 100.8 fl (78.0-98.0); Mean Platelet Volume 10.3 fL (7.4-10.4); Platelet Count 167 10x3/uL (130-400); RBC Distribution Width 20.5 % (11.5-14.5); Red Blood Cell (RBC) Count 2.55 mill/uL (4.70-6.10); White Blood Cell (WBC) Count 11.9 10x3/uL (4.8-10.8)
[2023-08-29 05:25] LABS: Anion Gap 21 mmol/L (10-20); BUN (Urea Nitrogen) 85 mg/dL (8.4-25.7); Calc. Creatinine Clearance 24 mL/min (70-130); Calcium 9.8 mg/dL (7.8-10.44); Carbon Dioxide 26 mmol/L (23-31); Chloride 90 mmol/L (98-107); Estimated GFR 16; Glucose 181 mg/dL (83-110); Magnesium 1.9 mg/dL (1.6-2.6); Potassium 4.7 mmol/L (3.5-5.1); Sodium 132 mmol/L (136-145)
[2023-08-29] MEDS: Levothyroxine 175 MCG TAB PO SCH (05:33)
[2023-08-29] MEDS: Albumin 25% 25 GM/100 ML BOT IVPB PRN ×2 (09:04→09:05)
[2023-08-29] MEDS: Midodrine HCl 5 MG TAB PO SCH ×3 (09:12→20:01)
[2023-08-29] MEDS: Fludrocortisone Acetate 0.1 MG TAB PO SCH (09:12)
[2023-08-29] MEDS: Polyethylene Glycol 3350 17 GM Packet PO SCH (09:12)
[2023-08-29] MEDS ORDERED: Heparin 10,000 UNITS/ 10 ML VIAL ONE (09:15)
[2023-08-29] MEDS: Heparin 5,000 UNITS/ML VIAL SC SCH ×2 (09:16→20:02)
[2023-08-29] MEDS: Cholecalciferol 1,000 UNITS (25 MCG) TAB PO SCH (09:17)
[2023-08-29] MEDS: predniSONE 5 MG TAB PER TUBE SCH (09:17)
[2023-08-29] MEDS: Aspirin Chewable 81 MG TAB PO SCH (09:17)
[2023-08-29] MEDS: Gabapentin 300 MG CAP PO SCH ×2 (09:17→20:01)
[2023-08-29] MEDS: DorzolamidE/Timolol 2%/0.5% Ophth Soln 10 ml Bottle R EYE SCH ×2 (09:18→20:13)
[2023-08-29] MEDS: Ciprofloxacin 0.3% Ophth Soln 2.5 ml Bottle R EYE SCH ×4 (09:18→20:02)
[2023-08-29] MEDS: HumuLIN 70/30 100 Unit/ ml 10 ml Vial SC SCH ×2 (09:18→17:03)
[2023-08-29] MEDS: Pantoprazole 40 MG VIAL IVP SCH ×2 (09:23→20:05)
[2023-08-29] MEDS: Fosphenytoin Sodium 100 MG in Sodium Chloride 0.9% 50 ML IVPB SCH (09:42)
[2023-08-30] MEDS: Pseudoephedrine HCl 30 MG TAB PER TUBE SCH ×5 (00:39→23:31)
[2023-08-30 04:26] LABS: #Eosinphils 0.6 thou/uL (0.0-0.7); #Monocytes 1.1 thou/uL (0.11-0.59); #Neutrophils 5.2 thou/uL (1.40-6.50); %Basophils 0.5 % (0.0-1.0); %Eosinophils 7.8 % (0.0-10.0); %Lymphocytes 11.4 % (21.0-51.0); %Monocytes 13.9 % (0.0-10.0); %Neutrophils 65.4 % (42.0-75.0); Hematocrit 22.9 % (42.0-52.0); Hemoglobin 7.5 g/dL (14.0-18.0); Mean Corpuscular HGB CONC 32.8 g/dL (32.0-36.0); Mean Corpuscular Hemoglobin 33.8 pg (27.0-31.0); Mean Corpuscular Volume 103.2 fl (78.0-98.0); Mean Platelet Volume 9.8 fL (7.4-10.4); Platelet Count 160 10x3/uL (130-400); Red Blood Cell (RBC) Count 2.22 mill/uL (4.70-6.10); White Blood Cell (WBC) Count 7.9 10x3/uL (4.8-10.8)
[2023-08-30 04:53] LABS: Anion Gap 19 mmol/L (10-20); BUN (Urea Nitrogen) 63 mg/dL (8.4-25.7); Calc. Creatinine Clearance 28 mL/min (70-130); Calcium 9.7 mg/dL (7.8-10.44); Carbon Dioxide 26 mmol/L (23-31); Chloride 93 mmol/L (98-107); Estimated GFR 19; Glucose 149 mg/dL (83-110); Magnesium 1.9 mg/dL (1.6-2.6); Potassium 4.4 mmol/L (3.5-5.1); Sodium 134 mmol/L (136-145)
[2023-08-30 05:25] VITALS: BMI 30.9
[2023-08-30] MEDS: Levothyroxine 175 MCG TAB PO SCH (06:06)
[2023-08-30] MEDS: Fludrocortisone Acetate 0.1 MG TAB PO SCH (08:35)
[2023-08-30] MEDS: Aspirin Chewable 81 MG TAB PO SCH (08:35)
[2023-08-30] MEDS: Pantoprazole 40 MG VIAL IVP SCH ×2 (08:35→20:23)
[2023-08-30] MEDS: Midodrine HCl 5 MG TAB PO SCH ×3 (08:35→20:23)
[2023-08-30] MEDS: Cholecalciferol 1,000 UNITS (25 MCG) TAB PO SCH (08:35)
[2023-08-30] MEDS: Heparin 5,000 UNITS/ML VIAL SC SCH ×2 (08:35→20:23)
[2023-08-30] MEDS: Polyethylene Glycol 3350 17 GM Packet PO SCH (08:35)
[2023-08-30] MEDS: DorzolamidE/Timolol 2%/0.5% Ophth Soln 10 ml Bottle R EYE SCH ×2 (08:36→20:22)
[2023-08-30] MEDS: HumuLIN 70/30 100 Unit/ ml 10 ml Vial SC SCH ×2 (08:37→18:39)
[2023-08-30] MEDS: Gabapentin 300 MG CAP PO SCH ×2 (08:38→20:22)
[2023-08-30] MEDS: predniSONE 5 MG TAB PER TUBE SCH (08:39)
[2023-08-31 04:26] LABS: #Eosinphils 0.7 thou/uL (0.0-0.7); #Monocytes 1.2 thou/uL (0.11-0.59); #Neutrophils 5.2 thou/uL (1.40-6.50); %Basophils 0.5 % (0.0-1.0); %Eosinophils 8.8 % (0.0-10.0); %Lymphocytes 10.8 % (21.0-51.0); %Monocytes 14.5 % (0.0-10.0); %Neutrophils 64.4 % (42.0-75.0); Hemoglobin 7.8 g/dL (14.0-18.0); Mean Corpuscular HGB CONC 32.5 g/dL (32.0-36.0); Mean Corpuscular Hemoglobin 33.3 pg (27.0-31.0); Mean Corpuscular Volume 102.6 fl (78.0-98.0); Mean Platelet Volume 10.1 fL (7.4-10.4); Platelet Count 165 10x3/uL (130-400); RBC Distribution Width 20.8 % (11.5-14.5); Red Blood Cell (RBC) Count 2.34 mill/uL (4.70-6.10); White Blood Cell (WBC) Count 8.1 10x3/uL (4.8-10.8)
[2023-08-31 04:51] LABS: Anion Gap 21 mmol/L (10-20); BUN (Urea Nitrogen) 82 mg/dL (8.4-25.7); Calc. Creatinine Clearance 24 mL/min (70-130); Calcium 9.7 mg/dL (7.8-10.44); Carbon Dioxide 26 mmol/L (23-31); Chloride 90 mmol/L (98-107); Estimated GFR 16; Glucose 133 mg/dL (83-110); Magnesium 1.9 mg/dL (1.6-2.6); Potassium 4.9 mmol/L (3.5-5.1); Sodium 132 mmol/L (136-145)
[2023-08-31] MEDS: Pseudoephedrine HCl 30 MG TAB PER TUBE SCH ×3 (05:26→17:44)
[2023-08-31] MEDS: Levothyroxine 175 MCG TAB PO SCH (05:26)
[2023-08-31] MEDS: predniSONE 5 MG TAB PER TUBE SCH (08:20)
[2023-08-31] MEDS: Aspirin Chewable 81 MG TAB PO SCH (08:20)
[2023-08-31] MEDS: Gabapentin 300 MG CAP PO SCH ×2 (08:20→20:27)
[2023-08-31] MEDS: Midodrine HCl 5 MG TAB PO SCH ×3 (08:20→20:27)
[2023-08-31] MEDS: Cholecalciferol 1,000 UNITS (25 MCG) TAB PO SCH (08:21)
[2023-08-31] MEDS: Heparin 5,000 UNITS/ML VIAL SC SCH ×2 (08:21→20:27)
[2023-08-31] MEDS: Fludrocortisone Acetate 0.1 MG TAB PO SCH (08:21)
[2023-08-31] MEDS: Pantoprazole 40 MG VIAL IVP SCH ×2 (08:21→20:27)
[2023-08-31] MEDS: Polyethylene Glycol 3350 17 GM Packet PO SCH (08:21)
[2023-08-31] MEDS: HumuLIN 70/30 100 Unit/ ml 10 ml Vial SC SCH ×2 (08:23→17:08)
[2023-08-31] MEDS: DorzolamidE/Timolol 2%/0.5% Ophth Soln 10 ml Bottle R EYE SCH ×2 (08:23→20:28)
[2023-08-31] MEDS ORDERED: Heparin 10,000 UNITS/ 10 ML VIAL ONE (09:31)
[2023-08-31] MEDS: EPOETIN ALFA-EPBX 10,000 UNITS/ML VIAL SC SCH (10:18)
[2023-08-31] MEDS: HumaLOG 300 UNITS/3 ML VIAL SC PRN (17:08)
[2023-09-01] MEDS: Pseudoephedrine HCl 30 MG TAB PER TUBE SCH ×4 (00:18→17:56)
[2023-09-01] MEDS: Levothyroxine 175 MCG TAB PO SCH (05:29)
[2023-09-01] MEDS: Pantoprazole 40 MG VIAL IVP SCH ×2 (09:04→20:06)
[2023-09-01] MEDS: Aspirin Chewable 81 MG TAB PO SCH (09:05)
[2023-09-01] MEDS: Midodrine HCl 5 MG TAB PO SCH ×3 (09:05→20:06)
[2023-09-01] MEDS: Gabapentin 300 MG CAP PO SCH ×2 (09:05→20:06)
[2023-09-01] MEDS: predniSONE 5 MG TAB PER TUBE SCH (09:06)
[2023-09-01] MEDS: Fludrocortisone Acetate 0.1 MG TAB PO SCH (09:06)
[2023-09-01] MEDS: DorzolamidE/Timolol 2%/0.5% Ophth Soln 10 ml Bottle R EYE SCH ×2 (09:07→20:06)
[2023-09-01] MEDS: Polyethylene Glycol 3350 17 GM Packet PO SCH (09:08)
[2023-09-01] MEDS: Cholecalciferol 1,000 UNITS (25 MCG) TAB PO SCH (09:20)
[2023-09-01] MEDS: Heparin 5,000 UNITS/ML VIAL SC SCH ×2 (09:21→20:06)
[2023-09-01] MEDS: HumuLIN 70/30 100 Unit/ ml 10 ml Vial SC SCH ×2 (09:24→16:30)
[2023-09-02] MEDS: Pseudoephedrine HCl 30 MG TAB PER TUBE SCH ×4 (00:19→18:38)
[2023-09-02 04:28] LABS: #Monocytes 1.1 thou/uL (0.11-0.59); %Basophils 0.5 % (0.0-1.0); %Eosinophils 12.1 % (0.0-10.0); %Lymphocytes 12.8 % (21.0-51.0); %Monocytes 13.2 % (0.0-10.0); %Neutrophils 60.8 % (42.0-75.0); Hemoglobin 7.8 g/dL (14.0-18.0); Mean Corpuscular HGB CONC 32.5 g/dL (32.0-36.0); Mean Corpuscular Hemoglobin 32.8 pg (27.0-31.0); Mean Corpuscular Volume 100.8 fl (78.0-98.0); Mean Platelet Volume 10.5 fL (7.4-10.4); Platelet Count 171 10x3/uL (130-400); RBC Distribution Width 20.4 % (11.5-14.5); Red Blood Cell (RBC) Count 2.38 mill/uL (4.70-6.10); White Blood Cell (WBC) Count 8.3 10x3/uL (4.8-10.8)
[2023-09-02 04:52] LABS: Anion Gap 21 mmol/L (10-20); BUN (Urea Nitrogen) 84 mg/dL (8.4-25.7); Calc. Creatinine Clearance 24 mL/min (70-130); Calcium 9.6 mg/dL (7.8-10.44); Carbon Dioxide 25 mmol/L (23-31); Chloride 89 mmol/L (98-107); Estimated GFR 17; Glucose 118 mg/dL (83-110); Magnesium 1.9 mg/dL (1.6-2.6); Potassium 5.2 mmol/L (3.5-5.1); Sodium 130 mmol/L (136-145)
[2023-09-02] MEDS: Levothyroxine 175 MCG TAB PO SCH (05:41)
[2023-09-02] MEDS ORDERED: Scopolamine 1 mg/72 hour Patch TD SCH (06:00)
[2023-09-02] MEDS: HumuLIN 70/30 100 Unit/ ml 10 ml Vial SC SCH ×2 (07:28→16:26)
[2023-09-02] MEDS: DorzolamidE/Timolol 2%/0.5% Ophth Soln 10 ml Bottle R EYE SCH ×2 (07:30→20:41)
[2023-09-02] MEDS: Cholecalciferol 1,000 UNITS (25 MCG) TAB PO SCH (07:30)
[2023-09-02] MEDS: Aspirin Chewable 81 MG TAB PO SCH (07:30)
[2023-09-02] MEDS: Fludrocortisone Acetate 0.1 MG TAB PO SCH (07:30)
[2023-09-02] MEDS: Gabapentin 300 MG CAP PO SCH ×2 (07:31→21:17)
[2023-09-02] MEDS: Midodrine HCl 5 MG TAB PO SCH ×3 (07:31→21:17)
[2023-09-02] MEDS: predniSONE 5 MG TAB PER TUBE SCH (07:31)
[2023-09-02] MEDS: Pantoprazole 40 MG VIAL IVP SCH (07:32)
[2023-09-02] MEDS: Polyethylene Glycol 3350 17 GM Packet PO SCH (07:32)
[2023-09-02] MEDS: Heparin 5,000 UNITS/ML VIAL SC SCH ×2 (07:32→21:17)
[2023-09-02] MEDS ORDERED: Heparin 10,000 UNITS/ 10 ML VIAL ONE (10:33)
[2023-09-02] MEDS ORDERED: Albumin 25% 200 ML ONE (12:55)
[2023-09-02] MEDS: Albumin 25% 25 GM/100 ML BOT IVPB PRN ×2 (13:53→14:41)
[2023-09-02 15:31] VITALS: BP 109/60
[2023-09-02 21:40] VITALS: TEMP 98.3
[2023-09-03] MEDS ORDERED: Lansoprazole 15 MG/5 ML (BATCHED)UDCUP PER TUBE SCH (09:00)
[2023-09-03] MEDS ORDERED: predniSONE 5 MG TAB PER TUBE SCH (09:00)
== END 2023-09-02 21:40 | disposition short-term general hospital (02) | DRG 3 ==
LOC: ERS 19:21 → CCU 23:34 → 2NO 07-22 19:49 → CCU 07-29 08:03
PROVIDERS: ADMIT Student in an Organized Health Care Education/Training Program; ATTEND Internal Medicine
PROC: 02HK3NZ Insertion of Intracardiac Pacemaker into Right Ventricle, Percutaneous Approach (ICD-10-PCS; 2023-07-07)
PROC: 06HY33Z Insertion of Infusion Device into Lower Vein, Percutaneous Approach (ICD-10-PCS; 2023-07-13)
PROC: 30233J1 Transfusion of Nonautologous Serum Albumin into Peripheral Vein, Percutaneous Approach (ICD-10-PCS; 2023-07-13)
PROC: 4A133R1 Monitoring of Arterial Saturation, Peripheral, Percutaneous Approach (ICD-10-PCS; 2023-07-13)
PROC: 5A1D70Z Performance of Urinary Filtration, Intermittent, Less than 6 Hours Per Day (ICD-10-PCS; 2023-07-13)
PROC: 3E02340 Introduction of Influenza Vaccine into Muscle, Percutaneous Approach (ICD-10-PCS; 2023-07-13)
PROC: 5A1D70Z Performance of Urinary Filtration, Intermittent, Less than 6 Hours Per Day (ICD-10-PCS; 2023-07-14)
PROC: 037Y3ZZ Dilation of Upper Artery, Percutaneous Approach (ICD-10-PCS; 2023-07-15)
PROC: 03CY3ZZ Extirpation of Matter from Upper Artery, Percutaneous Approach (ICD-10-PCS; 2023-07-15)
PROC: B51W1ZZ Fluoroscopy of Dialysis Shunt/Fistula using Low Osmolar Contrast (ICD-10-PCS; 2023-07-15)
PROC: 3E03317 Introduction of Other Thrombolytic into Peripheral Vein, Percutaneous Approach (ICD-10-PCS; 2023-07-15)
PROC: 5A1D70Z Performance of Urinary Filtration, Intermittent, Less than 6 Hours Per Day (ICD-10-PCS; 2023-07-16)
PROC: 3E033XZ Introduction of Vasopressor into Peripheral Vein, Percutaneous Approach (ICD-10-PCS; 2023-07-17)
PROC: 5A1D70Z Performance of Urinary Filtration, Intermittent, Less than 6 Hours Per Day (ICD-10-PCS; 2023-07-17)
PROC: 5A1D70Z Performance of Urinary Filtration, Intermittent, Less than 6 Hours Per Day (ICD-10-PCS; 2023-07-18)
PROC: 5A1D70Z Performance of Urinary Filtration, Intermittent, Less than 6 Hours Per Day (ICD-10-PCS; 2023-07-19)
PROC: 5A1D70Z Performance of Urinary Filtration, Intermittent, Less than 6 Hours Per Day (ICD-10-PCS; 2023-07-20)
PROC: 5A1D70Z Performance of Urinary Filtration, Intermittent, Less than 6 Hours Per Day (ICD-10-PCS; 2023-07-21)
PROC: 5A1D70Z Performance of Urinary Filtration, Intermittent, Less than 6 Hours Per Day (ICD-10-PCS; 2023-07-22)
PROC: 5A1D70Z Performance of Urinary Filtration, Intermittent, Less than 6 Hours Per Day (ICD-10-PCS; 2023-07-23)
PROC: 5A1D70Z Performance of Urinary Filtration, Intermittent, Less than 6 Hours Per Day (ICD-10-PCS; 2023-07-24)
PROC: 5A1D70Z Performance of Urinary Filtration, Intermittent, Less than 6 Hours Per Day (ICD-10-PCS; 2023-07-26)
PROC: 5A1D70Z Performance of Urinary Filtration, Intermittent, Less than 6 Hours Per Day (ICD-10-PCS; 2023-07-28)
PROC: 5A12012 Performance of Cardiac Output, Single, Manual (ICD-10-PCS; principal; 2023-07-29)
PROC: 0BH17EZ Insertion of Endotracheal Airway into Trachea, Via Natural or Artificial Opening (ICD-10-PCS; 2023-07-29)
PROC: 5A1955Z Respiratory Ventilation, Greater than 96 Consecutive Hours (ICD-10-PCS; 2023-07-29)
PROC: 5A1D70Z Performance of Urinary Filtration, Intermittent, Less than 6 Hours Per Day (ICD-10-PCS; 2023-07-31)
PROC: 5A1D70Z Performance of Urinary Filtration, Intermittent, Less than 6 Hours Per Day (ICD-10-PCS; 2023-08-02)
PROC: 5A1D70Z Performance of Urinary Filtration, Intermittent, Less than 6 Hours Per Day (ICD-10-PCS; 2023-08-04)
PROC: 5A1D70Z Performance of Urinary Filtration, Intermittent, Less than 6 Hours Per Day (ICD-10-PCS; 2023-08-04)
PROC: 5A1D70Z Performance of Urinary Filtration, Intermittent, Less than 6 Hours Per Day (ICD-10-PCS; 2023-08-06)
PROC: 5A1D70Z Performance of Urinary Filtration, Intermittent, Less than 6 Hours Per Day (ICD-10-PCS; 2023-08-08)
PROC: 30233N1 Transfusion of Nonautologous Red Blood Cells into Peripheral Vein, Percutaneous Approach (ICD-10-PCS; 2023-08-09)
PROC: 5A1D70Z Performance of Urinary Filtration, Intermittent, Less than 6 Hours Per Day (ICD-10-PCS; 2023-08-10)
PROC: 0B110F4 Bypass Trachea to Cutaneous with Tracheostomy Device, Open Approach (ICD-10-PCS; 2023-08-12)
PROC: 0DH63UZ Insertion of Feeding Device into Stomach, Percutaneous Approach (ICD-10-PCS; 2023-08-12)
PROC: 5A1D70Z Performance of Urinary Filtration, Intermittent, Less than 6 Hours Per Day (ICD-10-PCS; 2023-08-12)
PROC: 5A1D70Z Performance of Urinary Filtration, Intermittent, Less than 6 Hours Per Day (ICD-10-PCS; 2023-08-13)
PROC: 5A1D70Z Performance of Urinary Filtration, Intermittent, Less than 6 Hours Per Day (ICD-10-PCS; 2023-08-14)
PROC: 5A1D70Z Performance of Urinary Filtration, Intermittent, Less than 6 Hours Per Day (ICD-10-PCS; 2023-08-16)
PROC: 5A1D70Z Performance of Urinary Filtration, Intermittent, Less than 6 Hours Per Day (ICD-10-PCS; 2023-08-18)
PROC: 5A1D70Z Performance of Urinary Filtration, Intermittent, Less than 6 Hours Per Day (ICD-10-PCS; 2023-08-20)
PROC: 5A1D70Z Performance of Urinary Filtration, Intermittent, Less than 6 Hours Per Day (ICD-10-PCS; 2023-08-22)
PROC: 5A1D70Z Performance of Urinary Filtration, Intermittent, Less than 6 Hours Per Day (ICD-10-PCS; 2023-08-24)
PROC: 5A1D70Z Performance of Urinary Filtration, Intermittent, Less than 6 Hours Per Day (ICD-10-PCS; 2023-08-26)
PROC: 5A1D70Z Performance of Urinary Filtration, Intermittent, Less than 6 Hours Per Day (ICD-10-PCS; 2023-08-29)
DX: S14.155A Other incomplete lesion at C5 level of cervical spinal cord, initial encounter (principal); N18.6 End stage renal disease; E03.5 Myxedema coma; G92.8 Other toxic encephalopathy; I50.33 Acute on chronic diastolic (congestive) heart failure; J96.01 Acute respiratory failure with hypoxia; R57.8 Other shock; I46.8 Cardiac arrest due to other underlying condition; R57.0 Cardiogenic shock; I21.4 Non-ST elevation (NSTEMI) myocardial infarction; E87.0 Hyperosmolality and hypernatremia; Z94.0 Kidney transplant status; E87.20 Acidosis, unspecified; I13.2 Hypertensive heart and chronic kidney disease with heart failure and with stage 5 chronic kidney disease, or end stage renal disease; G93.1 Anoxic brain damage, not elsewhere classified; E87.3 Alkalosis; E87.1 Hypo-osmolality and hyponatremia; J98.11 Atelectasis; T82.868A Thrombosis due to vascular prosthetic devices, implants and grafts, initial encounter; N17.9 Acute kidney failure, unspecified; I47.20 Ventricular tachycardia, unspecified; Z51.5 Encounter for palliative care; S14.0XXA Concussion and edema of cervical spinal cord, initial encounter; E11.22 Type 2 diabetes mellitus with diabetic chronic kidney disease; E03.9 Hypothyroidism, unspecified; R53.81 Other malaise; R53.1 Weakness; I95.9 Hypotension, unspecified; G47.33 Obstructive sleep apnea (adult) (pediatric); E78.00 Pure hypercholesterolemia, unspecified; E78.5 Hyperlipidemia, unspecified; M48.02 Spinal stenosis, cervical region; R00.1 Bradycardia, unspecified; I25.10 Atherosclerotic heart disease of native coronary artery without angina pectoris; I45.81 Long QT syndrome; D63.1 Anemia in chronic kidney disease; Z86.73 Personal history of transient ischemic attack (TIA), and cerebral infarction without residual deficits; Z88.0 Allergy status to penicillin; Z88.5 Allergy status to narcotic agent; Z99.2 Dependence on renal dialysis; Z79.899 Other long term (current) drug therapy; Z79.82 Long term (current) use of aspirin; Z79.890 Hormone replacement therapy; Z79.84 Long term (current) use of oral hypoglycemic drugs; Z79.4 Long term (current) use of insulin; Z98.890 Other specified postprocedural states
CPT/HCPCS: 0042T; 33210; 33274; 36415; 36416; 36430; 36556; 36600; 36901; 36905; 70450; 70496; 70498; 71045; 71260; 72125; 72141; 74177; 78610; 80048; 80053; 80061; 80185; 80307; 80400; 82040; 82533; 82550; 82805; 83605; 83690; 83735; 83880; 84146; 84439; 84443; 84481; 84484; 85025; 85610; 85730; 86706; 86850; 86900; 86901; 87040; 87340; 90471; 90694; 90935; 93005; 93010; 93306; 93603; 94002; 94003; 94640; 94660; 95711; 95816; 95819; 95957; 96361; 96374; 97139; A9521; C1725; C1757; C1760; C1769; C1887; C1894; C9113; G0008; G0257; J0171; J0282; J0283; J0744; J0834; J1265; J1580; J1611; J1642; J1644; J1720; J1815; J2001; J2060; J2250; J2405; J2765; J3010; J3490; J7030; J7042; J7050; J7070; J7120; J7512; J7611; J7999; L0174; P9016; P9047; Q2009; Q4081; Q5106; Q9967